=== PATIENT | male | born 1960 | race Caucasian/White ===

== ENCOUNTER 2016-10-11 10:55 | Emergency (ER) | payer MEDICAID, OTHER ==
[~2016-10-11 10:55] MED LIST: AMLO10TA2 PO; ASPI81TA85 PO; ATOR1TAB18 PO; ATOR1TAB21 PO; CEPH500C PO; CLEO300C2 PO; CLOP75TA2 PO; FOLI1TAB2 PO; HYDR10TAB PO; ISOS10TAB PO; KEFL500C7 PO; LOSA100T36 PO; NEUR300C PO; OMEP40CA2 PO; OXYC1TAB23 PO; SERT-138 PO; SERT-141 PO; TIZA4CAP3 PO; TRAM50TA2 PO; VITA50003 PO
[2016-10-11] MEDS ORDERED: CLINDAMYCIN 600 MG/50 ML PREMIX BAG As Ordered ONE (13:09)
[2016-10-11] MEDS ORDERED: MORPHINE 4 MG/ML 1ML SYRINGE As Ordered ONE (13:09)
--- NOTE | 2016-10-11 13:30 | REP ---
LEFT LOWER EXTREMITY DUPLEX VEINS: HISTORY: Calf pain. There are no filling defects in the deep venous system. The deep venous system is patent. IMPRESSION: There is no deep venous thrombosis. Signed by Bill Cantu MD 10/11/2016 01:43 P
[2016-10-11 13:32] LABS: BASO % 0.2 % (0.0-1.0); EOS # 0.1 K/mm3 (0.0-0.50); EOS % 0.5 % (0.0-3.0); LARGE UNSTAINED CELL # 0.2 K/mm3 (0.0-0.4); LARGE UNSTAINED CELL % 1.4 % (0.0-4.0); LYMPH # 1.4 K/mm3 (1.5-4.5); LYMPH % 9.8 % (24.0-44.0); MEAN CORPUSCULAR HEMOGLOBIN 35.9 pg (27.0-33.0); MEAN CORPUSCULAR HGB CONC 34.3 g/dl (32.0-36.5); MEAN CORPUSCULAR VOLUME 104.7 fl (80.0-96.0); MONO # 0.8 K/mm3 (0.0-0.8); MONO % 5.7 % (0.0-5.0); NEUTROPHILS # 11.5 K/mm3 (1.8-7.7); NEUTROPHILS % 82.5 % (36.0-66.0); PLATELET COUNT, AUTOMATED 124 k/mm3 (150-450); RED CELL DISTRIBUTION WIDTH 12.5 % (11.5-14.5); WHITE BLOOD COUNT 13.9 K/mm3 (4.0-10.0)
[2016-10-11 13:38] LABS: ANION GAP 7 MEQ/L (8-16); BLOOD UREA NITROGEN 13 MG/DL (7-18); CALCIUM LEVEL 9.1 MG/DL (8.5-10.1); CARBON DIOXIDE LEVEL 27 MEQ/L (21-32); CHLORIDE LEVEL 107 MEQ/L (98-107); CREATININE FOR GFR 0.89 MG/DL (0.70-1.30); GLOMERULAR FILTRATION RATE > 60.0 (>56); GLUCOSE, FASTING 103 MG/DL (70-105); POTASSIUM SERUM 4.1 MEQ/L (3.5-5.1); SODIUM LEVEL 141 MEQ/L (136-145)
--- NOTE | 2016-10-11 14:09 | REP ---
Left foot four views: Comparison is 11/09/2015. Mineralization and joint spaces are normal for patient age. There is no fracture or dislocation. No calcifications or foreign bodies. There is a calcaneal plantar spur measuring 9 mm length, unchanged from the prior study. Impression: Negative left foot except for a calcaneal plantar spur, unchanged. Signed by Jose Lora MD 10/11/2016 02:01 P
[2016-10-11 14:11] LABS: ERYTHROCYTE SEDIMENTATION RATE 30 mm/hr (0-20)
[2016-10-11] MEDS ORDERED: HYDROmorphone HCL 1 MG/ML SYRINGE (J1170) As Ordered ONE (14:33)
--- NOTE | 2016-10-11 15:02 | EDDOCDS ---
Nurse's Notes [facility] Name: Rustam Rincon Age: 55 yrs Sex: Male : 1960 Arrival Date: 10/11/2016 Time: 10:55 Bed I4 / M4 Private MD: Shawna Kirkland C Diagnosis: Pain in left foot;Cellulitis of left lower limb;Thrombocytopenia, unspecified Presentation: 10/11 11:17 Presenting complaint: Patient states: since Saturday left knee and left foot pain, denies kpj injury. States left foot beet red. Adult Sepsis Screening: The patient does not have new or worsening altered mentation. Patient's respiratory rate is less than 22. Systolic blood pressure is greater than 100. Patient has a qSOFA score of 0- Negative Sepsis Screen. Suicide/Homicide risk assessment- the patient denies having any suicidal and/or homicidal ideations and does not present with any other emotional, behavioral or mental health complaints. Status: Patient is not a service desk technician or dependent. Transition of care: patient was not received from another setting of care. 11:17 Acuity: DOMENIC Level 3 [facility] 11:17 Method Of Arrival: Walkin/Carried/Asstd kp Triage Assessment: 11:24 General: Appears uncomfortable, Behavior is appropriate for age. Pain: Location: left kpj knee left foot Pain currently is 10 out of 10 on a pain scale. HIV screening NA for this visit Offered previously. Neurological: Level of Consciousness is awake, alert, Oriented to person, place, time. Respiratory: Airway is patent Respiratory effort is even, unlabored. Derm: Skin is pink, warm & dry. Musculoskeletal: Reports pain in left knee and dorsum of left foot Pain is 10 out of 10 on a pain scale. Historical: - Allergies: Ciprofloxacin (Swelling); - Home Meds: 1. omeprazole 40 mg Oral cpDR 1 cap nightly (Last dose: 10/10/2016) 2. Vitamin D2 50,000 unit oral cap once wkly 3. clopidogrel 75 mg oral tab 1 tab once daily (Last dose: 10/11/2016 10:00) 4. folic acid 1 mg Oral tab 1 tab once daily (Last dose: 10/11/2016 10:00) 5. Sertraline 100 mg daily (Last dose: 10/11/2016 10:00) 6. amlodipine 10 mg Oral tab 1 tab once daily (Last dose: 10/11/2016 10:00) 7. isosorbide mononitrate 10 mg Oral tab 1 tab 2 times per day (Last dose: 10/11/2016 10:00) 8. hydralazine 10 mg Oral tab 1 tab 2 times per day (Last dose: 10/11/2016 10:00) 9. allopurinol 100 mg Oral tab 1 tab once daily (Last dose: 10/10/2016) 10. losartan 100 mg oral tab 1 tab nightly (Last dose: 10/10/2016) 11. atorvastatin 80 mg oral tab 1 tab nightly (Last dose: 10/10/2016) 12. aspirin 81 mg oral TbEC 1 tab nightly (Last dose: 10/10/2016) 13. tizanidine 4 mg oral tab as neeed (Last dose: Unknown) - PMHx: Alcoholism; Depression; GERD; Hypercholesterolemia; Hypertension; Right Carotid Total Occlusion; - PSHx: right elbow; left knee; left wrist; bilateral index finger surgeries; - Social history: Smoking status: Patient uses tobacco products, light tobacco smoker. No barriers to communication noted, The patient speaks fluent Kiswahili. - Family history: Not pertinent. - : The pt / caregiver states he / she is on anticoagulants: Plavix. Home medication list is obtained from the patient. - Exposure Risk Screening:: None identified. Screenin:07 Screening information is obtained from the patient. Fall risk: No risks identified. rs3 Assistance ADL's: requires no assistance with activities of daily living. Abuse/DV Screen: The patient / caregiver reports he/she is: not in a situation that causes fear, pain or injury. Nutritional screening: No deficits noted. Advance Directives: Currently, there is no health care proxy. There is no active DNR order. home support is adequate. Assessment: 13:03 General: Appears in no apparent distress, Behavior is appropriate for age, cooperative. rs3 Pain: Location: lateral aspect of left knee, medial aspect of left knee, anterior aspect of left ankle and dorsum of left foot. Neurological: Level of Consciousness is awake, alert, Oriented to person, place, time. Respiratory: Airway is patent Respiratory effort is even, unlabored. Derm: erythema on left foot dorsal , medial and lateral aspects. pedal pulses non palpable. patient states that pedal pulses per Doppler only h/o small vessel disease/peripheral neuropathy. dorsalis pedis +2 Swollen area noted. 14:11 General: Appears in no apparent distress, patient ambulating in room without rs3 difficulty. ordered med given. family at bedside. resting comfortable on stretcher. 14:37 Reassessment: Patient appears in no apparent distress at this time. Pain: Location: kr3 dorsum of left foot Pain currently is 10 out of 10 on a pain scale. Respiratory: Respiratory effort is even, unlabored. Derm: Skin is normal. 15:01 Reassessment: Patient appears in no apparent distress at this time. Pain: Location: kr3 dorsum of left foot Pain currently is 8 out of 10 on a pain scale. Respiratory: Respiratory effort is even, unlabored. Derm: Skin is normal. Vital Signs: 10:57 BP 115 / 73; Pulse 98; Resp 18; Temp 99.7(O); Pulse Ox 99% on R/A; Weight 72.57 kg (R); elp Height 5 ft. 4 in. (162.56 cm) (R); 14:13 BP 150 / 82; Pulse 89; Resp 18; Temp 99.1(TE); Pulse Ox 98% on R/A; Pain 10/10; nb2 14:49 BP 115 / 70; Pulse 86; Resp 16; Temp 97.5(T); Pulse Ox 93% ; Pain 8/10; kr3 10:57 Body Mass Index 27.46 (72.57 kg, 162.56 cm) [facility] Vitals: 10:57 Log In Time: October 11, 2016 at 10:51. el ED Course: 10:57 Patient visited by Joellen Castellon PCA. elp 10:57 Shawna Kirkland is Private Physician. elp 10:57 Patient visited by Joellen Castellon PCA. elp 10:57 Patient moved to Waiting elp 10:57 Patient moved to Pre RCE elp 11:19 Triage Initiated kp 12:10 Patient moved to Triage 1 dsf 12:28 [facility] dt4 12:28 Sharon Osborn MD is Attending Physician. dt4 12:28 Patient visited by Caitlyn Falk PA-C. dt4 12:43 Patient moved to I4 / M4 dsf 13:02 Patient moved to Ultrasound sm5 13:02 CBC with Diff Sent. rs3 13:02 Basic Metabolic Profile Sent. rs3 13:02 CRP Sent. rs3 13:02 Sed Rate Sent. rs3 13:03 Uric Acid Sent. rs3 13:07 Inserted saline lock: 20 gauge in right antecubital area and blood collected. The rs3 patient tolerated the procedure well. 13:08 [facility] Payment Agreement was scanned into [employer] and attached to record. lg 13:16 Patient moved to I4 / M4 sm5 13:27 Patient visited by Millicent Ramirez RN. rs3 14:06 US Lower Extremity R/O DVT Returned. EDMS 14:11 Patient visited by Millicent Ramirez RN. rs3 14:13 Patient visited by Leticia Oconnor. nb2 14:20 The patient / caregiver is instructed regarding the plan of care and ED course. kr3 Accompanied by Family Member, Patient has correct armband on for positive identification. Bed in low position. Call light in reach. Side rails up X 1. 14:38 Patient visited by Cat Sahu RN. kr3 14:38 No procedures done that require assistance. kr3 14:51 Shawna Kirkland is Referral Physician. dt4 14:55 Foot, Complete Returned. EDMS 15:00 Discontinued lock intact, bleeding controlled, pressure dressing applied, No kr3 redness/swelling at site. Administered Medications: 13:28 Drug: morphine 4 mg [morphine 4 mg/mL intravenous cartridge (1 mL)] Route: IVP; Site: rs3 right antecubital; 13:28 Drug: Clindamycin 600 mg Route: IVPB; Infused Over: 30 mins; Site: right antecubital; rs3 14:37 Follow up: IV Status: Completed infusion kr3 14:37 Drug: Dilaudid - HYDROmorphone 1 mg [hydromorphone 1 mg/mL injection syringe (1 mL)] kr3 Route: IVP; Site: right antecubital; 14:49 Follow up: BP 115 / 70; Pulse 86 bpm; Resp 16 bpm; Temp 97.5 Tympanic; Pulse Ox 93% ; kr3 Pain 8/10 Adult; Response: Pain is decreased Order Results: Lab Order: CBC with Diff; SPEC'M 10/11/16 13:00 Test: WHITE BLOOD COUNT; Value: 13.9; Range: 4.0-10.0; Abnormal: Above high normal; Units: K/mm3; Status: F Test: RED BLOOD COUNT; Value: 3.84; Range: 4.30-6.10; Abnormal: Below low normal; Units: M/mm3; Status: F Test: HEMOGLOBIN; Value: 13.8; Range: 14.0-18.0; Abnormal: Below low normal; Units: g/dl; Status: F Test: HEMATOCRIT; Value: 40.2; Range: 42.0-52.0; Abnormal: Below low normal; Units: %; Status: F Test: MEAN CORPUSCULAR VOLUME; Value: 104.7; Range: 80.0-96.0; Abnormal: Above high normal; Units: fl; Status: F Test: MEAN CORPUSCULAR HEMOGLOBIN; Value: 35.9; Range: 27.0-33.0; Abnormal: Above high normal; Units: pg; Status: F Test: MEAN CORPUSCULAR HGB CONC; Value: 34.3; Range: 32.0-36.5; Units: g/dl; Status: F Test: RED CELL DISTRIBUTION WIDTH; Value: 12.5; Range: 11.5-14.5; Units: %; Status: F Test: PLATELET COUNT, AUTOMATED; Value: 124; Range: 150-450; Abnormal: Below low normal; Units: k/mm3; Status: F Test: NEUTROPHILS %; Value: 82.5; Range: 36.0-66.0; Abnormal: Above high normal; Units: %; Status: F Test: LYMPH %; Value: 9.8; Range: 24.0-44.0; Abnormal: Below low normal; Units: %; Status: F Test: MONO %; Value: 5.7; Range: 0.0-5.0; Abnormal: Above high normal; Units: %; Status: F Test: EOS %; Value: 0.5; Range: 0.0-3.0; Units: %; Status: F Test: BASO %; Value: 0.2; Range: 0.0-1.0; Units: %; Status: F Test: LARGE UNSTAINED CELL %; Value: 1.4; Range: 0.0-4.0; Units: %; Status: F Test: NEUTROPHILS #; Value: 11.5; Range: 1.8-7.7; Abnormal: Above high normal; Units: K/mm3; Status: F Test: LYMPH #; Value: 1.4; Range: 1.5-4.5; Abnormal: Below low normal; Units: K/mm3; Status: F Test: MONO #; Value: 0.8; Range: 0.0-0.8; Units: K/mm3; Status: F Test: EOS #; Value: 0.1; Range: 0.0-0.50; Units: K/mm3; Status: F Test: BASO #; Value: 0.0; Range: 0.0-0.2; Units: K/mm3; Status: F Test: LARGE UNSTAINED CELL #; Value: 0.2; Range: 0.0-0.4; Units: K/mm3; Status: F Lab Order: Basic Metabolic Profile; [facility] 10/11/16 13:00 Test: GLUCOSE, FASTING; Value: 103; Range: 70-105; Units: MG/DL; Status: F Test: BLOOD UREA NITROGEN; Value: 13; Range: 7-18; Units: MG/DL; Status: F Test: CREATININE FOR GFR; Value: 0.89; Range: 0.70-1.30; Units: MG/DL; Status: F Test: GLOMERULAR FILTRATION RATE; Value: > 60.0; Range: >56; Status: F Test: SODIUM LEVEL; Value: 141; Range: 136-145; Units: MEQ/L; Status: F Test: POTASSIUM SERUM; Value: 4.1; Range: 3.5-5.1; Units: MEQ/L; Status: F Test: CHLORIDE LEVEL; Value: 107; Range: 98-107; Units: MEQ/L; Status: F Test: CARBON DIOXIDE LEVEL; Value: 27; Range: 21-32; Units: MEQ/L; Status: F Test: ANION GAP; Value: 7; Range: 8-16; Abnormal: Below low normal; Units: MEQ/L; Status: F Test: CALCIUM LEVEL; Value: 9.1; Range: 8.5-10.1; Units: MG/DL; Status: F Test Note: ; Units are mL/min/1.73 m2 Chronic Kidney Disease Staging per NKF: Stage I & II GFR >=60 Normal to Mildly Decreased Stage III GFR 30-59 Moderately Decreased Stage IV GFR 15-29 Severely Decreased Stage V GFR <15 Very Little GFR Left ESRD GFR <15 on RETINA SUBSPECIALIST Lab Order: CRP; [facility] 10/11/16 13:00 Test: C REACTIVE PROTEIN QUANTITATIV; Value: 3.46; Range: 0.00-0.30; Abnormal: Above high normal; Units: MG/DL; Status: F Lab Order: Sed Rate; [facility] 10/11/16 13:00 Test: ERYTHROCYTE SEDIMENTATION RATE; Value: 30; Range: 0-20; Abnormal: Above high normal; Units: mm/hr; Status: F Lab Order: Uric Acid; [facility] 10/11/16 13:00 Test: URIC ACID; Value: 5.0; Range: 3.5-7.2; Units: MG/DL; Status: F Radiology Order: US Lower Extremity R/O DVT Test: US Lower Extremity R/O DVT REASON FOR EXAMINATION: LEFT FOOT/CALF PAIN; LEFT LOWER EXTREMITY DUPLEX VEINS:; ; HISTORY: Calf pain.; ; There are no filling defects in the deep venous system. The deep venous system is; patent.; ; IMPRESSION:; ; There is no deep venous thrombosis.; ; ; Signed by; Bill Cantu MD 10/11/2016 01:43 P; Radiology Order: Foot, Complete Test: Foot, Complete REASON FOR EXAMINATION: LEFT FOOT PAIN; Left foot four views:; ; Comparison is 11/09/2015.; ; Mineralization and joint spaces are normal for patient age. There is no fracture; or dislocation. No calcifications or foreign bodies.; ; There is a calcaneal plantar spur measuring 9 mm length, unchanged from the prior; study.; ; Impression:; ; Negative left foot except for a calcaneal plantar spur, unchanged.; ; ; Signed by; Jose Lora MD 10/11/2016 02:01 P; Outcome: 14:20 Ultrasound Study completed. kr3 14:52 Discharge ordered by Provider. dt4 15:00 Discharge Assessment: patient administered narcotics - yes. Pt provided with safe kr3 discharge. The following High Risk Discharge criteria are identified: None. Discharged to home via wheelchair. Condition: stable. Discharge instructions given to patient, Instructed on discharge instructions, follow up and referral plans. medication usage, no driving heavy equipment, no drinking with medication, Demonstrated understanding of instructions, medications, Pt was receptive of discharge instructions/ teaching. Prescriptions given X 2. Property sent home with patient. 15:01 Patient left the ED. kr3 Signatures: Dispatcher [employer] EDMS Opal Bradley, RN RN kpj Devin Villegas, Reg Reg lg Luz Maria Carmona sm5 Cat Sahu RN RN kr3 Millicent RamirezRN RN rs3 Gabriella Lawson,RN RN dsf Joellen Castellon, INFORMATION COORDINATOR INFORMATION COORDINATOR brittonp Caitlyn Falk, PA-C PA-C dt4 Leticia Oconnor2 OSKAR
--- NOTE | 2016-10-11 15:02 | EDDOCDS ---
Physician Documentation [facility] Name: Rustam Rincon Age: 55 yrs Sex: Male : 1960 Arrival Date: 10/11/2016 Time: 10:55 Bed I4 / M4 Private MD: Shawna Kirkland C Disposition: 10/11/16 14:52 Discharged to Home/Self Care. Impression: Pain in left foot, Cellulitis of left lower limb, Thrombocytopenia, unspecified. - Condition is Stable. - Discharge Instructions: Cellulitis, Thrombocytopenia. - Prescriptions for Clindamycin HCl 300 mg Oral Capsule - take 1 capsule by ORAL route every 6 hours; 40 capsule. Percocet 5- 325 mg Oral Tablet - take 1 tablet by ORAL route every 6 hours As needed MDD: 4 tabs; 15 tablet. - Medication Reconciliation, Local Pharmacy Hours form. - Follow up: Emergency Department; When: As needed; Reason: Worsening of conditions. Follow up: Shawna Kirkland; When: 2 - 3 days; Reason: Wound/Symptom Recheck, Recheck today's complaints, Continuance of care. - Problem is new. - Symptoms have improved. Historical: - Allergies: Ciprofloxacin (Swelling); - Home Meds: 1. omeprazole 40 mg Oral cpDR 1 cap nightly (Last dose: 10/10/2016) 2. Vitamin D2 50,000 unit oral cap once wkly 3. clopidogrel 75 mg oral tab 1 tab once daily (Last dose: 10/11/2016 10:00) 4. folic acid 1 mg Oral tab 1 tab once daily (Last dose: 10/11/2016 10:00) 5. Sertraline 100 mg daily (Last dose: 10/11/2016 10:00) 6. amlodipine 10 mg Oral tab 1 tab once daily (Last dose: 10/11/2016 10:00) 7. isosorbide mononitrate 10 mg Oral tab 1 tab 2 times per day (Last dose: 10/11/2016 10:00) 8. hydralazine 10 mg Oral tab 1 tab 2 times per day (Last dose: 10/11/2016 10:00) 9. allopurinol 100 mg Oral tab 1 tab once daily (Last dose: 10/10/2016) 10. losartan 100 mg oral tab 1 tab nightly (Last dose: 10/10/2016) 11. atorvastatin 80 mg oral tab 1 tab nightly (Last dose: 10/10/2016) 12. aspirin 81 mg oral TbEC 1 tab nightly (Last dose: 10/10/2016) 13. tizanidine 4 mg oral tab as neeed (Last dose: Unknown) - PMHx: Alcoholism; Depression; GERD; Hypercholesterolemia; Hypertension; Right Carotid Total Occlusion; - PSHx: right elbow; left knee; left wrist; bilateral index finger surgeries; - Social history: Smoking status: Patient uses tobacco products, light tobacco smoker. No barriers to communication noted, The patient speaks fluent Croatian. - Family history: Not pertinent. - : The pt / caregiver states he / she is on anticoagulants: Plavix. Home medication list is obtained from the patient. - Exposure Risk Screening:: None identified. Vital Signs: 10/11 10:57 BP 115 / 73; Pulse 98; Resp 18; Temp 99.7(O); Pulse Ox 99% on R/A; Weight 72.57 kg / elp 159.99 lbs (R); Height 5 ft. 4 in. (162.56 cm) (R); 14:13 BP 150 / 82; Pulse 89; Resp 18; Temp 99.1(TE); Pulse Ox 98% on R/A; Pain 10/10; nb2 14:49 BP 115 / 70; Pulse 86; Resp 16; Temp 97.5(T); Pulse Ox 93% ; Pain 8/10; kr3 10:57 Body Mass Index 27.46 (72.57 kg, 162.56 cm) elp MDM: 12:46 IV Saline Lock ordered. dt4 12:46 morphine 4 mg IVP once ordered. dt4 12:48 CBC with Diff Ordered. EDMS 12:48 Basic Metabolic Profile Ordered. EDMS 12:48 CRP Ordered. EDMS 12:48 Sed Rate Ordered. EDMS 12:48 Uric Acid Ordered. EDMS 12:48 US Lower Extremity R/O DVT Ordered. EDMS 12:48 Foot, Complete Ordered. EDMS 12:49 Financial registration complete. lg 12:50 Clindamycin 600 mg IVPB once over 30 mins; dilute in 50mL of NS or D5W ordered. dt4 13:08 [facility] Payment Agreement was scanned into [employer] and attached to record. lg 14:23 Dilaudid - HYDROmorphone 1 mg IVP once ordered. dt4 Administered Medications: 13:28 Drug: morphine 4 mg [morphine 4 mg/mL intravenous cartridge (1 mL)] Route: IVP; Site: rs3 right antecubital; 13:28 Drug: Clindamycin 600 mg Route: IVPB; Infused Over: 30 mins; Site: right antecubital; rs3 14:37 Follow up: IV Status: Completed infusion kr3 14:37 Drug: Dilaudid - HYDROmorphone 1 mg [hydromorphone 1 mg/mL injection syringe (1 mL)] kr3 Route: IVP; Site: right antecubital; 14:49 Follow up: BP 115 / 70; Pulse 86 bpm; Resp 16 bpm; Temp 97.5 Tympanic; Pulse Ox 93% ; kr3 Pain 8/10 Adult; Response: Pain is decreased Signatures: Dispatcher [employer] EDMS Opal Bradley RN RN kpj Devin Villegas, Reg Reg lg Cat Sahu RN RN kr3 Caitlyn Falk PA-C PA-C dt4 Millicent Ramirez RN rs3 The chart was reviewed and I authenticate all verbal orders and agree with the evaluation and treatment provided.Attachments: 13:08 [facility] Payment Agreement lg MTDD
--- NOTE | 2016-10-13 16:02 | EDDOCDS ---
Nurse's Notes [facility] Name: Rustam Rincon Age: 55 yrs Sex: Male : 1960 Arrival Date: 10/11/2016 Time: 10:55 Bed I4 / M4 Private MD: Shawna Kirkland C Diagnosis: Pain in left foot;Cellulitis of left lower limb;Thrombocytopenia, unspecified Presentation: 10/11 11:17 Presenting complaint: Patient states: since Saturday left knee and left foot pain, denies kpj injury. States left foot beet red. Adult Sepsis Screening: The patient does not have new or worsening altered mentation. Patient's respiratory rate is less than 22. Systolic blood pressure is greater than 100. Patient has a qSOFA score of 0- Negative Sepsis Screen. Suicide/Homicide risk assessment- the patient denies having any suicidal and/or homicidal ideations and does not present with any other emotional, behavioral or mental health complaints. Status: Patient is not a financial services agent or dependent. Transition of care: patient was not received from another setting of care. 11:17 Acuity: DOMENIC Level 3 [facility] 11:17 Method Of Arrival: Walkin/Carried/Asstd kp Triage Assessment: 11:24 General: Appears uncomfortable, Behavior is appropriate for age. Pain: Location: left kpj knee left foot Pain currently is 10 out of 10 on a pain scale. HIV screening NA for this visit Offered previously. Neurological: Level of Consciousness is awake, alert, Oriented to person, place, time. Respiratory: Airway is patent Respiratory effort is even, unlabored. Derm: Skin is pink, warm & dry. Musculoskeletal: Reports pain in left knee and dorsum of left foot Pain is 10 out of 10 on a pain scale. Historical: - Allergies: Ciprofloxacin (Swelling); - Home Meds: 1. omeprazole 40 mg Oral cpDR 1 cap nightly (Last dose: 10/10/2016) 2. Vitamin D2 50,000 unit oral cap once wkly 3. clopidogrel 75 mg oral tab 1 tab once daily (Last dose: 10/11/2016 10:00) 4. folic acid 1 mg Oral tab 1 tab once daily (Last dose: 10/11/2016 10:00) 5. Sertraline 100 mg daily (Last dose: 10/11/2016 10:00) 6. amlodipine 10 mg Oral tab 1 tab once daily (Last dose: 10/11/2016 10:00) 7. isosorbide mononitrate 10 mg Oral tab 1 tab 2 times per day (Last dose: 10/11/2016 10:00) 8. hydralazine 10 mg Oral tab 1 tab 2 times per day (Last dose: 10/11/2016 10:00) 9. allopurinol 100 mg Oral tab 1 tab once daily (Last dose: 10/10/2016) 10. losartan 100 mg oral tab 1 tab nightly (Last dose: 10/10/2016) 11. atorvastatin 80 mg oral tab 1 tab nightly (Last dose: 10/10/2016) 12. aspirin 81 mg oral TbEC 1 tab nightly (Last dose: 10/10/2016) 13. tizanidine 4 mg oral tab as neeed (Last dose: Unknown) - PMHx: Alcoholism; Depression; GERD; Hypercholesterolemia; Hypertension; Right Carotid Total Occlusion; - PSHx: right elbow; left knee; left wrist; bilateral index finger surgeries; - Social history: Smoking status: Patient uses tobacco products, light tobacco smoker. No barriers to communication noted, The patient speaks fluent Faroese. - Family history: Not pertinent. - : The pt / caregiver states he / she is on anticoagulants: Plavix. Home medication list is obtained from the patient. - Exposure Risk Screening:: None identified. Screenin:07 Screening information is obtained from the patient. Fall risk: No risks identified. rs3 Assistance ADL's: requires no assistance with activities of daily living. Abuse/DV Screen: The patient / caregiver reports he/she is: not in a situation that causes fear, pain or injury. Nutritional screening: No deficits noted. Advance Directives: Currently, there is no health care proxy. There is no active DNR order. home support is adequate. Assessment: 13:03 General: Appears in no apparent distress, Behavior is appropriate for age, cooperative. rs3 Pain: Location: lateral aspect of left knee, medial aspect of left knee, anterior aspect of left ankle and dorsum of left foot. Neurological: Level of Consciousness is awake, alert, Oriented to person, place, time. Respiratory: Airway is patent Respiratory effort is even, unlabored. Derm: erythema on left foot dorsal , medial and lateral aspects. pedal pulses non palpable. patient states that pedal pulses per Doppler only h/o small vessel disease/peripheral neuropathy. dorsalis pedis +2 Swollen area noted. 14:11 General: Appears in no apparent distress, patient ambulating in room without rs3 difficulty. ordered med given. family at bedside. resting comfortable on stretcher. 14:37 Reassessment: Patient appears in no apparent distress at this time. Pain: Location: kr3 dorsum of left foot Pain currently is 10 out of 10 on a pain scale. Respiratory: Respiratory effort is even, unlabored. Derm: Skin is normal. 15:01 Reassessment: Patient appears in no apparent distress at this time. Pain: Location: kr3 dorsum of left foot Pain currently is 8 out of 10 on a pain scale. Respiratory: Respiratory effort is even, unlabored. Derm: Skin is normal. Vital Signs: 10:57 BP 115 / 73; Pulse 98; Resp 18; Temp 99.7(O); Pulse Ox 99% on R/A; Weight 72.57 kg (R); elp Height 5 ft. 4 in. (162.56 cm) (R); 14:13 BP 150 / 82; Pulse 89; Resp 18; Temp 99.1(TE); Pulse Ox 98% on R/A; Pain 10/10; nb2 14:49 BP 115 / 70; Pulse 86; Resp 16; Temp 97.5(T); Pulse Ox 93% ; Pain 8/10; kr3 10:57 Body Mass Index 27.46 (72.57 kg, 162.56 cm) [facility] Vitals: 10:57 Log In Time: October 11, 2016 at 10:51. el ED Course: 10:57 Patient visited by Joellen Castellon PCA. elp 10:57 Shawna Kirkland is Private Physician. elp 10:57 Patient visited by Joellen Castellon PCA. elp 10:57 Patient moved to Waiting elp 10:57 Patient moved to Pre RCE elp 11:19 Triage Initiated kp 12:10 Patient moved to Triage 1 dsf 12:28 [facility] dt4 12:28 Sharon Osborn MD is Attending Physician. dt4 12:28 Patient visited by Caitlyn Falk PA-C. dt4 12:43 Patient moved to I4 / M4 dsf 13:02 Patient moved to Ultrasound sm5 13:02 CBC with Diff Sent. rs3 13:02 Basic Metabolic Profile Sent. rs3 13:02 CRP Sent. rs3 13:02 Sed Rate Sent. rs3 13:03 Uric Acid Sent. rs3 13:07 Inserted saline lock: 20 gauge in right antecubital area and blood collected. The rs3 patient tolerated the procedure well. 13:08 REPLACED BY [facility] Payment Agreement was scanned into [employer] and attached to record. lg 13:16 Patient moved to I4 / M4 sm5 13:27 Patient visited by Millicent Ramirez,OLI. rs3 14:06 US Lower Extremity R/O DVT Returned. EDMS 14:11 Patient visited by Millicent Ramirez RN. rs3 14:13 Patient visited by Leticia Oconnor. nb2 14:20 The patient / caregiver is instructed regarding the plan of care and ED course. kr3 Accompanied by Family Member, Patient has correct armband on for positive identification. Bed in low position. Call light in reach. Side rails up X 1. 14:38 Patient visited by Cat Sahu RN. kr3 14:38 No procedures done that require assistance. kr3 14:51 Shawna Kirkland is Referral Physician. dt4 14:55 Foot, Complete Returned. EDMS 15:00 Discontinued lock intact, bleeding controlled, pressure dressing applied, No kr3 redness/swelling at site. 10/12 10:43 T-Sheet-- Draft Copy was scanned into [employer] and attached to record. gb 10:43 Radiology Report was scanned into [employer] and attached to record. gb Administered Medications: 10/11 13:28 Drug: morphine 4 mg [morphine 4 mg/mL intravenous cartridge (1 mL)] Route: IVP; Site: rs3 right antecubital; 13:28 Drug: Clindamycin 600 mg Route: IVPB; Infused Over: 30 mins; Site: right antecubital; rs3 14:37 Follow up: IV Status: Completed infusion kr3 14:37 Drug: Dilaudid - HYDROmorphone 1 mg [hydromorphone 1 mg/mL injection syringe (1 mL)] kr3 Route: IVP; Site: right antecubital; 14:49 Follow up: BP 115 / 70; Pulse 86 bpm; Resp 16 bpm; Temp 97.5 Tympanic; Pulse Ox 93% ; kr3 Pain 8/10 Adult; Response: Pain is decreased Order Results: Lab Order: CBC with Diff; SPEC'M 10/11/16 13:00 Test: WHITE BLOOD COUNT; Value: 13.9; Range: 4.0-10.0; Abnormal: Above high normal; Units: K/mm3; Status: F Test: RED BLOOD COUNT; Value: 3.84; Range: 4.30-6.10; Abnormal: Below low normal; Units: M/mm3; Status: F Test: HEMOGLOBIN; Value: 13.8; Range: 14.0-18.0; Abnormal: Below low normal; Units: g/dl; Status: F Test: HEMATOCRIT; Value: 40.2; Range: 42.0-52.0; Abnormal: Below low normal; Units: %; Status: F Test: MEAN CORPUSCULAR VOLUME; Value: 104.7; Range: 80.0-96.0; Abnormal: Above high normal; Units: fl; Status: F Test: MEAN CORPUSCULAR HEMOGLOBIN; Value: 35.9; Range: 27.0-33.0; Abnormal: Above high normal; Units: pg; Status: F Test: MEAN CORPUSCULAR HGB CONC; Value: 34.3; Range: 32.0-36.5; Units: g/dl; Status: F Test: RED CELL DISTRIBUTION WIDTH; Value: 12.5; Range: 11.5-14.5; Units: %; Status: F Test: PLATELET COUNT, AUTOMATED; Value: 124; Range: 150-450; Abnormal: Below low normal; Units: k/mm3; Status: F Test: NEUTROPHILS %; Value: 82.5; Range: 36.0-66.0; Abnormal: Above high normal; Units: %; Status: F Test: LYMPH %; Value: 9.8; Range: 24.0-44.0; Abnormal: Below low normal; Units: %; Status: F Test: MONO %; Value: 5.7; Range: 0.0-5.0; Abnormal: Above high normal; Units: %; Status: F Test: EOS %; Value: 0.5; Range: 0.0-3.0; Units: %; Status: F Test: BASO %; Value: 0.2; Range: 0.0-1.0; Units: %; Status: F Test: LARGE UNSTAINED CELL %; Value: 1.4; Range: 0.0-4.0; Units: %; Status: F Test: NEUTROPHILS #; Value: 11.5; Range: 1.8-7.7; Abnormal: Above high normal; Units: K/mm3; Status: F Test: LYMPH #; Value: 1.4; Range: 1.5-4.5; Abnormal: Below low normal; Units: K/mm3; Status: F Test: MONO #; Value: 0.8; Range: 0.0-0.8; Units: K/mm3; Status: F Test: EOS #; Value: 0.1; Range: 0.0-0.50; Units: K/mm3; Status: F Test: BASO #; Value: 0.0; Range: 0.0-0.2; Units: K/mm3; Status: F Test: LARGE UNSTAINED CELL #; Value: 0.2; Range: 0.0-0.4; Units: K/mm3; Status: F Lab Order: Basic Metabolic Profile; [facility]' 10/11/16 13:00 Test: GLUCOSE, FASTING; Value: 103; Range: 70-105; Units: MG/DL; Status: F Test: BLOOD UREA NITROGEN; Value: 13; Range: 7-18; Units: MG/DL; Status: F Test: CREATININE FOR GFR; Value: 0.89; Range: 0.70-1.30; Units: MG/DL; Status: F Test: GLOMERULAR FILTRATION RATE; Value: > 60.0; Range: >56; Status: F Test: SODIUM LEVEL; Value: 141; Range: 136-145; Units: MEQ/L; Status: F Test: POTASSIUM SERUM; Value: 4.1; Range: 3.5-5.1; Units: MEQ/L; Status: F Test: CHLORIDE LEVEL; Value: 107; Range: 98-107; Units: MEQ/L; Status: F Test: CARBON DIOXIDE LEVEL; Value: 27; Range: 21-32; Units: MEQ/L; Status: F Test: ANION GAP; Value: 7; Range: 8-16; Abnormal: Below low normal; Units: MEQ/L; Status: F Test: CALCIUM LEVEL; Value: 9.1; Range: 8.5-10.1; Units: MG/DL; Status: F Test Note: ; Units are mL/min/1.73 m2 Chronic Kidney Disease Staging per NKF: Stage I & II GFR >=60 Normal to Mildly Decreased Stage III GFR 30-59 Moderately Decreased Stage IV GFR 15-29 Severely Decreased Stage V GFR <15 Very Little GFR Left ESRD GFR <15 on ACTIVITY COORDINATOR Lab Order: CRP; [facility] 10/11/16 13:00 Test: C REACTIVE PROTEIN QUANTITATIV; Value: 3.46; Range: 0.00-0.30; Abnormal: Above high normal; Units: MG/DL; Status: F Lab Order: Sed Rate; [facility] 10/11/16 13:00 Test: ERYTHROCYTE SEDIMENTATION RATE; Value: 30; Range: 0-20; Abnormal: Above high normal; Units: mm/hr; Status: F Lab Order: Uric Acid; [facility] 10/11/16 13:00 Test: URIC ACID; Value: 5.0; Range: 3.5-7.2; Units: MG/DL; Status: F Radiology Order: US Lower Extremity R/O DVT Test: US Lower Extremity R/O DVT REASON FOR EXAMINATION: LEFT FOOT/CALF PAIN; LEFT LOWER EXTREMITY DUPLEX VEINS:; ; HISTORY: Calf pain.; ; There are no filling defects in the deep venous system. The deep venous system is; patent.; ; IMPRESSION:; ; There is no deep venous thrombosis.; ; ; Signed by; Bill Cantu MD 10/11/2016 01:43 P; Radiology Order: Foot, Complete Test: Foot, Complete REASON FOR EXAMINATION: LEFT FOOT PAIN; Left foot four views:; ; Comparison is 11/09/2015.; ; Mineralization and joint spaces are normal for patient age. There is no fracture; or dislocation. No calcifications or foreign bodies.; ; There is a calcaneal plantar spur measuring 9 mm length, unchanged from the prior; study.; ; Impression:; ; Negative left foot except for a calcaneal plantar spur, unchanged.; ; ; Signed by; Jose Lora MD 10/11/2016 02:01 P; Outcome: 14:20 Ultrasound Study completed. kr3 14:52 Discharge ordered by Provider. dt4 15:00 Discharge Assessment: patient administered narcotics - yes. Pt provided with safe kr3 discharge. The following High Risk Discharge criteria are identified: None. Discharged to home via wheelchair. Condition: stable. Discharge instructions given to patient, Instructed on discharge instructions, follow up and referral plans. medication usage, no driving heavy equipment, no drinking with medication, Demonstrated understanding of instructions, medications, Pt was receptive of discharge instructions/ teaching. Prescriptions given X 2. Property sent home with patient. 15:01 Patient left the ED. kr3 Signatures: Dispatcher [employer] EDMS Opal Bradley, RN RN Cynthia Hdz, Reg Reg gb Devin Villegas, Reg Reg lg Luz Maria Carmona sm5 Cat Sahu,RN RN kr3 Millicent RamirezRN RN rs3 Gabriella Lawson,RN RN dsf Joellen Castellon, SHEET LAYER SHEET LAYER elp Caitlyn Falk PA-C PAJaimee dt4 Leticia Oconnor2 Chart Complete OSKAR
--- NOTE | 2016-10-13 16:02 | EDDOCDS ---
Physician Documentation [facility] Name: Rustam Rincon Age: 55 yrs Sex: Male : 1960 Arrival Date: 10/11/2016 Time: 10:55 Bed I4 / M4 Private MD: Shawna Kirkland C Disposition: 10/11/16 14:52 Discharged to Home/Self Care. Impression: Pain in left foot, Cellulitis of left lower limb, Thrombocytopenia, unspecified. - Condition is Stable. - Discharge Instructions: Cellulitis, Thrombocytopenia. - Prescriptions for Clindamycin HCl 300 mg Oral Capsule - take 1 capsule by ORAL route every 6 hours; 40 capsule. Percocet 5- 325 mg Oral Tablet - take 1 tablet by ORAL route every 6 hours As needed MDD: 4 tabs; 15 tablet. - Medication Reconciliation, Local Pharmacy Hours form. - Follow up: Emergency Department; When: As needed; Reason: Worsening of conditions. Follow up: Shawna Kirkland; When: 2 - 3 days; Reason: Wound/Symptom Recheck, Recheck today's complaints, Continuance of care. - Problem is new. - Symptoms have improved. Historical: - Allergies: Ciprofloxacin (Swelling); - Home Meds: 1. omeprazole 40 mg Oral cpDR 1 cap nightly (Last dose: 10/10/2016) 2. Vitamin D2 50,000 unit oral cap once wkly 3. clopidogrel 75 mg oral tab 1 tab once daily (Last dose: 10/11/2016 10:00) 4. folic acid 1 mg Oral tab 1 tab once daily (Last dose: 10/11/2016 10:00) 5. Sertraline 100 mg daily (Last dose: 10/11/2016 10:00) 6. amlodipine 10 mg Oral tab 1 tab once daily (Last dose: 10/11/2016 10:00) 7. isosorbide mononitrate 10 mg Oral tab 1 tab 2 times per day (Last dose: 10/11/2016 10:00) 8. hydralazine 10 mg Oral tab 1 tab 2 times per day (Last dose: 10/11/2016 10:00) 9. allopurinol 100 mg Oral tab 1 tab once daily (Last dose: 10/10/2016) 10. losartan 100 mg oral tab 1 tab nightly (Last dose: 10/10/2016) 11. atorvastatin 80 mg oral tab 1 tab nightly (Last dose: 10/10/2016) 12. aspirin 81 mg oral TbEC 1 tab nightly (Last dose: 10/10/2016) 13. tizanidine 4 mg oral tab as neeed (Last dose: Unknown) - PMHx: Alcoholism; Depression; GERD; Hypercholesterolemia; Hypertension; Right Carotid Total Occlusion; - PSHx: right elbow; left knee; left wrist; bilateral index finger surgeries; - Social history: Smoking status: Patient uses tobacco products, light tobacco smoker. No barriers to communication noted, The patient speaks fluent Lebanese. - Family history: Not pertinent. - : The pt / caregiver states he / she is on anticoagulants: Plavix. Home medication list is obtained from the patient. - Exposure Risk Screening:: None identified. Vital Signs: 10/11 10:57 BP 115 / 73; Pulse 98; Resp 18; Temp 99.7(O); Pulse Ox 99% on R/A; Weight 72.57 kg / elp 159.99 lbs (R); Height 5 ft. 4 in. (162.56 cm) (R); 14:13 BP 150 / 82; Pulse 89; Resp 18; Temp 99.1(TE); Pulse Ox 98% on R/A; Pain 10/10; nb2 14:49 BP 115 / 70; Pulse 86; Resp 16; Temp 97.5(T); Pulse Ox 93% ; Pain 8/10; kr3 10:57 Body Mass Index 27.46 (72.57 kg, 162.56 cm) elp MDM: 12:46 IV Saline Lock ordered. dt4 12:46 morphine 4 mg IVP once ordered. dt4 12:48 CBC with Diff Ordered. EDMS 12:48 Basic Metabolic Profile Ordered. EDMS 12:48 CRP Ordered. EDMS 12:48 Sed Rate Ordered. EDMS 12:48 Uric Acid Ordered. EDMS 12:48 US Lower Extremity R/O DVT Ordered. EDMS 12:48 Foot, Complete Ordered. EDMS 12:49 Financial registration complete. lg 12:50 Clindamycin 600 mg IVPB once over 30 mins; dilute in 50mL of NS or D5W ordered. dt4 13:08 [facility] Payment Agreement was scanned into [employer] and attached to record. lg 14:23 Dilaudid - HYDROmorphone 1 mg IVP once ordered. dt4 10/12 10:43 T-Sheet-- Draft Copy was scanned into [employer] and attached to record. gb 10:43 Radiology Report was scanned into [employer] and attached to record. gb Administered Medications: 10/11 13:28 Drug: morphine 4 mg [morphine 4 mg/mL intravenous cartridge (1 mL)] Route: IVP; Site: rs3 right antecubital; 13:28 Drug: Clindamycin 600 mg Route: IVPB; Infused Over: 30 mins; Site: right antecubital; rs3 14:37 Follow up: IV Status: Completed infusion kr3 14:37 Drug: Dilaudid - HYDROmorphone 1 mg [hydromorphone 1 mg/mL injection syringe (1 mL)] kr3 Route: IVP; Site: right antecubital; 14:49 Follow up: BP 115 / 70; Pulse 86 bpm; Resp 16 bpm; Temp 97.5 Tympanic; Pulse Ox 93% ; kr3 Pain 8/10 Adult; Response: Pain is decreased Signatures: Dispatcher [employer] EDOpal Ybarra, RN RN Cynthia Hdz, Reg Reg gb Devin Villegas, Reg Reg lg Cat Sahu,RN RN kr3 Caitlyn Falk PA-C PA-C dt4 Millicent Ramirez RN rs3 The chart was reviewed and I authenticate all verbal orders and agree with the evaluation and treatment provided.Attachments: : [facility] Payment Agreement lg 10/12 10:43 T-Sheet-- Draft Copy gb Chart Complete MTDD
--- NOTE | 2016-10-13 16:03 | EDDOCDS ---
Physician Documentation [facility] Name: Rustam Rincon Age: 55 yrs Sex: Male : 1960 Arrival Date: 10/11/2016 Time: 10:55 Bed I4 / M4 Private MD: Shawna Kirkland C Disposition: 10/11/16 14:52 Discharged to Home/Self Care. Impression: Pain in left foot, Cellulitis of left lower limb, Thrombocytopenia, unspecified. - Condition is Stable. - Discharge Instructions: Cellulitis, Thrombocytopenia. - Prescriptions for Clindamycin HCl 300 mg Oral Capsule - take 1 capsule by ORAL route every 6 hours; 40 capsule. Percocet 5- 325 mg Oral Tablet - take 1 tablet by ORAL route every 6 hours As needed MDD: 4 tabs; 15 tablet. - Medication Reconciliation, Local Pharmacy Hours form. - Follow up: Emergency Department; When: As needed; Reason: Worsening of conditions. Follow up: Shawna Kirkland; When: 2 - 3 days; Reason: Wound/Symptom Recheck, Recheck today's complaints, Continuance of care. - Problem is new. - Symptoms have improved. Historical: - Allergies: Ciprofloxacin (Swelling); - Home Meds: 1. omeprazole 40 mg Oral cpDR 1 cap nightly (Last dose: 10/10/2016) 2. Vitamin D2 50,000 unit oral cap once wkly 3. clopidogrel 75 mg oral tab 1 tab once daily (Last dose: 10/11/2016 10:00) 4. folic acid 1 mg Oral tab 1 tab once daily (Last dose: 10/11/2016 10:00) 5. Sertraline 100 mg daily (Last dose: 10/11/2016 10:00) 6. amlodipine 10 mg Oral tab 1 tab once daily (Last dose: 10/11/2016 10:00) 7. isosorbide mononitrate 10 mg Oral tab 1 tab 2 times per day (Last dose: 10/11/2016 10:00) 8. hydralazine 10 mg Oral tab 1 tab 2 times per day (Last dose: 10/11/2016 10:00) 9. allopurinol 100 mg Oral tab 1 tab once daily (Last dose: 10/10/2016) 10. losartan 100 mg oral tab 1 tab nightly (Last dose: 10/10/2016) 11. atorvastatin 80 mg oral tab 1 tab nightly (Last dose: 10/10/2016) 12. aspirin 81 mg oral TbEC 1 tab nightly (Last dose: 10/10/2016) 13. tizanidine 4 mg oral tab as neeed (Last dose: Unknown) - PMHx: Alcoholism; Depression; GERD; Hypercholesterolemia; Hypertension; Right Carotid Total Occlusion; - PSHx: right elbow; left knee; left wrist; bilateral index finger surgeries; - Social history: Smoking status: Patient uses tobacco products, light tobacco smoker. No barriers to communication noted, The patient speaks fluent [place] Islander. - Family history: Not pertinent. - : The pt / caregiver states he / she is on anticoagulants: Plavix. Home medication list is obtained from the patient. - Exposure Risk Screening:: None identified. Vital Signs: 10/11 10:57 BP 115 / 73; Pulse 98; Resp 18; Temp 99.7(O); Pulse Ox 99% on R/A; Weight 72.57 kg / elp 159.99 lbs (R); Height 5 ft. 4 in. (162.56 cm) (R); 14:13 BP 150 / 82; Pulse 89; Resp 18; Temp 99.1(TE); Pulse Ox 98% on R/A; Pain 10/10; nb2 14:49 BP 115 / 70; Pulse 86; Resp 16; Temp 97.5(T); Pulse Ox 93% ; Pain 8/10; kr3 10:57 Body Mass Index 27.46 (72.57 kg, 162.56 cm) elp MDM: 12:46 IV Saline Lock ordered. dt4 12:46 morphine 4 mg IVP once ordered. dt4 12:48 CBC with Diff Ordered. EDMS 12:48 Basic Metabolic Profile Ordered. EDMS 12:48 CRP Ordered. EDMS 12:48 Sed Rate Ordered. EDMS 12:48 Uric Acid Ordered. EDMS 12:48 US Lower Extremity R/O DVT Ordered. EDMS 12:48 Foot, Complete Ordered. EDMS 12:49 Financial registration complete. lg 12:50 Clindamycin 600 mg IVPB once over 30 mins; dilute in 50mL of NS or D5W ordered. dt4 13:08 [facility] Payment Agreement was scanned into [employer] and attached to record. lg 14:23 Dilaudid - HYDROmorphone 1 mg IVP once ordered. dt4 10/12 10:43 T-Sheet-- Draft Copy was scanned into [employer] and attached to record. gb 10:43 Radiology Report was scanned into [employer] and attached to record. gb Administered Medications: 10/11 13:28 Drug: morphine 4 mg [morphine 4 mg/mL intravenous cartridge (1 mL)] Route: IVP; Site: rs3 right antecubital; 13:28 Drug: Clindamycin 600 mg Route: IVPB; Infused Over: 30 mins; Site: right antecubital; rs3 14:37 Follow up: IV Status: Completed infusion kr3 14:37 Drug: Dilaudid - HYDROmorphone 1 mg [hydromorphone 1 mg/mL injection syringe (1 mL)] kr3 Route: IVP; Site: right antecubital; 14:49 Follow up: BP 115 / 70; Pulse 86 bpm; Resp 16 bpm; Temp 97.5 Tympanic; Pulse Ox 93% ; kr3 Pain 8/10 Adult; Response: Pain is decreased Signatures: Dispatcher [employer] EDOpal Ybarra, RN RN Cynthia Hdz, Reg Reg gb Devin Villegas, Reg Reg lg Cat Sahu,RN RN kr3 Caitlyn Falk PA-C PA-C dt4 Millicent Ramirez RN rs3 The chart was reviewed and I authenticate all verbal orders and agree with the evaluation and treatment provided.Attachments: : [facility] Payment Agreement lg 10/12 10:43 T-Sheet-- Draft Copy gb Chart Complete MTDD
== END 2016-10-11 15:01 | disposition home or self-care (01) ==
LOC: M ED 10:55
DX: L03.116 Cellulitis of left lower limb (principal); F10.10 Alcohol abuse, uncomplicated; M77.32 Calcaneal spur, left foot; F32.9 Major depressive disorder, single episode, unspecified; K21.9 Gastro-esophageal reflux disease without esophagitis; E78.00 Pure hypercholesterolemia, unspecified; I65.21 Occlusion and stenosis of right carotid artery; Z79.899 Other long term (current) drug therapy; Z79.82 Long term (current) use of aspirin; Z79.01 Long term (current) use of anticoagulants; Z88.1 Allergy status to other antibiotic agents; F17.210 Nicotine dependence, cigarettes, uncomplicated
CPT/HCPCS: 36415; 73630; 80048; 84550; 85025; 85652; 86140; 93971; 96365; 96375; 99284; J1170

== ENCOUNTER → 2016-11-01 | Outpatient (CLI) | payer OTHER ==
[2016-11-01 12:25] LABS: BASO % 0.3 % (0.0-1.0); EOS # 0.1 K/mm3 (0.0-0.50); EOS % 0.9 % (0.0-3.0); LYMPH # 1.3 K/mm3 (1.5-4.5); LYMPH % 12.3 % (24.0-44.0); MEAN CORPUSCULAR HEMOGLOBIN 34.9 pg (27.0-33.0); MEAN CORPUSCULAR HGB CONC 33.2 g/dl (32.0-36.5); MEAN CORPUSCULAR VOLUME 105.3 fl (80.0-96.0); MONO # 0.5 K/mm3 (0.0-0.8); MONO % 5.2 % (0.0-5.0); NEUTROPHILS # 8.2 K/mm3 (1.8-7.7); NEUTROPHILS % 80.2 % (36.0-66.0); RED CELL DISTRIBUTION WIDTH 12.6 % (11.5-14.5); WHITE BLOOD COUNT 10.2 K/mm3 (4.0-10.0)
[2016-11-01 12:52] LABS: ALBUMIN 4.1 GM/DL (3.2-5.2); ALBUMIN/GLOBULIN RATIO 1.37 (1.00-1.93); ALKALINE PHOSPHATASE 113 U/L (45-117); ALT/SGPT 39 U/L (12-78); ANION GAP 10 MEQ/L (8-16); AST/SGOT 22 U/L (15-37); BILIRUBIN,TOTAL 0.4 MG/DL (0.2-1.0); BLOOD UREA NITROGEN 18 MG/DL (7-18); CARBON DIOXIDE LEVEL 25 MEQ/L (21-32); CHLORIDE LEVEL 108 MEQ/L (98-107); CHOLESTEROL LEVEL 147 MG/DL (<200); CREATININE FOR GFR 0.86 MG/DL (0.70-1.30); GLOMERULAR FILTRATION RATE > 60.0 (>56); GLUCOSE, FASTING 122 MG/DL (70-105); POTASSIUM SERUM 4.1 MEQ/L (3.5-5.1); SODIUM LEVEL 143 MEQ/L (136-145); TOTAL PROTEIN 7.1 GM/DL (6.4-8.2); TRIGLYCERIDES LEVEL 127 MG/DL (<150)
== END ==
LOC: M LAB 11:23
PROVIDERS: ATTEND Physician Assistant Medical
DX: I10 Essential (primary) hypertension (principal)

== ENCOUNTER → 2016-11-01 | Outpatient (CLI) | payer OTHER ==
[2016-11-01 12:45] LABS: BLOOD UREA NITROGEN 18 MG/DL (7-18); CREATININE FOR GFR 0.84 MG/DL (0.70-1.30); GLOMERULAR FILTRATION RATE > 60.0 (>56)
== END ==
LOC: M LAB 11:29
PROVIDERS: ATTEND Nurse Practitioner
DX: I65.21 Occlusion and stenosis of right carotid artery (principal)

== ENCOUNTER → 2016-11-01 | Outpatient (CLI) | payer OTHER ==
[2016-11-01 12:45] LABS: ANION GAP 8 MEQ/L (8-16); BLOOD UREA NITROGEN 19 MG/DL (7-18); CALCIUM LEVEL 9.4 MG/DL (8.5-10.1); CARBON DIOXIDE LEVEL 26 MEQ/L (21-32); CHLORIDE LEVEL 109 MEQ/L (98-107); CREATININE FOR GFR 0.82 MG/DL (0.70-1.30); GLOMERULAR FILTRATION RATE > 60.0 (>56); GLUCOSE, FASTING 122 MG/DL (70-105); POTASSIUM SERUM 4.1 MEQ/L (3.5-5.1); SODIUM LEVEL 143 MEQ/L (136-145)
== END ==
LOC: M LAB 11:26
PROVIDERS: ATTEND Nurse Practitioner Family
DX: I10 Essential (primary) hypertension (principal)

== ENCOUNTER 2016-12-16 12:45 | Emergency (ER) | payer OTHER ==
[~2016-12-16] VITALS: Ht 162.6 cm; Wt 83.9 kg
[~2016-12-16 12:45] MED LIST changes: -SERT-141 PO; +SERT50TA PO
[2016-12-16] MEDS ORDERED: NEUR300C PO (12:55)
[2016-12-16] MEDS ORDERED: ALLO100T PO (12:55)
[2016-12-16] MEDS ORDERED: ACETAMINOPHEN 325 MG TAB PO ONE (14:45)
[2016-12-16] MEDS ORDERED: CLEO300C2 PO (15:19)
[2016-12-16] MEDS ORDERED: CLINDAMYCIN 150 MG CAP PO ONE (15:30)
[2016-12-16 15:49] VITALS: BP 153/79
--- NOTE | 2016-12-17 06:27 | REP ---
REASON: Swelling. No pertinent priors. There has been previous ORIF of the hand and wrist. Chronic change is seen involving the hand and wrist. There are fractures involving two of the fixation screws in the third metacarpal. Degenerative change is seen throughout the hand and wrist. There is no evidence of an acute osseous fracture. Signed by Jorge Abdullahi DO 12/17/2016 03:40 P
== END 2016-12-16 15:55 | disposition home or self-care (01) ==
LOC: M ED 13:57
DX: L03.113 Cellulitis of right upper limb (principal); I10 Essential (primary) hypertension; E78.00 Pure hypercholesterolemia, unspecified; F33.9 Major depressive disorder, recurrent, unspecified; F41.9 Anxiety disorder, unspecified; M19.042 Primary osteoarthritis, left hand; F17.200 Nicotine dependence, unspecified, uncomplicated; Z79.899 Other long term (current) drug therapy; Z79.82 Long term (current) use of aspirin; Z88.8 Allergy status to other drugs, medicaments and biological substances; Z86.79 Personal history of other diseases of the circulatory system

== ENCOUNTER → 2017-01-15 | Outpatient (CLI) | payer OTHER ==
[~2017-01-15] MED LIST changes: +ALLO100T PO
--- NOTE | 2017-01-15 15:24 | REP ---
Clinical: Lower back pain. Technique: AP, lateral, coned-down views of the lumbosacral spine. Findings: Moderate multilevel degenerative changes include endplate sclerosis, anterior spurring, and disc space narrowing along with hypertrophic facet changes. Alignment is maintained. No acute fracture / compression injury or subluxation. Impression: Moderate multilevel degenerative changes. Signed by Eduar Arnold MD 01/15/2017 03:15 P
--- NOTE | 2017-01-15 16:16 | REP ---
MRI LUMBAR SPINE WITHOUT CONTRAST: 01/15/2017: CLINICAL HISTORY: Low back pain. Spondylosis. COMPARISON: MRI 11/15/2015, x-ray today. TECHNIQUE: Sagittal T1, T2 and STIR images with axial T1 and T2 sequences provided. FINDINGS: Vertebral body heights are intact throughout the lumbar spine. Marrow signal fairly homogeneous except for discogenic endplate changes at multiple levels, greatest at L1-2 and L2-3. There is loss of disc water signal at all levels in the lumbar spine but least at L5, S1. The L1-2 through L3-4 levels show slight decrease in disc height. Conus terminates at the T12-L1 level. T12-L1 level shows no significant disc bulge herniation and no spinal or foraminal stenosis. At L1-2 there is a broad-based disc bulge with small central disc protrusion again seen, not causing any significant spinal or foraminal stenosis. At L2-L3 mild disc bulge with left paracentral left lateral disc protrusion into the foramen. Cross-sectional area of the canal was adequate. Foramina are adequate despite that protrusion on the left. At L3-L4 there is a mild broad-based disc bulge not causing any spinal or foraminal stenosis. At L4-L5 there is a broad-based disc bulge with the central disc protrusion, ligamentum flavum and facet hypertrophy are noted, combines to cause some moderate central canal stenosis and lateral recess stenosis. Foramina show loss of perineural fat with borderline compression of the nerve roots. Facet arthropathy is greater at this level than that above. At L5-S1 there is no significant disc bulge herniation and no spinal or foraminal stenosis. IMPRESSION: 1. Moderate central canal stenosis with broad-based disc bulge, protrusion, ligamentous and facet hypertrophy at the L4-5 level, all unchanged. There is some mild bilateral foraminal encroachment today with borderline nerve root compression. 2. Diffuse disc bulge with small central disc protrusion at L1-2, broad-based disc bulge with left paracentral left lateral disc protrusion. At L2-3 and L3-4 mild disc bulge without spinal or foraminal stenosis are all noted and unchanged. Stable examination. Signed by Elías Valladares MD 01/15/2017 04:55 P
== END ==
LOC: M RAD 13:53
PROVIDERS: ATTEND Neurological Surgery
DX: M51.36 Other intervertebral disc degeneration, lumbar region (principal)

== ENCOUNTER → 2017-02-18 | Outpatient (CLI) | payer OTHER ==
[2017-02-18 12:00] LABS: BASO % 0.5 % (0.0-1.0); EOS # 0.1 K/mm3 (0.0-0.50); EOS % 1.2 % (0.0-3.0); LYMPH # 0.9 K/mm3 (1.5-4.5); LYMPH % 8.9 % (24.0-44.0); MEAN CORPUSCULAR HEMOGLOBIN 37.9 pg (27.0-33.0); MEAN CORPUSCULAR VOLUME 108.3 fl (80.0-96.0); MONO # 0.5 K/mm3 (0.0-0.8); MONO % 5.9 % (0.0-5.0); NEUTROPHILS # 7.2 K/mm3 (1.8-7.7); NEUTROPHILS % 82.5 % (36.0-66.0); RED CELL DISTRIBUTION WIDTH 12.6 % (11.5-14.5); WHITE BLOOD COUNT 8.8 K/mm3 (4.0-10.0)
[2017-02-18 12:33] LABS: ALBUMIN 3.9 GM/DL (3.2-5.2); ALBUMIN/GLOBULIN RATIO 1.22 (1.00-1.93); ALKALINE PHOSPHATASE 104 U/L (45-117); ALT/SGPT 105 U/L (12-78); ANION GAP 8 MEQ/L (8-16); AST/SGOT 78 U/L (15-37); BILIRUBIN,TOTAL 0.6 MG/DL (0.2-1.0); BLOOD UREA NITROGEN 15 MG/DL (7-18); CALCIUM LEVEL 9.2 MG/DL (8.5-10.1); CARBON DIOXIDE LEVEL 23 MEQ/L (21-32); CHLORIDE LEVEL 109 MEQ/L (98-107); CREATININE FOR GFR 0.88 MG/DL (0.70-1.30); GLOMERULAR FILTRATION RATE > 60.0 (>56); GLUCOSE, FASTING 123 MG/DL (70-105); POTASSIUM SERUM 3.8 MEQ/L (3.5-5.1); SODIUM LEVEL 140 MEQ/L (136-145); TOTAL PROTEIN 7.1 GM/DL (6.4-8.2)
[2017-02-19 11:41] LABS: ALBUMIN 4.16 GM/DL (3.29-5.55); ALBUMIN % 58.6 % (55.8-66.1); GAMMA GLOBULIN % 10.2 % (11.1-18.8)
[2017-02-20 00:06] LABS: Lyme Disease IgG/IgM Antibodie <0.91 ISR (0.00-0.90); Lyme Disease IgM Ab Quantitati <0.80 index (0.00-0.79)
== END ==
LOC: M LAB 10:49
PROVIDERS: ATTEND Physician Assistant Medical
DX: R53.83 Other fatigue (principal)

== ENCOUNTER → 2017-02-27 | Outpatient (CLI) | payer OTHER ==
[~2017-02-27] MED LIST changes: -ATOR1TAB18 PO; +ATOR80TA59 PO; +BACT800T5 PO; -FOLI1TAB2 PO; +FOLI1TAB4 PO; +KEFL500C17 PO; -KEFL500C7 PO; +NORCOTAB PO; +VITA1CAP40 PO; -VITA50003 PO
--- NOTE | 2017-02-27 09:39 | REP ---
Clinical: Lower back pain. Technique: AP, lateral, bilateral oblique and coned-down views of the lumbosacral spine. Comparison: 01/15/2017. Findings: Advanced multilevel degenerative disc osteophyte complexes are appreciated. Findings include marginal osteophytes, endplate sclerosis, disc space narrowing, and hypertrophic facet changes. Findings are most pronounced at the L4-5 and L5-L1 levels. 3 mm of retrolisthesis at the L1-2 level appears chronic and remain stable. No acute fracture / compression injury. Atherosclerotic changes to the vasculature noted. Impression: Advanced multilevel degenerative changes as described above. No acute fracture / compression injury. Signed by Eduar Arnold MD 02/27/2017 09:31 A
--- NOTE | 2017-02-27 09:58 | REP ---
MRI lumbar spine without contrast: History: Low back pain. Comparison study: January 15, 2017. This was read as showing moderate central canal stenosis at L4-5 and a small central disc protrusion at L1-2. Technique: Sagittal and axial T1 and T2-weighted scans are acquired in the usual fashion with and without fat saturation. Sequences include spin echo, turbo spin-echo, and STIR imaging sequences. MRI findings: Lumbar vertebral body heights are preserved. Alignment is normal. No bony destructive lesion is seen. The conus medullaris is normal in position and appearance at T12-L1 unchanged. Ectasia of the abdominal aorta is seen is seen distally with a maximum AP dimension of 2.6 cm. No other extra vertebral abnormality. There are degenerative disc changes at L1-L2, L2-3, and L4-5. To a lesser extent there is some degenerative disc changes at L3-4. These findings are unchanged. There is a left lateral disc bulge at L2-3 which is unchanged from the prior study. L2-3 level is otherwise unremarkable. No significant abnormality is seen at L3-4. At L4-5, there is diffuse disc bulging. There is mild left-sided neural foraminal narrowing at L4-5 due to disc bulging. Facet hypertrophy and ligamentum flavum hypertrophy are seen and there is mild to moderate central canal stenosis at L4-5, unchanged from the recent prior study. The mid sagittal dimension of the thecal sac at L4-5 is 7.9 mm. At L5-S1, there is bilateral facet hypertrophy. No other significant finding. There is no evidence of spondylolysis or spondylolisthesis. Impression: 1. Degenerative spondylosis changes. 2. Mild to moderate central canal stenosis at L4-5. Some left-sided L4-5 neural foraminal narrowing. 3. Left lateral disc bulge at L2-3 unchanged. 4. Distal abdominal aortic ectasia. Signed by Alex Merino MD 02/27/2017 03:22 P
--- NOTE | 2017-02-27 10:06 | REP ---
CT study of the lumbar spine without contrast: History: Low back pain. Comparison is made with today's radiographs and today's MRI study. Comparison MRI exam is from January 15, 2017. Technique: Helical scanning is acquired. 4 mm axial images are reformatted. Coronal and sagittal multiplanar re-formation images are generated and reviewed. CT findings: Lumbar vertebral body heights are preserved. There is degenerative disc spurring at each lumbar level. There is disc space narrowing at L2-3 and to some degree at L1-2. Pedicles and posterior elements are intact. There is no evidence of spondylolysis or spondylolisthesis. Abdominal aortic ectasia is seen as described on MRI study. There is osteoarthritic facet hypertrophy bilaterally at L5-S1, at L4-5 and to a lesser extent at L3-4. At L4-5 there is mild to moderate central canal stenosis due to diffuse disc bulging, developmentally short pedicles, and facet and ligamentum flavum hypertrophy. No bony neural foraminal encroachment is seen. There is left lateral disc bulging at L2-3. No other significant finding. No fracture or collapse is seen. Impression: Degenerative spondylosis changes. Central canal stenosis is noted at L4-5. Left lateral disc bulge is noted at L2-3. Signed by Alex Merino MD 02/27/2017 03:22 P
== END ==
LOC: M RAD 07:12
PROVIDERS: ATTEND Neurological Surgery
DX: M25.78 Osteophyte, vertebrae (principal); M47.897 Other spondylosis, lumbosacral region; M48.06 Spinal stenosis, lumbar region; M51.86 Other intervertebral disc disorders, lumbar region; I77.810 Thoracic aortic ectasia

== ENCOUNTER 2017-03-12 15:32 | Emergency (ER) | payer OTHER ==
[~2017-03-12] VITALS: Ht 162.6 cm; Wt 86.5 kg
[~2017-03-12 15:32] MED LIST changes: -BACT800T5 PO; -NORCOTAB PO
[2017-03-12] MEDS ORDERED: TIZA4CAP3 PO (15:50)
[2017-03-12] MEDS ORDERED: NS 1,000 ML IV SCH (15:59)
[2017-03-12] MEDS ORDERED: ONDANSETRON 4MG/2ML VIAL (J2405) IV ONE (16:00)
[2017-03-12] MEDS ORDERED: GASTROGRAFIN SOLUTION 30ML PO ONE (16:20)
[2017-03-12 16:30] LABS: BASO % 0.3 % (0.0-1.0); EOS # 0.1 K/mm3 (0.0-0.50); EOS % 1.3 % (0.0-3.0); LARGE UNSTAINED CELL # 0.1 K/mm3 (0.0-0.4); LARGE UNSTAINED CELL % 1.5 % (0.0-4.0); LYMPH # 1.2 K/mm3 (1.5-4.5); LYMPH % 15.9 % (24.0-44.0); MEAN CORPUSCULAR HEMOGLOBIN 36.9 pg (27.0-33.0); MEAN CORPUSCULAR HGB CONC 34.3 g/dl (32.0-36.5); MEAN CORPUSCULAR VOLUME 107.5 fl (80.0-96.0); MONO # 0.4 K/mm3 (0.0-0.8); MONO % 5.6 % (0.0-5.0); NEUTROPHILS # 5.7 K/mm3 (1.8-7.7); NEUTROPHILS % 75.4 % (36.0-66.0); PLATELET COUNT, AUTOMATED 159 k/mm3 (150-450); RED CELL DISTRIBUTION WIDTH 12.2 % (11.5-14.5); WHITE BLOOD COUNT 7.6 K/mm3 (4.0-10.0)
[2017-03-12] MEDS: MORPHINE 2 MG/ML 1ML SYRINGE IV PRN ×2 (16:30→17:04)
[2017-03-12 16:36] LABS: INR 0.96
[2017-03-12] MEDS ORDERED: GASTROGRAFIN SOLUTION 30ML (Q9963) PO ONE (16:50)
[2017-03-12 16:52] LABS: ALBUMIN/GLOBULIN RATIO 1.14 (1.00-1.93); ALKALINE PHOSPHATASE 119 U/L (45-117); ALT/SGPT 82 U/L (12-78); ANION GAP 6 MEQ/L (8-16); AST/SGOT 60 U/L (15-37); BILIRUBIN,DIRECT 0.2 MG/DL (0.0-0.2); BILIRUBIN,TOTAL 0.5 MG/DL (0.2-1.0); BLOOD UREA NITROGEN 11 MG/DL (7-18); CALCIUM LEVEL 9.1 MG/DL (8.5-10.1); CARBON DIOXIDE LEVEL 27 MEQ/L (21-32); CHLORIDE LEVEL 107 MEQ/L (98-107); CREATININE FOR GFR 0.87 MG/DL (0.70-1.30); GLOMERULAR FILTRATION RATE > 60.0 (>56); GLUCOSE, FASTING 106 MG/DL (70-105); POTASSIUM SERUM 3.8 MEQ/L (3.5-5.1); SODIUM LEVEL 140 MEQ/L (136-145); TOTAL PROTEIN 7.5 GM/DL (6.4-8.2)
[2017-03-12] MEDS ORDERED: ISOVUE-370 76% 100ML VIAL (Q9967) As Ordered ONE (17:32)
[2017-03-12] MEDS ORDERED: NORCOTAB PO (18:20)
[2017-03-12 18:30] VITALS: BP 149/74
--- NOTE | 2017-03-12 18:39 | REP ---
REASON: Upper abdominal pain. COMPARISON: None. CONTRAST: 100 mL of Isovue-370. The lung bases are clear. The liver, gallbladder, spleen, pancreas, adrenal glands, and kidneys are within normal limits. The abdominal aorta and paraaortic regions are within normal limits. The bowel loops and their mesenteries are within normal limits. There is descending colon diverticulosis. There is no free fluid or free air in the abdomen. The abdominal wall is intact. There is no evidence of a ventral or other abdominal wall hernia. There is no evidence of an intraabdominal mass or adenopathy. CT PELVIS: The bowel loops and their mesenteries are within normal limits. There is sigmoid colon diverticulosis. There is no free fluid or free air. There is no mass or adenopathy. Bone window technique throughout the exam shows the osseous structures to be within normal limits for the patient's age. IMPRESSION: There is no evidence of acute intraabdominal or intrapelvic disease. There is colonic diverticulosis as described above. There is no evidence of an abdominal wall hernia. Signed by Jorge Abdullahi DO 03/12/2017 07:52 P
== END 2017-03-12 18:31 | disposition home or self-care (01) ==
LOC: M ED 15:32
DX: K43.9 Ventral hernia without obstruction or gangrene (principal); I10 Essential (primary) hypertension; E78.5 Hyperlipidemia, unspecified; F41.9 Anxiety disorder, unspecified; F32.9 Major depressive disorder, single episode, unspecified; K57.92 Diverticulitis of intestine, part unspecified, without perforation or abscess without bleeding; F17.210 Nicotine dependence, cigarettes, uncomplicated; Z88.1 Allergy status to other antibiotic agents; Z79.899 Other long term (current) drug therapy; Z79.82 Long term (current) use of aspirin; Z79.02 Long term (current) use of antithrombotics/antiplatelets

== ENCOUNTER 2017-05-20 11:22 | Emergency (ER) | payer OTHER ==
[~2017-05-20] VITALS: Ht 162.6 cm; Wt 76.4 kg
[~2017-05-20 11:22] MED LIST changes: +NORCOTAB PO
[2017-05-20 14:13] LABS: ANION GAP 8 MEQ/L (8-16); BASO % 0.2 % (0.0-1.0); BLOOD UREA NITROGEN 15 MG/DL (7-18); CALCIUM LEVEL 9.2 MG/DL (8.5-10.1); CARBON DIOXIDE LEVEL 26 MEQ/L (21-32); CHLORIDE LEVEL 104 MEQ/L (98-107); EOS # 0.1 K/mm3 (0.0-0.50); EOS % 0.5 % (0.0-3.0); GLOMERULAR FILTRATION RATE > 60.0 (>56); GLUCOSE, FASTING 106 MG/DL (70-105); LARGE UNSTAINED CELL # 0.1 K/mm3 (0.0-0.4); LARGE UNSTAINED CELL % 1.1 % (0.0-4.0); LYMPH # 0.9 K/mm3 (1.5-4.5); LYMPH % 8.4 % (24.0-44.0); MEAN CORPUSCULAR HEMOGLOBIN 37.5 pg (27.0-33.0); MEAN CORPUSCULAR VOLUME 107.2 fl (80.0-96.0); MONO # 0.4 K/mm3 (0.0-0.8); MONO % 4.2 % (0.0-5.0); NEUTROPHILS % 85.7 % (36.0-66.0); PLATELET COUNT, AUTOMATED 105 k/mm3 (150-450); POTASSIUM SERUM 4.2 MEQ/L (3.5-5.1); RED CELL DISTRIBUTION WIDTH 12.3 % (11.5-14.5); SODIUM LEVEL 138 MEQ/L (136-145); URIC ACID 4.1 MG/DL (3.5-7.2); WHITE BLOOD COUNT 10.4 K/mm3 (4.0-10.0)
[2017-05-20] MEDS ORDERED: CEFTAROLINE FOSAMIL 600 MG in D5W MINI-BAG PLUS 50 ML IV ONE (14:30)
[2017-05-20] MEDS ORDERED: NORCO, ANEXSIA 5/325MG TABLET (HYDROcodone/ACETAMINOPHEN) PO ONE (14:30)
[2017-05-20] MEDS ORDERED: BACT800T5 PO (14:54)
[2017-05-20] MEDS ORDERED: NORCOTAB PO (14:54)
--- NOTE | 2017-05-20 15:15 | REP ---
RIGHT KNEE SERIES: Five views of the right knee are performed. There is no acute fracture or dislocation. Scattered vascular calcifications are noted. There may be a small joint effusion in the suprapatellar bursa. IMPRESSION: No definite osseous abnormality. Possible small joint effusion. Signed by Jose Parekh MD 05/20/2017 05:11 P
[2017-05-20 15:43] VITALS: BP 116/86
== END 2017-05-20 15:49 | disposition home or self-care (01) ==
LOC: M ED 11:22
DX: L03.115 Cellulitis of right lower limb (principal); F17.210 Nicotine dependence, cigarettes, uncomplicated; I10 Essential (primary) hypertension; F41.9 Anxiety disorder, unspecified; F33.9 Major depressive disorder, recurrent, unspecified; Z79.899 Other long term (current) drug therapy; Z79.82 Long term (current) use of aspirin

== ENCOUNTER → 2017-10-03 | Outpatient (CLI) | payer BC, OTHER ==
[2017-10-03 12:40] LABS: BASO % 0.4 % (0.0-1.0); EOS # 0.2 10^3/uL (0.0-0.50); EOS % 2.1 % (0.0-3.0); HEMOGLOBIN 14.7 g/dl (14.0-18.0); IMMATURE GRANULOCYTE % 0.5 % (0-0); LYMPH # 0.9 10^3/uL (1.5-4.5); LYMPH % 11.6 % (24.0-44.0); MEAN CORPUSCULAR HGB CONC 33.4 g/dl (32.0-36.5); MEAN CORPUSCULAR VOLUME 110.8 fl (80.0-96.0); MONO # 0.7 10^3/uL (0.0-0.8); MONO % 9.3 % (0.0-5.0); NEUTROPHILS # 5.9 10^3/uL (1.8-7.7); NEUTROPHILS % 76.1 % (36.0-66.0); PLATELET COUNT, AUTOMATED 117 10^3/uL (150-450); RED BLOOD COUNT 3.97 10^6/uL (4.30-6.10); RED CELL DISTRIBUTION WIDTH 12.1 % (11.5-14.5); WHITE BLOOD COUNT 7.7 10^3/uL (4.0-10.0)
[2017-10-03 13:21] LABS: ALBUMIN/GLOBULIN RATIO 1.18 (1.00-1.93); ALKALINE PHOSPHATASE 115 U/L (45-117); ALT/SGPT 150 U/L (12-78); ANION GAP 8 MEQ/L (8-16); AST/SGOT 116 U/L (7-37); BILIRUBIN,TOTAL 0.5 MG/DL (0.2-1.0); BLOOD UREA NITROGEN 14 MG/DL (7-18); CARBON DIOXIDE LEVEL 29 MEQ/L (21-32); CHLORIDE LEVEL 106 MEQ/L (98-107); CHOLESTEROL LEVEL 154 MG/DL (<200); CREATININE FOR GFR 0.84 MG/DL (0.70-1.30); GLOMERULAR FILTRATION RATE > 60.0 (>56); GLUCOSE, FASTING 136 MG/DL (70-100); HDL CHOLESTEROL 59 MG/DL (>40); LDL CHOLESTEROL 67.4 MG/DL (<100); NON-HDL-C 95 MG/DL; POTASSIUM SERUM 4.2 MEQ/L (3.5-5.1); SODIUM LEVEL 143 MEQ/L (136-145); T UPTAKE 32 % (33-40); THYROXINE (T4) 7.1 UG/DL (4.5-12.0); TOTAL PROTEIN 7.4 GM/DL (6.4-8.2); TRIGLYCERIDES LEVEL 138 MG/DL (<150)
== END ==
LOC: M LAB 11:48
DX: I10 Essential (primary) hypertension (principal)
CPT/HCPCS: 84443

== ENCOUNTER → 2017-11-18 | Outpatient (CLI) | payer BC | LOC: M RAD 09:29 | DX: I65.21 Occlusion and stenosis of right carotid artery (principal) | CPT/HCPCS: 70544 ==

== ENCOUNTER 2017-12-16 10:58 | Inpatient (IN) | payer BC ==
[2017-12-16] MEDS: ALBUTEROL SULFATE 2.5 MG/0.5 ML INH NEB SOLN NEB ×2 (12:54→14:54)
[2017-12-16 14:44] LABS: BASO % 0.3 % (0.0-1.0); EOS # 0.1 10^3/uL (0.0-0.50); EOS % 1.3 % (0.0-3.0); HEMOGLOBIN 14.2 g/dl (13.5-17.5); IMMATURE GRANULOCYTE % 0.3 % (0-3.0); LYMPH # 0.9 10^3/uL (1.5-4.5); MEAN CORPUSCULAR HEMOGLOBIN 38.4 pg (27.0-33.0); MEAN CORPUSCULAR HGB CONC 34.6 g/dl (32.0-36.5); MEAN CORPUSCULAR VOLUME 110.8 fl (80.0-96.0); MONO % 9.6 % (0.0-5.0); NEUTROPHILS # 8.2 10^3/uL (1.8-7.7); NEUTROPHILS % 79.5 % (36.0-66.0); PLATELET COUNT, AUTOMATED 115 10^3/uL (150-450); RED CELL DISTRIBUTION WIDTH 12.5 % (11.5-14.5); WHITE BLOOD COUNT 10.3 10^3/uL (4.0-10.0)
[2017-12-16 15:00] LABS: ALBUMIN/GLOBULIN RATIO 1.14 (1.00-1.93); ALKALINE PHOSPHATASE 121 U/L (45-117); ALT/SGPT 113 U/L (12-78); ANION GAP 6 MEQ/L (8-16); AST/SGOT 83 U/L (7-37); BILIRUBIN,DIRECT 0.2 MG/DL (0.0-0.2); BILIRUBIN,TOTAL 0.5 MG/DL (0.2-1.0); BLOOD UREA NITROGEN 15 MG/DL (7-18); CALCIUM LEVEL 8.9 MG/DL (8.5-10.1); CARBON DIOXIDE LEVEL 26 MEQ/L (21-32); CHLORIDE LEVEL 109 MEQ/L (98-107); CPK CREATINE PHOSPHOKINASE 130 U/L (39-308); CREATININE FOR GFR 0.86 MG/DL (0.70-1.30); GLOMERULAR FILTRATION RATE > 60.0 (>56); GLUCOSE, FASTING 115 MG/DL (70-100); POTASSIUM SERUM 4.4 MEQ/L (3.5-5.1); SODIUM LEVEL 141 MEQ/L (136-145); TOTAL PROTEIN 7.5 GM/DL (6.4-8.2); TROPONIN I < 0.02 NG/ML (< 0.10)
[2017-12-16 15:05] LABS: CK-MB VALUE MASS 2.2 NG/ML (<3.6); MB/CK RELATIVE INDEX 1.69 (< OR =4); NT-PRO BNP 120 PG/ML (<125)
[2017-12-16 15:11] LABS: LACTIC ACID SEPSIS PROTOCOL 2.3 MMOL/L (0.4-2.0)
[2017-12-16] MEDS: MORPHINE 4 MG/ML 1ML VIAL/SYRINGE (J2270) IV ×2 (15:13→19:34)
[2017-12-16] MEDS ORDERED: ISOVUE-370 76% 100ML VIAL (Q9967) As Ordered (17:01)
[2017-12-16] MEDS ORDERED: cefTRIAXone SOD 1 GM VIAL (J0696) IM (17:45)
[2017-12-16] MEDS ORDERED: ALBUTEROL SULFATE 2.5 MG/0.5 ML INH NEB SOLN INH (18:30)
[2017-12-16 18:48] LABS: ABG BASE EXCESS 0.1 (-2.0-2.0); ABG HCO3 23.4 MEQ/L (22.0-26.0); ABG O2 SATURATION 90.8 % (95.0-99.0); ABG PARTIAL PRESSURE CO2 33.9 mmHg (35.0-45.0); ABG PARTIAL PRESSURE O2 58.1 mmHg (75.0-100.0); ABG STANDARD HCO3 24.4 MEQ/L (22.0-26.0); ABG TOTAL CO2 24.4 MEQ/L (22.0-29.0); ABG pH (ARTERIAL) 7.456 UNITS (7.350-7.450)
[2017-12-16] MEDS: AZITHROMYCIN INJ 500 MG, VIAL MATE ADAPTER 1 EACH in D5W 250 ML IV (18:52)
[2017-12-16] MEDS: IPRATROPIUM 0.5MG/ALBUTEROL 2.5MG INH SOL UD 3ML (DUONEB)(J7620) NEB ×2 (19:38→23:05)
[2017-12-16 19:48] LABS: CK-MB VALUE MASS 1.3 NG/ML (<3.6); CPK CREATINE PHOSPHOKINASE 111 U/L (39-308); MB/CK RELATIVE INDEX 1.17 (< OR =4); TROPONIN I < 0.02 NG/ML (< 0.10)
[2017-12-16] MEDS: cefTRIAXone SOD 1 GM in D5W MINI-BAG PLUS 50 ML IV (20:13)
[2017-12-16] MEDS ORDERED: ONDANSETRON 4MG/2ML VIAL (J2405) IV (20:15)
[2017-12-16] MEDS ORDERED: AZITHROMYCIN INJ 500 MG, VIAL MATE ADAPTER 1 EACH in D5W 250 ML IV (20:15)
[2017-12-16] MEDS: ACETAMINOPHEN TAB 650MG DOSE (2X325MG) PO (21:41)
[2017-12-16] MEDS: PERCOCET 5MG/325MG TAB PO (21:42)
[2017-12-16] MEDS: methylPREDNISolone INJ 40 MG/1 ML VIAL (J2920) IV (21:47)
[2017-12-16] MEDS: OMEPRAZOLE 20 MG CAP PO (23:54)
[2017-12-16] MEDS: GABAPENTIN 300 MG CAP PO (23:55)
[2017-12-16] MEDS: LOSARTAN 50 MG TAB PO (23:55)
[2017-12-16] MEDS: ATORVASTATIN 20 MG TAB PO (23:55)
[2017-12-17] MEDS: **hydrALAZINE** 10 MG TAB PO ×3 (00:02→21:08)
[2017-12-17] MEDS: methylPREDNISolone INJ 40 MG/1 ML VIAL (J2920) IV ×3 (02:52→18:00)
[2017-12-17] MEDS: MORPHINE 4 MG/ML 1ML VIAL/SYRINGE (J2270) IV ×3 (02:54→21:06)
[2017-12-17] MEDS: IPRATROPIUM 0.5MG/ALBUTEROL 2.5MG INH SOL UD 3ML (DUONEB)(J7620) NEB ×6 (03:20→23:10)
[2017-12-17] MEDS: FOLIC ACID 1 MG TAB PO (08:30)
[2017-12-17] MEDS: GABAPENTIN 300 MG CAP PO ×2 (08:30→21:08)
[2017-12-17] MEDS: SERTRALINE 100 MG TAB PO (08:30)
[2017-12-17] MEDS: OMEPRAZOLE 20 MG CAP PO ×2 (08:30→21:07)
[2017-12-17] MEDS: cefTRIAXone SOD 1 GM in D5W MINI-BAG PLUS 50 ML IV (08:30)
[2017-12-17] MEDS: ISOSORBIDE MONONITRATE 10MG TABLET PO ×2 (08:31→17:59)
[2017-12-17] MEDS: ASPIRIN 81 MG ENTERIC TAB PO (08:31)
[2017-12-17] MEDS: ALLOPURINOL 100 MG TAB PO (08:31)
[2017-12-17] MEDS: SERTRALINE HCL 50 MG TAB PO (08:31)
[2017-12-17] MEDS: amLODIPine 10 MG TAB PO (08:31)
[2017-12-17] MEDS: CLOPIDOGREL 75 MG TAB PO (08:31)
[2017-12-17] MEDS: ENOXAPARIN 40 MG/0.4 ML SYRINGE (J1650) SC (08:32)
[2017-12-17] MEDS ORDERED: INFLUENZA QUADRIVALENT PF VACCINE 0.5ML SYRINGE (90686) IM (09:00)
[2017-12-17] MEDS: PERCOCET 5MG/325MG TAB PO ×2 (10:49→18:30)
[2017-12-17] MEDS ORDERED: SLF 3 ML SYR IV (15:30)
[2017-12-17] MEDS: AZITHROMYCIN INJ 500 MG, VIAL MATE ADAPTER 1 EACH in D5W 250 ML IV (17:19)
[2017-12-17] MEDS: ATORVASTATIN 20 MG TAB PO (21:07)
[2017-12-17] MEDS: LOSARTAN 50 MG TAB PO (21:07)
[2017-12-17] MEDS: SLF 3 ML SYR IV (21:08)
[2017-12-18] MEDS: IPRATROPIUM 0.5MG/ALBUTEROL 2.5MG INH SOL UD 3ML (DUONEB)(J7620) NEB ×5 (03:22→20:00)
[2017-12-18] MEDS: methylPREDNISolone INJ 40 MG/1 ML VIAL (J2920) IV ×3 (03:29→18:16)
[2017-12-18] MEDS: SLF 3 ML SYR IV ×3 (03:30→20:12)
[2017-12-18 07:26] LABS: BASO % 0.1 % (0.0-1.0); HEMATOCRIT 40.6 % (42.0-52.0); IMMATURE GRANULOCYTE % 0.5 % (0-3.0); LYMPH # 0.4 10^3/uL (1.5-4.5); LYMPH % 2.4 % (24.0-44.0); MEAN CORPUSCULAR HEMOGLOBIN 37.9 pg (27.0-33.0); MEAN CORPUSCULAR HGB CONC 34.5 g/dl (32.0-36.5); MONO # 0.6 10^3/uL (0.0-0.8); MONO % 3.8 % (0.0-5.0); NEUTROPHILS # 14.7 10^3/uL (1.8-7.7); NEUTROPHILS % 93.2 % (36.0-66.0); PLATELET COUNT, AUTOMATED 108 10^3/uL (150-450); RED BLOOD COUNT 3.69 10^6/uL (4.30-6.10); RED CELL DISTRIBUTION WIDTH 12.2 % (11.5-14.5); WHITE BLOOD COUNT 15.7 10^3/uL (4.0-10.0)
[2017-12-18 07:58] LABS: ALBUMIN 3.7 GM/DL (3.2-5.2); ALBUMIN/GLOBULIN RATIO 1.12 (1.00-1.93); ALKALINE PHOSPHATASE 83 U/L (45-117); ALT/SGPT 83 U/L (12-78); ANION GAP 7 MEQ/L (8-16); AST/SGOT 80 U/L (7-37); BILIRUBIN,TOTAL 0.4 MG/DL (0.2-1.0); BLOOD UREA NITROGEN 25 MG/DL (7-18); CALCIUM LEVEL 9.3 MG/DL (8.5-10.1); CARBON DIOXIDE LEVEL 24 MEQ/L (21-32); CHLORIDE LEVEL 110 MEQ/L (98-107); CREATININE FOR GFR 0.81 MG/DL (0.70-1.30); GLOMERULAR FILTRATION RATE > 60.0 (>56); GLUCOSE, FASTING 177 MG/DL (70-100); MAGNESIUM LEVEL 2.4 MG/DL (1.8-2.4); POTASSIUM SERUM 4.2 MEQ/L (3.5-5.1); SODIUM LEVEL 141 MEQ/L (136-145)
[2017-12-18] MEDS: SERTRALINE HCL 50 MG TAB PO (09:15)
[2017-12-18] MEDS: ISOSORBIDE MONONITRATE 10MG TABLET PO ×2 (09:15→16:25)
[2017-12-18] MEDS: CLOPIDOGREL 75 MG TAB PO (09:15)
[2017-12-18] MEDS: SERTRALINE 100 MG TAB PO (09:15)
[2017-12-18] MEDS: amLODIPine 10 MG TAB PO (09:16)
[2017-12-18] MEDS: ALLOPURINOL 100 MG TAB PO (09:16)
[2017-12-18] MEDS: GABAPENTIN 300 MG CAP PO ×2 (09:16→20:11)
[2017-12-18] MEDS: ASPIRIN 81 MG ENTERIC TAB PO (09:16)
[2017-12-18] MEDS: FOLIC ACID 1 MG TAB PO (09:16)
[2017-12-18] MEDS: **hydrALAZINE** 10 MG TAB PO ×2 (09:16→20:11)
[2017-12-18] MEDS: ENOXAPARIN 40 MG/0.4 ML SYRINGE (J1650) SC (09:18)
[2017-12-18] MEDS: PERCOCET 5MG/325MG TAB PO (09:18)
[2017-12-18] MEDS: OMEPRAZOLE 20 MG CAP PO ×2 (09:18→20:11)
[2017-12-18] MEDS: INFLUENZA QUADRIVALENT PF VACCINE 0.5ML SYRINGE (90686) IM (09:20)
[2017-12-18] MEDS: cefTRIAXone SOD 1 GM in D5W MINI-BAG PLUS 50 ML IV (09:20)
[2017-12-18] MEDS: ACETAMINOPHEN TAB 650MG DOSE (2X325MG) PO (16:11)
[2017-12-18] MEDS: AZITHROMYCIN INJ 500 MG, VIAL MATE ADAPTER 1 EACH in D5W 250 ML IV (16:25)
[2017-12-18 18:39] LABS: KETONE, URINE AUTO RFX NEGATIVE (NEGATIVE); LEUKOCYTE ESTERASE UR AUTO RFX NEGATIVE (NEGATIVE); NITRITE, URINE AUTO RFX NEGATIVE (NEGATIVE); RBC, URINE AUTO RFX 2 /HPF (0-3); SPECIFIC GRAVITY UR AUTO RFX 1.025 (1.002-1.035); SQUAM EPITHELIAL CELL UR AURFX 0 /HPF (0-6); WBC, URINE AUTO RFX 0 /HPF (0-3)
[2017-12-18] MEDS: LOSARTAN 50 MG TAB PO (20:11)
[2017-12-18] MEDS: ATORVASTATIN 20 MG TAB PO (20:11)
[2017-12-19] MEDS: PERCOCET 5MG/325MG TAB PO ×5 (00:21→20:54)
[2017-12-19] MEDS: IPRATROPIUM 0.5MG/ALBUTEROL 2.5MG INH SOL UD 3ML (DUONEB)(J7620) NEB ×6 (03:49→20:22)
[2017-12-19 05:37] LABS: BASO % 0.1 % (0.0-1.0); HEMATOCRIT 39.6 % (42.0-52.0); HEMOGLOBIN 13.3 g/dl (13.5-17.5); IMMATURE GRANULOCYTE % 0.8 % (0-3.0); LYMPH # 0.9 10^3/uL (1.5-4.5); LYMPH % 6.2 % (24.0-44.0); MEAN CORPUSCULAR HEMOGLOBIN 37.3 pg (27.0-33.0); MEAN CORPUSCULAR HGB CONC 33.6 g/dl (32.0-36.5); MEAN CORPUSCULAR VOLUME 110.9 fl (80.0-96.0); MONO # 1.1 10^3/uL (0.0-0.8); MONO % 7.1 % (0.0-5.0); NEUTROPHILS # 12.7 10^3/uL (1.8-7.7); NEUTROPHILS % 85.8 % (36.0-66.0); PLATELET COUNT, AUTOMATED 107 10^3/uL (150-450); RED BLOOD COUNT 3.57 10^6/uL (4.30-6.10); RED CELL DISTRIBUTION WIDTH 12.2 % (11.5-14.5); WHITE BLOOD COUNT 14.7 10^3/uL (4.0-10.0)
[2017-12-19 05:51] LABS: ALBUMIN 3.4 GM/DL (3.2-5.2); ALKALINE PHOSPHATASE 114 U/L (45-117); ALT/SGPT 110 U/L (12-78); ANION GAP 6 MEQ/L (8-16); AST/SGOT 77 U/L (7-37); BILIRUBIN,TOTAL 0.2 MG/DL (0.2-1.0); BLOOD UREA NITROGEN 24 MG/DL (7-18); CALCIUM LEVEL 8.9 MG/DL (8.5-10.1); CARBON DIOXIDE LEVEL 24 MEQ/L (21-32); CHLORIDE LEVEL 111 MEQ/L (98-107); CREATININE FOR GFR 0.73 MG/DL (0.70-1.30); GLOMERULAR FILTRATION RATE > 60.0 (>56); GLUCOSE, FASTING 159 MG/DL (70-100); MAGNESIUM LEVEL 2.3 MG/DL (1.8-2.4); SODIUM LEVEL 141 MEQ/L (136-145); TOTAL PROTEIN 6.8 GM/DL (6.4-8.2)
[2017-12-19] MEDS: SLF 3 ML SYR IV ×3 (05:57→20:56)
[2017-12-19] MEDS: ASPIRIN 81 MG ENTERIC TAB PO (08:35)
[2017-12-19] MEDS: ISOSORBIDE MONONITRATE 10MG TABLET PO ×2 (08:35→15:54)
[2017-12-19] MEDS: CLOPIDOGREL 75 MG TAB PO (08:35)
[2017-12-19] MEDS: SERTRALINE HCL 50 MG TAB PO (08:36)
[2017-12-19] MEDS: ALLOPURINOL 100 MG TAB PO (08:36)
[2017-12-19] MEDS: FOLIC ACID 1 MG TAB PO (08:36)
[2017-12-19] MEDS: amLODIPine 10 MG TAB PO (08:36)
[2017-12-19] MEDS: SERTRALINE 100 MG TAB PO (08:36)
[2017-12-19] MEDS: GABAPENTIN 300 MG CAP PO ×2 (08:36→20:52)
[2017-12-19] MEDS: ENOXAPARIN 40 MG/0.4 ML SYRINGE (J1650) SC (08:37)
[2017-12-19] MEDS: cefTRIAXone SOD 1 GM in D5W MINI-BAG PLUS 50 ML IV (08:37)
[2017-12-19] MEDS: predniSONE 20 MG TAB PO (08:37)
[2017-12-19] MEDS: **hydrALAZINE** 10 MG TAB PO ×2 (08:37→20:53)
[2017-12-19] MEDS: OMEPRAZOLE 20 MG CAP PO ×2 (08:45→20:53)
[2017-12-19] MEDS: DOCUSATE SODIUM 100 MG CAP PO ×2 (08:45→20:52)
[2017-12-19] MEDS: MIRALAX *UNIT DOSE* 17GM PACKET PO (12:45)
[2017-12-19] MEDS: BACTRIM 160MG/800MG DS TAB PO ×2 (14:09→20:52)
[2017-12-19] MEDS: guaiFENesin ER 600 MG TAB PO ×2 (15:02→20:52)
[2017-12-19] MEDS: ATORVASTATIN 20 MG TAB PO (20:53)
[2017-12-19] MEDS: LOSARTAN 50 MG TAB PO (20:54)
[2017-12-20] MEDS: IPRATROPIUM 0.5MG/ALBUTEROL 2.5MG INH SOL UD 3ML (DUONEB)(J7620) NEB ×3 (03:54→07:18)
[2017-12-20] MEDS: SLF 3 ML SYR IV (05:40)
[2017-12-20] MEDS: PERCOCET 5MG/325MG TAB PO (06:03)
[2017-12-20 07:15] LABS: BASO % 0.1 % (0.0-1.0); EOS # 0.1 10^3/uL (0.0-0.50); EOS % 0.5 % (0.0-3.0); HEMATOCRIT 41.2 % (42.0-52.0); HEMOGLOBIN 14.1 g/dl (13.5-17.5); IMMATURE GRANULOCYTE % 0.7 % (0-3.0); LYMPH # 1.6 10^3/uL (1.5-4.5); LYMPH % 14.4 % (24.0-44.0); MEAN CORPUSCULAR HEMOGLOBIN 37.6 pg (27.0-33.0); MEAN CORPUSCULAR HGB CONC 34.2 g/dl (32.0-36.5); MEAN CORPUSCULAR VOLUME 109.9 fl (80.0-96.0); MONO # 1.2 10^3/uL (0.0-0.8); MONO % 10.6 % (0.0-5.0); NEUTROPHILS # 8.2 10^3/uL (1.8-7.7); NEUTROPHILS % 73.7 % (36.0-66.0); PLATELET COUNT, AUTOMATED 101 10^3/uL (150-450); RED BLOOD COUNT 3.75 10^6/uL (4.30-6.10); RED CELL DISTRIBUTION WIDTH 12.3 % (11.5-14.5); WHITE BLOOD COUNT 11.1 10^3/uL (4.0-10.0)
[2017-12-20 07:33] LABS: ALBUMIN 3.3 GM/DL (3.2-5.2); ALBUMIN/GLOBULIN RATIO 0.92 (1.00-1.93); ALKALINE PHOSPHATASE 133 U/L (45-117); ALT/SGPT 200 U/L (12-78); ANION GAP 6 MEQ/L (8-16); AST/SGOT 110 U/L (7-37); BILIRUBIN,TOTAL 0.4 MG/DL (0.2-1.0); BLOOD UREA NITROGEN 27 MG/DL (7-18); CALCIUM LEVEL 8.8 MG/DL (8.5-10.1); CARBON DIOXIDE LEVEL 25 MEQ/L (21-32); CHLORIDE LEVEL 108 MEQ/L (98-107); CREATININE FOR GFR 0.75 MG/DL (0.70-1.30); GLOMERULAR FILTRATION RATE > 60.0 (>56); GLUCOSE, FASTING 126 MG/DL (70-100); MAGNESIUM LEVEL 2.1 MG/DL (1.8-2.4); POTASSIUM SERUM 3.9 MEQ/L (3.5-5.1); SODIUM LEVEL 139 MEQ/L (136-145); TOTAL PROTEIN 6.9 GM/DL (6.4-8.2)
[2017-12-20] MEDS: ENOXAPARIN 40 MG/0.4 ML SYRINGE (J1650) SC (08:18)
[2017-12-20] MEDS: FOLIC ACID 1 MG TAB PO (08:18)
[2017-12-20] MEDS: SERTRALINE HCL 50 MG TAB PO (08:19)
[2017-12-20] MEDS: SERTRALINE 100 MG TAB PO (08:19)
[2017-12-20] MEDS: DOCUSATE SODIUM 100 MG CAP PO (08:19)
[2017-12-20] MEDS: ALLOPURINOL 100 MG TAB PO (08:19)
[2017-12-20] MEDS: GABAPENTIN 300 MG CAP PO (08:19)
[2017-12-20] MEDS: CLOPIDOGREL 75 MG TAB PO (08:19)
[2017-12-20] MEDS: ISOSORBIDE MONONITRATE 10MG TABLET PO (08:19)
[2017-12-20] MEDS: BACTRIM 160MG/800MG DS TAB PO (08:19)
[2017-12-20] MEDS: amLODIPine 10 MG TAB PO (08:19)
[2017-12-20] MEDS: predniSONE 20 MG TAB PO (08:19)
[2017-12-20] MEDS: OMEPRAZOLE 20 MG CAP PO (08:19)
[2017-12-20] MEDS: guaiFENesin ER 600 MG TAB PO (08:20)
[2017-12-20] MEDS: ASPIRIN 81 MG ENTERIC TAB PO (08:20)
[2017-12-20] MEDS: **hydrALAZINE** 10 MG TAB PO (08:20)
== END 2017-12-20 10:06 | disposition home or self-care (01) | DRG 137 ==
LOC: M MS5PR 12-19 16:26 → M PCU 12-17 14:51 → M ED 10:58 → M ED INP 20:02
DX: J15.5 Pneumonia due to Escherichia coli (principal); I65.21 Occlusion and stenosis of right carotid artery; I10 Essential (primary) hypertension; E78.5 Hyperlipidemia, unspecified; R74.0 Nonspecific elevation of levels of transaminase and lactic acid dehydrogenase [LDH]; R09.02 Hypoxemia; I73.9 Peripheral vascular disease, unspecified; F32.9 Major depressive disorder, single episode, unspecified; F17.210 Nicotine dependence, cigarettes, uncomplicated; R07.81 Pleurodynia; Z79.82 Long term (current) use of aspirin; Z79.899 Other long term (current) drug therapy; Z88.1 Allergy status to other antibiotic agents

== ENCOUNTER → 2017-12-23 | Outpatient (REF) | payer BC ==
[2017-12-23 11:13] LABS: ALBUMIN 3.7 GM/DL (3.2-5.2); ALBUMIN/GLOBULIN RATIO 1.12 (1.00-1.93); ALKALINE PHOSPHATASE 107 U/L (45-117); ALT/SGPT 143 U/L (12-78); ANION GAP 4 MEQ/L (8-16); AST/SGOT 47 U/L (7-37); BILIRUBIN,TOTAL 0.4 MG/DL (0.2-1.0); BLOOD UREA NITROGEN 24 MG/DL (7-18); CALCIUM LEVEL 9.2 MG/DL (8.5-10.1); CARBON DIOXIDE LEVEL 30 MEQ/L (21-32); CHLORIDE LEVEL 106 MEQ/L (98-107); CREATININE FOR GFR 0.83 MG/DL (0.70-1.30); GLOMERULAR FILTRATION RATE > 60.0 (>56); GLUCOSE, FASTING 129 MG/DL (70-100); POTASSIUM SERUM 4.6 MEQ/L (3.5-5.1); SODIUM LEVEL 140 MEQ/L (136-145)
== END ==
LOC: M LABDRAW1 09:36
DX: R74.0 Nonspecific elevation of levels of transaminase and lactic acid dehydrogenase [LDH] (principal)
CPT/HCPCS: 80053

== ENCOUNTER → 2018-01-23 | Outpatient (CLI) | payer BC ==
[2018-01-23 19:58] LABS: ESTIMATED AVERAGE GLUCOSE 120 MG/DL (60-110); HEMOGLOBIN A1c 5.8 %
[2018-01-24 11:13] LABS: HEPATITIS C VIRUS ABY INDEX < 0.0 INDEX (<0.8)
== END ==
LOC: M LAB 13:34
DX: Z13.1 Encounter for screening for diabetes mellitus (principal)

== ENCOUNTER → 2018-02-04 | Outpatient (CLI) | payer BC | LOC: M CARPUL 16:27 | DX: R05 Cough (principal) | CPT/HCPCS: 94060 ==

== ENCOUNTER → 2018-08-21 | Outpatient (CLI) | payer MEDICARE, MEDICAID ==
[~2018-08-21] MED LIST changes: +ALB2.5NEB INH; -AMLO10TA2 PO; +AMLO10TA4 PO; +BACT800T5 PO; -FOLI1TAB4 PO; +FOLI1TAB5 PO; +LOSA-4 PO; -LOSA100T36 PO; +MUCI600T37 PO; +PERCOCET PO; +PRED10TA2 PO; +SULF1TAB93 PO; +TIZA4CAP PO; -TIZA4CAP3 PO; -VITA1CAP40 PO; +VITA50005 PO
--- NOTE | 2018-08-21 12:10 | REP ---
REASON FOR EXAM: Claudication. COMPARISON: None. RIGHT SIDE: The KELVIN is 0.73. PEAK SYSTOLIC VELOCITY SIGN HANGER 97.2 cm/s, biphasic Profunda 189.7 cm/s, biphasic SFA proximal 57.1 cm/s, monophasic SFA mid portion occluded. SFA distal 10 cm/s, biphasic Popliteal 32.2 cm/s, biphasic Anterior tibial artery proximally 20 cm/s, monophasic Tibioperoneal trunk 23.9 cm/s, biphasic Posterior tibial artery proximally 31.5 cm/s, triphasic Posterior tibial artery distally 32.3 cm/s, triphasic Anterior tibial artery distally 35.4 cm/s, monophasic LEFT SIDE: Ankle brachial index 0.59. PEAK SYSTOLIC VELOCITY SIGN HANGER 44.0 cm/s, monophasic Profunda 30.5 cm/s, monophasic SFA proximal 37.5 cm/s, monophasic SFA mid portion 43.0 cm/s monophasic SFA distally 33.3 cm/s, monophasic Popliteal artery 43.3 cm/s, monophasic Anterior tibial artery proximally 8.0 cm/s, monophasic Tibioperoneal trunk 17.8 cm/s, monophasic Posterior tibial artery proximally 13.9 cm/s, monophasic Posterior tibial artery distally 14.0 cm/s, monophasic Anterior tibial artery distally 22.0 cm/s, monophasic There is moderate to severe right-sided profunda stenosis where the proximal and mid right femoral artery occluded. Multiple collaterals to this vessel were noted. Monophasic waveform was seen throughout the left lower extremity arteries as described above. This suggests left iliac arterial disease. Multiple collateral arteries were seen on the left in the popliteal area. Electronically Signed by Jorge Abdullahi DO 08/21/2018 03:52 P
== END ==
LOC: M RAD 10:02
PROVIDERS: ATTEND Family Medicine
DX: I74.3 Embolism and thrombosis of arteries of the lower extremities (principal); I73.9 Peripheral vascular disease, unspecified

== ENCOUNTER → 2018-09-08 | Outpatient (CLI) | payer MEDICARE, MEDICAID ==
[~2018-09-08] MED LIST changes: -AMLO10TA4 PO; +AMLO10TA5 PO; +FOLI1TAB11 PO; -FOLI1TAB5 PO; -LOSA-4 PO; +LOSA100T50 PO
[2018-09-08 17:46] LABS: ALBUMIN 4.2 GM/DL (3.2-5.2); ALT/SGPT 80 U/L (12-78); BILIRUBIN,TOTAL 0.4 MG/DL (0.2-1.0); BLOOD UREA NITROGEN 18 MG/DL (7-18); CALCIUM LEVEL 9.1 MG/DL (8.5-10.1); CARBON DIOXIDE LEVEL 29 MEQ/L (21-32); CHLORIDE LEVEL 104 MEQ/L (98-107); CHOLESTEROL LEVEL 143 MG/DL (<200); CHOLESTEROL RISK RATIO 2.423 (<5); CREATININE FOR GFR 0.78 MG/DL (0.70-1.30); GLOMERULAR FILTRATION RATE > 60.0 (>56); GLUCOSE, FASTING 135 MG/DL (70-100); HDL CHOLESTEROL 59 MG/DL (>40); LDL CHOLESTEROL 50 MG/DL (<100); NON-HDL-C 84 MG/DL; SODIUM LEVEL 140 MEQ/L (136-145); TOTAL PROTEIN 7.6 GM/DL (6.4-8.2); TRIGLYCERIDES LEVEL 172 MG/DL (<150)
[2018-09-08 17:47] LABS: BASO % 0.4 % (0.0-1.0); EOS # 0.4 10^3/uL (0.0-0.50); EOS % 3.8 % (0.0-3.0); HEMATOCRIT 46.5 % (42.0-52.0); HEMOGLOBIN 15.3 g/dl (13.5-17.5); LYMPH # 1.4 10^3/uL (1.5-4.5); LYMPH % 14.6 % (24.0-44.0); MEAN CORPUSCULAR HEMOGLOBIN 36.8 pg (27.0-33.0); MEAN CORPUSCULAR HGB CONC 32.9 g/dl (32.0-36.5); MEAN CORPUSCULAR VOLUME 111.8 fl (80.0-96.0); MONO # 0.9 10^3/uL (0.0-0.8); MONO % 9.4 % (0.0-5.0); NEUTROPHILS # 6.7 10^3/uL (1.8-7.7); NEUTROPHILS % 71.5 % (36.0-66.0); PLATELET COUNT, AUTOMATED 126 10^3/uL (150-450); RED BLOOD COUNT 4.16 10^6/uL (4.30-6.10); WHITE BLOOD COUNT 9.3 10^3/uL (4.0-10.0)
== END ==
LOC: M WUC 11:54
PROVIDERS: ATTEND Physician Assistant
DX: I10 Essential (primary) hypertension (principal)

== ENCOUNTER → 2018-09-24 | Outpatient (CLI) | payer MEDICARE, MEDICAID ==
[2018-09-24 16:28] LABS: ALBUMIN 4.1 GM/DL (3.2-5.2); BILIRUBIN,DIRECT 0.2 MG/DL (0.0-0.2); BILIRUBIN,TOTAL 0.6 MG/DL (0.2-1.0); TOTAL PROTEIN 7.3 GM/DL (6.4-8.2)
== END ==
LOC: M WUC 14:00
PROVIDERS: ATTEND Physician Assistant
DX: R74.8 Abnormal levels of other serum enzymes (principal)

== ENCOUNTER → 2018-11-01 | Outpatient (CLI) | payer MEDICARE, MEDICAID ==
--- NOTE | 2018-11-03 09:28 | REP ---
MRI lumbar spine without contrast: History: Low back pain. Comparison MRI study is from February 27, 2017. Technique: Sagittal and axial T1 and T2-weighted scans are acquired in the usual fashion with and without fat saturation. Sequences include spin echo, turbo spin-echo, and STIR imaging sequences. MRI findings: Lumbar vertebral body heights are preserved. Alignment is normal and unchanged. The tip of the conus is at T12. Ectasia of the infrarenal abdominal aorta is seen, 2.9 cm in AP dimension. Previously 2.7 cm. No other extra vertebral abnormality is observed. At L1-2, axial and sagittal images demonstrate degenerative disc narrowing. There is a small central focal disc protrusion indenting the ventral margin of the thecal sac. Minimal bulging of the remainder of the disc margin is seen. No other finding. This is essentially unchanged. At L2-3, the left lateral disc bulge is again seen. No central canal stenosis or neural foraminal narrowing is seen. At L3-4, there is mild disc space narrowing. Minimal facet hypertrophy is noted. No thecal sac compression is seen. At L4-5, there is diffuse disc bulging. This indents the ventral margin of the thecal sac. Combined with moderate facet and ligamentum flavum hypertrophy, there is mild central canal stenosis at L4-5 as previously noted. There is minimal bilateral L4-5 neural foraminal narrowing due to facet hypertrophy and disc bulging. This is somewhat better displayed and may be slightly more prominent. At L5-S1, there is facet hypertrophy bilaterally. No other significant finding. Impression: Degenerative spondylosis changes most pronounced at L1-2 and L2-3 and L4-5. At L4-5, there is mild central canal stenosis and mild bilateral neural foraminal narrowing slightly more prominent. Electronically Signed by Alex Merino MD 11/03/2018 12:44 P
== END ==
LOC: M RAD 12:02
PROVIDERS: ATTEND Family Medicine
DX: M54.5 Low back pain (principal)

== ENCOUNTER → 2019-03-02 | Outpatient (CLI) | payer MEDICARE, MEDICAID ==
[~2019-03-02] MED LIST changes: +ARNU1INH IN; +CYCL5TAB PO; +HYDR-3715 PO; +MUCI600T31 PO; -NORCOTAB PO; -OMEP40CA2 PO; +OMEP40CA97 PO; +PROAAER10 INH; +SERT-141 PO; -SERT50TA PO; +TRAZ-257 PO
[2019-03-02 16:48] LABS: ALT/SGPT 103 U/L (12-78); BILIRUBIN,TOTAL 0.4 MG/DL (0.2-1.0); BLOOD UREA NITROGEN 22 MG/DL (7-18); CALCIUM LEVEL 8.7 MG/DL (8.5-10.1); CARBON DIOXIDE LEVEL 25 MEQ/L (21-32); CHLORIDE LEVEL 107 MEQ/L (98-107); CHOLESTEROL LEVEL 130 MG/DL (<200); CHOLESTEROL RISK RATIO 2.888 (<5); CREATININE FOR GFR 0.92 MG/DL (0.70-1.30); GLOMERULAR FILTRATION RATE > 60.0 (>56); GLUCOSE, FASTING 126 MG/DL (70-100); HDL CHOLESTEROL 45 MG/DL (>40); LDL CHOLESTEROL 40 MG/DL (<100); NON-HDL-C 85 MG/DL; POTASSIUM SERUM 4.4 MEQ/L (3.5-5.1); SODIUM LEVEL 140 MEQ/L (136-145); TOTAL PROTEIN 7.2 GM/DL (6.4-8.2); TRIGLYCERIDES LEVEL 227 MG/DL (<150)
[2019-03-02 17:08] LABS: BASO % 0.3 % (0.0-1.0); EOS # 0.1 10^3/uL (0.0-0.50); EOS % 1.7 % (0.0-3.0); HEMOGLOBIN 14.4 g/dl (13.5-17.5); LYMPH # 1.2 10^3/uL (1.5-4.5); LYMPH % 15.2 % (24.0-44.0); MEAN CORPUSCULAR HGB CONC 34.3 g/dl (32.0-36.5); MEAN CORPUSCULAR VOLUME 113.8 fl (80.0-96.0); MONO # 0.8 10^3/uL (0.0-0.8); MONO % 9.9 % (0.0-5.0); NEUTROPHILS # 5.5 10^3/uL (1.8-7.7); NEUTROPHILS % 72.4 % (36.0-66.0); PLATELET COUNT, AUTOMATED 103 10^3/uL (150-450); RED BLOOD COUNT 3.69 10^6/uL (4.30-6.10); WHITE BLOOD COUNT 7.6 10^3/uL (4.0-10.0)
== END ==
LOC: M WUC 12:40
PROVIDERS: ATTEND Physician Assistant
DX: I10 Essential (primary) hypertension (principal)

== ENCOUNTER → 2019-03-25 | Outpatient (CLI) | payer MEDICARE, MEDICAID ==
[~2019-03-25] MED LIST changes: -ARNU1INH IN; -CYCL5TAB PO; -MUCI600T31 PO; +OMEP40CA2 PO; -OMEP40CA97 PO; -PROAAER10 INH; -TRAZ-257 PO
[2019-03-25 09:44] LABS: BASO % 0.3 % (0.0-1.0); EOS # 0.2 10^3/uL (0.0-0.50); EOS % 2.3 % (0.0-3.0); HEMATOCRIT 42.2 % (42.0-52.0); HEMOGLOBIN 14.3 g/dl (13.5-17.5); LYMPH # 0.9 10^3/uL (1.5-4.5); LYMPH % 12.8 % (24.0-44.0); MEAN CORPUSCULAR HEMOGLOBIN 38.3 pg (27.0-33.0); MEAN CORPUSCULAR HGB CONC 33.9 g/dl (32.0-36.5); MEAN CORPUSCULAR VOLUME 113.1 fl (80.0-96.0); MONO # 0.6 10^3/uL (0.0-0.8); MONO % 8.4 % (0.0-5.0); NEUTROPHILS # 5.3 10^3/uL (1.8-7.7); NEUTROPHILS % 75.6 % (36.0-66.0); PLATELET COUNT, AUTOMATED 103 10^3/uL (150-450); RED BLOOD COUNT 3.73 10^6/uL (4.30-6.10)
[2019-03-25 09:52] LABS: INR 0.96; PROTHROMBIN TIME 12.4 SECONDS (11.8-14.0)
[2019-03-25 10:29] LABS: ALBUMIN 3.8 GM/DL (3.2-5.2); ALT/SGPT 121 U/L (12-78); BILIRUBIN,DIRECT 0.2 MG/DL (0.0-0.2); BILIRUBIN,TOTAL 0.4 MG/DL (0.2-1.0); IRON (FE) 118 UG/DL (65-175); PERCENT SATURATION 39.2 % (19.7-50.0); TOTAL IRON BINDING CAPACITY 301 UG/DL (250-450)
[2019-03-25 10:41] LABS: HEPATITIS B SURFACE ANTIGEN NEGATIVE (NEGATIVE)
[2019-03-25 11:08] LABS: HEPATITIS C VIRUS ABY INDEX 0.1 INDEX (<0.8)
[2019-03-25 11:09] LABS: HEPATITIS B CORE ANTIBODY IGM NEGATIVE (NEGATIVE)
[2019-03-25 11:11] LABS: HEPATITIS A ANTIBODY IGM NEGATIVE (NEGATIVE)
--- NOTE | 2019-03-25 12:19 | REP ---
Portal vein Doppler ultrasound: The main portal vein measures 18 mm transverse diameter. The main portal vein is dilated. The common biliary duct measures 4.2 mm diameter and is normal size. There is no liver mass. There is cholelithiasis. There is no ascites. The flow velocities in the splenic vein, superior mesenteric vein and portal veins are normal. Direction of flow in the portal veins is normal. Impression: Dilated main portal vein. Normal direction of flow in the portal veins. Right upper quadrant abdominal ultrasound: There are multiple mobile small gallbladder calculi measuring up to 5 mm. There is no gallbladder wall thickening or pericholecystic fluid. There is no intrahepatic or extrahepatic biliary duct dilatation. The common biliary duct measures 4.2 mm in diameter. The hepatic parenchyma is hyperechoic compatible with hepato steatosis. There are no hepatic masses or cysts. The visualized areas of the pancreas are unremarkable. The spleen is enlarged measuring 10.8 x 13.2 x 5.5 cm for a splenic index of 784. The right kidney measures 13 x 1 x 5 on 7 x 5.3 cm. The left kidney measures 12.3 x 5.1 x 6.5 cm. The kidneys are normal size. 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 There are no renal calculi. There is no hydronephrosis. There are no solid or cystic renal masses. There is no abdominal ascites. Impression: Cholelithiasis. No biliary duct dilatation. No ultrasound evidence of acute cholecystitis. Splenomegaly by splenic index. Electronically Signed by Jose Lora MD 03/25/2019 12:10 P
[2019-03-28 00:06] LABS: ANCA-ATYPICAL <1:20 titer (Neg:<1:20); ANTI-MITOCHONDRIAL ANTIBODY <20.0 Units (0.0-20.0); ANTINUCLEAR ANTIBODIES DIRECT Negative (Negative); CYTOPLASMIC NEUTROP AB ANCA-C <1:20 titer (Neg:<1:20); LIVER-KIDNEY MICROSOMAL ABY <20.1 Units (0.0-20.0); PERINUCLEAR AB ANCA-P <1:20 titer (Neg:<1:20)
== END ==
LOC: M RAD 08:38
PROVIDERS: ATTEND Internal Medicine Gastroenterology
DX: R94.5 Abnormal results of liver function studies (principal); R16.1 Splenomegaly, not elsewhere classified; K76.6 Portal hypertension; K80.20 Calculus of gallbladder without cholecystitis without obstruction

== ENCOUNTER 2019-04-27 09:35 | Day surgery (SDC) | payer MEDICARE, MEDICAID ==
[~2019-04-27] VITALS: Ht 162.6 cm; Wt 92.5 kg
[~2019-04-27 09:35] MED LIST changes: +CYCL5TAB PO; +MUCI600T31 PO; +NS 1,000 ML IV ONE; -OMEP40CA2 PO; +OMEP40CA97 PO; +PROAAER10 INH; +TRAZ-257 PO
[2019-04-27] MEDS ORDERED: LIDOCAINE 2% INJ 100 MG/5 ML SDV (FOR ANES.) As Ordered ONE (11:23)
[2019-04-27] MEDS ORDERED: propofoL 200 MG/20 ML VIAL As Ordered ONE ×3 (11:23→11:42)
--- NOTE | 2019-04-27 11:38 | ROOR ---
Patient Name: Rustam Rincon Procedure Date: 04/27/2019 11:13 AM Date of : 1960 Age: 58 Room: [facility] Gender: Male Note Status: Finalized Procedure: Upper GI endoscopy Indications: Follow-up of esophageal reflux, Cirrhosis rule out esophageal varices Providers: Jason JOHN MD Referring MD: Bill Schneider DO Requesting Provider: Medicines: Monitored Anesthesia Care Complications: No immediate complications. Procedure: Pre-Anesthesia Assessment: - The heart rate, respiratory rate, oxygen saturations, blood pressure, adequacy of pulmonary ventilation, and response to care were monitored throughout the procedure. The Endoscope was introduced through the mouth, and advanced to the second part of duodenum. The upper GI endoscopy was accomplished without difficulty. The patient tolerated the procedure well. Findings: The Z-line was irregular and was found 39 cm from the incisors. This was biopsied with a cold forceps for histology. Localized mild inflammation characterized by erythema and granularity was found in the gastric antrum. Biopsies were taken with a cold forceps for histology. The exam was otherwise without abnormality. There is no endoscopic evidence of varices in the entire esophagus. There is no endoscopic evidence of varices in the entire examined stomach. Impression: - Z-line irregular, 39 cm from the incisors. Biopsied. - Mild antral gastritis. Biopsied. - The examination was otherwise normal. - (There is no evidence of esophageal or gastric varices). Recommendation: - Continue present medications. - Telephone endoscopist for pathology results in 2 weeks. Jason John MD Jason JOHN MD 04/27/2019 11:37:53 AM Electronically signed by Jason JOHN MD Number of Addenda: 0 Note Initiated On: 04/27/2019 11:13 AM Estimated Blood Loss: Estimated blood loss: none.
--- NOTE | 2019-04-27 12:00 | ROOR ---
Patient Name: Rustam Rincon Procedure Date: 04/27/2019 11:16 AM Date of : 1960 Age: 58 Room: [facility] Gender: Male Note Status: Finalized Procedure: Colonoscopy Indications: High risk colon cancer surveillance: Personal history of colonic polyps, Last colonoscopy: February 2016 Providers: Jason JOHN MD Referring MD: Bill Schneider DO [employer] Provider: Medicines: Monitored Anesthesia Care Complications: No immediate complications. Procedure: Pre-Anesthesia Assessment: - The heart rate, respiratory rate, oxygen saturations, blood pressure, adequacy of pulmonary ventilation, and response to care were monitored throughout the procedure. The Colonoscope was introduced through the anus and advanced to the cecum, identified by appendiceal orifice and ileocecal valve. The colonoscopy was performed without difficulty. The patient tolerated the procedure well. The quality of the bowel preparation was good. Findings: The perianal and digital rectal examinations were normal. Multiple medium-mouthed diverticula were found in the sigmoid colon. Internal hemorrhoids were found during retroflexion. The hemorrhoids were medium-sized. A 5 mm polyp was found in the sigmoid colon. The polyp was sessile. The polyp was removed with a cold snare. Resection and retrieval were complete. To prevent bleeding after the polypectomy, one hemostatic clip was successfully placed. There was no bleeding at the end of the procedure. The exam was otherwise without abnormality on direct and retroflexion views. Impression: - Diverticulosis in the sigmoid colon. - Internal hemorrhoids. - One 5 mm polyp in the sigmoid colon, removed with a cold snare. Resected and retrieved. Clip was placed. - The examination was otherwise normal on direct and retroflexion views. Recommendation: - Repeat colonoscopy in 5 years for surveillance. Jason John MD Jason JOHN MD 04/27/2019 12:00:29 PM Electronically signed by Jason JOHN MD Number of Addenda: 0 Note Initiated On: 04/27/2019 11:16 AM Estimated Blood Loss: Estimated blood loss: none.
[2019-04-27 12:34] VITALS: BP 163/98
[2019-09-10] MEDS ORDERED: ARNU1INH IN (13:36)
== END 2019-04-27 12:35 | disposition home or self-care (01) ==
LOC: M OPP 09:35
PROVIDERS: ATTEND Internal Medicine Gastroenterology
DX: Z12.11 Encounter for screening for malignant neoplasm of colon (principal); Z86.010 Personal history of colon polyps; K64.8 Other hemorrhoids; D12.5 Benign neoplasm of sigmoid colon; K57.30 Diverticulosis of large intestine without perforation or abscess without bleeding; K22.8 Other specified diseases of esophagus; K29.70 Gastritis, unspecified, without bleeding; K21.9 Gastro-esophageal reflux disease without esophagitis; K74.60 Unspecified cirrhosis of liver; J44.9 Chronic obstructive pulmonary disease, unspecified; F17.210 Nicotine dependence, cigarettes, uncomplicated; Z79.82 Long term (current) use of aspirin; Z79.899 Other long term (current) drug therapy; Z88.1 Allergy status to other antibiotic agents

== ENCOUNTER → 2019-06-10 | Outpatient (CLI) | payer MEDICARE, MEDICAID ==
[~2019-06-10] MED LIST changes: -NS 1,000 ML IV ONE; +TRAZ-163 PO; -TRAZ-257 PO
--- NOTE | 2019-06-10 13:40 | REP ---
PA and lateral chest: Comparison is 12/16/2017. The atelectasis identified inferolaterally in the right lung previously has resolved. There is increased density inferolaterally in the right lung today, nonspecific, artifact from superimposed right breast versus infiltrate. The remainder of the right lung is clear. Left lung is clear. There are no pleural effusions. The cardiac size is normal. The suzi, mediastinum, skeletal structures are. Impression: Focal infiltrate versus artifact from superimposed breast inferolaterally in the right hemithorax. Otherwise, negative PA and lateral chest. Depending on symptoms, consider CT for further evaluation. Electronically Signed by Jose Lora MD 06/10/2019 01:32 P
== END ==
LOC: M LAB 11:35 → M RAD 11:35
PROVIDERS: ATTEND Family Medicine
DX: J40 Bronchitis, not specified as acute or chronic (principal)

== ENCOUNTER → 2019-06-25 | Outpatient (CLI) | payer MEDICARE, MEDICAID ==
[2019-06-25 15:46] LABS: HEMATOCRIT 42.9 % (42.0-52.0); HEMOGLOBIN 14.5 g/dl (13.5-17.5); MEAN CORPUSCULAR HGB CONC 33.8 g/dl (32.0-36.5); MEAN CORPUSCULAR VOLUME 115.3 fl (80.0-96.0); PLATELET COUNT, AUTOMATED 112 10^3/uL (150-450); RED BLOOD COUNT 3.72 10^6/uL (4.30-6.10); WHITE BLOOD COUNT 7.5 10^3/uL (4.0-10.0)
[2019-06-25 16:05] LABS: BLOOD UREA NITROGEN 17 MG/DL (7-18); CALCIUM LEVEL 9.4 MG/DL (8.5-10.1); CARBON DIOXIDE LEVEL 31 MEQ/L (21-32); CHLORIDE LEVEL 105 MEQ/L (98-107); CREATININE FOR GFR 0.97 MG/DL (0.70-1.30); GLOMERULAR FILTRATION RATE > 60.0 (>56); GLUCOSE, FASTING 123 MG/DL (70-100); POTASSIUM SERUM 4.3 MEQ/L (3.5-5.1); SODIUM LEVEL 141 MEQ/L (136-145)
== END ==
LOC: M LAB 15:17
PROVIDERS: ATTEND Surgery Vascular Surgery
DX: I73.9 Peripheral vascular disease, unspecified (principal); Z79.899 Other long term (current) drug therapy

== ENCOUNTER → 2019-07-01 | Outpatient (CLI) | payer MEDICARE, MEDICAID ==
[~2019-07-01] MED LIST changes: +HEPARIN 1,000 UNITS/ML 10ML VIAL (FOR RADIOLOGY& DIALYSIS ONLY) As Ordered ONE; +ISOVUE-300 61% 50ML VIAL (Q9967) As Ordered ONE; +LIDOCAINE 1% MDV 20ML VIAL As Ordered ONE; +MIDAZOLAM INJ 2 MG/2 ML VIAL (J2250) As Ordered ONE; +diphenhydrAMINE INJ 50MG/ML VIAL (J1200) As Ordered ONE; +fentaNYL 100 MCG/2 ML INJECTION (J3010) As Ordered ONE
--- NOTE | 2019-07-01 09:19 | ROOPDOC ---
[facility] Report Of Operation Report of Operation DATE OF PROCEDURE: 07/01/19 PREPROCEDURE DIAGNOSES: Atherosclerosis the [place] vessels with lifestyle limiting claudication. POSTPROCEDURE DIAGNOSES: Same. PROCEDURE: 1. Ultrasound-guided access right and left common femoral arteries 2. Aortoiliofemoral arteriogram and runoff of the bilateral lower extremities 3. 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 Mynx closure left and right common femoral arteries SURGEON: Radha Casillas MD ANESTHESIA: Lidocaine 8 mL local anesthesia. Monitored intravenous conscious se dation was supervised by Dr. Casillas. The patient was independently monitored by registered nurse assigned to the department of radiology with automated blood pressure, EKG, and pulse oximetry. The detailed conscious sedation record is permanently housed in the hospital information system. The following is the brief sedation record: Start time 07:49, stop time 08:48, Versed 1 mg IV, fentanyl 25 g IV. CONTRAST: 52 mL Isovue INDICATION FOR PROCEDURE: Mr. Rincon is a very pleasant 58-year-old gentleman with lifestyle limiting claudication and suspicion of iliac disease and femoral occlusion on the right. However, the patient's KELVIN is lower on the left and he is more symptomatic on the left, therefore we plan to start with a left lower extremity arteriogram and potential intervention. I did discuss with him that he may need access in both groins if he has iliac disease, and he understands this. If we do not do any significant intervention, we may do an arteriogram of both lower extremities. Risks benefits and alternatives to endovascular option were explained to the patient at length and he is agreeable to proceed. Informed consent was obtained. INTERPRETATION: 1. There is a 80 % stenosis at the origin of the right common iliac artery with poststenotic dilatation and mild aneurysmal dilation, with a patent hypogastric artery and external iliac artery. On the left, the common femoral artery is occluded and there is a large collateral from right to left through the groin that fills the external iliac artery and provide distal flow to the left lower extremity. 2. Left lower extremity arteriogram reveals a widely patent common femoral, profunda, superficial femoral, popliteal, and tibial vessels with the main runoff through the posterior tibial and anterior tibial artery all the way to the distal foot. The peroneal is diminutive in size but patent. 3. Right lower extremity arteriogram reveals a widely patent common femoral and profunda, but it complete total occlusion of the superficial femoral artery with reconstitution above the knee through collaterals from the profunda. There is then a widely patent popliteal artery with 3 vessel runoff, the main vessels being the posterior tibial and anterior tibial which runoff all the way to the distal foot. The peroneal artery is patent but diminutive in size. REPORT OF OPERATION: Mr. Rincon is very pleasant 58-year-old patient who was brought to the angiographic suite in stable condition and placed supine on the fluoroscopic table. His bilateral groins were prepped and draped in a sterile fashion. A timeout was performed. Local anesthesia was administered to the skin and subcutaneous tissue over the right common femoral artery and a microneedle was used to access the artery under ultrasound guidance. A wire was passed thro ugh this access under fluoroscopic guidance and a micro-sheath was placed. We then navigated a Glidewire through the iliacs into the aorta, and this was challenging due to stenosis at the common iliac origin. We exchange the sheath for 6 English sheath which was flushed with saline. We then advanced a catheter into the aorta above the bifurcation. Aortoiliofemoral arteriograms were performed please see interpretation above. Ultrasound and fluoroscopy were used to guide access in the left groin with a 6 English sheath in a similar fashion to the right. The sheath was flushed with saline. We then attempted to cross the chronic total occlusion of the common iliac artery on the left with a Glidewire and a glide cath. We were not able to find a subintimal path initially, that we exchanged for a weighted tip 018 wire and an O18 Crossing catheter, and we were able to navigate chcf across the occlusion. We then exchanged R wire back for the Glidewire and glide And we were able to get to the proximal common iliac art millie, but we were not able to cross into the true lumen of the aorta. We attempted to do so for about 20 minutes and then the procedure was aborted. Following this, we performed arteriograms of both lower extremities through the existing sheath to plan our next procedure. The main inflow to both lower extremities will be the right common iliac artery, and with the proximal arterial stenosis, we would like to place a covered balloon-expandable stent to provide long-term patency. This is something we will need to order for the case. We then would do a right to left femorofemoral bypass and a right femoral to above-knee popliteal bypass for combined open endovascular procedure for revascularization. We will discuss this with the patient when he comes back to clinic to check his groin access sites. We deployed closure devices in both common femoral arteries with good hemostasis. Pressure was held for 10 minutes and sterile dressings were applied. There were no complications. The patient tolerated the procedure and the sedation well. ESTIMATED BLOOD LOSS: Approximately 5 mL. COMPLICATIONS: None PLAN: We will see the patient back in clinic to discuss options for a combined open endovascular procedure. Regarding the right iliac stenosis, there is a mildly aneurysmal post-dilation and I think since this will be his main inflow to the bilateral lower extremities he will have greater patency with a balloon- expandable covered stent. We do not have that in our stock currently. Regarding the left iliac chronic occlusion, we will do a right to left femorofemoral bypass. Regarding the right SFA chronic total occlusion, we will do a right femoral to popliteal [id number] bypass. He will need vein mapping and a stress test with clearance. For now, he can resume his home medications and he should continue to try to quit smoking. This will increase the patency duration of his endovascular and open repairs, and give him the greatest chance for long- term arterial perfusion. RADHA CASILLAS MD Jul 01, 2019 09:19
[2019-07-01 13:15] VITALS: BP 150/86
== END ==
LOC: M IRPRO 07:00
PROVIDERS: ATTEND Surgery Vascular Surgery
DX: I70.213 Atherosclerosis of native arteries of extremities with intermittent claudication, bilateral legs (principal); I70.92 Chronic total occlusion of artery of the extremities; F17.210 Nicotine dependence, cigarettes, uncomplicated
CPT/HCPCS: 36200; 75716; 99152; 99153; C1760; C1769; C1887; C1894; G0269; J2250; J3010; Q9967

== ENCOUNTER → 2019-07-23 | Outpatient (CLI) | payer MEDICARE, MEDICAID ==
[~2019-07-23] MED LIST changes: -HEPARIN 1,000 UNITS/ML 10ML VIAL (FOR RADIOLOGY& DIALYSIS ONLY) As Ordered ONE; -ISOVUE-300 61% 50ML VIAL (Q9967) As Ordered ONE; -LIDOCAINE 1% MDV 20ML VIAL As Ordered ONE; -MIDAZOLAM INJ 2 MG/2 ML VIAL (J2250) As Ordered ONE; -diphenhydrAMINE INJ 50MG/ML VIAL (J1200) As Ordered ONE; -fentaNYL 100 MCG/2 ML INJECTION (J3010) As Ordered ONE
--- NOTE | 2019-07-23 13:01 | REP ---
Two-view chest: 07/23/2019. Indication: Cough. Bronchitis. Comparison: 06/10/2019. Findings: The lungs are clear. There is no pleural effusion or pneumothorax. Cardiac silhouette is borderline enlarged. Impression: No acute cardiopulmonary process. Electronically Signed by Rajesh Bernard DO 07/23/2019 12:52 P
== END ==
LOC: M RAD 12:24
PROVIDERS: ATTEND Family Medicine
DX: J40 Bronchitis, not specified as acute or chronic (principal)

== ENCOUNTER → 2019-07-23 | Outpatient (CLI) | payer MEDICARE, MEDICAID ==
--- NOTE | 2019-07-23 14:09 | REP ---
Bilateral lower extremity duplex venous ultrasound: Vein mapping study. History: Vein mapping exam bilateral lower extremities. Atherosclerosis of the [place] arteries. Intermittent extremity claudication. Findings: The deep veins are anechoic and fully compressible from the groin to the popliteal fossa in both lower extremities on two-dimensional scanning. Color flow imaging demonstrates homogeneous flow. Pulsed Doppler interrogation demonstrates respiratory variation in flow and normal manual augmentation of flow. There is no evidence of DVT. Vein diameters were measured with the bed tipped. Vein diameter chart right lower extremity: Proximal greater saphenous vein are mm Mid greater saphenous vein 3 mm Distal greater saphenous vein 3 mm Proximal calf greater saphenous vein 3 mm [place] greater saphenous vein 2 mm Distal calf greater saphenous vein 2 mm Lesser saphenous vein proximal 2.2 mm, mid 1.8 mm, distal 1.9 mm Vein diameter chart left lower extremity: Proximal greater saphenous vein 6 mm Mid greater saphenous vein 3 mm Distal greater saphenous vein 2 mm Proximal calf greater saphenous vein 3 mm [place] greater saphenous vein 2 mm Distal calf greater saphenous vein 2 mm Lesser saphenous vein proximal, mid, and distal; 1.4, 1.4, and 1.3 mm Electronically Signed by Alex Merino MD 07/23/2019 02:01 P
== END ==
LOC: M RAD 12:31
PROVIDERS: ATTEND Physician Assistant
DX: Z01.818 Encounter for other preprocedural examination (principal); I70.213 Atherosclerosis of native arteries of extremities with intermittent claudication, bilateral legs; J40 Bronchitis, not specified as acute or chronic

== ENCOUNTER 2019-09-25 06:04 | Inpatient (IN) | payer MEDICARE, MEDICAID ==
--- NOTE | 2019-09-15 18:37 | HPE ---
DATE OF ADMISSION: 09/25/2019 CHIEF COMPLAINT: Severe claudication. HISTORY OF PRESENT ILLNESS: Mr. Rincon is a very pleasant 58-year-old gentleman who has lifestyle limiting claudication. He said he is unable to even walk one block before he has to sit down and let his legs recover. He does not experience rest pain at night and he does not have any nonhealing wounds or ulcers. He says he has gained a lot of weight because he can not walk or exercise. He is a smoker, and is still smoking. We had another 30-minute discussion about smoking cessation. We went over this at length. I again asked him if he would like any pharmacologic help with this and he says no, but he has tried to cut back and says he will eventually quit. The patient had a recent noninvasive arterial study that revealed significant bilateral lower extremity peripheral vascular disease (PVD). The right ankle-brachial index (KELVIN) is 0.73 and there is biphasic and monophasic flow throughout the right lower extremity with some iliac disease, definitely superficial femoral artery (SFA) disease, as well as tibial disease. On the left side, the KELVIN is 0.59. Common femoral artery flow was monophasic and there is likely iliac disease there as well. The SFA does not appear to have significant disease on the left compared to the right, but there may be tibial disease based on the noninvasive study. Subsequent to this, the patient underwent arteriogram and based on findings he returned today to discuss options for a combined open and endovascular procedure. Arteriogram interpretation is as follows: 1. There is an 80% stenosis at the origin of the right common iliac artery with poststenotic dilatation and mild aneurysmal dilation, with patent hypogastric artery and external iliac artery. On the left, the common femoral artery is occluded and there is a large collateral from right to left through the groin that fills the external iliac artery and provides distal flow to the left lower extremity. 2. Left lower extremity arteriogram reveals a widely patent common femoral, profunda, superficial femoral, popliteal, and tibial vessels within the main runoff through the posterior tibial and anterior tibial artery all the way to the distal foot. The peroneal artery is patent but diminutive in size. 3. Right lower extremity arteriogram reveals widely patent common femoral and profunda, but a complete total occlusion of the superficial femoral artery with reconstitution above the knee through collaterals from the profunda. There is then a widely patent popliteal artery with three-vessel runoff, the main vessels being the posterior tibial and anterior tibial which runoff all the way to the distal foot. The peroneal artery is again diminutive in size but patent. We discussed his arteriogram at length. Due to complete occlusion of the left common iliac artery that could not be crossed, the patient will need inflow to the left lower extremity. Due to stenosis at the origin at the right common iliac artery, he will first need a covered stent to open up the inflow. We will then bypass from the right to the left femoral to provide flow to both lower extremities. Then, due to occlusion of the SFA on the right, we will due a right femoral to above-knee bypass with in situ vein. His greater saphenous vein on the right is 4 mm at the junction and then 3 mm from the proximal thigh to the knee. This is suitable for bypass. Risks, benefits and alternatives to a right common iliac artery covered stent, right to left femoral-femoral bypass with ringed polytetrafluoroethylene (PTFE) graft, and right femoral to above-knee popliteal bypass with in situ vein were explained to the patient. Informed consent was obtained. I discussed that he should continue aspirin and Plavix and statin daily. He should hold his Plavix five days before the procedure and we will restart it directly after the procedure. He should not hold his aspirin. Again, smoking cessation was emphasized at length. MEDICATIONS: - albuterol one vial four times a day as needed - allopurinol 100 mg daily - amlodipine 10 mg daily - Arnuity Ellipta 100 mcg one puff everyday - aspirin 81 mg daily - atorvastatin 80 mg daily - cyclobenzaprine 5 mg twice a day as needed - gabapentin 600 mg twice a day - isosorbide mononitrate 10 mg twice a day - losartan potassium 100 mg daily - Plavix 75 mg daily - sertraline 150 mg daily - trazodone 100 mg at bedtime ALLERGIES: CIPRO. PAST MEDICAL HISTORY: 1. Constipation. 2. Anal fissure. 3. Heartburn. 4. Tobacco dependence. 5. Gastroesophageal reflux. 6. Benign neoplasm of the colon. 7. Diverticular disease of the colon. 8. Hemorrhoids. 9. Lumbar spondylosis with myelopathy. 10. Carpal tunnel syndrome. 11. Lesion of the ulnar nerve. 12. Cervical spondylosis with myelopathy. 13. Sacroiliitis. 14. Cervical occipital neuralgia. 15. Common peroneal nerve lesion. 16. Peripheral vascular disease. 17. Hyperlipidemia. 18. Hypertension. 19. Renal insufficiency. 20. Chronic obstructive pulmonary disease (COPD). 21. Alcoholism. 22. Heart disease. 23. Anxiety. 24. Arthritis. 25. Gout. 26. Spinal stenosis. PAST SURGICAL HISTORY: 1. Hand surgery. 2. Left knee surgery. 3. Right elbow surgery. 4. Left wrist surgery. 5. Vasectomy. 6. Esophagogastroduodenoscopies (EGDs) and colonoscopies. 7. Left and right lower extremity arteriogram. FAMILY HISTORY: Heart disease, diabetes, chronic obstructive pulmonary disease (COPD), colon cancer. SOCIAL HISTORY: A 43-pack year history of tobacco. Positive alcohol use, significant. Denies illicit drug use. REVIEW OF SYSTEMS: CONSTITUTIONAL: The patient reports weight gain and denies fevers and chills and weight loss. EYES: No new vision changes. EARS, NOSE, MOUTH AND THROAT: Denies hearing loss. Denies congestion. Denies dysphagia. CARDIOVASCULAR: Denies chest pain and palpitations. RESPIRATORY: Reports shortness of breath especially on exertion but denies cough and hemoptysis. GASTROINTESTINAL (GI): Reports gastroesophageal reflux disease (GERD) but denies abdominal pain. Occasional constipation. Denies diarrhea, nausea or vomiting. MUSCULOSKELETAL: Reports gout, intermittent claudication, paresthesias, musculoskeletal symptoms. SKIN: Denies skin cancer, rash or wound. NEUROLOGIC: Denies focal deficits, headaches or seizures. PSYCHIATRIC: Reports anxiety and depression. ENDOCRINE: Denies diabetes, hyperthyroidism, hypothyroidism. HEMATOLOGIC: Reports easy bruising but denies anemia. PHYSICAL EXAMINATION: The patient is afebrile and vital signs are stable. CONSTITUTIONAL: The patient appears medically stable. No signs of distress are present. HEAD AND FACE: Normal on inspection. EARS, NOSE, MOUTH AND THROAT: Tympanic membranes are intact. External nose within normal limits. NECK: Supple. No carotid bruits present. Range of motion somewhat limited. RESPIRATORY: No wheezing. Slightly coarse breath sounds bilaterally. CARDIOVASCULAR: Rate is regular and rhythm is regular. ABDOMEN: Bowel sounds are positive. He is obese. Abdomen is soft, nontender, nondistended. LYMPHATIC: No palpable lymphadenopathy. MUSCULOSKELETAL: Gait is steady. Distal pulses not palpable. Dorsalis pedis (DP) and posterior tibial (PT) signals are monophasic bilaterally. SKIN: No rashes or lesions are noted. NEUROLOGIC: Alert and oriented times three. Moves all extremities equally. No focal neurologic deficits noted. PSYCHIATRIC: Pleasant and cooperative. ASSESSMENT AND PLAN: This is a very pleasant 58-year-old gentleman with lifestyle limiting claudication in the bilateral lower extremities and severe iliac disease and right superficial femoral artery (SFA) disease. 1. Planned for right common iliac artery covered stent, right to left femoral-femoral bypass with ringed polytetrafluoroethylene (PTFE) graft, and right femoral to above-knee bypass with in situ saphenous vein. 2. Hold Plavix five days prior to the procedure and we will restart it directly after. Do not hold aspirin. 3. Until then, continue aspirin, statin and Plavix daily for best medical management of peripheral vascular disease (PVD). 4. The patient should stop smoking immediately. Any intervention we provide at this point will fail if the patient continues to smoke. 5. The patient will need cardiac clearance and we will obtain a stress test and discuss optimization from a cardiac standpoint with Dr. Menendez. The procedure will take between 6-8 hours and this is a lengthy anesthesia time. Thus, we will want all optimization as appropriate. We appreciate the opportunity to participate in the care of this patient.
[2019-09-25] VITALS (8 sets, daily range): BP systolic 116–119; BP diastolic 57–62; O2SAT 92–95
[~2019-09-25] VITALS: Ht 162.6 cm; Wt 97.5 kg
[~2019-09-25 06:04] MED LIST changes: +ARNU1INH IN; +LIDOCAINE 1% MDV 20ML VIAL SQ PRN; +LR 1,000 ML IV ONE; -TRAZ-163 PO; +TRAZ-257 PO; +ceFAZolin SOD 2 GM in IV 1 EA IV ONE
[2019-09-25 06:32] LABS: HEMATOCRIT 44.4 % (42.0-52.0); HEMOGLOBIN 14.5 g/dl (13.5-17.5); MEAN CORPUSCULAR HEMOGLOBIN 38.1 pg (27.0-33.0); MEAN CORPUSCULAR HGB CONC 32.7 g/dl (32.0-36.5); PLATELET COUNT, AUTOMATED 113 10^3/uL (150-450); RED BLOOD COUNT 3.81 10^6/uL (4.30-6.10); WHITE BLOOD COUNT 10.7 10^3/uL (4.0-10.0)
[2019-09-25 06:33] LABS: MEAN CORPUSCULAR VOLUME 116.5 fl (80.0-96.0)
[2019-09-25 06:41] LABS: INR 0.97; PROTHROMBIN TIME 12.6 SECONDS (11.8-14.0)
[2019-09-25] MEDS ORDERED: fentaNYL 250 MCG/5 ML INJECTION (J3010) As Ordered ONE (06:42)
[2019-09-25] MEDS ORDERED: MIDAZOLAM INJ 2 MG/2 ML VIAL (J2250) As Ordered ONE (06:42)
[2019-09-25] MEDS ORDERED: ROCURONIUM BROMIDE 50 MG/5 ML VIAL As Ordered ONE ×2 (06:43→09:52)
[2019-09-25] MEDS ORDERED: ACETAMINOPHEN 1000MG 100ML IV BTL (OFIRMEV) (J0131 PER 10MG) As Ordered ONE (06:43)
[2019-09-25] MEDS ORDERED: LIDOCAINE 2% INJ 100 MG/5 ML SDV (FOR ANES.) As Ordered ONE (06:43)
[2019-09-25] MEDS ORDERED: SUGAMMADEX SODIUM 500 MG/5 ML VIAL (BRIDION) As Ordered ONE (06:43)
[2019-09-25] MEDS ORDERED: ONDANSETRON 4MG/2ML VIAL (J2405) As Ordered ONE ×2 (06:43→15:33)
[2019-09-25] MEDS ORDERED: propofoL 200 MG/20 ML VIAL As Ordered ONE (06:43)
[2019-09-25] MEDS ORDERED: dexameTHASONE 4 MG/ML 1ML VIAL (J1100) As Ordered ONE (06:44)
[2019-09-25 06:57] LABS: BLOOD UREA NITROGEN 21 MG/DL (7-18); CALCIUM LEVEL 8.3 MG/DL (8.5-10.1); CARBON DIOXIDE LEVEL 29 MEQ/L (21-32); CHLORIDE LEVEL 108 MEQ/L (98-107); CREATININE FOR GFR 0.84 MG/DL (0.70-1.30); GLOMERULAR FILTRATION RATE > 60.0 (>56); GLUCOSE, FASTING 128 MG/DL (70-100); POTASSIUM SERUM 4.4 MEQ/L (3.5-5.1); SODIUM LEVEL 143 MEQ/L (136-145)
[2019-09-25] MEDS ORDERED: THROMBIN SOLN 20,000 UNITS KIT As Ordered ONE (06:58)
[2019-09-25] MEDS ORDERED: ISOVUE-300 61% 50ML VIAL (Q9967) As Ordered ONE (06:58)
[2019-09-25] MEDS ORDERED: BUPIVACAINE HCL 0.5% 30 ML VIAL As Ordered ONE (06:59)
[2019-09-25] MEDS ORDERED: HEPARIN SOD (PORCINE) 5000 UNITS/ML VIAL (J1644 PER 1000UNITS) As Ordered ONE ×3 (06:59→11:57)
[2019-09-25] MEDS ORDERED: BUPIVACAINE/EPIN 0.5% 30 ML VIAL As Ordered ONE (08:08)
[2019-09-25] MEDS ORDERED: VASOPRESSIN INJ 20 UNITS/ML VIAL As Ordered ONE ×3 (09:22→11:57)
[2019-09-25] MEDS ORDERED: ceFAZolin 2 GM/D5W 50 ML IV BAG (J0690 PER 500MG) As Ordered ONE (11:27)
[2019-09-25] MEDS ORDERED: HYDROmorphone 2 MG TAB PO PRN (16:30)
--- NOTE | 2019-09-25 16:40 | ROOPDOC ---
[facility] Report Of Operation Report of Operation DATE OF PROCEDURE: 09/25/19 PREPROCEDURE DIAGNOSES: Severe bilateral peripheral vascular disease with lifestyle limiting claudication. POSTPROCEDURE DIAGNOSES: Same. PROCEDURE: 1. Open cutdown right femoral artery, left femoral artery, right popliteal artery above-knee. 2. Right aorto iliac arteriogram 3. Placement of a 10 x 59 VBX balloon expandable covered stent right common iliac artery 4. Completion arteriogram 5. Right common femoral endarterectomy with Xenosure patch angioplasty 6. Left common femoral endarterectomy 7. Right to left femorofemoral bypass with 6 mm ringed PTFE graft 8. Right femoral to above-knee popliteal bypass with in situ greater saphenous vein SURGEON: Radha Casillas MD ANESTHESIA: General anesthesia and local. INDICATION FOR PROCEDURE: This is a very pleasant 58-year-old gentleman with severe peripheral vascular disease including left iliac artery occlusion, reconstitution at the external iliac artery from collaterals right to left through the hypogastric arteries, severe stenosis at the origin of the right common iliac artery, significant bilateral common femoral artery plaque, complete total occlusion of the right superficial femoral artery and reconstitution through collaterals above the knee, and lifestyle limiting claudication that is progressing to rest pain. The patient has significant medical comorbidities including obesity, heart disease, COPD and sleep apnea, tobacco abuse, alcohol abuse, and we discussed the risks benefits and alternatives to proceeding with extensive revascularization both open and endovascular. He was agreeable to proceed. Informed consent was obtained. INTERPRETATION: 1. The aorta near the bifurcation is widely patent and runs off into the right iliac system. The left iliac system is occluded at the origin. The right common iliac artery at the origin is heavily stenotic, and then there is significant post-dilation and a patent external iliac artery. The hypogastric provides extensive collaterals from right to left across the midline due to occlusion of the common iliac artery. 2. After angioplasty and stenting of the right common iliac artery, there is widely patent flow from the aorta into the right iliac system and a bounding pulse in the right common femoral artery. No extravasation, embolization, or dissection is noted. All potential future collaterals and active collaterals, including the most inferior lumbar arteries and the hypogastric artery are widely patent. REPORT OF OPERATION: The patient was brought to the OR in stable condition and placed supine on your table general anesthesia and antibiotics were administered without complication. The antibiotics were redosed 4 hours. His bilateral groins and entire right lower extremity were prepped and draped in a sterile fashion. Ioban was placed. A timeout was performed. An oblique incision was made over the right groin just distal to the inguinal ligament and carried down through the subcutaneous tissue with Bovie cautery. Bridging veins were suture ligated and divided. We continued her dissection down to the femoral sheath which was opened longitudinally. The femoral vessels were then skeletonized proximally and distally within the incision. Vesseloops were placed around the circumflex vessels, the profundas, the superficial femoral artery. Space was made for a clamp proximally on the common femoral artery above the circumflex vessels. Next, an oblique incision was made over the left groin just distal to the inguinal ligament and we repeated the above procedure on the left femoral vessels. Next, we made a longitudinal incision over the medial lower thigh and carried this down to the subcutaneous tissue with Bovie cautery. The fascia was incised and the muscle was retracted posteriorly and the popliteal vessel above the knee was identified and skeletonized proximally and distally within the incision. Vesseloops were placed proximally and distally. We identified the saphenous vein deep to our thigh incision and skeletonized proximally and distally, and branches were suture ligated and divided. It was dissected down distally to allow enough length for anastomosis to the popliteal [id number]. We then identified the saphenous vein proximally and skeletonized proximally dis tally and branches were clipped and ligated. 6000 units of heparin was given and allowed to circulate. A microneedle was used to access the right common femoral artery and a wire was passed through this access and a micro-sheath was placed. A Glidewire was advanced into the distal aorta under fluoroscopic guidance. An Omni flushed catheter was advanced over the wire and an arteriogram was performed. Please see interpretation above. We selected a 10 x 59 VBX balloon expandable covered stent and deployed this successfully from the distal aorta across the stenosis in the right common iliac artery down to the distal common iliac artery. The most inferior lumbar vessels were preserved and noted to have flow after stenting. The hypogastric with collateralization from right to left across the midline was preserved as well. Next, we removed the wire and sheath and Prolene suture was used for hemostasis. Additional heparin was given throughout the case every hour, for a total of 17,000 units during the 8 hour case. ACTs were checked, and kept at about 200. Next, a clamp was secured on the right common femoral artery and the Vesseloops were secured. An arteriotomy was made and bulky significant heavy plaque was noted. We then extended the arteriotomy and performed an e ndarterectomy. Care was taken to remove bulky plaque from both profundas and the origin of the SFA as well. We then anastomosis Xenosure patch in a running fashion with 5-0 Prolene suture. Before the final sutures were placed, we flushed the inflow and outflow of the artery. Next, we tunneled a 6 mm ringed PTFE graft from the right groin to the left groin and beveled each and for to the appropriate length. We then anastomosed the inflow to the right common femoral artery. The clamp and Vesseloops were resecured. An arteriotomy was made in the patch. The graft was anastomosis an end to side fashion with 5-0 Prolene suture. Before the final sutures are placed, we placed a clamp on the graft and flushed the inflow and outflow arteries and irrigated with heparinized saline. The final sutures are placed and flow was restored and good hemostasis was noted. Next, we placed a clamp on the left common femoral artery and secured the Vesseloops. An arteriotomy was made and an endarterectomy was performed. The outflow of the patch will have a longer anastomosis, he noted that the patch may close the arteriotomy for the endarterectomy. We then did this anastomosis in an end to side fashion with Prolene suture. Before the final sutures are placed, we flushed the inflow and outflow arteries and the flow through the graft. We irrigated with heparinized saline and the final sutures are placed. Flow was restored and good hemostasis was noted. There is excellent flow through the graft. A little bit of redundancy was left. Next, a clamp was placed across the saphenofemoral junction and 5-0 Prolene suture was used in a mattress fashion to close the vein under the clamp. We then used a 15 blade to excise the saphenous vein from the common femoral vein and a bulldog clamp was placed for hemostasis on the vein. We then removed the clamp and oversewed the femoral vein with the same 5-0 Prolene suture with good hemostasis. Next, the vein was everted and the proximal valves were lysed with a pot scissors. We then resecured R clamps and Vesseloops on the right femoral system and an arteriotomy was made in her patch distal to the femorofemoral arteriotomy. We then anastomosis the vein to the common femoral artery in an and decide fashion with 6-0 Prolene suture. Before the final sutures are placed, we flushed the inflow and outflow of the arteries in the graft and restored flow. Next, we placed clips distally on the greater saphenous vein and divided it distally within our incision. We flushed it with heparinized saline and passed a valvulotome proximally up to our anastomosis but not through it. We then lysed the valves and repeated this 3 times. We had good flow. We then performed a venogram under fluoroscopy to identify additional branches, and these were marked on the skin and a small cutdown was made in the mid thigh and the branches were clipped. Once all the branches were clipped and the valves were lysed, we had excellent flow through the vein bypass. We proceeded to secure the Vesseloops on the popliteal artery and an arteriotomy was made. We anastomosed the end of the saphenous vein bypass to the artery and an end-to-side fashion with 6-0 Prolene suture. Before the final sutures are placed, we flushed inflow and outflow of the artery and the bypass graft and irrigated with heparinized saline and the final sutures were placed. There was an excellent Doppler signal in the bypass, the outflow and inflow popliteal artery, the femorofemoral bypass, the left lower extremity femoral system and the feet were warm and well perfused. We were pleased with the revascularization and all incisions were copiously irrigated with normal saline. Marcaine with epi was used to ane sthetize the subcutaneous tissue round each incision. The small mid thigh incision was closed with 2 layers of running Vicryl suture and skin tara. The distal popliteal incision was closed with one layer of interrupted Vicryl sutures deep to close the space from the vein harvest and the popliteal dissection. He was then closed in 2 layers the fascia taking care not to inter fere with the flow of the vein graft. A 3-0 Vicryl air was used to approximate the deep dermal layer and tara were used to close the skin. The femoral incisions were both irrigated with copious amounts of saline. On the right, Vicryl suture was used to close the space over the saphenous vein harvest, around the graft to place some soft tissue between the 2 bypass grafts, and to close some of the tissue around the femoral sheath. We then closed in 3 layers of running 2-0 Vicryl suture and interrupted 3-0 Vicryl sutures were used to approximate the dermal layer. [place] were used to close the skin. On the left, after irrigating again with saline, we closed with 3 layers of running 2-0 Vicryl suture and care was taken to keep tissue around the bypass graft to keep it from kinking. Deep dermal layer was approximated with interrupted 3-0 Vicryl sutures and tara were used to close the skin. The patient was then allowed to awaken from anesthesia was taken to recovery in stable condition. SPECIMEN: Plaque from the right and left femoral arteries was sent for pathology. DRAINS: None ESTIMATED BLOOD LOSS: Approximately 500 mL. COMPLICATIONS: None. PLAN: We will restart the patient's aspirin and Plavix tomorrow morning. He will be on bed rest until tomorrow at noon, at which point we will get him out of bed with assist and discontinue the Soto catheter. Depending on how he does when he is out of bed, he may need physical therapy as well. The patient has a history of alcohol use, and will need a CIWA protocol in addition to scheduled Valium for muscle spasms anxiety and pain. He will likely be in the hospital for 3-6 days, depending on recovery. No nicotine patches or nicotine replacement. RADHA CASILLAS MD Sep 25, 2019 16:40
[2019-09-25] MEDS ORDERED: PILL CUTTER 1 EACH XX PRN (16:45)
[2019-09-25] MEDS ORDERED: LR 1,000 ML IV SCH (17:00)
[2019-09-25] MEDS ORDERED: ALBUTEROL SULFATE 2.5 MG/0.5 ML INH NEB SOLN NEB PRN (17:00)
[2019-09-25] MEDS ORDERED: ONDANSETRON 4MG/2ML VIAL (J2405) IV PRN (17:00)
[2019-09-25] MEDS ORDERED: oxyCODONE 5MG TAB PO PRN (17:00)
[2019-09-25] MEDS ORDERED: OXAZEPAM 10 MG CAP PO PRN (17:00)
[2019-09-25] MEDS ORDERED: fentaNYL 100 MCG/2 ML INJECTION (J3010) IV PRN (17:00)
[2019-09-25 17:20] LABS: HEMATOCRIT 35.1 % (42.0-52.0); MEAN CORPUSCULAR HEMOGLOBIN 37.7 pg (27.0-33.0); MEAN CORPUSCULAR HGB CONC 33.6 g/dl (32.0-36.5); MEAN CORPUSCULAR VOLUME 112.1 fl (80.0-96.0); PLATELET COUNT, AUTOMATED 111 10^3/uL (150-450); RED BLOOD COUNT 3.13 10^6/uL (4.30-6.10); WHITE BLOOD COUNT 14.3 10^3/uL (4.0-10.0)
[2019-09-25 17:21] LABS: HEMOGLOBIN 11.8 g/dl (13.5-17.5)
[2019-09-25] MEDS: diazePAM 5 MG TAB PO SCH ×2 (18:29→23:53)
[2019-09-25] MEDS: PERCOCET 5MG/325MG TAB PO PRN (18:49)
--- NOTE | 2019-09-25 20:44 | CR ---
DATE OF CONSULTATION: 09/25/2019 PRIMARY CARE PHYSICIAN: Robert Murillo. REFERRING PHYSICIAN: Dr. Casillas. REASON FOR CONSULT: Management of chronic medical illness and monitor for alcohol withdrawal. HISTORY OF PRESENTING ILLNESS: This is a 58-year-old male with history of peripheral vascular disease status post right femoral [id number]-[id number]-czzo popliteal bypass with in situ saphenous vein, right to left femoral-femoral bypass and right iliac covered stent on 09/25/2019, hypertension, asthma, pulmonary function tests (PFTs) 2018 with FVC of 13% post bronchodilator, hypercholesterolemia, pulmonary hypertension, degenerative disc disease, right internal carotid artery occlusion, gout, vitamin D deficiency, alcohol abuse, dysthymia and small hiatal hernia. Patient had minimal blood loss, 500 mL in the operating room (OR) and being admitted for further monitoring to progressive care unit (PCU) with concerns for alcohol withdrawal. Patient otherwise denies any fevers, chills, shortness of breath, chest pain, pressure, tightness, palpitations, lightheadedness or dizziness. No nausea, vomiting, diarrhea, abdominal pain, weight gain, weight loss, upper or lower extremity weakness, dysuria, urgency, frequency, flank pain or chills, polyphagia, polyuria, polydipsia, rhinorrhea, sore throat, vertigo. Hospitalist was asked to consult for help in management for possible alcohol withdrawal during this admission. PAST MEDICAL HISTORY: 1. Pulmonary hypertension. 2. Degenerative disc disease. 3. Peripheral arterial disease with right internal carotid artery occlusion. 4. Gout. 5. Vitamin D deficiency. 6. Alcohol abuse. 7. Dysthymia. 8. Small hiatal hernia. 9. Hypertension. 10. Asthma. 11. Hypercholesterolemia. 12. Pneumonia 12/2017. 13. Cellulitis 2016. 14. Chronic constipation. 15. Diverticular disease. 16. Anal fissure. 17. Hemorrhoids. 18. Lumbar spondylosis. 19. Carpal tunnel syndrome. 20. Ulnar nerve lesion. 21. Cervical spondylosis with myelopathy. 22. Sacroiliitis. 23. Common perineal nerve lesion. 24. Cervical occipital neuralgia. 25. Peripheral vascular disease. 26. Chronic renal insufficiency stage III. 27. Anxiety. 28. Arthritis. 29. Spinal stenosis. ALLERGIES: CIPRO, causing aching on the lower extremities. PAST SURGICAL HISTORY: 1. Hyperplastic polyp with colonoscopy 04/2019. 2. Upper endoscopy. 3. Left wrist fused with a plate. 4. Vasectomy. 5. Left knee ligament repair. 6. Bilateral index finger repair. 7. Right elbow repair. 8. Hand surgery. HOME MEDICATIONS: - hydralazine 10 mg twice a day - losartan 100 mg daily - Norvasc 10 mg daily - isosorbide 10 mg twice a day - Plavix 75 mg daily - Anoro Ellipta one puff daily - ProAir two puffs as needed every 6 hours - vitamin D3 one tablet daily - aspirin 81 mg daily - cyclobenzaprine 5 mg as needed three times a day - atorvastatin 80 mg at bedtime - trazodone 100 mg at bedtime - folic acid 1 mg daily - allopurinol 100 mg daily - sertraline 150 mg daily - Prilosec 40 mg daily - gabapentin 600 mg twice a day SOCIAL HISTORY: Patient actively smokes. Not ready to quit. Lives with spouse. No recreational drug use. Heavy alcohol use. Retired. FAMILY HISTORY: Father , lung cancer, diabetes, at the age of 76. Mother , organic brain damage with nonpsychotic mental disorder. Mother with depression and anxiety. REVIEW OF SYSTEMS: Per history of present illness (HPI). A 12 point system otherwise negative. PHYSICAL EXAMINATION: Temperature 98.4, pulse 95, respiratory rate 18, blood pressure 107/62, 92% on 3 liters nasal cannula. GENERAL: Patient is awake, alert, oriented, answering questions appropriately. In no respiratory distress. No use of respiratory accessory muscles, jugular venous distention (JVD), thyromegaly, cervical lymphadenopathy. LUNGS: Air entry equal bilaterally with coarse breath sounds. No wheezing or rales. HEART: S1, S2. Sinus rhythm. Regular rate and rhythm. ABDOMEN: Soft, nontender, nondistended. Positive bowel sounds. EXTREMITIES: Postoperative changes. SKIN: Warm, dry and well-perfused. [place] in color. LABORATORY DATA: White count 14, hemoglobin 11, hematocrit 35, platelet count 111. Sodium 143, potassium 4.4, chloride 108, bicarbonate 29, BUN 21, creatinine 0.84, glucose of 128, calcium of 8.3. ASSESSMENT AND PLAN: This is a 58-year-old male with peripheral vascular disease status post right femoral [id number]-prr-dmfs popliteal bypass with in situ saphenous vein, right to left femoral-femoral bypass and right iliac covered stent, right endarterectomy with patch angioplasty and left femoral endarterectomy. Current issues are: 1. Peripheral arterial disease status post right femoral kaazu-lzh-fyci popliteal bypass with saphenous vein, right to left femoral-femoral bypass, right iliac covered stent, right femoral endarterectomy with patch angioplasty, left femoral endarterectomy, currently at bedrest for the next 24 hours until noon tomorrow with Soto catheter. He is resumed back on his Plavix and aspirin managed by his vascular surgeon primary team. Valium 5 mg every 6 hours. Continue on Lipitor. 2. Alcohol abuse with constraints for alcohol withdrawal. On CIWA protocol. Multivitamin, thiamin and folate and valium. Serax as needed for withdrawal of symptoms. 3. Hypertension. Well-controlled. Holding parameters have been placed on his home dose of isosorbide. 4. Active tobacco use. Tobacco cessation counseling has been provided. [facility]
[2019-09-25] MEDS: ATORVASTATIN 20 MG TAB PO SCH (20:56)
[2019-09-25] MEDS: ISOSORBIDE MONONITRATE 10MG TABLET PO SCH (20:56)
[2019-09-26] VITALS (31 sets, daily range): BP systolic 108–145; BP diastolic 57–73; O2SAT 92–96
[2019-09-26] MEDS: PERCOCET 5MG/325MG TAB PO PRN ×4 (01:53→21:15)
[2019-09-26] MEDS: diazePAM 5 MG TAB PO SCH ×4 (05:48→23:31)
[2019-09-26] MEDS: ISOSORBIDE MONONITRATE 10MG TABLET PO SCH ×2 (06:10→16:13)
[2019-09-26] MEDS: CLOPIDOGREL 75 MG TAB PO SCH (08:35)
[2019-09-26] MEDS: THIAMINE 100 MG TAB PO SCH (08:35)
[2019-09-26] MEDS: FOLIC ACID 1 MG TAB PO SCH (08:35)
[2019-09-26] MEDS: MULTIVITAMINS/MINERALS THERAP 1 TAB PO SCH (08:35)
[2019-09-26] MEDS: ASPIRIN 81 MG ENTERIC TAB PO SCH (08:35)
[2019-09-26] MEDS: SERTRALINE HCL 50 MG TAB PO SCH (08:36)
[2019-09-26] MEDS: allopurinoL 100 MG TAB PO SCH (08:36)
[2019-09-26] MEDS ORDERED: ARNUITY ELLIPTA 100 MCG INH SCH (09:00)
[2019-09-26] MEDS ORDERED: SLF 3 ML SYR IV PRN (12:30)
--- NOTE | 2019-09-26 12:46 | IPNPDOC ---
Date Seen The patient was seen on 09/26/19. Progress Note Patient seen and examined postoperative day one status post right common iliac artery stenting, bilateral common femoral endarterectomies, right to left femorofemoral bypass, and right femoropopliteal bypass with in situ vein. He is doing well. Pain is well controlled. The nurse is at the bedside ready to pull out his Soto and get the patient out of bed per my orders. We are very pleased with his progress. He says he feels well so far, and is tolerating a diet. He denies anxiety or shakiness without alcohol today, but says it usually takes a few days before he notices that his hands are shaky. We will continue with the scheduled Valium as a baseline benzo, and the patient also has a CIWA protocol when necessary. On exam, he is afebrile and vital signs are stable. His bilateral groins and right thigh incisions are clean dry and intact with minimal serous drainage. These will remain in place one more day and we will change them tomorrow. He has triphasic signal over the femorofemoral bypass and the femoropopliteal bypass, and strong Doppler signals at the DP and PT bilateral lower extremities. His feet are very warm and well-perfused. He says they feel much better. We will continue with analgesia as needed and supportive care. Out of bed today with assist and we will see how steady he is in how he does with ambulation. We might order physical therapy if necessary. We appreciate our hospitalist team assistance with this patient. VS, I&O, 24H, Fishbone Vital Signs/I&O Vital Signs Date Time Temp Pulse Resp B/P (MAP) Pulse Ox O2 Delivery O2 Flow Rate FiO2 09/26/19 09:10 20 Nasal Cannula 3.0 09/26/19 08:40 94 09/26/19 08:00 78 145/67 09/26/19 07:31 98.0 I&O- Last 24 Hours up to 6 AM 09/26/19 06:00 Intake Total 4300 ml Output Total 1425 ml Balance 2875 ml Laboratory Data 24H LABS Laboratory Tests 2 09/25/19 12:56: Kaolin Activated Coagulation Time 191H 09/25/19 14:29: Kaolin Activated Coagulation Time 202H 09/25/19 17:00: Nucleated Red Blood Cells % (auto) 0.0 CBC/BMP Laboratory Tests 09/25/19 17:00 RADHA THOMAS MD Sep 26, 2019 12:46
[2019-09-26] MEDS ORDERED: guaiFENesin DM LIQ 10ML UD PO PRN (14:00)
[2019-09-26] MEDS: SLF 3 ML SYR IV SCH ×2 (16:15→22:20)
--- NOTE | 2019-09-26 19:23 | IPN ---
DATE: 09/26/2019 Patient complains of back pain, buttock pain. Able to sleep with valium yesterday, and hydrocodone helps with this pain. Currently at 11/10 on the back, 7/10 at the surgical site on the groin. has noted bilateral upper extremity edema. Patient is requesting to be able to turn on his side to relieve back pain. VITAL SIGNS: Temperature 98, pulse 78, respiratory rate 20, blood pressure 145/67, 93% on 3 liters nasal cannula. GENERAL: Patient is awake, alert, oriented, answering questions appropriately. No respiratory distress. LUNGS: Clear but diminished. HEART: S1, S2, sinus rhythm. ABDOMEN: Obese, soft, nontender, nondistended. Postoperative changes noted in the lower abdomen with some swelling and bruising noted along the medial thigh bilaterally. Incisions clean, dry. Patient had edema, bilateral upper extremities. White count 14, hemoglobin 11, hematocrit 35, platelet count 111. Sodium 143, potassium 4.5, chloride 108, bicarbonate 29, BUN 21, creatinine 0.84, glucose 128. ASSESSMENT AND PLAN: A 58-year-old male with history of peripheral vascular disease, chronic alcohol abuse, smoking, status post right common iliac artery stenting, bilateral common femoral endarterectomies, femoral-popliteal bypass <<2:00>> , admitted and managed by vascular surgery. Patient is currently on valium as needed. Clinical [place] Withdrawal Assessment (CIWA) protocol, which according to the seems to be helping when he takes his medications. Patient is continued back on aspirin and Plavix. For alcohol withdrawal he is currently on thiamine, folic acid, multivitamin, Serax. He is on every 6 hour valium. Appears to be stable. Continue with postoperative recommendations from Dr. Casillas. OSKAR
[2019-09-26] MEDS: ATORVASTATIN 20 MG TAB PO SCH (21:06)
[2019-09-26] MEDS: ARNUITY ELLIPTA 100 MCG INH SCH (21:35)
[2019-09-27] VITALS (14 sets, daily range): BP systolic 110–141; BP diastolic 60–85; O2SAT 93–97
[2019-09-27] MEDS: PERCOCET 5MG/325MG TAB PO PRN ×4 (02:10→21:09)
[2019-09-27 05:27] LABS: HEMATOCRIT 31.7 % (42.0-52.0); HEMOGLOBIN 10.2 g/dl (13.5-17.5); MEAN CORPUSCULAR HEMOGLOBIN 37.1 pg (27.0-33.0); MEAN CORPUSCULAR HGB CONC 32.2 g/dl (32.0-36.5); RED BLOOD COUNT 2.75 10^6/uL (4.30-6.10); WHITE BLOOD COUNT 11.4 10^3/uL (4.0-10.0)
[2019-09-27 05:37] LABS: MEAN CORPUSCULAR VOLUME 115.3 fl (80.0-96.0); PLATELET COUNT, AUTOMATED 88 10^3/uL (150-450)
[2019-09-27 05:48] LABS: BLOOD UREA NITROGEN 16 MG/DL (7-18); CARBON DIOXIDE LEVEL 31 MEQ/L (21-32); CHLORIDE LEVEL 104 MEQ/L (98-107); CREATININE FOR GFR 0.59 MG/DL (0.70-1.30); GLOMERULAR FILTRATION RATE > 60.0 (>56); GLUCOSE, FASTING 126 MG/DL (70-100); POTASSIUM SERUM 3.8 MEQ/L (3.5-5.1); SODIUM LEVEL 138 MEQ/L (136-145)
[2019-09-27] MEDS: ISOSORBIDE MONONITRATE 10MG TABLET PO SCH ×2 (06:03→17:00)
[2019-09-27] MEDS: SLF 3 ML SYR IV SCH ×3 (06:06→21:08)
[2019-09-27] MEDS: diazePAM 5 MG TAB PO SCH ×4 (06:06→23:53)
[2019-09-27] MEDS: CLOPIDOGREL 75 MG TAB PO SCH (09:13)
[2019-09-27] MEDS: ASPIRIN 81 MG ENTERIC TAB PO SCH (09:13)
[2019-09-27] MEDS: THIAMINE 100 MG TAB PO SCH (09:13)
[2019-09-27] MEDS: MULTIVITAMINS/MINERALS THERAP 1 TAB PO SCH (09:14)
[2019-09-27] MEDS: allopurinoL 100 MG TAB PO SCH (09:14)
[2019-09-27] MEDS: FOLIC ACID 1 MG TAB PO SCH (09:14)
[2019-09-27] MEDS: SERTRALINE HCL 50 MG TAB PO SCH (09:14)
[2019-09-27] MEDS ORDERED: FUROSEMIDE 40 MG/4 ML VIAL (J1940) IV ONE (09:15)
[2019-09-27] MEDS ORDERED: HYDROmorphone 2 MG TAB PO ONE (09:15)
--- NOTE | 2019-09-27 11:08 | REP ---
SCROTAL ULTRASOUND: 09/27/2019. Clinical history: Scrotal edema, evaluate for torsion or other. Findings: Sonographic evaluation of the scrotum and contents shows the right testis 4.5 x 3.3 x 3.1 cm. Left testis is 4 x 2.9 x 2.8 cm. Both testes are homogeneous in appearance with no calcification, mass or cyst. Doppler tracing shows resistive index of 0.39 on the right and 0.42 on the left. Color flow to both testes grossly unremarkable. The right epididymal head has a CC diameter of 6.9 mm and the left 7.2 mm. Both show slight increased color flow. There are small bilateral hydroceles. Scrotal skin appears thickened and edematous but without intradermal fluid collection. The left epididymis has a 5.4 x 2.7 mm cyst evident. There is no varicocele. Right scrotal wall thickness is 11 mm and the left 9 mm. Impression: 1. Testes homogeneous in size, echotexture and blood flow which appears grossly normal. 2. Epididymal heads symmetric in size and show some increased color flow but no solid mass. There is an epididymal cyst on the left head 5.4 x 2.7 mm. 3. Small bilateral hydroceles without varicocele. 4. Scrotal wall thickening, 11 mm right, 9 mm left. Appearance is edematous. No fluid collections visible within the dermal layer. Finding suggests edema and possible cellulitis. No abscess visible sonographically at this time. Electronically Signed by Elías Valladares MD 09/27/2019 08:23 P
[2019-09-27] MEDS ORDERED: SODIUM CHLORIDE NASAL 0.65% SPRAY BTL (OCEAN) PRN (15:15)
--- NOTE | 2019-09-27 15:31 | IPNPDOC ---
Date Seen The patient was seen on 09/27/19. Progress Note Patient seen and examined. Doing well postoperative day 2 status post right common iliac artery stent, bilateral common femoral endarterectomies, right to left femorofemoral bypass, and right femoral popliteal bypass with in situ vein. He has been out of bed, Soto is out, he is getting around without difficulty, he did work with physical therapy today and said he got a bit short of breath but otherwise did very well. We will order an incentive spirometer for him to help with postoperative atelectasis, and encourage deep breathing. He also had a small nosebleed likely secondary to nasal cannula oxygen and a dry room, and we will order some saline spray as well. He says his pain is well controlled and he is not having any issues with anxiety or shakiness from nicotine and alcohol withdrawal. We will continue the baseline Valium and he has a CIWA protocol as well. On exam, the patient's for incisions are healing well. 2 groin incisions are clean dry and intact, and the 2 thigh incisions on the right leg are also clean dry and intact. There is a little bit of sanguinous drainage from the midportion of the lower thigh incision, but otherwise no drainage is noted today. No significant bruising or erythema is noted. The right leg is fairly swollen, not unexpected after such a large surgery and in situ vein bypass, and he will need to elevate the leg when he is in bed to help with swelling. All 4 incisions were cleaned and dressed with dry gauze and paper tape. These dressings can be replaced as needed. We will change them daily. If the patient does okay with physical therapy tomorrow, we may get him in the shower on Saturday and see how he does with that. If he is stable to walk and get into the shower without shortness of breath, dizziness, or other difficulty, we may be able to discharge him home on Saturday or Saturday. We want him to take showers daily and replaced the dressings after to keep the incisions very clean. Continue aspirin and Plavix daily. Continue recommending smoking cessation and reinforce this frequently. We appreciate the hospitalist team assistance with this patient. VS, I&O, 24H, Fishbone Vital Signs/I&O Vital Signs Date Time Temp Pulse Resp B/P (MAP) Pulse Ox O2 Delivery O2 Flow Rate FiO2 09/27/19 15:02 20 Nasal Cannula 2.0 09/27/19 12:00 96.6 93 141/80 (100) 94 I&O- Last 24 Hours up to 6 AM 09/27/19 05:59 Intake Total 2400 ml Output Total 1345 ml Balance 1055 ml Laboratory Data 24H LABS Laboratory Tests 2 09/27/19 05:01: Nucleated Red Blood Cells % (auto) 0.0, Immature Platelet Fraction 7.3, Anion Gap 3L, Glomerular Filtration Rate > 60.0, Calcium Level 8.0L CBC/BMP Laboratory Tests 09/27/19 05:01 RADHA THOMAS MD Sep 27, 2019 15:31
[2019-09-27] MEDS: ATORVASTATIN 20 MG TAB PO SCH (21:07)
[2019-09-27] MEDS: ARNUITY ELLIPTA 100 MCG INH SCH (21:08)
[2019-09-28] VITALS: BP_SYST 131; BP_SYST 152; BP_DIAS 74; BP_DIAS 79
[2019-09-28 04:00] VITALS: BP 131/78
[2019-09-28 05:55] LABS: HEMATOCRIT 33.3 % (42.0-52.0); HEMOGLOBIN 10.8 g/dl (13.5-17.5); MEAN CORPUSCULAR HEMOGLOBIN 37.1 pg (27.0-33.0); MEAN CORPUSCULAR HGB CONC 32.4 g/dl (32.0-36.5); RED BLOOD COUNT 2.91 10^6/uL (4.30-6.10); WHITE BLOOD COUNT 11.9 10^3/uL (4.0-10.0)
[2019-09-28 05:56] LABS: MEAN CORPUSCULAR VOLUME 114.4 fl (80.0-96.0); PLATELET COUNT, AUTOMATED 99 10^3/uL (150-450)
[2019-09-28] MEDS: diazePAM 5 MG TAB PO SCH ×3 (06:01→18:19)
[2019-09-28] MEDS: SLF 3 ML SYR IV SCH ×3 (06:02→20:34)
[2019-09-28 06:11] LABS: BLOOD UREA NITROGEN 20 MG/DL (7-18); CARBON DIOXIDE LEVEL 32 MEQ/L (21-32); CHLORIDE LEVEL 101 MEQ/L (98-107); CREATININE FOR GFR 0.81 MG/DL (0.70-1.30); GLOMERULAR FILTRATION RATE > 60.0 (>56); GLUCOSE, FASTING 126 MG/DL (70-100); POTASSIUM SERUM 3.7 MEQ/L (3.5-5.1); SODIUM LEVEL 136 MEQ/L (136-145)
[2019-09-28] MEDS: ISOSORBIDE MONONITRATE 10MG TABLET PO SCH ×2 (06:33→16:31)
[2019-09-28] MEDS: PERCOCET 5MG/325MG TAB PO PRN ×3 (06:34→16:38)
[2019-09-28 08:00] VITALS: BP 142/71
[2019-09-28] MEDS: CLOPIDOGREL 75 MG TAB PO SCH (08:54)
[2019-09-28] MEDS: MULTIVITAMINS/MINERALS THERAP 1 TAB PO SCH (08:54)
[2019-09-28] MEDS: SERTRALINE HCL 50 MG TAB PO SCH (08:54)
[2019-09-28] MEDS: FOLIC ACID 1 MG TAB PO SCH (08:54)
[2019-09-28] MEDS: allopurinoL 100 MG TAB PO SCH (08:55)
[2019-09-28] MEDS: THIAMINE 100 MG TAB PO SCH (08:55)
[2019-09-28] MEDS: ASPIRIN 81 MG ENTERIC TAB PO SCH (08:55)
[2019-09-28] MEDS ORDERED: FUROSEMIDE 40 MG/4 ML VIAL (J1940) IV ONE (09:00)
--- NOTE | 2019-09-28 11:59 | IPNPDOC ---
Text Note Date of Service The patient was seen on 09/28/19. NOTE Vascular surgery. Dr Casillas. Patient seen and examined. Postoperative day 3 status post right common iliac artery stent, bilateral common femoral endarterectomies, right to left femorofemoral bypass, and right femoral popliteal bypass with in situ vein as per Dr. Casillas. He is out of bed this a.m. to the bathroom, getting around without difficulty. The patient did use an incentive spirometer yesterday and states his breathing is improved. He says his pain is well controlled and he is not having any issues with anxiety or shakiness from nicotine and alcohol withdrawal. Continue the baseline Valium and he has a CIWA protocol as well. On exam, the patient's for incisions are healing well. 2 groin incisions are clean dry and intact, and the 2 thigh incisions on the right leg are also clean dry and intact. There is a little bit of sanguinous drainage from the midportion of the lower thigh incision noted on the dressing, but otherwise no drainage is noted today on exam. No significant bruising or erythema is noted. Right lower extremity still with some swelling, he is advised to elevate the leg when he is in bed to help with swelling. All 4 incisions were cleaned and dressed with dry gauze and paper tape. These dressings can be replaced as needed. We will change them daily. We'll monitor how the patient is doing with physical therapy today, we may get him in the shower on Saturday and see how he does with that. If he is stable to walk and get into the shower without shortness of breath, dizziness, or other difficulty, we may be able to discharge him home on Saturday or Saturday. We want him to take showers daily and replaced the dressings after to keep the incisions very clean. Continue aspirin and Plavix daily. Continue recommending smoking cessation and reinforce this frequently. We appreciate the hospitalist team assistance with this patient. Renato BURNS, I+O VSRenato, I+O Laboratory Tests 09/28/19 05:28 Vital Signs Date Time Temp Pulse Resp B/P (MAP) Pulse Ox O2 Delivery O2 Flow Rate FiO2 09/28/19 10:07 94 Nasal Cannula 2.0 09/28/19 09:39 20 09/28/19 08:00 83 142/71 09/28/19 04:00 97.7 I&O- Last 24 Hours up to 6 AM 09/28/19 06:00 Intake Total 740 ml Output Total 200 ml Balance 540 ml Cherri Pena Sep 28, 2019 11:59
[2019-09-28 12:00] VITALS: BP 158/98
--- NOTE | 2019-09-28 15:26 | IPN ---
DATE: 09/27/2019 The patient complains of pain in his buttocks, as well as bilateral lower quadrants by the groin with swelling on the medial thigh. It is relieved with pain medications, which allows him to sleep, along with the Valium. No fever or chills overnight. Difficulty ambulating and moving around due to severe pain, rated at 11 out of 10 in the back, 7 out of 10 when the pain is controlled, and down to 5 out of 10 when he is lying still. The patient continues to have some tremors. The patient has some serous drainage through the incision site but not purulence. PHYSICAL EXAMINATION: Temperature 97.4, pulse 76, respiratory rate 20, blood pressure 140/78, 95% on 2 liters nasal cannula. GENERAL: The patient is awake, alert, oriented to person and place. Answering questions appropriately. No jugular venous distention (JVD). No thyromegaly. No cervical lymphadenopathy. Moist mucous membranes. No jugular venous distention (JVD). LUNGS: Diminished. No wheezing or rales. HEART: S1, S2. Sinus rhythm. ABDOMEN: Obese, soft. THe patient has tenderness in bilateral lower quadrants. Surgical site is clean and dry with no erythema. Bruising on the medial thigh. Incisions are dry and clean. Soto catheter has been discontinued. EXTREMITIES: Warm, dry, well perfused, pink in color. LABORATORY DATA: White count 11.4, hemoglobin 10, hematocrit 31, platelet count 88, previous platelet count of 113. Sodium 138, potassium 3.8, chloride 104, bicarbonate 31, BUN 6, creatinine 0.59, glucose 126. ASSESSMENT AND PLAN: This is a 58-year-old with heavy alcohol abuse, peripheral vascular disease, smoking, status post right common iliac artery stenting, bilateral common femoral endarterectomies, femoral popliteal bypass, who was admitted under [facility] protocol. IMPRESSION: 1. Peripheral arterial disease. Status post right femoral artery, left femoral artery, right popliteal, right aortoiliac arteriogram with placement of stent in the right common iliac artery, right and left bilateral femoral endarterectomies with MyoSure patch angioplasty on the right, right and left femoral-femoral bypass with 6 mm PTFE graft and right femoral to popliteal bypass with the greater saphenous vein. The patient is doing well, managed by vascular surgery. He is to be assisted with ambulation, physical therapy (PT) and acute rehabilitation unit. He is currently on Valium as needed for pain. Resume back on his aspirin and Plavix. 2. Hypertension. Continue on isosorbide. 3. Alcohol abuse. Continue on vitamin, folate, multivitamin, as well as CIWA protocol with as needed Serax. Continue on Valium as needed every 6 hours, Dilaudid for breakthrough pain. 4. Depression. On chronic Zoloft. 5. Obstructive sleep apnea protocol. DISPOSITION: Increase ambulation, assisted ambulation only, and acute rehabilitation unit evaluation. MTDD
[2019-09-28 16:00] VITALS: BP 122/68
[2019-09-28 20:00] VITALS: BP_SYST 165; BP_DIAS 82; BP_DIAS 84
[2019-09-28] MEDS: ARNUITY ELLIPTA 100 MCG INH SCH (20:34)
[2019-09-28] MEDS: ATORVASTATIN 20 MG TAB PO SCH (20:34)
[2019-09-29] VITALS: BP 132/70
[2019-09-29] MEDS: diazePAM 5 MG TAB PO SCH ×2 (00:12→05:55)
[2019-09-29] MEDS: PERCOCET 5MG/325MG TAB PO PRN ×2 (03:57→09:05)
[2019-09-29 04:00] VITALS: BP_SYST 140; BP_SYST 144; BP_DIAS 76; BP_DIAS 82
[2019-09-29] MEDS: SLF 3 ML SYR IV SCH (05:55)
[2019-09-29 06:51] VITALS: BP 128/80
[2019-09-29] MEDS: ISOSORBIDE MONONITRATE 10MG TABLET PO SCH (06:51)
[2019-09-29 07:26] LABS: BASO % 0.2 % (0.0-1.0); EOS # 0.4 10^3/uL (0.0-0.5); EOS % 3.9 % (0.0-3.0); HEMATOCRIT 30.9 % (42.0-52.0); HEMOGLOBIN 10.4 g/dl (13.5-17.5); LYMPH % 10.7 % (24.0-44.0); MEAN CORPUSCULAR HGB CONC 33.7 g/dl (32.0-36.5); MEAN CORPUSCULAR VOLUME 112.8 fl (80.0-96.0); MONO # 0.9 10^3/uL (0.0-0.8); MONO % 9.7 % (0.0-5.0); NEUTROPHILS # 6.8 10^3/uL (1.5-8.5); NEUTROPHILS % 75.1 % (36.0-66.0); PLATELET COUNT, AUTOMATED 118 10^3/uL (150-450); RED BLOOD COUNT 2.74 10^6/uL (4.30-6.10); WHITE BLOOD COUNT 9.1 10^3/uL (4.0-10.0)
[2019-09-29 07:48] LABS: BLOOD UREA NITROGEN 19 MG/DL (7-18); CALCIUM LEVEL 8.8 MG/DL (8.5-10.1); CARBON DIOXIDE LEVEL 33 MEQ/L (21-32); CHLORIDE LEVEL 103 MEQ/L (98-107); CREATININE FOR GFR 0.65 MG/DL (0.70-1.30); GLOMERULAR FILTRATION RATE > 60.0 (>56); GLUCOSE, FASTING 116 MG/DL (70-100); MAGNESIUM LEVEL 2.1 MG/DL (1.8-2.4); POTASSIUM SERUM 3.6 MEQ/L (3.5-5.1); SODIUM LEVEL 139 MEQ/L (136-145)
[2019-09-29 08:00] VITALS: BP 136/81
[2019-09-29] MEDS: FOLIC ACID 1 MG TAB PO SCH (09:03)
[2019-09-29] MEDS: CLOPIDOGREL 75 MG TAB PO SCH (09:03)
[2019-09-29] MEDS: SERTRALINE HCL 50 MG TAB PO SCH (09:03)
[2019-09-29] MEDS: ASPIRIN 81 MG ENTERIC TAB PO SCH (09:03)
[2019-09-29] MEDS: THIAMINE 100 MG TAB PO SCH (09:03)
[2019-09-29] MEDS: allopurinoL 100 MG TAB PO SCH (09:03)
[2019-09-29] MEDS: MULTIVITAMINS/MINERALS THERAP 1 TAB PO SCH (09:03)
--- NOTE | 2019-09-29 09:23 | IPN ---
DATE: 09/28/2019 Patient's scrotal ultrasound shows no torsion, edema of the scrotum. Differential includes inflammatory versus infectious. Patient has no fever or chills. Still complains of pain when he walks around, usually in bilateral groin. Patient has no restlessness. No agitations. No tremors. Temperature 97.7, pulse 87, respiratory rate 17, blood pressure 142/71, 99% on 2 liters nasal cannula. Generally, awake, alert, oriented times three. Anicteric sclerae. No Jaundice. Able to speak in full sentences. No conversational dyspnea. No jugular venous distention (JVD) or thyromegaly. Lungs are clear to auscultation. No wheezing, rales or rhonchi. Heart S1, S2, sinus rhythm. Abdomen is soft, nontender nondistended. Patient has dried dressings. Surgical scar is nontender. No erythematous. Patient's scrotum is still red and swollen. Extremities: Positive edema bilaterally. LAB DATA: White count 11.9, hematocrit 33, hemoglobin 10, platelet count 99. Admission platelet count was 113. Sodium 136, potassium 3.7, chloride 101, bicarbonate 32, BUN 20, creatinine 0.8, glucose of 126. Scrotal ultrasound: No torsion. Differential inflammation. No abscess seen. No fluid collection. ASSESSMENT/PLAN: This is a 58-year-old active smoker prior to admission with peripheral arterial disease, chronic alcohol abuse admitted due to fem/fem bypass. IMPRESSION: 1. Peripheral arterial disease status post right common iliac artery stenting, bilateral common femoral endarterectomies, [id number] femoral/femoral bypass, right femoral popliteal bypass with inside of vein resumed back on his aspirin and Plavix. Tobacco cessation counseling with nicotine patch. Activity as tolerated. Acute rehabilitation unit (ARU) has been consulted. No postoperative complications. Dressings are dry. Postop management per vascular surgery. 2. Alcohol abuse: Continue on vitamin, folate, multivitamin, as well as CIWA protocol. 3. Gout on chronic allopurinol. 4. Active tobacco smoker. Tobacco cessation counseling on nicotine patch. 5. Hypertension on isosorbide. 6. Pain control on hydromorphone, Percocet and Valium. DISPOSITION: Pending ARU rehabilitation.
[2019-09-29] MEDS ORDERED: PERCOCET PO (12:10)
--- NOTE | 2019-09-29 12:20 | IPNPDOC ---
Text Note Date of Service The patient was seen on 09/29/19. NOTE Vascular surgery. Dr Casillas. Patient seen and examined. Postoperative day 4 status post right common iliac artery stent, bilateral common femoral endarterectomies, right to left femorofemoral bypass, and right femoral popliteal bypass with in situ vein as per Dr. Casillas. He is out of bed this a.m. to the bathroom, getting around without difficulty. He has worked with physical therapy this morning and has gone up and down the stairs and from a physical therapy standpoint is cleared. He says his pain is well controlled. On exam, the patient's for incisions are healing well. 2 groin incisions are clean dry and intact, and the 2 thigh incisions on the right leg are also clean dry and intact. There is a little bit of sanguinous drainage from the midportion of the lower thigh incision noted on the dressing, but otherwise no drainage is noted today on exam. No significant bruising or erythema is noted. There is some skin irritation from tape. Right lower extremity still with some swelling but it does appear improved today. He has been keeping his leg elevated. All 4 incisions were cleaned and dressed with dry gauze and paper tape. These dressings should be replaced as needed. Request shower prior to discharge today. Recommend daily shower at home. Daily dressing changes. Continue to keep his dressings very clean and dry. Continue aspirin and Plavix daily. Continue recommending smoking cessation. We appreciate the hospitalist team assistance with this patient. Follow-up with vascular surgery in 5-7 days. VS,Fishbone, I+O VS, Fishbone, I+O Laboratory Tests 09/29/19 07:13 Vital Signs Date Time Temp Pulse Resp B/P (MAP) Pulse Ox O2 Delivery O2 Flow Rate FiO2 09/29/19 09:05 18 93 Room Air 09/29/19 08:00 97.2 78 136/81 (99) 09/29/19 04:00 2.0 I&O- Last 24 Hours up to 6 AM 09/29/19 06:00 Intake Total 1800 ml Output Total 1540 ml Balance 260 ml Cherri Pena Sep 29, 2019 12:20
--- NOTE | 2019-09-29 12:29 | DS.PDOC ---
Discharge Summary General Date of Admission Sep 25, 2019 at 06:04 Date of Discharge 09/29/2019 Discharge Summary PROCEDURES PERFORMED DURING STAY: 09/25/2019: Dr. Casillas: - 1. Open cutdown right femoral artery, left femoral artery, right popliteal artery above-knee. - 2. Right aorto iliac arteriogram - 3. Placement of a 10 x 59 VBX balloon expandable covered stent right common iliac artery - 4. Completion arteriogram - 5. Right common femoral endarterectomy with Xenosure patch angioplasty - 6. Left common femoral endarterectomy - 7. Right to left femorofemoral bypass with 6 mm ringed PTFE graft - 8. Right femoral to above-knee popliteal bypass with in situ greater saphenous vein ADMITTING DIAGNOSES / DISCHARGE DIAGNOSES: Peripheral arterial disease s/p right common iliac artery stenting, bilateral common femoral endarterectomies, [id number] femoral/femoral bypass, right femoral popliteal bypass with inside of vein Alcohol abuse Gout Active tobacco smoker HTN Pain control DVT prophylaxis COMPLICATIONS/CHIEF COMPLAINT: Severe leg claudication HISTORY OF PRESENT ILLNESS: Patient is a 58-year-old male with a past medical history of hypertension, dyslipidemia, peripheral vascular disease, COPD, alcohol dependence, and GERD who presented to the [facility] for a planned vascular procedure. Patient was admitted to vascular surgery service and was transferred to hospitalist service on 09/25/2019. HOSPITAL COURSE: Peripheral arterial disease s/p right common iliac artery stenting, bilateral common femoral endarterectomies, [id number] femoral/femoral bypass, right femoral popliteal bypass with inside of vein - Clinically patient is doing well - c/w ASA and Plavix - Dr. Casillas, vascular surgery on consultation; appreciate their input - will c/w dressing changes / wound care based on their recommendations - Patient has cleared PT for discharge home Alcohol abuse - No evidence of alcohol withdrawal at this time - c/w Thiamine, folate, multivitamin - Will [facility] protocol Gout - c/w allopurinol Active tobacco smoker - Advised smoking cessation - c/w nicotine patch HTN - BP well controlled - c/w Isosorbide mononitrate DLP - c/w Atorvastatin Chronic COPD - No evidence of exacerbation - c/w inhaled therapy as ordered Pain control - c/w Percocet on discharge DVT prophylaxis - c/w TEDs/Sequentials DISCHARGE MEDICATIONS: Please see below. ALLERGIES: Please see below. PHYSICAL EXAMINATION ON DISCHARGE: Vitals (See below) General: Lying in bed, comfortable, AAOx3 HEENT: NC, AT CVS: RRR, +S1S2 Lungs: Fair air entry b/l, -w/r/r Abdomen: Soft, ND, NT Extremities: R leg swelling noted; bandages present and intact, - Calf tenderness LABORATORY DATA: Please see below. ACTIVITY: [As tolerated]. DISCHARGE PLAN: Follow up with Dr. Edilberto Murillo and Dr. Casillas within 7 days Remain compliant with treatment plan and medications Return to the ER if you experience any problems DISPOSITION: Home with services DISCHARGE CONDITION: [Stable]. TIME SPENT ON DISCHARGE: 35 minutes Vital Signs/I&Os Vital Signs Date Time Temp Pulse Resp B/P (MAP) Pulse Ox O2 Delivery O2 Flow Rate FiO2 09/29/19 09:05 18 93 Room Air 09/29/19 08:00 97.2 78 136/81 (99) 09/29/19 04:00 2.0 I&O- Last 24 Hours up to 6 AM 09/29/19 05:59 Intake Total 1800 ml Output Total 1540 ml Balance 260 ml Laboratory Data Labs 24H Laboratory Tests 2 09/29/19 07:13: Immature Granulocyte % (Auto) 0.4, Neutrophils (%) (Auto) 75.1H, Lymphocytes (%) (Auto) 10.7L, Monocytes (%) (Auto) 9.7H, Eosinophils (%) (Auto) 3.9H, Basophils (%) (Auto) 0.2, Neutrophils # (Auto) 6.8, Lymphocytes # (Auto) 1.0L, Monocytes # (Auto) 0.9H, Eosinophils # (Auto) 0.4, Basophils # (Auto) 0.0, Nucleated Red Blood Cells % (auto) 0.0, Anion Gap 3L, Glomerular Filtration Rate > 60.0, Calcium Level 8.8, Magnesium Level 2.1 CBC/BMP Laboratory Tests 09/29/19 07:13 Discharge Medications Scheduled Allopurinol (Allopurinol) 100 Mg Tab, 100 MG PO DAILY, (Reported) Amlodipine Besylate (Amlodipine Besylate) 10 Mg Tab, 10 MG PO DAILY, (Reported) Aspirin (Aspir 81) 81 Mg Tab, 81 MG PO DAILY, (Reported) Atorvastatin Calcium (Atorvastatin Calcium) 80 Mg Tablet, 80 MG PO DAILY, (Reported) Clopidogrel Bisulfate (Clopidogrel) 75 Mg Tab, 75 MG PO DAILY, (Reported) Cyclobenzaprine HCl (Cyclobenzaprine HCl) 5 Mg Tablet, 5 MG PO TIDP, (Reported) Fluticasone Furoate (Arnuity Ellipta) 100 Mcg Blst.w.dev, 100 MCG IN DAILY, (Reported) Folic Acid (Folic Acid) 1 Mg Tab, 1 MG PO DAILY, (Reported) Gabapentin (Neurontin) 300 Mg Cap, 600 MG PO BID, (Reported) Guaifenesin (Mucinex) 600 Mg Tab.er.12h, 600 MG PO BID, (Reported) Isosorbide Mononitrate (Isosorbide Mononitrate) 10 Mg Tab, 10 MG PO BID, (Reported) Losartan Potassium (Losartan Potassium) 100 Mg Tab, 100 MG PO QHS, (Reported) Omeprazole (Omeprazole) 40 Mg Cap, 40 MG PO BID, (Reported) Sertraline HCl (Sertraline HCl) 100 Mg Tab, 100 MG PO DAILY, (Reported) 150MG TOTAL DAILY Sertraline Hcl (Sertraline HCl) 50 Mg Tab, 50 MG PO DAILY, (Reported) 150MG TOTAL DAILY Trazodone HCl (Trazodone HCl) 100 Mg Tablet, 100 MG PO QHS, (Reported) Scheduled PRN Albuterol Sulfate (Albuterol Sulfate) 2.5 Mg/0.5 Ml Neb, 2.5 MG INH Q2HP PRN for SOB/WHEEZING Albuterol Sulfate (Proair Hfa) 8.5 Gm Hfa.aer.ad, 2 PUFFS INH Q4HP PRN for SOB/WHEEZING, (Reported) Oxycodone/Acetaminophen (Oxycodone-Acetaminophen 5-325) 1 Each Tablet, 1-2 TAB PO Q6HP PRN for MILD PAIN (PS 1-4) Allergies Coded Allergies: ciprofloxacin (Unverified Allergy, Unknown, unknown, 04/22/19) YOLI BARRIENTOS MD Sep 29, 2019 12:29
== END 2019-09-29 13:11 | disposition home health service (06) | DRG 253 ==
LOC: M OR 06:04 → M PCU 18:00
PROVIDERS: ADMIT Surgery Vascular Surgery; ATTEND Internal Medicine
PROC: 04CK0ZZ Extirpation of Matter from Right Femoral Artery, Open Approach (ICD-10-PCS; 2019-09-25)
PROC: 04UK0KZ Supplement Right Femoral Artery with Nonautologous Tissue Substitute, Open Approach (ICD-10-PCS; 2019-09-25)
PROC: 04CL0ZZ Extirpation of Matter from Left Femoral Artery, Open Approach (ICD-10-PCS; 2019-09-25)
PROC: 041K0JJ Bypass Right Femoral Artery to Left Femoral Artery with Synthetic Substitute, Open Approach (ICD-10-PCS; 2019-09-25)
PROC: 041K09L Bypass Right Femoral Artery to Popliteal Artery with Autologous Venous Tissue, Open Approach (ICD-10-PCS; 2019-09-25)
PROC: B41D1ZZ Fluoroscopy of Aorta and Bilateral Lower Extremity Arteries using Low Osmolar Contrast (ICD-10-PCS; 2019-09-25)
PROC: 04HC3DZ Insertion of Intraluminal Device into Right Common Iliac Artery, Percutaneous Approach (ICD-10-PCS; principal; 2019-09-25 07:30)
DX: I70.213 Atherosclerosis of native arteries of extremities with intermittent claudication, bilateral legs (principal); J98.11 Atelectasis; K59.09 Other constipation; F17.200 Nicotine dependence, unspecified, uncomplicated; M47.22 Other spondylosis with radiculopathy, cervical region; K21.9 Gastro-esophageal reflux disease without esophagitis; K57.90 Diverticulosis of intestine, part unspecified, without perforation or abscess without bleeding; K64.8 Other hemorrhoids; E78.5 Hyperlipidemia, unspecified; I12.9 Hypertensive chronic kidney disease with stage 1 through stage 4 chronic kidney disease, or unspecified chronic kidney disease; J44.9 Chronic obstructive pulmonary disease, unspecified; F10.20 Alcohol dependence, uncomplicated; F41.9 Anxiety disorder, unspecified; M10.9 Gout, unspecified; N50.89 Other specified disorders of the male genital organs; E66.9 Obesity, unspecified; G47.33 Obstructive sleep apnea (adult) (pediatric); E78.00 Pure hypercholesterolemia, unspecified; I27.20 Pulmonary hypertension, unspecified; E55.9 Vitamin D deficiency, unspecified; F34.1 Dysthymic disorder; N18.3 Chronic kidney disease, stage 3 (moderate); Z88.1 Allergy status to other antibiotic agents; Z79.02 Long term (current) use of antithrombotics/antiplatelets; Z79.82 Long term (current) use of aspirin; Z79.899 Other long term (current) drug therapy

== ENCOUNTER → 2019-11-16 | Outpatient (CLI) | payer MEDICARE, MEDICAID ==
[~2019-11-16] MED LIST changes: -LIDOCAINE 1% MDV 20ML VIAL SQ PRN; -LR 1,000 ML IV ONE; -ceFAZolin SOD 2 GM in IV 1 EA IV ONE
--- NOTE | 2019-11-16 13:55 | REP ---
BILATERAL LOWER EXTREMITY DUPLEX DOPPLER ARTERIAL ULTRASOUND: Real-time ultrasound evaluation and duplex Doppler interrogation of the bilateral lower extremity arterial systems is performed. Comparison is made with a prior study 08/21/2018. There is now a patent bypass graft extending from the right femoral artery to the left femoral artery. There is also a patent bypass graft extending from the right common femoral artery to the distal superficial femoral artery. Mild postoperative hematoma is seen surrounding each bypass graft. Monophasic waveforms are seen throughout both bypass grafts with normal flow velocities in the mid aspect of the femoral to femoral bypass graft, peak systolic velocity 89 cm/s, near the right femoral anastomosis 138 cm/s and near the left femoral anastomosis 65 cm/s. Peak systolic velocity is in the right common femoral to superficial femoral artery bypass graft reach a maximum of 92 cm/s in the mid aspect. Once again the right [place] superficial femoral artery is occluded and other vessels show monophasic waveforms. There are improved flow velocities in the distal right lower extremity compared to the prior study. Monophasic waveforms are seen in the left common femoral and proximal superficial femoral arteries with biphasic waveforms distal to that. There are also improved flow velocities throughout the left lower extremity. KELVIN bilaterally is 0.71. Right Peak Left Peak Systolic Velocity Systolic velocity Common femoral artery 149.0 cm/s 65.0 cm/s Profunda 37.0 cm/s 66.0 cm/s Proximal SFA occluded 80.0 cm/s Mid SFA occluded 71.0 cm/s Distal SFA reversed 56.0 cm/s Popliteal 58.0 cm/s 49.0 cm/s Proximal AMANDA 53.0 cm/s 34.0 cm/s Tibial peroneal trunk 67.0 cm/s 35.0 cm/s Proximal SETTER AUTOMATIC SPINNING LATHE 25.0 cm/s 29 cm/s Distal SETTER AUTOMATIC SPINNING LATHE 35.0 cm/s 27 cm/s Distal AMANDA 44.0 cm/s 19.0 cm/s Electronically Signed by Jose Parekh MD 11/16/2019 06:09 P
== END ==
LOC: M RAD 10:09
PROVIDERS: ATTEND Physician Assistant
DX: I70.213 Atherosclerosis of native arteries of extremities with intermittent claudication, bilateral legs (principal)

== ENCOUNTER → 2020-04-18 | Outpatient (REF) | payer MEDICARE, MEDICAID ==
[~2020-04-18] MED LIST changes: -AMLO10TA5 PO; +AMLO1TAB25 PO; -ASPI81TA85 PO; +ASPI81TA86 PO
[2020-06-22 08:21] LABS: CHOLESTEROL RISK RATIO 3.046 (<5)
== END ==
LOC: M LABWUC 11:57
PROVIDERS: ATTEND Physician Assistant
DX: I65.21 Occlusion and stenosis of right carotid artery (principal)

== ENCOUNTER → 2020-04-18 | Outpatient (REF) | payer MEDICARE, MEDICAID ==
[2020-05-24 12:11] LABS: ANTINUCLEAR ANTIBODIES DIRECT See Separate Report; Lyme Disease IgG/IgM Antibodie See Separate Report
[2020-06-22 08:24] LABS: C REACTIVE PROTEIN QUANTITATIV 1.07 MG/DL (0.00-0.30); RHEUMATOID FACTOR QUANT < 10.0 IU/ML (<15.0)
== END ==
LOC: M LABWUC 11:56
PROVIDERS: ATTEND Physician Assistant
DX: M25.462 Effusion, left knee (principal)

== ENCOUNTER → 2020-06-02 | Outpatient (REF) | payer MEDICARE, MEDICAID ==
[2020-06-02 17:52] LABS: SOURCE, BODY FLUID LFT KNEE
[2020-06-02 17:53] LABS: SYNOVIAL FLUID COLOR YELLOW (YELLOW)
[2020-06-02 18:13] LABS: SOURCE, BODY FLUID GLUCOSE LFT KNEE
[2020-06-02 18:14] LABS: CRYSTALS, BODY FLUID NONE SEEN (NONE SEEN); SOURCE, BODY FLUID CRYSTALS LFT KNEE
[2020-06-02 18:20] LABS: MUCIN CLOT TEST 4+ (4+)
[2020-06-02 18:26] LABS: BODY FLUID RHEUMATOID SCREEN NEGATIVE (NEGATIVE)
== END ==
LOC: M LAB REF 17:00
PROVIDERS: ATTEND Physician Assistant
DX: M25.462 Effusion, left knee (principal)

== ENCOUNTER → 2020-07-12 | Outpatient (CLI) | payer MEDICARE, MEDICAID ==
--- NOTE | 2020-07-12 12:30 | REP ---
INDICATION: ZION LOWER EXT ATHSCOL W/ CLAUDICATION. COMPARISON: Comparison study November 16, 2019.. TECHNIQUE: Bilateral lower extremity arterial Doppler ultrasound. FINDINGS: Ankle brachial indices are measured at 1.1 on the right and 0.8 on the left. There is a patent right to left fem-fem crossover bypass graft. There is a patent graft from the proximal femoral artery on the right to the distal femoral artery on the right. In the left a bypass graft is noted to be patent between the common femoral artery and the superficial femoral artery. Monophasic waveforms are noted throughout the left leg. Right to left fem-fem crossover graft velocities: Proximal graft 151 cm/S Mid graft 99 Distal graft 74 Right lower extremity arterial Doppler velocity chart: Right ELASTIC TAPE INSERTER PSV 122 cm/S Profundal 36 Proximal SFA occluded Mid SFA partially occluded distal portion with reversed flow. Distal SFA reversed flow in the pre graft anastomotic site, 93 cm/S post graft Popliteal 62 Proximal AMANDA 84 Tibial-peroneal trunk 59 Proximal DRYING OVEN TENDER 45 Distal DRYING OVEN TENDER 39 Distal AMANDA 46 Left lower extremity arterial Doppler velocity chart: Left ELASTIC TAPE INSERTER occluded Left ELASTIC TAPE INSERTER post graft PSV 56 cm/S Profundal 77 Proximal SFA 153 Mid SFA 96 Distal SFA 75 Popliteal 58 Proximal AMANDA 54 Tibial-peroneal trunk 61 Proximal DRYING OVEN TENDER 41 Distal DRYING OVEN TENDER 37 Distal AMANDA 14 IMPRESSION: Bilateral lower extremity Doppler findings as above. <Electronically signed by Femi Merino > 07/12/20 [id number]
== END ==
LOC: M RAD 10:06
PROVIDERS: ATTEND Physician Assistant
DX: I70.213 Atherosclerosis of native arteries of extremities with intermittent claudication, bilateral legs (principal); Z95.828 Presence of other vascular implants and grafts

== ENCOUNTER → 2020-11-15 | Outpatient (CLI) | payer MEDICARE, MEDICAID ==
[2020-11-15 16:43] LABS: BLOOD UREA NITROGEN 16 MG/DL (7-18); CALCIUM LEVEL 9.1 MG/DL (8.5-10.1); CARBON DIOXIDE LEVEL 31 MEQ/L (21-32); CHLORIDE LEVEL 104 MEQ/L (98-107); CHOLESTEROL LEVEL 139 MG/DL (<200); CHOLESTEROL RISK RATIO 2.957 (<5); CREATININE FOR GFR 0.92 MG/DL (0.70-1.30); GLOMERULAR FILTRATION RATE > 60.0 (>56); GLUCOSE, FASTING 153 MG/DL (70-100); HDL CHOLESTEROL 47 MG/DL (>40); LDL CHOLESTEROL 55 MG/DL (<100); NON-HDL-C 92 MG/DL; POTASSIUM SERUM 4.5 MEQ/L (3.5-5.1); SODIUM LEVEL 138 MEQ/L (136-145); TRIGLYCERIDES LEVEL 184 MG/DL (<150)
== END ==
LOC: M WUC 14:22
PROVIDERS: ATTEND Physician Assistant
DX: E78.2 Mixed hyperlipidemia (principal); I10 Essential (primary) hypertension

== ENCOUNTER 2021-03-22 12:45 | Inpatient (IN) | payer MEDICARE, MEDICAID ==
[~2021-03-22] VITALS: Ht 162.6 cm; Wt 98.2 kg
[~2021-03-22 12:45] MED LIST changes: -ARNU1INH IN; +ARNU1INH INH; +BACTDSTA PO; +OMEP40CA4 PO; -OMEP40CA97 PO; -SULF1TAB93 PO; +predniSONE 20 MG TAB PO SCH
[2021-03-22 14:09] LABS: BASO % 0.4 % (0.0-1.0); EOS # 0.1 10^3/uL (0.0-0.5); EOS % 1.5 % (0.0-3.0); HEMOGLOBIN 14.7 g/dl (13.5-17.5); LYMPH # 1.1 10^3/uL (1.5-5.0); LYMPH % 13.9 % (24.0-44.0); MEAN CORPUSCULAR HEMOGLOBIN 37.4 pg (27.0-33.0); MEAN CORPUSCULAR HGB CONC 32.7 g/dl (32.0-36.5); MONO # 0.7 10^3/uL (0.0-0.8); MONO % 8.1 % (2.0-8.0); NEUTROPHILS # 6.1 10^3/uL (1.5-8.5); NEUTROPHILS % 75.7 % (36.0-66.0); PLATELET COUNT, AUTOMATED 104 10^3/uL (150-450); RED BLOOD COUNT 3.93 10^6/uL (4.30-6.10)
--- NOTE | 2021-03-22 14:17 | REP ---
INDICATION: DYSPNEA/COUGH. COMPARISON: 07/23/2019 as well as other prior exams. TECHNIQUE: Single portable AP view of the chest was performed. FINDINGS: There is stable right base fibro atelectatic change. There is no definite acute infiltrate. The heart is not significantly enlarged. The mediastinal silhouette is unchanged. IMPRESSION: No acute pulmonary disease.Stable chronic findings. <Electronically signed by Jose Parekh > 03/22/21 [id number]
[2021-03-22 14:27] LABS: MEAN CORPUSCULAR VOLUME 114.5 fl (80.0-96.0)
[2021-03-22 14:31] LABS: ALBUMIN 3.7 GM/DL (3.2-5.2); ALT/SGPT 64 U/L (12-78); BILIRUBIN,DIRECT 0.2 MG/DL (0.0-0.2); BILIRUBIN,TOTAL 0.4 MG/DL (0.2-1.0); BLOOD UREA NITROGEN 18 MG/DL (7-18); CALCIUM LEVEL 8.8 MG/DL (8.8-10.2); CARBON DIOXIDE LEVEL 31 MEQ/L (21-32); CHLORIDE LEVEL 104 MEQ/L (98-107); CK-MB VALUE MASS 1.2 NG/ML (<3.6); CPK CREATINE PHOSPHOKINASE 59 U/L (39-308); CREATININE FOR GFR 0.71 MG/DL (0.70-1.30); GLOMERULAR FILTRATION RATE > 60.0 (>49); GLUCOSE, FASTING 124 MG/DL (70-100); MB/CK RELATIVE INDEX 2.03 (< OR =4); POTASSIUM SERUM 4.6 MEQ/L (3.5-5.1); SODIUM LEVEL 140 MEQ/L (136-145); TOTAL PROTEIN 7.3 GM/DL (6.4-8.2); TROPONIN I < 0.02 NG/ML (< 0.10)
[2021-03-22] MEDS ORDERED: IPRATROPIUM 0.5MG/ALBUTEROL 2.5MG INH SOL UD 3ML (DUONEB) NEB ONE (15:10)
[2021-03-22 15:41] LABS: PLATELET ESTIMATE NORMAL (NORMAL); POLYCHROMASIA 1+
[2021-03-22] MEDS ORDERED: methylPREDNISolone 125MG 2ML VIAL IV ONE (16:55)
[2021-03-22] MEDS ORDERED: AZITHROMYCIN 250MG TABLET PO ONE (16:55)
[2021-03-22 17:10] LABS: RSV AMPLIFICATION NEGATIVE (NEGATIVE)
[2021-03-22] MEDS ORDERED: ZOLO100T PO (17:22)
[2021-03-22] MEDS ORDERED: ALBU83IN NEB (17:22)
[2021-03-22] MEDS ORDERED: FOLI800T3 PO (17:22)
[2021-03-22] MEDS ORDERED: ASPI81TA26 PO (17:22)
[2021-03-22] MEDS ORDERED: CYCL5TAB PO (17:22)
[2021-03-22] MEDS ORDERED: D31000TA2 PO (17:22)
[2021-03-22] MEDS ORDERED: CYCLOBENZAPRINE 5MG TABLET PO PRN ×2 (17:40)
[2021-03-22] MEDS ORDERED: MOM 30ML SUSPENSION UDC PO PRN (17:40)
[2021-03-22] MEDS ORDERED: ALBUTEROL SULFATE 2.5 MG/0.5 ML INH NEB SOLN NEB PRN (17:40)
[2021-03-22] MEDS ORDERED: ACETAMINOPHEN TAB 650MG DOSE (2X325MG) PO PRN (17:40)
[2021-03-22] MEDS ORDERED: MAALOX 30 ML SUSP *UDC PO PRN (17:40)
--- NOTE | 2021-03-22 17:42 | ECGEPIP ---
[facility] - ED Test Date: 2021-03-22 Pat Name: FAZAL MCCALL Department: Room: - Gender: Male Case Liner: MOHIT : 1960 Requested By: GUEVARA Bah Order Number: [id number] Reading MD: Mateus Mojica Measurements Intervals [place] Rate: 83 P: 65 ID: [id number] QRS: -70 QRSD: 106 T: 41 QT: 376 QTc: 441 Interpretive Statements Normal sinus rhythm Left axis deviation Anterior infarct , age undetermined, new compared to 12/16/17 Electronically Signed on 03-22-2021 17:41:38 EDT by Mateus Mojica
--- NOTE | 2021-03-22 18:09 | HPEPDOC ---
[facility] Medical History & Physical Date of Admission Mar 22, 2021 Date of Service: Mar 22, 2021 Primary Care Physician: AMINATA VO DO Attending Physician: HELEN MANCERA DO History and Physical CHIEF COMPLAINT: Hypoxia HISTORY OF PRESENT ILLNESS: Patient is a 60-year-old male who presents to the emergency department under the advisement of his primary care provider due to hypoxia. Patient was seen today, 03/22/2021 and his primary care office and was reported to have low oxygen when the patient was resting. Patient's oxygen saturations were in the mid 80s on room air. Patient was advised to come to the emergency department via EMS however, patient declined. Patient's primary care provider called the patient's and advised the patient come to the emergency department. Patient presented to the emergency department. Patient states that over the past 2 months or so he has been having hoarseness and a globus feeling in his throat. Patient states that he had an upper respiratory infection about 2 months ago which cleared after about 5 days but the hoarseness has not gone away. Patient states that he believes his life is a little bit more gritty than normal. Patient was supposed to have an appointment with ENT today however, he went to the emergency department. Patient denies any shortness of breath. Patient is otherwise feeling well. PAST MEDICAL HISTORY: 1. Hypertension. 2. Asthma, PFTs in 2018 show FVC 13% postbronchodilator. 3. Hypercholesterolemia. 4. Pulmonary hypertension 5. Degenerative disc disease 6. Peripheral artery disease with right internal carotid artery occlusion 7. Gout 8. Vitamin D deficiency 9. EtOH abuse 10. Dysthymia 11. Small hiatal hernia PAST SURGICAL HISTORY: 1. Right elbow repair. 2. Both index fingers put back on. 3. Left knee ligament repair. 4. Vasectomy 5. Left wrist fusion with plate 6. Colonoscopy 7. Upper endoscopy 8. Stents placed in both legs SOCIAL HISTORY: Patient lives at home with his . Patient smokes a pack of cigarettes every 2 days. Patient drinks 3-4 alcoholic beverages a day with his last drink being yesterday, 03/21/2020 1 in the afternoon, patient denies any illicit drug use. FAMILY HISTORY: Father had lung cancer, mother had COPD ALLERGIES: Please see below. REVIEW OF SYSTEMS: General: Patient denies fevers HEENT: Patient denies headaches Cardiovascular: Patient denies chest pain Respiratory: Patient reports cough and a globus sensation. Patient denies any shortness of breath. GI: Patient denies abdominal pain, nausea, vomiting, diarrhea : Patient denies increased frequency or pain with urination Extremities: Patient denies swelling or pain in extremities Neurological: Patient denies numbness or tingling in legs Skin: Patient denies any new rashes or lesions. Hematologic: Patient denies any easy bruising. Lymphatic: Patient denies any lumps lumps or bumps in neck, axilla, or groin HOME MEDICATIONS: Please see below. PHYSICAL EXAMINATION: VITAL SIGNS: Temperature 97.4, pulse 80, respiratory rate 23, blood pressure 138/81, pulse oximetry 90% on 1 L of oxygen via nasal cannula General: Alert and oriented male patient who was resting comfortably in bed with nasal cannula oxygen in place. Patient's was present in the room. Patient did not appear to be in any acute distress. HEENT: Normocephalic, atraumatic, moist mucous membranes with a thickened saliva. Neck: No lymphadenopathy or thyromegaly Cardiac: Regular rate and rhythm, no murmurs, normal S1, normal S2 Pulm: Faint scattered end expiratory wheezing heard throughout the lung porter Abd: Nondistended, nontender to palpation, normal bowel sounds, small reducible umbilical hernia Ext: No edema bilateral lower extremities dorsalis pedis pulses palpated in bilateral lower extremities Neuro: Patient is able to move all 4 extremities equally. Patient reports he was sensation light touch in bilateral lower extremities. Skin: Skin of the head, neck, abdomen, lower extremities are examined not show any evidence of rash or lesions LABORATORY DATA: See below. IMAGING: Chest x-ray performed on 03/22/2021 was reported to show no acute pulmonary disease. Stable chronic findings. MICROBIOLOGY: Please see below. ASSESSMENT: Patient is a 60-year-old male who presented today with a chief complaint of hypoxia who was thought to be in an asthma/COPD exacerbation. . PLAN: 1. Hypoxia. On room air, patient would desat into the mid 80s. On 1 L of oxygen, patient would be able to maintain his oxygen saturation between 88 and 92%. At this time, we will titrate the patient's oxygen to maintain oxygen saturation from 88 to 92%. Patient will be on every 6 hour respiratory time duo nebs with as needed albuterol. Patient was given a dose of 125 mg of IV methylprednisolone in the emergency department as well as 500 mg of azithromycin. Patient will be transition to 40 mg of p.o. prednisone starting tomorrow morning and we will continue to monitor. The patient is able to tolerate breathing on room air, patient can be may be discharged tomorrow. 2. Asthma/COPD exacerbation. Patient carries a diagnosis of asthma although he may also have COPD based on his chronic smoking. We will continue with inhaled therapy and steroid therapy as above. Azithromycin will not be continued as I do not believe the patient has pneumonia at this time. 3. Hypertension. We will continue the patient's home medications. 4. Peripheral vascular disease. Continue patient's medications. 5. Depression. We will continue patient's home medications. 6. EtOH abuse. Patient will be placed on CIWA protocol. 7. DVT prophylaxis Lovenox 8. CODE STATUS: Full code Disposition: Patient will be placed under observation on the medical surgical floor. If the patient is able to tolerate room air tomorrow, patient will be discharged home. Vital Signs Vital Signs Date Time Temp Pulse Resp B/P (MAP) Pulse Ox O2 Delivery O2 Flow Rate FiO2 03/22/21 16:37 84 Room Air 03/22/21 16:31 80 23 138/81 (100) 1.0 03/22/21 12:45 97.8 Laboratory Data Labs 24H Laboratory Tests 2 03/22/21 13:03: Immature Granulocyte % (Auto) 0.4, Neutrophils (%) (Auto) 75.7H, Lymphocytes (%) (Auto) 13.9L, Monocytes (%) (Auto) 8.1H, Eosinophils (%) (Auto) 1.5, Basophils ( %) (Auto) 0.4, Neutrophils # (Auto) 6.1, Lymphocytes # (Auto) 1.1L, Monocytes # (Auto) 0.7, Eosinophils # (Auto) 0.1, Basophils # (Auto) 0.0, Nucleated Red Blood Cells % (auto) 0.0, Platelet Estimate NORMAL, Polychromasia 1+, Macrocytosis 3+, Anion Gap 5L, Glomerular Filtration Rate > 60.0, Calcium Level 8.8, Total Bilirubin 0.4, Direct Bilirubin 0.2, Aspartate Amino Transf (AST/SGOT) 42H, Alanine Aminotransferase (ALT/SGPT) 64, Alkaline Phosphatase 130H, Total Creatine Kinase 59, Creatine Kinase MB 1.2, Creatine Kinase MB Relative Index 2.03, Troponin I < 0.02, Total Protein 7.3, Albumin 3.7, Albumin/Globulin Ratio 1.0 03/22/21 16:16: Coronavirus (COVID-19)(PCR) NEGATIVE, Influenza Type A (RT-PCR) NEGATIVE, Influenza Type B (RT-PCR) NEGATIVE, Respiratory Syncytial Virus (PCR) NEGATIVE CBC/BMP Laboratory Tests 03/22/21 13:03 Home Medications Scheduled Allopurinol (Allopurinol) 100 Mg Tab, 100 MG PO DAILY Amlodipine Besylate (Amlodipine Besylate) 10 Mg Tab, 10 MG PO DAILY Aspirin (Aspirin EC) 81 Mg Tablet.dr, 81 MG PO DAILY Atorvastatin Calcium (Atorvastatin Calcium) 80 Mg Tablet, 80 MG PO QHS Cholecalciferol (Vitamin D3) (Vitamin D3) 1,000 Unit Tablet, 1,000 UNITS PO BID Clopidogrel Bisulfate (Clopidogrel) 75 Mg Tab, 75 MG PO DAILY Fluticasone Furoate (Arnuity Ellipta) 100 Mcg Blst.w.dev, 1 INH INH DAILY Folic Acid (Folic Acid) 0.8 Mg Tablet, 800 MCG PO BID Gabapentin (Neurontin) 300 Mg Cap, 600 MG PO BID Isosorbide Mononitrate (Isosorbide Mononitrate) 10 Mg Tab, 10 MG PO BID Losartan Potassium (Losartan Potassium) 100 Mg Tab, 100 MG PO QHS Omeprazole (Omeprazole) 40 Mg Cap, 40 MG PO DAILY Sertraline Hcl (Zoloft) 100 Mg Tablet, 150 MG PO DAILY Scheduled PRN Albuterol Sulf (Albuterol Sulfate) 2.5 Mg/3 Ml Vial.neb, 1 VIAL NEB Q4H PRN for SOB/WHEEZING Albuterol Sulfate (Proair Hfa) 8.5 Gm Hfa.aer.ad, 2 PUFFS INH Q4HP PRN for SOB/WHEEZING Cyclobenzaprine HCl (Cyclobenzaprine HCl) 5 Mg Tablet, 5 MG PO DAILY PRN for MUSCLE SPASMS Cyclobenzaprine HCl (Cyclobenzaprine HCl) 5 Mg Tablet, 10 MG PO QHS PRN for MUSCLE SPASMS Allergies Coded Allergies: ciprofloxacin (Unverified Allergy, Unknown, unknown, 04/22/19) A-FIB/CHADSVASC A-FIB History Current/History of A-Fib/PAF?: No FIORDALIZA,HELEN DO Mar 22, 2021 18:09
[2021-03-22 18:57] LABS: BLOOD UREA NITROGEN 19 MG/DL (7-18); CARBON DIOXIDE LEVEL 33 MEQ/L (21-32); CHLORIDE LEVEL 105 MEQ/L (98-107); CREATININE FOR GFR 0.69 MG/DL (0.70-1.30); GLOMERULAR FILTRATION RATE > 60.0 (>49); GLUCOSE, FASTING 126 MG/DL (70-100); POTASSIUM SERUM 4.3 MEQ/L (3.5-5.1); SODIUM LEVEL 140 MEQ/L (136-145)
[2021-03-22] MEDS: IPRATROPIUM 0.5MG/ALBUTEROL 2.5MG INH SOL UD 3ML (DUONEB) NEB SCH (20:41)
[2021-03-22] MEDS: SYMBICORT 80/4.5MCG INHALER 6GM INH SCH (20:42)
[2021-03-22] MEDS: GABAPENTIN 300 MG CAP PO SCH (21:49)
[2021-03-22] MEDS: ATORVASTATIN 20 MG TAB PO SCH (21:49)
[2021-03-22] MEDS: VITAMIN D 1,000 INTERNATIONAL UNITS TABLET PO SCH (21:50)
[2021-03-22] MEDS: LOSARTAN 50MG TABLET PO SCH (21:50)
[2021-03-22] MEDS: ISOSORBIDE MONONITRATE 10MG TABLET PO SCH (21:52)
[2021-03-23 00:11] LABS: BLOOD UREA NITROGEN 21 MG/DL (7-18); CALCIUM LEVEL 9.4 MG/DL (8.8-10.2); CARBON DIOXIDE LEVEL 31 MEQ/L (21-32); CHLORIDE LEVEL 104 MEQ/L (98-107); CREATININE FOR GFR 0.89 MG/DL (0.70-1.30); GLOMERULAR FILTRATION RATE > 60.0 (>49); GLUCOSE, FASTING 253 MG/DL (70-100); SODIUM LEVEL 139 MEQ/L (136-145)
[2021-03-23 01:15] VITALS: BP 133/81
[2021-03-23] MEDS: IPRATROPIUM 0.5MG/ALBUTEROL 2.5MG INH SOL UD 3ML (DUONEB) NEB SCH ×4 (03:27→20:24)
[2021-03-23 06:00] VITALS: BP 167/91
[2021-03-23 06:40] LABS: HEMATOCRIT 45.2 % (42.0-52.0); MEAN CORPUSCULAR HEMOGLOBIN 38.2 pg (27.0-33.0); MEAN CORPUSCULAR HGB CONC 33.2 g/dl (32.0-36.5); PLATELET COUNT, AUTOMATED 108 10^3/uL (150-450); RED BLOOD COUNT 3.93 10^6/uL (4.30-6.10); WHITE BLOOD COUNT 9.5 10^3/uL (4.0-10.0)
[2021-03-23 07:05] LABS: BLOOD UREA NITROGEN 20 MG/DL (7-18); CALCIUM LEVEL 9.4 MG/DL (8.8-10.2); CARBON DIOXIDE LEVEL 29 MEQ/L (21-32); CHLORIDE LEVEL 103 MEQ/L (98-107); CREATININE FOR GFR 0.96 MG/DL (0.70-1.30); GLOMERULAR FILTRATION RATE > 60.0 (>49); GLUCOSE, FASTING 277 MG/DL (70-100); MAGNESIUM LEVEL 2.1 MG/DL (1.8-2.4); POTASSIUM SERUM 4.6 MEQ/L (3.5-5.1); SODIUM LEVEL 141 MEQ/L (136-145)
[2021-03-23] MEDS: SYMBICORT 80/4.5MCG INHALER 6GM INH SCH ×2 (07:46→20:24)
[2021-03-23] MEDS: VITAMIN D 1,000 INTERNATIONAL UNITS TABLET PO SCH ×2 (09:15→20:35)
[2021-03-23] MEDS: OMEPRAZOLE 20 MG CAP PO SCH (09:15)
[2021-03-23] MEDS: CLOPIDOGREL 75 MG TAB PO SCH (09:15)
[2021-03-23] MEDS: allopurinoL 100 MG TAB PO SCH (09:20)
[2021-03-23] MEDS: ISOSORBIDE MONONITRATE 10MG TABLET PO SCH ×2 (09:20→20:35)
[2021-03-23] MEDS: SERTRALINE 100 MG TAB PO SCH (09:21)
[2021-03-23] MEDS: predniSONE 20 MG TAB PO SCH (09:21)
[2021-03-23] MEDS: GABAPENTIN 300 MG CAP PO SCH ×2 (09:21→20:36)
[2021-03-23] MEDS: ASPIRIN 81MG ENTERIC TABLET PO SCH (09:21)
[2021-03-23] MEDS: ENOXAPARIN 40MG/0.4ML SYRINGE (J1650 PER 10MG) SC SCH (09:22)
[2021-03-23 12:12] VITALS: O2SAT 89
[2021-03-23 14:00] VITALS: BP 118/62
--- NOTE | 2021-03-23 16:18 | IPNPDOC ---
Text Note Date of Service The patient was seen on 03/23/21. NOTE Subjective:Patient is a 60-year-old male present in the emergency department at the advisement of his primary care physician provider yesterday due to hypoxia. Patient's oxygen levels in the mid 80s on room air while he was at his primary care office. Patient did well overnight but is still requiring 1 to 2 L of nasal cannula oxygen in order to maintain a saturation greater than 88%. Patient states that he is feeling fine and does not have any other complaints today. Review of systems: General: Patient denies fevers HEENT: Patient denies headaches Cardiovascular: Patient denies chest pain Respiratory: Patient denies shortness of breath, cough GI: Patient denies abdominal pain, nausea, vomiting, diarrhea : Patient denies increased frequency or pain with urination Extremities: Patient denies swelling or pain in extremities Neurological: Patient denies numbness or tingling in legs Physical exam: Vitals: See below General: Alert and oriented male patient who is laying in bed when I walked in the room. Patient had nasal cannula oxygen in place. Patient did not appear to be in any acute distress. HEENT: Normocephalic, atraumatic, moist mucous membranes. Neck: No lymphadenopathy or thyromegaly Cardiac: Regular rate and rhythm, no murmurs, normal S1, normal S2 Pulm: Clear to auscultation bilaterally. No wheezes, rhonchi, rales Abd: Nondistended, nontender to palpation, normal bowel sounds Ext: No edema bilateral lower extremities Labs: See below Imaging: No new imaging has been performed Assessment/plan: 60-year-old male who presented with a chief complaint of hypoxia and was thought to be an asthma/COPD exacerbation. 1. Hypoxia. On room air, patient with desat into the mid 80s. On 1 to 2 L of oxygen patient is able to maintain his oxygen saturation from 88 to 92%. Patient will have echocardiogram performed today as this may be secondary to pulmonary hypertension. We will continue to monitor the patient. Patient may be able need to be discharged home on home oxygen. Patient has been changed from observation to inpatient status. 2. Asthma/COPD exacerbation. Patient does carry a diagnosis of asthma but may also have COPD based on his chronic smoking. Patient is on steroid therapy right now. Patient does not appear to be wheezing at this time. We will continue to monitor. 3. Hypertension. Continue home medications. 4. Peripheral vascular disease. Continue home medications. 5. Depression. Continue patient is on medications 6. EtOH abuse. Patient was placed on CIWA protocol DVT Prophylaxis: Lovenox Disposition: Full code VS,Olivierbone, I+O VS, Fishbone, I+O Laboratory Tests 03/22/21 18:25 03/22/21 23:38 03/23/21 06:13 Vital Signs Date Time Temp Pulse Resp B/P (MAP) Pulse Ox O2 Delivery O2 Flow Rate FiO2 03/23/21 14:00 98.5 71 17 118/62 (80) 91 Nasal Cannula 2.0 HELEN MANCERA DO Mar 23, 2021 16:18
[2021-03-23] MEDS: ATORVASTATIN 20 MG TAB PO SCH (20:34)
[2021-03-23] MEDS: LOSARTAN 50MG TABLET PO SCH (20:36)
[2021-03-23 22:00] VITALS: BP 138/78
[2021-03-24] MEDS: IPRATROPIUM 0.5MG/ALBUTEROL 2.5MG INH SOL UD 3ML (DUONEB) NEB SCH ×3 (02:25→13:00)
[2021-03-24 05:54] LABS: HEMATOCRIT 44.7 % (42.0-52.0); HEMOGLOBIN 14.3 g/dl (13.5-17.5); MEAN CORPUSCULAR VOLUME 115.8 fl (80.0-96.0); PLATELET COUNT, AUTOMATED 102 10^3/uL (150-450); RED BLOOD COUNT 3.86 10^6/uL (4.30-6.10); WHITE BLOOD COUNT 11.7 10^3/uL (4.0-10.0)
[2021-03-24 06:00] VITALS: BP 136/86
[2021-03-24 06:18] LABS: BLOOD UREA NITROGEN 22 MG/DL (7-18); CALCIUM LEVEL 9.2 MG/DL (8.8-10.2); CARBON DIOXIDE LEVEL 31 MEQ/L (21-32); CHLORIDE LEVEL 104 MEQ/L (98-107); CREATININE FOR GFR 0.84 MG/DL (0.70-1.30); GLOMERULAR FILTRATION RATE > 60.0 (>49); GLUCOSE, FASTING 327 MG/DL (70-100); MAGNESIUM LEVEL 2.1 MG/DL (1.8-2.4); POTASSIUM SERUM 4.2 MEQ/L (3.5-5.1); SODIUM LEVEL 140 MEQ/L (136-145)
[2021-03-24] MEDS: SYMBICORT 80/4.5MCG INHALER 6GM INH SCH (07:29)
[2021-03-24 09:00] VITALS: O2SAT 95
[2021-03-24] MEDS: CLOPIDOGREL 75 MG TAB PO SCH (09:20)
[2021-03-24] MEDS: SERTRALINE 100 MG TAB PO SCH (09:21)
[2021-03-24 09:22] VITALS: BP 141/73
[2021-03-24] MEDS: ASPIRIN 81MG ENTERIC TABLET PO SCH (09:22)
[2021-03-24] MEDS: allopurinoL 100 MG TAB PO SCH (09:22)
[2021-03-24] MEDS: VITAMIN D 1,000 INTERNATIONAL UNITS TABLET PO SCH (09:22)
[2021-03-24] MEDS: predniSONE 20 MG TAB PO SCH (09:22)
[2021-03-24] MEDS: ISOSORBIDE MONONITRATE 10MG TABLET PO SCH (09:23)
[2021-03-24] MEDS: ENOXAPARIN 40MG/0.4ML SYRINGE (J1650 PER 10MG) SC SCH (09:23)
[2021-03-24] MEDS: GABAPENTIN 300 MG CAP PO SCH (09:23)
[2021-03-24] MEDS: OMEPRAZOLE 20 MG CAP PO SCH (09:23)
[2021-03-24] MEDS ORDERED: PRED20TA PO (12:02)
[2021-03-24] MEDS ORDERED: BREO1INH PO (12:02)
--- NOTE | 2021-03-24 12:41 | ECHO ---
ECHOCARDIOGRAM DATE OF PROCEDURE: 03/23/2021 Age: Gender: Height: 163 cm Weight: 99 kg REFERRING PHYSICIAN: Dr. Robert Murillo. INDICATION: Dyspnea, unspecified. MEASUREMENTS: 2D Measurements: Aortic root 3.3 cm Left atrium 3.5 cm Interventricular septum 1.07 cm Posterior wall 1.25 cm Left ventricle diastole 5.45 cm Left atrium volume index 19 cm Inferior vena cava 2.0 cm with more than 50% respiratory variation Doppler Measurements: Aortic valve velocity 151 cm/s LVOT velocity 94.6 cm/s No aortic stenosis No aortic regurgitation No mitral stenosis No mitral regurgitation Mitral E velocity 83.6 cm/s Mitral A velocity 81.4 cm/s Mitral deceleration time 177 msec Very mild tricuspid regurgitation Estimated right ventricle systolic pressure 38-43 mmHg Estimated right atrial pressure of 5-10 mmHg No pulmonic regurgitation Pulmonary artery acceleration time 92 msec MITRAL ANNULAR TISSUE DOPPLER: Not performed. DESCRIPTION: Rhythm was sinus. Image quality was fair. No pericardial effusion. This was a 2D, M-mode, color flow Doppler, and pulsed wave Doppler examination. CONCLUSIONS: 1. Borderline concentric left ventricle hypertrophy. Normal regional LV wall motion and wall thickening. Normal LV systolic function. LVEF 60% by visual estimate. Normal LV diastolic function. 2. Mild elevation of pulmonary artery systolic pressure versus mild-moderate elevation of estimated right ventricle systolic pressure. Suggestive of normal CVP (5-10 mmHg). 3. Otherwise normal appearing echocardiogram Doppler findings.
--- NOTE | 2021-03-24 18:16 | DS.PDOC ---
Discharge Summary General Date of Admission Mar 23, 2021 at 16:00 Date of Discharge 03/24/2021 Primary Care Physician: AMINATA VO DO Attending Physician: HELEN MANCERA DO Discharge Summary PROCEDURES PERFORMED DURING STAY: None. ADMITTING DIAGNOSES: 1. Hypoxia. 2. Asthma/COPD exacerbation 3. Hypertension 4. Peripheral vascular disease 5. Depression 6. EtOH abuse DISCHARGE DIAGNOSES: 1. Hypoxia, improved 2. Asthma/COPD exacerbation 3. Hypertension 4. Peripheral vascular disease 5. Depression 6. EtOH abuse COMPLICATIONS/CHIEF COMPLAINT: Hypoxia. HISTORY OF PRESENT ILLNESS: Patient is a 60-year-old male presented to the emergency department under the advisement of his primary care provider due to hypoxia. Patient was seen in the office on 03/22/2021 and his primary care provider reported to that he was having low oxygen while resting. Patient's oxygen saturations was in the low to mid 80s. Patient was advised to come to the emergency department via EMS however, patient declined. Patient's primary care provider called the patient's and advised the patient come to the emergency department. Patient presented to the emergency department. Patient states that over the last 2 months or so has been having hoarseness and globus feeling in his throat. Patient had upper respiratory infection 2 months which cleared after about 5 days but the hoarseness has not gone away. Patient believes his saliva is a little bit more gritty than normal. Patient was supposed to have an appoint with ENT on 03/22/2021 however, he was in the emergency department and was unable to go. Patient was admitted for work-up for hypoxia HOSPITAL COURSE: Patient was initially given IV Solu-Medrol with breathing treatments. Patient's inhaler was switched from an inhaled corticosteroid to an ICS/LABA. Patient was still requiring oxygen therapy on 03/23/2021 so the patient was kept overnight. Patient did well and did not require oxygen in the latter part of the night and into the morning on 03/24/2021. Patient was able to walk around the floor on room air and did not desat below 88%. Because of this, the patient was deemed ready for discharge. Patient was discharged home on 03/24/2021 with a 3-day continuation of his prednisone and Breo Ellipta instead of Arnuity Ellipta DISCHARGE MEDICATIONS: Please see below. ALLERGIES: Please see below. PHYSICAL EXAMINATION ON DISCHARGE: VITAL SIGNS: Please see below. General: Alert and oriented male patient who was sitting in the bed when I walked in the room. Patient not appear to be in any acute distress. HEENT: Normocephalic, atraumatic, moist mucous membranes. Neck: No lymphadenopathy or thyromegaly Cardiac: Regular rate and rhythm, no murmurs, normal S1, normal S2 Pulm: Clear to auscultation bilaterally. No wheezes, rhonchi, rales Abd: Nondistended, nontender to palpation, normal bowel sounds Ext: No edema bilateral lower extremities LABORATORY DATA: Please see below. IMAGING: Chest x-ray performed on 03/22/2021 was reported to show no acute pulmonary disease. Stable chronic findings. 2D echocardiogram was performed on 03/23/2021 is reported to show borderline concentric left ventricular hypertrophy. Normal regional left wall motion and wall thickening. Normal LV systolic function. Left ventricular ejection fraction 60% by visual estimate. Normal left ventricular diastolic function. Mild elevation of pulmonary artery systolic pressures versus mild to moderate elevation of the estimated right ventricular systolic pressure. Suggestive of normal CVP (5 to 10 mmHg) otherwise normal appearing echocardiogram Doppler findings. PROGNOSIS: Good ACTIVITY: As tolerated. DIET: COPD diet DISCHARGE PLAN: Discharge home DISPOSITION: 01 Home, Self-Care. DISCHARGE INSTRUCTIONS: 1. Follow-up with your primary care provider within 3 to 5 days of discharge. 2. Finish the 3-day course of prednisone for a 5-day course of 40 mg daily. 3. Stop taking Arnuity Ellipta and switch to Breo Ellipta 4. Return to the emergency department if your symptoms worsen or return ITEMS TO FOLLOWUP ON ON OUTPATIENT: 1. Follow-up on patient's oxygen saturations. DISCHARGE CONDITION: Stable. TIME SPENT ON DISCHARGE: 35 minutes. Vital Signs/I&Os Vital Signs Date Time Temp Pulse Resp B/P (MAP) Pulse Ox O2 Delivery O2 Flow Rate FiO2 03/24/21 11:02 91 Room Air 03/24/21 10:50 90.0 03/24/21 09:22 73 141/73 03/24/21 06:00 97.5 20 I&O- Last 24 Hours up to 6 AM 03/24/21 06:00 Intake Total 3090 ml Balance 3090 ml Laboratory Data Labs 24H Laboratory Tests 2 03/24/21 05:32: Nucleated Red Blood Cells % (auto) 0.0, Anion Gap 5L, Glomerular Filtration Rate > 60.0, Calcium Level 9.2, Magnesium Level 2.1 CBC/BMP Laboratory Tests 03/24/21 05:32 Discharge Medications Scheduled Allopurinol (Allopurinol) 100 Mg Tab, 100 MG PO DAILY, (Reported) Amlodipine Besylate (Amlodipine Besylate) 10 Mg Tab, 10 MG PO DAILY, (Reported) Aspirin (Aspirin EC) 81 Mg Tablet.dr, 81 MG PO DAILY, (Reported) Atorvastatin Calcium (Atorvastatin Calcium) 80 Mg Tablet, 80 MG PO QHS, (Reported) Cholecalciferol (Vitamin D3) (Vitamin D3) 1,000 Unit Tablet, 1,000 UNITS PO BID, (Reported) Clopidogrel Bisulfate (Clopidogrel) 75 Mg Tab, 75 MG PO DAILY, (Reported) Fluticasone/Vilanterol (Breo Ellipta 100-25 Mcg INH) 1 Each Blst.w.dev, 1 PUFF PO DAILY Folic Acid (Folic Acid) 0.8 Mg Tablet, 800 MCG PO BID, (Reported) Gabapentin (Neurontin) 300 Mg Cap, 600 MG PO BID, (Reported) Isosorbide Mononitrate (Isosorbide Mononitrate) 10 Mg Tab, 10 MG PO BID, (Reported) Losartan Potassium (Losartan Potassium) 100 Mg Tab, 100 MG PO QHS, (Reported) Omeprazole (Omeprazole) 40 Mg Cap, 40 MG PO DAILY, (Reported) Prednisone (Prednisone) 20 Mg Tablet, 40 MG PO DAILY Take 2 tablets once a day for 3 days Sertraline Hcl (Zoloft) 100 Mg Tablet, 150 MG PO DAILY, (Reported) Scheduled PRN Albuterol Sulf (Albuterol Sulfate) 2.5 Mg/3 Ml Vial.neb, 1 VIAL NEB Q4H PRN for SOB/WHEEZING, (Reported) Albuterol Sulfate (Proair Hfa) 8.5 Gm Hfa.aer.ad, 2 PUFFS INH Q4HP PRN for SOB/WHEEZING, (Reported) Cyclobenzaprine HCl (Cyclobenzaprine HCl) 5 Mg Tablet, 5 MG PO DAILY PRN for MUSCLE SPASMS, (Reported) Cyclobenzaprine HCl (Cyclobenzaprine HCl) 5 Mg Tablet, 10 MG PO QHS PRN for MUSCLE SPASMS, (Reported) Allergies Coded Allergies: ciprofloxacin (Unverified Allergy, Unknown, unknown, 04/22/19) HELEN MANCERA DO Mar 24, 2021 18:16
== END 2021-03-24 13:13 | disposition home or self-care (01) | DRG 202 ==
LOC: M ED 12:45 → M ED INP 12:46 → ENRESERV 23:26 → M MSPAV 03-23 01:40 → OBSVTOIN 03-23 16:00
PROVIDERS: ADMIT Family Medicine; ATTEND Family Medicine
DX: J45.901 Unspecified asthma with (acute) exacerbation (principal); J44.1 Chronic obstructive pulmonary disease with (acute) exacerbation; R09.02 Hypoxemia; E78.00 Pure hypercholesterolemia, unspecified; I27.20 Pulmonary hypertension, unspecified; I73.9 Peripheral vascular disease, unspecified; I65.21 Occlusion and stenosis of right carotid artery; M10.9 Gout, unspecified; E55.9 Vitamin D deficiency, unspecified; F10.10 Alcohol abuse, uncomplicated; F34.1 Dysthymic disorder; K44.9 Diaphragmatic hernia without obstruction or gangrene; F17.210 Nicotine dependence, cigarettes, uncomplicated; I10 Essential (primary) hypertension; F32.9 Major depressive disorder, single episode, unspecified; Z20.822 Contact with and (suspected) exposure to COVID-19; Z79.82 Long term (current) use of aspirin; Z95.820 Peripheral vascular angioplasty status with implants and grafts; Z79.899 Other long term (current) drug therapy; Z79.02 Long term (current) use of antithrombotics/antiplatelets; Z88.1 Allergy status to other antibiotic agents

== ENCOUNTER → 2021-04-20 | Outpatient (CLI) | payer MEDICARE, MEDICAID ==
[~2021-04-20] MED LIST changes: +ALBU83IN NEB; +ASPI81TA26 PO; +BREO1INH PO; +D31000TA2 PO; +FOLI800T3 PO; +PRED20TA PO; +ZOLO100T PO; -predniSONE 20 MG TAB PO SCH
--- NOTE | 2021-04-20 10:23 | REPVR ---
PROCEDURE INFORMATION: Exam: CT Neck Without Contrast Exam date and time: 04/20/2021 9:59 AM Age: 60 years old Clinical indication: Other: Larynx; Additional info: Neoplasm uncertain behavior larynx TECHNIQUE: Imaging protocol: Computed tomography images of the neck without contrast. Radiation optimization: All CT scans at this facility use at least one of these dose optimization techniques: automated exposure control; mA and/or kV adjustment per patient size (includes targeted exams where dose is matched to clinical indication); or iterative reconstruction. COMPARISON: MRA CAROTID WITHOUT CONTRAST 11/18/2017 9:51 AM FINDINGS: Brain: Diffuse involutional changes in the included brain. Orbital cavity: The orbits are intact. Mastoid air cells: The mastoids are well aerated. Paranasal sinuses: Polypoid thickening in the maxillary and right sphenoid air cells without air-fluid levels. Nasopharynx: Unremarkable. Oropharynx: Unremarkable. No significant tonsillar enlargement. Hypopharynx: Unremarkable. Larynx: There is mild asymmetric soft tissue prominence on the left at the level of the false vocal cords along the mucosal surface could represent the clinically reported laryngeal lesion. A well-defined discrete mass is not appreciated. Mild narrowing of the airway at this level. This appearance is probably best seen the coronal images. Retropharyngeal space: Unremarkable. Submandibular/Parotid glands: There are multiple masses in the left parotid gland measuring up to 25 mm. Ultrasound follow-up recommended. Smaller lesions in the right parotid should also be followed with ultrasound. Thyroid: Calcification focally in the right thyroid lobe. Lymph nodes: No confluent lymphadenopathy in the neck. Trachea: Visualized trachea is unremarkable. Lungs: Apical pleural thickening in the included lungs. Bones/joints: Degenerative changes without acute fracture. No lytic or blastic disease. The patient is edentulous. Vasculature: Carotid vascular calcifications should be followed with ultrasound. The carotids are medialized. Soft tissues: No subcutaneous lesions. Other findings: Limited noncontrast exam. IMPRESSION: 1. No confluent lymphadenopathy. 2. Asymmetric soft tissue prominence along the left side of the larynx as described. Direct visualization is recommended. 3. Bilateral parotid lesions. Ultrasound follow-up is recommended. Tissue sampling could also be entertained. Neoplastic process cannot be excluded. 4. Carotid atherosclerotic disease for which ultrasound follow-up is recommended. Electronically signed by: Arnaldo Teresa On 04/20/2021 10:22:30 AM
== END ==
LOC: M RAD 09:50
PROVIDERS: ATTEND Otolaryngology
DX: D38.0 Neoplasm of uncertain behavior of larynx (principal)

== ENCOUNTER → 2021-04-20 | Outpatient (CLI) | payer MEDICARE, MEDICAID ==
--- NOTE | 2021-04-20 13:25 | REP ---
INDICATION: SCREENING FOR LUNG CA. COMPARISON: Multiple the latest 12/16/2017 CT angiography of the chest after intravenous contrast TECHNIQUE: Axial noncontrast images from the thoracic inlet to the upper abdomen using low-dose lung screening technique (LDCT). As per the protocol only lung window images were sent to the read station for interpretation. FINDINGS: There is biapical pleuroparenchymal scarring status quo. The large asymmetric somewhat spiculated pleural based mass density in the right lower lobe has either resolved completely and there is a new 7 mm sized nodule in place of it or the 7 mm size nodule seen today represents a subtle residual from scar tissue. There are no other significant lung field changes. Grossly, the mediastinum and pulmonary suzi are within normal limits. Grossly, the imaged upper abdomen and imaged osseous structures are within normal limits. IMPRESSION: Right lower lobe findings as described above. The must consider the small nodule seen today in the right lower lobe a new nodule, as such, and represents a category 4A lesion for which a 3 month follow-up CT is recommended. I have no CT examinations between 12/16/2017 and today for review. <Electronically signed by Jorge Abdullahi > 04/20/21 [id number]
== END ==
LOC: M RAD 09:47
PROVIDERS: ATTEND Student in an Organized Health Care Education/Training Program
DX: Z12.2 Encounter for screening for malignant neoplasm of respiratory organs (principal)

== ENCOUNTER → 2021-05-10 | Outpatient (CLI) | payer MEDICARE, MEDICAID | LOC: M LABSMTC 11:25 | PROVIDERS: ATTEND Anesthesiology | DX: Z01.818 Encounter for other preprocedural examination (principal); Z11.52 Encounter for screening for COVID-19 ==

== ENCOUNTER → 2021-05-10 | Outpatient (CLI) | payer MEDICARE, MEDICAID ==
[2021-05-10 12:30] LABS: BASO % 0.4 % (0.0-1.0); EOS # 0.1 10^3/uL (0.0-0.5); EOS % 1.2 % (0.0-3.0); HEMOGLOBIN 15.1 g/dl (13.5-17.5); LYMPH # 1.1 10^3/uL (1.5-5.0); LYMPH % 13.5 % (24.0-44.0); MEAN CORPUSCULAR HEMOGLOBIN 37.4 pg (27.0-33.0); MEAN CORPUSCULAR HGB CONC 32.8 g/dl (32.0-36.5); MEAN CORPUSCULAR VOLUME 113.9 fl (80.0-96.0); MONO # 0.7 10^3/uL (0.0-0.8); MONO % 7.8 % (2.0-8.0); NEUTROPHILS # 6.4 10^3/uL (1.5-8.5); NEUTROPHILS % 76.7 % (36.0-66.0); PLATELET COUNT, AUTOMATED 126 10^3/uL (150-450); RED BLOOD COUNT 4.04 10^6/uL (4.30-6.10); WHITE BLOOD COUNT 8.3 10^3/uL (4.0-10.0)
[2021-05-10 12:38] LABS: INR 0.9; PROTHROMBIN TIME 12.5 SECONDS (12.7-14.5)
[2021-05-10 12:39] LABS: PARTIAL THROMBOPLASTIN TIME 27.6 SECONDS (25.9-37.0)
[2021-05-10 12:55] LABS: ALBUMIN 3.9 GM/DL (3.2-5.2); ALT/SGPT 77 U/L (12-78); BILIRUBIN,TOTAL 0.5 MG/DL (0.2-1.0); BLOOD UREA NITROGEN 19 MG/DL (7-18); CALCIUM LEVEL 9.9 MG/DL (8.8-10.2); CARBON DIOXIDE LEVEL 32 MEQ/L (21-32); CHLORIDE LEVEL 105 MEQ/L (98-107); CREATININE FOR GFR 0.88 MG/DL (0.70-1.30); GLOMERULAR FILTRATION RATE > 60.0 (>49); GLUCOSE, FASTING 171 MG/DL (70-100); NT-PRO BNP 105 PG/ML (<125); POTASSIUM SERUM 4.9 MEQ/L (3.5-5.1); SODIUM LEVEL 141 MEQ/L (136-145); TOTAL PROTEIN 7.2 GM/DL (6.4-8.2)
[2021-05-10 14:27] LABS: HEMOGLOBIN A1c 6.7 %
== END ==
LOC: M LAB 11:52
PROVIDERS: ATTEND Student in an Organized Health Care Education/Training Program
DX: I10 Essential (primary) hypertension (principal)

== ENCOUNTER 2021-05-15 09:04 | Day surgery (SDC) | payer MEDICARE, MEDICAID ==
[~2021-05-15] VITALS: Ht 162.6 cm; Wt 98.0 kg
[~2021-05-15 09:04] MED LIST changes: +LIDOCAINE 1% MDV 20ML VIAL SQ PRN; +LR 1,000 ML IV ONE
[2021-05-15] MEDS ORDERED: ROCURONIUM BROMIDE 50 MG/5 ML VIAL As Ordered ONE (09:24)
[2021-05-15] MEDS ORDERED: LIDOCAINE 2% 100MG/5ML SDV (FOR ANES.) As Ordered ONE (09:25)
[2021-05-15] MEDS ORDERED: dexameTHASONE 4 MG/ML 1ML VIAL (J1100 PER 1MG) As Ordered ONE (09:26)
[2021-05-15] MEDS ORDERED: MIDAZOLAM INJ 2MG/2ML VIAL (J2250 PER 1MG) As Ordered ONE (09:28)
[2021-05-15] MEDS ORDERED: fentaNYL 100 MCG/2 ML INJECTION (J3010) As Ordered ONE (09:29)
[2021-05-15] MEDS ORDERED: ALBUTEROL SULFATE 2.5 MG/0.5 ML INH NEB SOLN INH ONE (09:30)
[2021-05-15] MEDS ORDERED: OXYMETAZOLINE 0.05% NASAL SPRAY (AFRIN) As Ordered ONE (09:59)
[2021-05-15] MEDS ORDERED: METHYLENE BLUE 0.5% (5MG/ML) 10 ML AMP (PROVAYBLUE) As Ordered ONE (10:30)
[2021-05-15] MEDS ORDERED: SUCCINYLCHOLINE INJ 200 MG/10 ML VIAL (J0330) As Ordered ONE (10:57)
[2021-05-15] MEDS ORDERED: propofoL 200 MG/20 ML VIAL As Ordered ONE ×2 (10:57→11:02)
[2021-05-15] MEDS ORDERED: ONDANSETRON 4MG/2ML VIAL As Ordered ONE (10:59)
--- NOTE | 2021-05-15 11:50 | ROOPDOC ---
[facility] Report Of Operation Report of Operation DATE OF PROCEDURE: 05/15/21 PREPROCEDURE DIAGNOSES: Left vocal cord lesion POSTPROCEDURE DIAGNOSES: Same. PROCEDURE PERFORMED: Suspension microlaryngoscopy and biopsy left vocal cord lesion SURGEON: MD Darrin UPPER AND BOTTOM LACER HAND: None, ANESTHESIA: General. ESTIMATED BLOOD LOSS: Approximately less than 10 mL. COMPLICATIONS: None. REMARKS: . FINDINGS: SPECIMENS REMOVED: Left vocal cord lesion PROCEDURE NOTE: . Patient was seen in the office and diagnosed with a laryngeal lesion. Decision was made in consultation with the patient after explanation of risks and benefits to undergo the above named procedure. Patient was admitted through the same-day surgery program, taken to the operating room where general anesthetic was administered via intravenous injection. The patient was then intubated endotracheally. The upper gum was protected with a moist 4 x 4. The Dedo laryngoscope was inserted into the airway and advanced down to the pharynx. The posterior pharyngeal wall was clear. The of vallecular, piriform and postcricoid areas where within normal limits. The tongue base looked normal. Epiglottis looked normal. The false cords were normal. Examination of the cords themselves showed the left vocal cord lesion. This extended from the anterior portion of the vocal fold to the arytenoids and up onto the false cords. We secured the Lewy suspension apparatus. We brought the microscope into position. We then grasped the lesion and carefully biopsied in several places. This was sent to pathology for identification. Hemostasis was achieved with pledgets soaked in Afrin. Once this was completed the microscope was swung out of position. The Lewy suspension apparatus was released and the laryngoscope was removed from the airway. The patient was allowed to recover from the anesthetic and taken to the postanesthesia care area in stable condition. There were no complications during this procedure. DESCRIPTION OF PROCEDURE: . Jason Clifford MD May 15, 2021 11:50
[2021-05-15 12:35] VITALS: BP 108/66
[2021-07-17] MEDS ORDERED: MAGICMW PO (12:14)
== END 2021-05-15 12:59 | disposition home or self-care (01) ==
LOC: M SDC 09:04
PROVIDERS: ATTEND Otolaryngology
DX: C32.3 Malignant neoplasm of laryngeal cartilage (principal); I65.29 Occlusion and stenosis of unspecified carotid artery; D37.030 Neoplasm of uncertain behavior of the parotid salivary glands; R94.31 Abnormal electrocardiogram [ECG] [EKG]; E78.5 Hyperlipidemia, unspecified; I73.9 Peripheral vascular disease, unspecified; K57.92 Diverticulitis of intestine, part unspecified, without perforation or abscess without bleeding; K21.9 Gastro-esophageal reflux disease without esophagitis; D64.9 Anemia, unspecified; M54.9 Dorsalgia, unspecified; F41.9 Anxiety disorder, unspecified; F32.9 Major depressive disorder, single episode, unspecified; J44.9 Chronic obstructive pulmonary disease, unspecified; R06.83 Snoring; R06.02 Shortness of breath; R05 Cough; G47.9 Sleep disorder, unspecified; Z88.1 Allergy status to other antibiotic agents; Z79.899 Other long term (current) drug therapy; Z79.82 Long term (current) use of aspirin; Z79.51 Long term (current) use of inhaled steroids; Z79.02 Long term (current) use of antithrombotics/antiplatelets
CPT/HCPCS: 31536; 88305; J0330; J1100; J2405; J3010; Q9968

== ENCOUNTER → 2021-06-01 | Outpatient (CLI) | payer MEDICARE, MEDICAID ==
[~2021-06-01] MED LIST changes: -LIDOCAINE 1% MDV 20ML VIAL SQ PRN; -LR 1,000 ML IV ONE
--- NOTE | 2021-06-05 18:31 | SLEEPHOME ---
DATE: 06/01/2021 ORDERED BY: Dr. Dilan Gamino Diagnostic home sleep testing was performed for evaluation of the obstructive sleep apnea syndrome in this patient with a history of abnormal nocturnal oximetry. For testing, a nocturnal T3 respiratory monitoring device was used. Continuous record was made of pulse, oxygen saturation, air flow, chest and abdominal strain, and body position. Nine hours and 59 minutes of data were reviewed. There were 9 hours and 49 minutes marked as time in bed. During the interval marked time in bed, there were 352 respiratory events identified of 10 seconds in duration or greater for a respiratory event index of 35.8. The events were primarily obstructive, 11 mixed and central apneas were seen. Baseline pulse rate was 71. Pulse rate ranged 43 to 106. Baseline saturation was 84%. Saturations fell to 62%. Testing was performed in both the supine and nonsupine positions. IMPRESSION: Abnormal home sleep testing with repetitive respiratory events and oxygen desaturations to 62% with a respiratory event index of 35.8 events per hour is consistent with the obstructive sleep apnea syndrome. RECOMMENDATION: The patient should be referred for a formal sleep evaluation and consideration of treatment options.
== END ==
LOC: M SLEEP HO 10:18
PROVIDERS: ATTEND Student in an Organized Health Care Education/Training Program
DX: G47.33 Obstructive sleep apnea (adult) (pediatric) (principal)

== ENCOUNTER → 2021-06-05 | Outpatient (CLI) | payer MEDICARE, MEDICAID ==
[~2021-06-05] MED LIST changes: +LIDOCAINE 1% MDV 20ML VIAL As Ordered ONE; +SODIUM BICARBONATE 8.4% INJ 50MEQ 50 ML VIAL As Ordered ONE
[2021-06-05 11:55] VITALS: BP 146/75
--- NOTE | 2021-06-05 15:21 | REP ---
INDICATION: LT PAROTID MASS NEWLY DX LARYNGEAL CA. COMPARISON: None. TECHNIQUE: The procedure was performed by Taryn Walls [facility], under the direct supervision of Dr. Merino. The risks and benefits of the procedure were explained to the patient and an informed consent was obtained both verbally and written. Directly prior to the start of the procedure a formal time-out was completed in the procedure room. FINDINGS: Using ultrasound guidance the left parotid lymph node was localized. The skin was prepped and draped in a sterile fashion. Four mL of buffered lidocaine was used as a local anesthetic. Using ultrasound guidance a 17/18 gauge coaxial needle biopsy system was inserted and advanced into the left parotid lymph node. Eight core biopsy specimens were obtained. Four specimens were sent to our lab here, and remaining 4 were sent out in RPMI solution, for further testing. The patient tolerated the procedure well and there were no immediate complications. After the appropriate amount of monitored convalescence the patient was discharged from the department. IMPRESSION: 1. Ultrasound-guided left parotid lymph node core biopsy. <Electronically signed by Taryn Walls > 06/05/21 1509 <Electronically signed by Femi Merino > 06/05/21 1510
== END ==
LOC: M IRPRO 10:56
PROVIDERS: ATTEND Otolaryngology
DX: D11.9 Benign neoplasm of major salivary gland, unspecified (principal)

== ENCOUNTER → 2021-06-06 | Outpatient (CLI) | payer MEDICARE, MEDICAID ==
[~2021-06-06] MED LIST changes: -LIDOCAINE 1% MDV 20ML VIAL As Ordered ONE; -SODIUM BICARBONATE 8.4% INJ 50MEQ 50 ML VIAL As Ordered ONE
--- NOTE | 2021-06-06 13:03 | RADONC.CN ---
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 He is referred today for consideration of definitive RT. Diagnosis/Treatment History Oncologic History Followed by Dr. Clifford Also has BL solid density lesions in the parotid glands L>R s/p FNA 06/06/21: Left parotid, biopsy: Warthin's tumor (papillary cystadenoma lymphomatosum). Negative for malignancy. January 2021 developed hoarseness referred to ENT 04/20/21 CT neck showing left cord lesion 04/20/[address] chest with RLL 0.7 cm nodule 05/15/21 Biopsy showing SCC Interval History Rustam is here with his . His hoarseness has been stable since starting over the summer. He swallows well. He has full dentures. He is seeing Dr. Clifford next week to discuss the parotid biopsy results. He has no pain to speak of. Appetite good and weight stable. Past Medical History: PVD CVD ETOH abuse Gout HPL HTN Past Surgical History: BL fem-pop bypass Family History: Father-lung cancer Social History: Current 1 ppd smoker 40+ pack year Drinks 5 beers per day Allergies / Meds Allergies: Coded Allergies: ciprofloxacin (Unverified Allergy, Unknown, unknown, 04/22/19) Home Meds Active Scripts Fluticasone/Vilanterol (Breo Ellipta 100-25 Mcg INH) 1 Each Blst.w.dev, 1 PUFF PO DAILY for 30 Days, #1 EA Prov:HELEN MANCERA DO 03/24/21 Reported Medications Albuterol Sulf (Albuterol Sulfate) 2.5 Mg/3 Ml Vial.neb, 1 VIAL NEB Q4H PRN for SOB/WHEEZING, IKE 03/22/21 Cholecalciferol (Vitamin D3) (Vitamin D3) 1,000 Unit Tablet, 1000 UNITS PO BID, TAB 03/22/21 Cyclobenzaprine HCl (Cyclobenzaprine HCl) 5 Mg Tablet, 10 MG PO QHS PRN for MUSCLE SPASMS, TAB 03/22/21 Sertraline Hcl (Zoloft) 100 Mg Tablet, 150 MG PO DAILY, TAB 03/22/21 Folic Acid (Folic Acid) 0.8 Mg Tablet, 800 MCG PO BID, TAB 03/22/21 Aspirin (Aspirin EC) 81 Mg Tablet.dr, 81 MG PO DAILY 03/22/21 Albuterol Sulfate (Proair Hfa) 8.5 Gm Hfa.aer.ad, 2 PUFFS INH Q4HP PRN for SOB/WHEEZING 04/22/19 Atorvastatin Calcium (Atorvastatin Calcium) 80 Mg Tablet, 80 MG PO QHS 04/22/19 Cyclobenzaprine HCl (Cyclobenzaprine HCl) 5 Mg Tablet, 5 MG PO DAILY PRN for MUSCLE SPASMS 04/22/19 Allopurinol (Allopurinol) 100 Mg Tab, 100 MG PO DAILY, TAB 12/16/16 Gabapentin (Neurontin) 300 Mg Cap, 600 MG PO BID, CAP 12/16/16 Isosorbide Mononitrate (Isosorbide Mononitrate) 10 Mg Tab, 10 MG PO BID, TAB 07/27/16 Clopidogrel Bisulfate (Clopidogrel) 75 Mg Tab, 75 MG PO DAILY, TAB 07/27/16 Amlodipine Besylate (Amlodipine Besylate) 10 Mg Tab, 10 MG PO DAILY, TAB 07/27/16 Losartan Potassium (Losartan Potassium) 100 Mg Tab, 100 MG PO QHS, TAB 02/16/16 Omeprazole (Omeprazole) 40 Mg Cap, 40 MG PO DAILY, CAP 02/16/16 Review of Systems Constitutional: Denies: Fever, Fatigue, Weight Loss Eyes: Denies: Pain HEENT: Denies: Head Aches, Sore Throat Skin: Denies: Rash Pulmonary: Denies: Dyspnea, Cough Cardiovascular: Denies: Chest Pain, Palpitations Gastrointestinal: Denies: Abdominal Pain Hematologic: Reports: Bruising, Petecchia Endocrine: Denies: Cold Intolerance Musculoskeletal: Denies: Neck pain, Back pain Neurological: Denies: Weakness, Numbness Psych: Reports: Mood Normal Vital Signs Ht 64" Wt 219 lbs BMI 38 T 98 P 94 RR 20 BP 116/76 O2 94% Pain 0 Fatigue 0 General Exam: Alert, Cooperative, No Acute Distress Eye Exam: PERRLA, EOMI ENT EXAM: Other ENT (Oral cavity exam: He is edentulous, There are no visible or palbable mucosal lesions in the oral tongue, tongue bases, tonsillar fossae, and FOM. There is no trismus, laryngeal crepitus and elevation intact. In the left parotid there is a rubbery soft mobile mass ~3cm. There are no palpable cervical LN. ) Neck Exam: Negative: Lymphadenopathy Chest Exam: Clear to auscultation, Normal air movement Heart Exam: Rate Normal, Regular Rhythm Abdomen Exam: Soft Extremity Exam: Negative: Edema Skin Exam: Nl turgor and temperature Neuro Exam: Normal Gait, Normal Speech, Cranial Nerves 3-12 NL Psych Exam: Mental status NL, Mood NL Other Physical Findings Laryngoscopy: The patient provided verbal consent to be scoped. Cetacaine spray was administered in the left nostril for anesthesia. The scope was introduced and passed easily to the nasopharynx which was clear and without lesions. The posterior pharyngeal wall mucosa was pink and well hydrated, the oropharyngeal mucosa was normal appearing at the posterior soft palate and BOT BL. The epiglottis was sharp-rimmed and upright in orientation, the AE folds and visible portions of the hypopharynx were normal appearing, both piriform sinuses were patent. The vestibule and false cords appeared normal, the right TVC was normal appearing and mobile, in the medial left cord there is a partly exophytic lesion which impairs full glottic closure, the cord is otherwise fully mobile. The anterior commissure is uninvolved. No supraglottic or subglottic extension is noted. The scope was withdrawn and the patient tolerated the procedure well. Diagnostic and Laboratory Diagnostic Review Radiologic images, relevant labs and pathology reports were personally reviewed and discussed with Mr. Rincon. Assessment and Plan Impression Mr. 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 He is referred today for consideration of definitive RT. Stage Left glottic SCC [id number] stage I Performance Status ECOG 0 Plan We had an extensive discussion with Mr. Rincon regarding the diagnosis at hand and available therapeutic options. His parotid lesions are Warthin's tumors, and can be observed. With respect to his left glottic SCC, he has a fully mobile larynx including the affected cord, his hoarseness is because of the partially exophytic lesion prevents full adduction of the glottis. I told him that he has a good chance for full voice recovery with treatment given this exam finding. He is a current smoker and we spent 3 minutes today discussing the benefits of quitting. He has been trying to cut back and is not ready for a full quit attempt today. With respect to the particulars of treatment he has known PVD and carotid stenosis, therefore I think he would be best served by VMAT-based treatment which can reduce dose to the carotids and spare him the risk of penitentiary co mplications. I will give him the 63 Gy in 28 fraction regimen with daily CBCT for localization. We discussed the logistics of receiving radiation therapy in detail including the need for a 1-time planning session. This can occur in the next week. We discussed the side effects of treatment, skin reaction, fatigue, transient worsening of hoarseness, and dysphagia/odynophagia. After discussing the risks, benefits and alternatives to radiation therapy, Mr. Rincon was amenable to pursuing radiotherapy. All questions were answered to the patient's satisfaction. We instructed the patient that if there were any questions,concerns or changes in clinical status in the interim to contact us. Recommendations 63 Gy in 28 fractions with VMAT due to known carotid stenosis/PVD Simulation in the coming week Observation of Warthin's tumors Billing Statement Total time of [50] minutes was spent preparing for the visit [3], obtaining HPI [7], examining the patient [8], reviewing diagnostic tests [4], discussing management options [18], coordinating care [3], and writing this note [7]. PATRICE SMITH MD Jun 06, 2021 13:03
== END ==
LOC: M ONCR 10:07
PROVIDERS: ATTEND General Practice
DX: C32.0 Malignant neoplasm of glottis (principal); D11.9 Benign neoplasm of major salivary gland, unspecified; E78.5 Hyperlipidemia, unspecified; F17.210 Nicotine dependence, cigarettes, uncomplicated; I10 Essential (primary) hypertension; I73.9 Peripheral vascular disease, unspecified; Z79.899 Other long term (current) drug therapy; Z88.1 Allergy status to other antibiotic agents

== ENCOUNTER → 2021-06-21 | Outpatient (REF) | payer MEDICARE, MEDICAID | LOC: M SFHCPLAZ 16:54 | PROVIDERS: ATTEND Student in an Organized Health Care Education/Training Program | DX: J06.9 Acute upper respiratory infection, unspecified (principal) ==

== ENCOUNTER 2021-06-26 10:37 | Outpatient (RCR) | payer MEDICARE, MEDICAID | END 2021-07-02 | LOC: M ONCR 10:37 | PROVIDERS: ATTEND General Practice | DX: C32.0 Malignant neoplasm of glottis (principal) ==

== ENCOUNTER 2021-07-30 10:04 | Observation (INO) | payer MEDICARE, MEDICAID ==
[~2021-07-30] VITALS: Ht 162.6 cm; Wt 95.7 kg
[2021-07-30] MEDS: NICOTINE 21MG/24HR 1 EA TRANSDERMAL TD SCH (09:00)
[~2021-07-30 10:04] MED LIST changes: +LOSA100T45 PO; -LOSA100T50 PO; +MAGICMW PO
[2021-07-30 10:44] LABS: BASO % 0.3 % (0.0-1.0); EOS # 0.1 10^3/uL (0.0-0.5); EOS % 0.9 % (0.0-3.0); HEMATOCRIT 46.5 % (42.0-52.0); HEMOGLOBIN 15.1 g/dl (13.5-17.5); LYMPH # 0.9 10^3/uL (1.5-5.0); MEAN CORPUSCULAR HGB CONC 32.5 g/dl (32.0-36.5); MONO # 0.8 10^3/uL (0.0-0.8); MONO % 8.7 % (2.0-8.0); NEUTROPHILS # 7.3 10^3/uL (1.5-8.5); NEUTROPHILS % 79.6 % (36.0-66.0); PLATELET COUNT, AUTOMATED 117 10^3/uL (150-450); RED BLOOD COUNT 4.08 10^6/uL (4.30-6.10); WHITE BLOOD COUNT 9.2 10^3/uL (4.0-10.0)
[2021-07-30] MEDS ORDERED: methylPREDNISolone 125MG 2ML VIAL IV ONE (10:55)
[2021-07-30] MEDS ORDERED: ALBUTEROL SULFATE 2.5 MG/0.5 ML INH NEB SOLN NEB PRN (10:55)
[2021-07-30] MEDS ORDERED: IPRATROPIUM 0.5MG/ALBUTEROL 2.5MG INH SOL UD 3ML (DUONEB) NEB PRN (10:55)
[2021-07-30] MEDS ORDERED: AZITHROMYCIN INJ 500 MG, VIAL MATE ADAPTER 1 EACH in NS 250 ML IV ONE (10:55)
[2021-07-30] MEDS ORDERED: cefTRIAXone SOD 1 GM in D5W MINI-BAG PLUS 50 ML IV ONE (10:55)
[2021-07-30 11:19] LABS: PLATELET ESTIMATE DECREASED (NORMAL); POLYCHROMASIA 1+
[2021-07-30] MEDS ORDERED: COMBIVENT RESPIMAT 100-20MCG INHALER 4GM INH SCH (11:20)
[2021-07-30 11:31] LABS: RSV AMPLIFICATION NEGATIVE (NEGATIVE)
[2021-07-30 11:31] LABS: ALBUMIN 3.3 GM/DL (3.2-5.2); ALT/SGPT 38 U/L (12-78); BILIRUBIN,DIRECT 0.2 MG/DL (0.0-0.2); BILIRUBIN,TOTAL 0.8 MG/DL (0.2-1.0); BLOOD UREA NITROGEN 15 MG/DL (7-18); CALCIUM LEVEL 8.9 MG/DL (8.8-10.2); CARBON DIOXIDE LEVEL 27 MEQ/L (21-32); CHLORIDE LEVEL 104 MEQ/L (98-107); CREATININE FOR GFR 0.76 MG/DL (0.70-1.30); GLOMERULAR FILTRATION RATE > 60.0 (>49); GLUCOSE, FASTING 166 MG/DL (70-100); POTASSIUM SERUM 4.5 MEQ/L (3.5-5.1); SODIUM LEVEL 139 MEQ/L (136-145); TOTAL PROTEIN 7.2 GM/DL (6.4-8.2)
[2021-07-30] MEDS ORDERED: ISOVUE-370 76% 100ML VIAL As Ordered ONE (13:05)
[2021-07-30] MEDS ORDERED: ALBUTEROL 90 MCG/ACT 8GM HFA INHALER INH PRN (15:10)
[2021-07-30] MEDS ORDERED: ACETAMINOPHEN TAB 650MG DOSE (2X325MG) PO PRN (15:10)
[2021-07-30] MEDS ORDERED: cefTRIAXone SOD 1 GM in D5W MINI-BAG PLUS 50 ML IV SCH (16:00)
[2021-07-30] MEDS ORDERED: BREO1INH INH (17:46)
[2021-07-30] MEDS: SYMBICORT 80/4.5MCG INHALER 6GM INH SCH (18:10)
[2021-07-30] MEDS: IPRATROPIUM 0.5MG/ALBUTEROL 2.5MG INH SOL UD 3ML (DUONEB) INH SCH (18:10)
[2021-07-30] MEDS: methylPREDNISolone 125MG 2ML VIAL IV SCH (19:00)
[2021-07-30] MEDS ORDERED: ATORVASTATIN 20 MG TAB PO SCH (21:00)
[2021-07-30] MEDS ORDERED: ENOXAPARIN 40MG/0.4ML SYRINGE (J1650 PER 10MG) SC SCH (21:00)
[2021-07-31 00:10] VITALS: BP 141/89
[2021-07-31] MEDS ORDERED: HOME MED LIST COMPLETE! XX SCH (02:00)
[2021-07-31] MEDS ORDERED: MAGIC MOUTHWASH SUSPENSION BTL PO PRN (02:05)
[2021-07-31] MEDS ORDERED: CYCLOBENZAPRINE 5MG TABLET PO PRN ×2 (02:05)
[2021-07-31] MEDS: IPRATROPIUM 0.5MG/ALBUTEROL 2.5MG INH SOL UD 3ML (DUONEB) INH SCH ×2 (02:19→07:58)
[2021-07-31] MEDS: methylPREDNISolone 125MG 2ML VIAL IV SCH ×2 (02:23→12:30)
[2021-07-31 06:00] VITALS: BP 136/81
[2021-07-31 06:11] LABS: HEMATOCRIT 45.6 % (42.0-52.0); HEMOGLOBIN 14.9 g/dl (13.5-17.5); MEAN CORPUSCULAR HEMOGLOBIN 38.1 pg (27.0-33.0); MEAN CORPUSCULAR HGB CONC 32.7 g/dl (32.0-36.5); PLATELET COUNT, AUTOMATED 108 10^3/uL (150-450); RED BLOOD COUNT 3.91 10^6/uL (4.30-6.10); WHITE BLOOD COUNT 8.8 10^3/uL (4.0-10.0)
[2021-07-31 06:38] LABS: BLOOD UREA NITROGEN 22 MG/DL (7-18); CALCIUM LEVEL 8.6 MG/DL (8.8-10.2); CARBON DIOXIDE LEVEL 32 MEQ/L (21-32); CHLORIDE LEVEL 105 MEQ/L (98-107); CREATININE FOR GFR 0.82 MG/DL (0.70-1.30); GLOMERULAR FILTRATION RATE > 60.0 (>49); GLUCOSE, FASTING 246 MG/DL (70-100); MAGNESIUM LEVEL 1.7 MG/DL (1.8-2.4); POTASSIUM SERUM 4.5 MEQ/L (3.5-5.1); SODIUM LEVEL 142 MEQ/L (136-145)
[2021-07-31 07:11] LABS: MEAN CORPUSCULAR VOLUME 116.6 fl (80.0-96.0)
[2021-07-31] MEDS: SYMBICORT 80/4.5MCG INHALER 6GM INH SCH (07:58)
[2021-07-31] MEDS ORDERED: TIOTROPIUM INHALER/CAPSULE (SPIRIVA) INH SCH (08:00)
[2021-07-31] MEDS ORDERED: allopurinoL 100 MG TAB PO SCH (09:00)
[2021-07-31] MEDS ORDERED: OMEPRAZOLE 20MG CAP PO SCH (09:00)
[2021-07-31] MEDS ORDERED: CLOPIDOGREL 75 MG TAB PO SCH (09:00)
[2021-07-31] MEDS ORDERED: GABAPENTIN 300 MG CAP PO SCH (09:00)
[2021-07-31] MEDS ORDERED: ASPIRIN 81MG ENTERIC TABLET PO SCH (09:00)
[2021-07-31] MEDS ORDERED: SERTRALINE HCL 50 MG TAB PO SCH (09:00)
[2021-07-31] MEDS ORDERED: FLUTICASONE HFA 110 MCG 12 GM INHALER (FLOVENT) INH SCH (09:00)
[2021-07-31] MEDS ORDERED: ISOSORBIDE MONONITRATE 10MG TABLET PO SCH (09:00)
[2021-07-31] MEDS ORDERED: PRED20TA PO ×2 (09:31→10:22)
[2021-07-31] MEDS: NICOTINE 21MG/24HR 1 EA TRANSDERMAL TD SCH (09:47)
[2021-07-31 09:48] VITALS: BP 136/81
[2021-07-31] MEDS ORDERED: cefTRIAXone SOD 1 GM in D5W MINI-BAG PLUS 50 ML IV SCH (11:00)
[2021-07-31] MEDS ORDERED: AZITHROMYCIN INJ 500 MG, VIAL MATE ADAPTER 1 EACH in NS 250 ML IV SCH (12:00)
[2021-07-31] MEDS ORDERED: LOSARTAN 50MG TABLET PO SCH (21:00)
[2021-08-02 15:07] LABS: MYCOPLASMA PNEUMONIAE IgG 1372 U/mL (0-99); MYCOPLASMA PNEUMONIAE IgM <770 U/mL (0-769)
[2021-08-03 14:09] LABS: CHLAMYDIA PNEUMONIAE IgM <1:10 (Neg:<1:10)
== END 2021-07-31 12:40 | disposition home or self-care (01) ==
LOC: M ED 10:04 → M ED INP 10:05 → M MSPAV 07-31 00:07
PROVIDERS: ADMIT Internal Medicine; ATTEND Internal Medicine
DX: J96.11 Chronic respiratory failure with hypoxia (principal); F17.218 Nicotine dependence, cigarettes, with other nicotine-induced disorders; I10 Essential (primary) hypertension; E78.5 Hyperlipidemia, unspecified; I73.9 Peripheral vascular disease, unspecified; Z92.3 Personal history of irradiation; Z85.21 Personal history of malignant neoplasm of larynx; Z79.82 Long term (current) use of aspirin; Z79.52 Long term (current) use of systemic steroids; Z79.899 Other long term (current) drug therapy; Z88.1 Allergy status to other antibiotic agents
CPT/HCPCS: 36415; 71045; 71275; 77386; 80048; 80076; 83735; 84145; 84484; 85025; 85027; 85379; 86631; 86738; 87631; 93005; 93041; 94640; 94760; 96365; 96367; 96372; 96375; 99285; G0378; J0456; J0696; J1650; J2930; Q9967

== ENCOUNTER → 2021-08-01 | Outpatient (RCR) | payer MEDICARE, MEDICAID ==
[~2021-08-01] MED LIST changes: +AMOX500T2 PO; +AUGM875T28 PO; +BREO1INH INH; +D32000TA2 PO; +DOCU100C16 PO; +DOXY100T27 PO; +GABA600T4 PO; +MUCI60TA7 PO; +SPIR1CAP INH; +TUSS15SY2 PO; +VITMTA PO; +vitamin D PO
== END ==
LOC: M ONCR 07-03 07:46
PROVIDERS: ATTEND General Practice
DX: C32.0 Malignant neoplasm of glottis (principal)

== ENCOUNTER 2021-08-14 11:18 | Outpatient (RCR) | payer MEDICARE, MEDICAID ==
[~2021-08-14 11:18] MED LIST changes: -AMOX500T2 PO; -AUGM875T28 PO; -D32000TA2 PO; -DOCU100C16 PO; -DOXY100T27 PO; -GABA600T4 PO; -LOSA100T45 PO; +LOSA100T50 PO; -MUCI60TA7 PO; -SPIR1CAP INH; -TUSS15SY2 PO; -VITMTA PO; -vitamin D PO
== END 2021-09-01 ==
LOC: M ONCR 11:18
PROVIDERS: ATTEND General Practice
DX: C32.0 Malignant neoplasm of glottis (principal); J44.9 Chronic obstructive pulmonary disease, unspecified

== ENCOUNTER → 2021-09-14 | Outpatient (REF) | payer MEDICARE, MEDICAID ==
[~2021-09-14] MED LIST changes: +LOSA100T45 PO; -LOSA100T50 PO
== END ==
LOC: M SFHCPLAZ 17:11
PROVIDERS: ATTEND Physician Assistant
DX: R05.9 Cough, unspecified (principal); R52 Pain, unspecified

== ENCOUNTER → 2021-09-14 | Outpatient (CLI) | payer MEDICARE, MEDICAID | LOC: M PLAIMG 12:18 | PROVIDERS: ATTEND Physician Assistant | DX: R05.9 Cough, unspecified (principal); R06.02 Shortness of breath ==

== ENCOUNTER 2021-09-30 07:47 | Inpatient (IN) | payer MEDICARE, MEDICAID ==
[~2021-09-30] VITALS: Ht 162.6 cm; Wt 90.9 kg
[2021-09-30] MEDS: COMBIVENT RESPIMAT 100-20MCG INHALER 4GM INH SCH ×3 (08:17→09:12)
[2021-09-30 08:46] LABS: VENOUS BASE EXCESS 4.4 (-2.0-2.0); VENOUS HCO3 31.3 MEQ/L (23.0-27.0); VENOUS O2 SATURATION 96.2 % (60.0-80.0); VENOUS PARTIAL PRESSURE CO2 56.2 mmHg (38.0-50.0); VENOUS PARTIAL PRESSURE O2 89.2 mmHg (30.0-50.0); VENOUS PH 7.363 UNITS (7.330-7.430); VENOUS STANDARD HCO3 28.3 MEQ/L
[2021-09-30 08:56] LABS: BASO % 0.1 % (0.0-1.0); EOS # 0.2 10^3/uL (0.0-0.5); EOS % 1.5 % (0.0-3.0); HEMATOCRIT 40.7 % (42.0-52.0); HEMOGLOBIN 13.3 g/dl (13.5-17.5); LYMPH # 0.5 10^3/uL (1.5-5.0); LYMPH % 4.7 % (24.0-44.0); MEAN CORPUSCULAR HEMOGLOBIN 36.9 pg (27.0-33.0); MEAN CORPUSCULAR HGB CONC 32.7 g/dl (32.0-36.5); MEAN CORPUSCULAR VOLUME 113.1 fl (80.0-96.0); MONO # 0.9 10^3/uL (0.0-0.8); MONO % 7.7 % (2.0-8.0); NEUTROPHILS # 9.7 10^3/uL (1.5-8.5); NEUTROPHILS % 85.6 % (36.0-66.0); WHITE BLOOD COUNT 11.4 10^3/uL (4.0-10.0)
[2021-09-30 09:00] LABS: INR 0.97; PROTHROMBIN TIME 13.3 SECONDS (12.7-14.5)
[2021-09-30] MEDS ORDERED: cefTRIAXone SOD 2 GM in D5W MINI-BAG PLUS 50 ML IV ONE (09:20)
[2021-09-30 09:23] LABS: CK-MB VALUE MASS < 1.0 NG/ML (<3.6); CPK CREATINE PHOSPHOKINASE 40 U/L (39-308)
[2021-09-30 09:31] LABS: ALT/SGPT 24 U/L (12-78); BILIRUBIN,DIRECT 0.2 MG/DL (0.0-0.2); BILIRUBIN,TOTAL 0.5 MG/DL (0.2-1.0); BLOOD UREA NITROGEN 15 MG/DL (7-18); CALCIUM LEVEL 8.9 MG/DL (8.8-10.2); CARBON DIOXIDE LEVEL 32 MEQ/L (21-32); CHLORIDE LEVEL 102 MEQ/L (98-107); CREATININE FOR GFR 0.67 MG/DL (0.70-1.30); GLOMERULAR FILTRATION RATE > 60.0 (>49); GLUCOSE, FASTING 191 MG/DL (70-100); NT-PRO BNP 146 PG/ML (<125); PLATELET COUNT, AUTOMATED 97 10^3/uL (150-450); POTASSIUM SERUM 4.1 MEQ/L (3.5-5.1); SODIUM LEVEL 140 MEQ/L (136-145); THYROXINE (T4) 6.1 UG/DL (4.5-12.0); TOTAL PROTEIN 7.1 GM/DL (6.4-8.2)
[2021-09-30] MEDS ORDERED: TUSS15SY2 PO (09:49)
[2021-09-30] MEDS ORDERED: VITMTA PO (09:49)
[2021-09-30] MEDS ORDERED: SPIR1CAP INH (09:49)
[2021-09-30] MEDS ORDERED: vitamin D PO (09:49)
[2021-09-30] MEDS ORDERED: MUCI60TA7 PO (09:49)
[2021-09-30 10:31] LABS: CK-MB VALUE MASS < 1.0 NG/ML (<3.6); CPK CREATINE PHOSPHOKINASE 49 U/L (39-308); MB/CK RELATIVE INDEX 2.04 (< OR =4)
[2021-09-30] MEDS ORDERED: DOCU100C16 PO (12:39)
[2021-09-30] MEDS ORDERED: TRAZ-257 PO (12:39)
[2021-09-30] MEDS ORDERED: GABA600T4 PO (12:39)
[2021-09-30] MEDS ORDERED: D32000TA2 PO (12:44)
[2021-09-30] MEDS ORDERED: HOME MED LIST COMPLETE! XX SCH (12:45)
[2021-09-30] MEDS ORDERED: CYCLOBENZAPRINE 5MG TABLET PO PRN (13:50)
[2021-09-30] MEDS ORDERED: MAGIC MOUTHWASH SUSPENSION BTL PO PRN (13:50)
[2021-09-30] MEDS ORDERED: DOCUSATE SODIUM 100MG CAPSULE PO PRN (13:50)
[2021-09-30] MEDS ORDERED: IPRATROPIUM 0.5MG/ALBUTEROL 2.5MG INH SOL UD 3ML (DUONEB) NEB PRN (13:50)
[2021-09-30] MEDS: IPRATROPIUM 0.5MG/ALBUTEROL 2.5MG INH SOL UD 3ML (DUONEB) NEB SCH ×2 (14:00→19:19)
[2021-09-30] MEDS: DOXYCYCLINE HYCLATE 100 MG in D5W MINI-BAG PLUS 100 ML IV SCH (16:02)
[2021-09-30] MEDS: methylPREDNISolone 125MG 2ML VIAL IV SCH (16:02)
[2021-09-30 16:09] VITALS: BP 134/59
[2021-09-30] MEDS: ASPIRIN 81MG ENTERIC TABLET PO SCH (16:35)
[2021-09-30] MEDS: PIPERACILLIN/TAZOBACTAM SOD 3.375 GM in D5W MINI-BAG PLUS 50 ML IV SCH ×2 (16:35→23:45)
[2021-09-30] MEDS: OMEPRAZOLE 20MG CAP PO SCH (16:36)
[2021-09-30] MEDS: SERTRALINE 100 MG TAB PO SCH (16:37)
[2021-09-30] MEDS: allopurinoL 100 MG TAB PO SCH (16:37)
[2021-09-30] MEDS: CLOPIDOGREL 75 MG TAB PO SCH (17:24)
[2021-09-30] MEDS: ISOSORBIDE MONONITRATE 10MG TABLET PO SCH (20:02)
[2021-09-30] MEDS: GABAPENTIN 300 MG CAP PO SCH (20:03)
[2021-09-30] MEDS: ATORVASTATIN 20 MG TAB PO SCH (20:03)
[2021-09-30] MEDS: LOSARTAN 50MG TABLET PO SCH (20:03)
[2021-09-30 22:00] VITALS: BP 156/75
[2021-10-01] MEDS: IPRATROPIUM 0.5MG/ALBUTEROL 2.5MG INH SOL UD 3ML (DUONEB) NEB SCH ×4 (01:15→20:11)
[2021-10-01] MEDS: DOXYCYCLINE HYCLATE 100 MG in D5W MINI-BAG PLUS 100 ML IV SCH ×2 (02:51→15:29)
[2021-10-01] MEDS: methylPREDNISolone 125MG 2ML VIAL IV SCH ×2 (02:51→15:29)
[2021-10-01] MEDS: PIPERACILLIN/TAZOBACTAM SOD 3.375 GM in D5W MINI-BAG PLUS 50 ML IV SCH ×4 (04:07→22:29)
[2021-10-01 05:38] LABS: HEMATOCRIT 41.5 % (42.0-52.0); HEMOGLOBIN 13.7 g/dl (13.5-17.5); MEAN CORPUSCULAR HEMOGLOBIN 37.3 pg (27.0-33.0); MEAN CORPUSCULAR VOLUME 113.1 fl (80.0-96.0); RED BLOOD COUNT 3.67 10^6/uL (4.30-6.10); WHITE BLOOD COUNT 10.3 10^3/uL (4.0-10.0)
[2021-10-01 05:45] LABS: PLATELET COUNT, AUTOMATED 96 10^3/uL (150-450)
[2021-10-01 05:52] VITALS: BP 119/73
[2021-10-01 06:05] LABS: BLOOD UREA NITROGEN 21 MG/DL (7-18); CALCIUM LEVEL 9.1 MG/DL (8.8-10.2); CARBON DIOXIDE LEVEL 31 MEQ/L (21-32); CHLORIDE LEVEL 102 MEQ/L (98-107); CREATININE FOR GFR 0.93 MG/DL (0.70-1.30); GLOMERULAR FILTRATION RATE > 60.0 (>49); GLUCOSE, FASTING 355 MG/DL (70-100); MAGNESIUM LEVEL 2.2 MG/DL (1.8-2.4); POTASSIUM SERUM 4.4 MEQ/L (3.5-5.1); SODIUM LEVEL 136 MEQ/L (136-145)
[2021-10-01] MEDS: ENOXAPARIN 40MG/0.4ML SYRINGE (J1650 PER 10MG) SC SCH ×2 (09:00→12:50)
[2021-10-01] MEDS ORDERED: DEXTROSE 50% 50 ML SYRINGE IV PRN (09:50)
[2021-10-01] MEDS ORDERED: GLUCAGON INJ 1MG VIAL SC PRN (09:50)
[2021-10-01] MEDS ORDERED: GLUCOSE 4GM CHEW TABLET PO PRN (09:50)
[2021-10-01] MEDS: SERTRALINE 100 MG TAB PO SCH (10:27)
[2021-10-01] MEDS: OMEPRAZOLE 20MG CAP PO SCH (10:27)
[2021-10-01] MEDS: ASPIRIN 81MG ENTERIC TABLET PO SCH (10:27)
[2021-10-01] MEDS: GABAPENTIN 300 MG CAP PO SCH ×2 (10:27→20:10)
[2021-10-01] MEDS: ISOSORBIDE MONONITRATE 10MG TABLET PO SCH ×2 (10:28→20:13)
[2021-10-01] MEDS: allopurinoL 100 MG TAB PO SCH (10:28)
[2021-10-01] MEDS: CLOPIDOGREL 75 MG TAB PO SCH (10:29)
[2021-10-01 10:53] LABS: HEMOGLOBIN A1c 6.3 %
[2021-10-01] MEDS: HumaLOG INSULIN (NovoLOG) PER UNIT SC SCH ×3 (12:51→20:11)
[2021-10-01 14:00] VITALS: BP 136/74
[2021-10-01] MEDS: ATORVASTATIN 20 MG TAB PO SCH (20:12)
[2021-10-01] MEDS: LOSARTAN 50MG TABLET PO SCH (20:12)
[2021-10-01 22:00] VITALS: BP 122/73
[2021-10-02] MEDS: DOXYCYCLINE HYCLATE 100 MG in D5W MINI-BAG PLUS 100 ML IV SCH ×2 (03:03→14:03)
[2021-10-02] MEDS: methylPREDNISolone 125MG 2ML VIAL IV SCH ×2 (03:03→10:44)
[2021-10-02] MEDS: IPRATROPIUM 0.5MG/ALBUTEROL 2.5MG INH SOL UD 3ML (DUONEB) NEB SCH ×4 (03:03→20:22)
[2021-10-02] MEDS: PIPERACILLIN/TAZOBACTAM SOD 3.375 GM in D5W MINI-BAG PLUS 50 ML IV SCH ×4 (04:31→22:05)
[2021-10-02 06:00] VITALS: BP 114/64
[2021-10-02 07:10] LABS: HEMATOCRIT 39.3 % (42.0-52.0); HEMOGLOBIN 12.7 g/dl (13.5-17.5); MEAN CORPUSCULAR HEMOGLOBIN 36.8 pg (27.0-33.0); MEAN CORPUSCULAR HGB CONC 32.3 g/dl (32.0-36.5); MEAN CORPUSCULAR VOLUME 113.9 fl (80.0-96.0); PLATELET COUNT, AUTOMATED 105 10^3/uL (150-450); RED BLOOD COUNT 3.45 10^6/uL (4.30-6.10); WHITE BLOOD COUNT 11.3 10^3/uL (4.0-10.0)
[2021-10-02 07:53] LABS: BLOOD UREA NITROGEN 27 MG/DL (7-18); CALCIUM LEVEL 9.4 MG/DL (8.8-10.2); CARBON DIOXIDE LEVEL 32 MEQ/L (21-32); CHLORIDE LEVEL 101 MEQ/L (98-107); CREATININE FOR GFR 0.85 MG/DL (0.70-1.30); GLOMERULAR FILTRATION RATE > 60.0 (>49); GLUCOSE, FASTING 389 MG/DL (70-100); MAGNESIUM LEVEL 2.1 MG/DL (1.8-2.4); POTASSIUM SERUM 4.4 MEQ/L (3.5-5.1); SODIUM LEVEL 138 MEQ/L (136-145)
[2021-10-02] MEDS: HumaLOG INSULIN (NovoLOG) PER UNIT SC SCH ×4 (08:34→22:04)
[2021-10-02] MEDS: SERTRALINE 100 MG TAB PO SCH (08:35)
[2021-10-02] MEDS: GABAPENTIN 300 MG CAP PO SCH ×2 (08:35→22:00)
[2021-10-02] MEDS: ASPIRIN 81MG ENTERIC TABLET PO SCH (08:35)
[2021-10-02] MEDS: ENOXAPARIN 40MG/0.4ML SYRINGE (J1650 PER 10MG) SC SCH (08:35)
[2021-10-02] MEDS: CLOPIDOGREL 75 MG TAB PO SCH (08:35)
[2021-10-02] MEDS: allopurinoL 100 MG TAB PO SCH (08:35)
[2021-10-02] MEDS: OMEPRAZOLE 20MG CAP PO SCH (08:35)
[2021-10-02] MEDS: ISOSORBIDE MONONITRATE 10MG TABLET PO SCH ×2 (08:36→22:05)
[2021-10-02] MEDS: LEVEMIR (INSULIN DETEMIR) 1 UNITS/0.01ML SC SCH (10:44)
[2021-10-02] MEDS ORDERED: E-Z-PAQUE 96% w/w SUSP 176GM BTL As Ordered ONE (11:52)
[2021-10-02] MEDS ORDERED: VARIBAR NECTAR 40% w/v 240ML SUSP BTL As Ordered ONE (11:52)
[2021-10-02] MEDS ORDERED: BARIUM SULFATE 700 MG TABLET (E-Z-DISK) As Ordered ONE (11:52)
[2021-10-02] MEDS ORDERED: VARIBAR PUDDING 40% w/v 230ML TUBE As Ordered ONE (11:52)
[2021-10-02 13:00] VITALS: BP 128/78
[2021-10-02 14:00] VITALS: BP 142/70
[2021-10-02 22:00] VITALS: BP 135/78
[2021-10-02] MEDS: ATORVASTATIN 20 MG TAB PO SCH (22:00)
[2021-10-02] MEDS: LOSARTAN 50MG TABLET PO SCH (22:03)
[2021-10-03] MEDS: IPRATROPIUM 0.5MG/ALBUTEROL 2.5MG INH SOL UD 3ML (DUONEB) NEB SCH ×3 (02:00→14:00)
[2021-10-03] MEDS: DOXYCYCLINE HYCLATE 100 MG in D5W MINI-BAG PLUS 100 ML IV SCH (03:28)
[2021-10-03] MEDS: PIPERACILLIN/TAZOBACTAM SOD 3.375 GM in D5W MINI-BAG PLUS 50 ML IV SCH ×2 (04:54→13:10)
[2021-10-03 06:00] VITALS: BP 136/75
[2021-10-03 06:58] LABS: HEMATOCRIT 40.2 % (42.0-52.0); HEMOGLOBIN 13.1 g/dl (13.5-17.5); MEAN CORPUSCULAR HEMOGLOBIN 36.2 pg (27.0-33.0); MEAN CORPUSCULAR HGB CONC 32.6 g/dl (32.0-36.5); PLATELET COUNT, AUTOMATED 100 10^3/uL (150-450); RED BLOOD COUNT 3.62 10^6/uL (4.30-6.10)
[2021-10-03] MEDS ORDERED: VARIBAR PUDDING 40% w/v 230ML TUBE As Ordered ONE (07:11)
[2021-10-03] MEDS ORDERED: BARIUM SULFATE 700 MG TABLET (E-Z-DISK) As Ordered ONE (07:11)
[2021-10-03] MEDS ORDERED: VARIBAR NECTAR 40% w/v 240ML SUSP BTL As Ordered ONE (07:11)
[2021-10-03] MEDS ORDERED: E-Z-PAQUE 96% w/w SUSP 176GM BTL As Ordered ONE (07:11)
[2021-10-03 07:36] LABS: BLOOD UREA NITROGEN 23 MG/DL (7-18); CALCIUM LEVEL 9.4 MG/DL (8.8-10.2); CARBON DIOXIDE LEVEL 32 MEQ/L (21-32); CHLORIDE LEVEL 100 MEQ/L (98-107); CREATININE FOR GFR 0.78 MG/DL (0.70-1.30); GLOMERULAR FILTRATION RATE > 60.0 (>49); GLUCOSE, FASTING 329 MG/DL (70-100); POTASSIUM SERUM 3.7 MEQ/L (3.5-5.1); SODIUM LEVEL 136 MEQ/L (136-145)
[2021-10-03] MEDS: HumaLOG INSULIN (NovoLOG) PER UNIT SC SCH ×2 (09:20→13:10)
[2021-10-03] MEDS: LEVEMIR (INSULIN DETEMIR) 1 UNITS/0.01ML SC SCH (09:21)
[2021-10-03] MEDS: allopurinoL 100 MG TAB PO SCH (09:21)
[2021-10-03] MEDS: CLOPIDOGREL 75 MG TAB PO SCH (09:21)
[2021-10-03 09:22] VITALS: BP 131/75
[2021-10-03] MEDS: ISOSORBIDE MONONITRATE 10MG TABLET PO SCH (09:22)
[2021-10-03] MEDS: methylPREDNISolone 125MG 2ML VIAL IV SCH (09:23)
[2021-10-03] MEDS: GABAPENTIN 300 MG CAP PO SCH (09:24)
[2021-10-03] MEDS: OMEPRAZOLE 20MG CAP PO SCH (09:24)
[2021-10-03] MEDS: ASPIRIN 81MG ENTERIC TABLET PO SCH (09:24)
[2021-10-03] MEDS: SERTRALINE 100 MG TAB PO SCH (09:24)
[2021-10-03] MEDS: ENOXAPARIN 40MG/0.4ML SYRINGE (J1650 PER 10MG) SC SCH (09:25)
[2021-10-03] MEDS ORDERED: DOXY100T27 PO (10:08)
[2021-10-03] MEDS ORDERED: AUGM875T28 PO (10:08)
[2021-10-03] MEDS ORDERED: PRED20TA PO (10:08)
== END 2021-10-03 14:53 | disposition home health service (06) | DRG 194 ==
LOC: EDBD 07:47 → M ED 07:47 → M ED INP 13:48 → ENRESERV 14:11 → M MSPAV 16:12
PROVIDERS: ADMIT Family Medicine; ATTEND Family Medicine
DX: J18.9 Pneumonia, unspecified organism (principal); J44.0 Chronic obstructive pulmonary disease with (acute) lower respiratory infection; J44.1 Chronic obstructive pulmonary disease with (acute) exacerbation; Y95 Nosocomial condition; C32.0 Malignant neoplasm of glottis; I11.9 Hypertensive heart disease without heart failure; D11.0 Benign neoplasm of parotid gland; I27.20 Pulmonary hypertension, unspecified; G47.33 Obstructive sleep apnea (adult) (pediatric); E78.5 Hyperlipidemia, unspecified; I73.9 Peripheral vascular disease, unspecified; M10.9 Gout, unspecified; E55.9 Vitamin D deficiency, unspecified; F10.10 Alcohol abuse, uncomplicated; I25.10 Atherosclerotic heart disease of native coronary artery without angina pectoris; F34.1 Dysthymic disorder; R49.0 Dysphonia; K44.9 Diaphragmatic hernia without obstruction or gangrene; Z79.02 Long term (current) use of antithrombotics/antiplatelets; Z89.021 Acquired absence of right finger(s); Z89.022 Acquired absence of left finger(s); Z87.891 Personal history of nicotine dependence; Z79.82 Long term (current) use of aspirin; Z79.899 Other long term (current) drug therapy; R73.9 Hyperglycemia, unspecified; R13.10 Dysphagia, unspecified; T38.0X5A Adverse effect of glucocorticoids and synthetic analogues, initial encounter; Z95.820 Peripheral vascular angioplasty status with implants and grafts

== ENCOUNTER → 2021-10-22 | Outpatient (REF) | payer MEDICARE, MEDICAID ==
[~2021-10-22] MED LIST changes: +AUGM875T28 PO; +D32000TA2 PO; +DOCU100C16 PO; +DOXY100T27 PO; +GABA600T4 PO; +MUCI60TA7 PO; +SPIR1CAP INH; +TUSS15SY2 PO; +VITMTA PO; +vitamin D PO
[2021-10-22 13:23] LABS: BASO % 0.1 % (0.0-1.0); HEMATOCRIT 39.6 % (42.0-52.0); HEMOGLOBIN 12.9 g/dl (13.5-17.5); LYMPH # 0.4 10^3/uL (1.5-5.0); LYMPH % 3.3 % (24.0-44.0); MEAN CORPUSCULAR HEMOGLOBIN 36.5 pg (27.0-33.0); MEAN CORPUSCULAR HGB CONC 32.6 g/dl (32.0-36.5); MEAN CORPUSCULAR VOLUME 112.2 fl (80.0-96.0); MONO # 0.2 10^3/uL (0.0-0.8); MONO % 1.8 % (2.0-8.0); NEUTROPHILS # 10.1 10^3/uL (1.5-8.5); NEUTROPHILS % 94.2 % (36.0-66.0); PLATELET COUNT, AUTOMATED 103 10^3/uL (150-450); RED BLOOD COUNT 3.53 10^6/uL (4.30-6.10); WHITE BLOOD COUNT 10.7 10^3/uL (4.0-10.0)
== END ==
LOC: M SHH 13:12
PROVIDERS: ATTEND Family Medicine
DX: J44.1 Chronic obstructive pulmonary disease with (acute) exacerbation (principal)

== ENCOUNTER 2021-10-24 05:43 | Inpatient (IN) | payer MEDICARE, MEDICAID ==
[2021-10-24] VITALS (10 sets, daily range): BP systolic 124–148; BP diastolic 58–70
[~2021-10-24] VITALS: Ht 167.6 cm; Wt 92.0 kg
[2021-10-24] MEDS: IPRATROPIUM 0.5MG/ALBUTEROL 2.5MG INH SOL UD 3ML (DUONEB) NEB PRN (06:10)
[2021-10-24 06:22] LABS: ABG BASE EXCESS 3.9 (-2.0-2.0); ABG HCO3 33.8 MEQ/L (22.0-26.0); ABG O2 SATURATION 95.3 % (95.0-99.0); ABG PARTIAL PRESSURE O2 89.7 mmHg (75.0-100.0); ABG STANDARD HCO3 27.9 MEQ/L (22.0-26.0); ABG TOTAL CO2 36.3 MEQ/L (23.0-31.0)
[2021-10-24 06:25] LABS: ABG pH (ARTERIAL) 7.244 UNITS (7.350-7.450)
[2021-10-24 06:48] LABS: BASO % 0.1 % (0.0-1.0); EOS % 0.3 % (0.0-3.0); HEMATOCRIT 39.3 % (42.0-52.0); HEMOGLOBIN 12.7 g/dl (13.5-17.5); LYMPH # 0.9 10^3/uL (1.5-5.0); LYMPH % 8.4 % (24.0-44.0); MEAN CORPUSCULAR HEMOGLOBIN 36.6 pg (27.0-33.0); MEAN CORPUSCULAR HGB CONC 32.3 g/dl (32.0-36.5); MEAN CORPUSCULAR VOLUME 113.3 fl (80.0-96.0); MONO # 0.9 10^3/uL (0.0-0.8); MONO % 8.4 % (2.0-8.0); NEUTROPHILS # 9.2 10^3/uL (1.5-8.5); NEUTROPHILS % 81.9 % (36.0-66.0); PLATELET COUNT, AUTOMATED 132 10^3/uL (150-450); RED BLOOD COUNT 3.47 10^6/uL (4.30-6.10); WHITE BLOOD COUNT 11.2 10^3/uL (4.0-10.0)
[2021-10-24 07:08] LABS: CK-MB VALUE MASS 4.1 NG/ML (<3.6); MB/CK RELATIVE INDEX 7.74 (< OR =4)
[2021-10-24 07:09] LABS: ALBUMIN 3.4 GM/DL (3.2-5.2); ALT/SGPT 32 U/L (12-78); BILIRUBIN,DIRECT 0.2 MG/DL (0.0-0.2); BILIRUBIN,TOTAL 0.2 MG/DL (0.2-1.0); BLOOD UREA NITROGEN 22 MG/DL (7-18); CALCIUM LEVEL 8.8 MG/DL (8.8-10.2); CARBON DIOXIDE LEVEL 32 MEQ/L (21-32); CHLORIDE LEVEL 102 MEQ/L (98-107); CREATININE FOR GFR 0.81 MG/DL (0.70-1.30); GLOMERULAR FILTRATION RATE > 60.0 (>49); GLUCOSE, FASTING 281 MG/DL (70-100); NT-PRO BNP 244 PG/ML (<125); POTASSIUM SERUM 4.1 MEQ/L (3.5-5.1); SODIUM LEVEL 140 MEQ/L (136-145); TOTAL PROTEIN 6.5 GM/DL (6.4-8.2)
[2021-10-24 07:53] LABS: ABG O2 SATURATION 96.3 % (95.0-99.0); ABG PARTIAL PRESSURE O2 98.6 mmHg (75.0-100.0); ABG STANDARD HCO3 29.8 MEQ/L (22.0-26.0); ABG TOTAL CO2 38.6 MEQ/L (23.0-31.0); ABG pH (ARTERIAL) 7.256 UNITS (7.350-7.450)
[2021-10-24 07:56] LABS: ABG PARTIAL PRESSURE CO2 82.9 mmHg (35.0-45.0)
[2021-10-24 08:35] LABS: CK-MB VALUE MASS 4.1 NG/ML (<3.6); MB/CK RELATIVE INDEX 7.32 (< OR =4)
[2021-10-24] MEDS: SERTRALINE HCL 50 MG TAB PO SCH ×2 (09:00→16:04)
[2021-10-24] MEDS: ASPIRIN 81MG ENTERIC TABLET PO SCH ×2 (09:00→16:04)
[2021-10-24] MEDS: allopurinoL 100 MG TAB PO SCH ×2 (09:00→16:05)
[2021-10-24] MEDS: CLOPIDOGREL 75 MG TAB PO SCH ×2 (09:00→16:04)
[2021-10-24] MEDS: MULTIVITAMINS/MINERALS THERAP 1 TAB PO SCH ×2 (09:00→16:04)
[2021-10-24] MEDS ORDERED: BREO1INH INH (09:43)
[2021-10-24] MEDS ORDERED: PRED10TA2 PO (09:43)
[2021-10-24] MEDS ORDERED: HOME MED LIST COMPLETE! XX SCH (09:45)
[2021-10-24 09:54] LABS: ABG BASE EXCESS 5.5 (-2.0-2.0); ABG HCO3 35.7 MEQ/L (22.0-26.0); ABG O2 SATURATION 97.9 % (95.0-99.0); ABG PARTIAL PRESSURE O2 124.2 mmHg (75.0-100.0); ABG STANDARD HCO3 29.5 MEQ/L (22.0-26.0); ABG TOTAL CO2 38.3 MEQ/L (23.0-31.0)
[2021-10-24 10:03] LABS: ABG pH (ARTERIAL) 7.245 UNITS (7.350-7.450)
[2021-10-24 10:04] LABS: ABG PARTIAL PRESSURE CO2 84.3 mmHg (35.0-45.0)
[2021-10-24] MEDS ORDERED: ACETAMINOPHEN TAB 650MG DOSE (2X325MG) PO PRN (10:15)
[2021-10-24] MEDS: methylPREDNISolone 125MG 2ML VIAL IV SCH ×3 (11:22→20:25)
[2021-10-24] MEDS ORDERED: MOXIFLOXACIN HCL 400 MG in IV 1 EA IV SCH (12:00)
[2021-10-24] MEDS: PIPERACILLIN/TAZOBACTAM SOD 4.5 GM in D5W MINI-BAG PLUS 50 ML IV SCH ×3 (12:00→20:26)
[2021-10-24 13:49] LABS: CK-MB VALUE MASS 5.1 NG/ML (<3.6); MB/CK RELATIVE INDEX 8.1 (< OR =4)
[2021-10-24] MEDS: NS 1,000 ML IV SCH (14:24)
[2021-10-24] MEDS: ALBUTEROL SULFATE 2.5 MG/0.5 ML INH NEB SOLN NEB SCH ×4 (14:30→23:48)
[2021-10-24] MEDS ORDERED: CYCLOBENZAPRINE 5MG TABLET PO PRN (15:30)
[2021-10-24] MEDS: SODIUM CHLORIDE HYPERTONIC 3% 15ML NEB SOL INH SCH ×3 (15:31→23:55)
[2021-10-24] MEDS ORDERED: SODIUM CHLORIDE HYPERTONIC 3% 15ML NEB SOL INH SCH (16:00)
[2021-10-24 16:39] LABS: CK-MB VALUE MASS 5.4 NG/ML (<3.6); MB/CK RELATIVE INDEX 9.64 (< OR =4)
[2021-10-24] MEDS ORDERED: HALOPERIDOL 5MG/ML VIAL (J1630 PER 1) IV ONE (17:55)
[2021-10-24] MEDS ORDERED: LORazepam 2 MG/ML VIAL IV ONE (17:55)
[2021-10-24 18:39] LABS: ABG BASE EXCESS 5.1 (-2.0-2.0); ABG HCO3 31.3 MEQ/L (22.0-26.0); ABG PARTIAL PRESSURE CO2 52.5 mmHg (35.0-45.0); ABG STANDARD HCO3 29.1 MEQ/L (22.0-26.0); ABG TOTAL CO2 32.9 MEQ/L (23.0-31.0); ABG pH (ARTERIAL) 7.393 UNITS (7.350-7.450)
[2021-10-24] MEDS: ADVAIR HFA 230/21MCG INHALER INH SCH (19:24)
[2021-10-24 19:25] LABS: CK-MB VALUE MASS 4.5 NG/ML (<3.6); MB/CK RELATIVE INDEX 8.04 (< OR =4)
[2021-10-24] MEDS: LOSARTAN 50MG TABLET PO SCH (21:00)
[2021-10-24] MEDS: ATORVASTATIN 20 MG TAB PO SCH (21:00)
[2021-10-24] MEDS ORDERED: HEPARIN SOD (PORCINE) 5000UNITS/ML 1ML VIAL/SYRINGE SC SCH (21:00)
[2021-10-24] MEDS: TIOTROPIUM INHALER/CAPSULE (SPIRIVA) INH SCH (21:00)
[2021-10-24] MEDS: guaiFENesin ER 600 MG TAB PO SCH (21:00)
[2021-10-24] MEDS: GABAPENTIN 100 MG CAP PO SCH (21:00)
[2021-10-24] MEDS ORDERED: OMEPRAZOLE 20MG CAP PO SCH (21:00)
[2021-10-24] MEDS: ISOSORBIDE MONONITRATE 10MG TABLET PO SCH (21:00)
[2021-10-24 22:44] LABS: CK-MB VALUE MASS 4.3 NG/ML (<3.6); MB/CK RELATIVE INDEX 6.94 (< OR =4)
[2021-10-24] MEDS: HEPARIN SOD (PORCINE) 5000UNITS/ML 1ML VIAL/SYRINGE SC SCH (23:03)
[2021-10-25] VITALS (11 sets, daily range): BP systolic 114–158; BP diastolic 55–96
[2021-10-25] MEDS: PIPERACILLIN/TAZOBACTAM SOD 4.5 GM in D5W MINI-BAG PLUS 50 ML IV SCH (02:15)
[2021-10-25] MEDS: methylPREDNISolone 125MG 2ML VIAL IV SCH ×3 (02:23→17:26)
[2021-10-25 02:29] LABS: CK-MB VALUE MASS 3.4 NG/ML (<3.6); MB/CK RELATIVE INDEX 6.8 (< OR =4)
[2021-10-25] MEDS: NS 1,000 ML IV SCH (02:52)
[2021-10-25] MEDS: ALBUTEROL SULFATE 2.5 MG/0.5 ML INH NEB SOLN NEB SCH ×6 (03:40→20:40)
[2021-10-25] MEDS: SODIUM CHLORIDE HYPERTONIC 3% 15ML NEB SOL INH SCH ×5 (03:40→20:00)
[2021-10-25 04:46] LABS: HEMATOCRIT 39.1 % (42.0-52.0); HEMOGLOBIN 12.9 g/dl (13.5-17.5); LYMPH # 0.3 10^3/uL (1.5-5.0); LYMPH % 3.7 % (24.0-44.0); MEAN CORPUSCULAR HEMOGLOBIN 36.6 pg (27.0-33.0); MEAN CORPUSCULAR VOLUME 111.1 fl (80.0-96.0); MONO # 0.2 10^3/uL (0.0-0.8); MONO % 2.6 % (2.0-8.0); NEUTROPHILS # 8.3 10^3/uL (1.5-8.5); NEUTROPHILS % 93.1 % (36.0-66.0); PLATELET COUNT, AUTOMATED 131 10^3/uL (150-450); RED BLOOD COUNT 3.52 10^6/uL (4.30-6.10); WHITE BLOOD COUNT 8.9 10^3/uL (4.0-10.0)
[2021-10-25 05:03] LABS: BLOOD UREA NITROGEN 23 MG/DL (7-18); CALCIUM LEVEL 9.6 MG/DL (8.8-10.2); CARBON DIOXIDE LEVEL 34 MEQ/L (21-32); CHLORIDE LEVEL 100 MEQ/L (98-107); CREATININE FOR GFR 0.74 MG/DL (0.70-1.30); GLOMERULAR FILTRATION RATE > 60.0 (>49); GLUCOSE, FASTING 272 MG/DL (70-100); MAGNESIUM LEVEL 2.1 MG/DL (1.8-2.4); SODIUM LEVEL 142 MEQ/L (136-145)
[2021-10-25] MEDS: HEPARIN SOD (PORCINE) 5000UNITS/ML 1ML VIAL/SYRINGE SC SCH ×3 (06:34→20:34)
[2021-10-25] MEDS: guaiFENesin ER 600 MG TAB PO SCH ×2 (08:19→20:33)
[2021-10-25] MEDS: CLOPIDOGREL 75 MG TAB PO SCH (08:19)
[2021-10-25] MEDS: ISOSORBIDE MONONITRATE 10MG TABLET PO SCH ×2 (08:19→20:33)
[2021-10-25] MEDS: MULTIVITAMINS/MINERALS THERAP 1 TAB PO SCH (08:19)
[2021-10-25] MEDS: GABAPENTIN 100 MG CAP PO SCH ×2 (08:19→20:32)
[2021-10-25] MEDS: SERTRALINE HCL 50 MG TAB PO SCH (08:20)
[2021-10-25] MEDS: allopurinoL 100 MG TAB PO SCH (08:20)
[2021-10-25] MEDS: ADVAIR HFA 230/21MCG INHALER INH SCH ×2 (09:03→20:00)
[2021-10-25] MEDS ORDERED: OXYMETAZOLINE 0.05% NASAL SPRAY (AFRIN) PRN (09:35)
[2021-10-25] MEDS: PANTOPRAZOLE 40MG VIAL (C9113 PER 1) IV SCH (09:52)
[2021-10-25] MEDS: ASPIRIN 300 MG SUPP PR SCH (09:52)
[2021-10-25] MEDS ORDERED: LORazepam 2 MG/ML VIAL IV PRN (16:30)
[2021-10-25] MEDS ORDERED: HALOPERIDOL 5MG/ML VIAL (J1630 PER 1) IV PRN (16:30)
[2021-10-25] MEDS ORDERED: QUEtiapine FUMARATE 50MG TAB PO PRN (18:20)
[2021-10-25] MEDS: LOSARTAN 50MG TABLET PO SCH (20:32)
[2021-10-25] MEDS: ATORVASTATIN 20 MG TAB PO SCH (20:33)
[2021-10-25] MEDS: TIOTROPIUM INHALER/CAPSULE (SPIRIVA) INH SCH (21:00)
[2021-10-26] VITALS (9 sets, daily range): BP systolic 133–185; BP diastolic 68–86; O2SAT 94–96
[2021-10-26] MEDS: methylPREDNISolone 125MG 2ML VIAL IV SCH ×2 (02:21→10:26)
[2021-10-26] MEDS: SODIUM CHLORIDE HYPERTONIC 3% 15ML NEB SOL INH SCH ×4 (03:20→11:11)
[2021-10-26] MEDS: ALBUTEROL SULFATE 2.5 MG/0.5 ML INH NEB SOLN NEB SCH ×4 (03:21→11:10)
[2021-10-26 05:05] LABS: BASO % 0.1 % (0.0-1.0); HEMOGLOBIN 12.5 g/dl (13.5-17.5); LYMPH # 0.3 10^3/uL (1.5-5.0); LYMPH % 2.8 % (24.0-44.0); MEAN CORPUSCULAR HEMOGLOBIN 36.5 pg (27.0-33.0); MEAN CORPUSCULAR HGB CONC 32.9 g/dl (32.0-36.5); MEAN CORPUSCULAR VOLUME 111.1 fl (80.0-96.0); MONO # 0.5 10^3/uL (0.0-0.8); MONO % 5.6 % (2.0-8.0); NEUTROPHILS # 8.6 10^3/uL (1.5-8.5); NEUTROPHILS % 91.1 % (36.0-66.0); PLATELET COUNT, AUTOMATED 116 10^3/uL (150-450); RED BLOOD COUNT 3.42 10^6/uL (4.30-6.10); WHITE BLOOD COUNT 9.4 10^3/uL (4.0-10.0)
[2021-10-26 05:34] LABS: BLOOD UREA NITROGEN 27 MG/DL (7-18); CALCIUM LEVEL 9.6 MG/DL (8.8-10.2); CARBON DIOXIDE LEVEL 33 MEQ/L (21-32); CHLORIDE LEVEL 101 MEQ/L (98-107); CREATININE FOR GFR 0.73 MG/DL (0.70-1.30); GLOMERULAR FILTRATION RATE > 60.0 (>49); GLUCOSE, FASTING 312 MG/DL (70-100); MAGNESIUM LEVEL 2.2 MG/DL (1.8-2.4); POTASSIUM SERUM 4.3 MEQ/L (3.5-5.1); SODIUM LEVEL 140 MEQ/L (136-145)
[2021-10-26] MEDS: HEPARIN SOD (PORCINE) 5000UNITS/ML 1ML VIAL/SYRINGE SC SCH (06:19)
[2021-10-26] MEDS: ADVAIR HFA 230/21MCG INHALER INH SCH (08:38)
[2021-10-26] MEDS: GABAPENTIN 100 MG CAP PO SCH (09:27)
[2021-10-26] MEDS: CLOPIDOGREL 75 MG TAB PO SCH (09:27)
[2021-10-26] MEDS: PANTOPRAZOLE 40MG VIAL (C9113 PER 1) IV SCH (09:27)
[2021-10-26] MEDS: MULTIVITAMINS/MINERALS THERAP 1 TAB PO SCH (09:27)
[2021-10-26] MEDS: allopurinoL 100 MG TAB PO SCH (09:28)
[2021-10-26] MEDS: ISOSORBIDE MONONITRATE 10MG TABLET PO SCH (09:29)
[2021-10-26] MEDS: guaiFENesin ER 600 MG TAB PO SCH (09:35)
[2021-10-26] MEDS ORDERED: AMOX500T2 PO (10:13)
[2021-10-26] MEDS: ASPIRIN 300 MG SUPP PR SCH (10:13)
[2021-10-26] MEDS ORDERED: PRED10TA2 PO (10:13)
[2021-10-26] MEDS: SERTRALINE HCL 50 MG TAB PO SCH (10:26)
== END 2021-10-26 13:13 | disposition home health service (06) | DRG 190 ==
LOC: M ED 05:43 → M ED INP 10:12 → ENRESERV 11:02 → M ICU 12:38 → M PCU 10-25 15:31
PROVIDERS: ADMIT Internal Medicine; ATTEND Internal Medicine
PROC: 5A09357 Assistance with Respiratory Ventilation, Less than 24 Consecutive Hours, Continuous Positive Airway Pressure (ICD-10-PCS; principal; 2021-10-24)
DX: J44.1 Chronic obstructive pulmonary disease with (acute) exacerbation (principal); J96.21 Acute and chronic respiratory failure with hypoxia; J96.22 Acute and chronic respiratory failure with hypercapnia; J69.0 Pneumonitis due to inhalation of food and vomit; J98.11 Atelectasis; I10 Essential (primary) hypertension; F10.10 Alcohol abuse, uncomplicated; E78.00 Pure hypercholesterolemia, unspecified; Z95.820 Peripheral vascular angioplasty status with implants and grafts; Z87.891 Personal history of nicotine dependence; M10.9 Gout, unspecified; Z20.822 Contact with and (suspected) exposure to COVID-19; Z79.82 Long term (current) use of aspirin; Z79.899 Other long term (current) drug therapy; Z88.1 Allergy status to other antibiotic agents; Z99.81 Dependence on supplemental oxygen; Z92.3 Personal history of irradiation; C32.0 Malignant neoplasm of glottis; R49.0 Dysphonia; G47.33 Obstructive sleep apnea (adult) (pediatric); R13.10 Dysphagia, unspecified; I27.20 Pulmonary hypertension, unspecified

== ENCOUNTER → 2021-11-03 | Outpatient (CLI) | payer MEDICARE, MEDICAID ==
[~2021-11-03] MED LIST changes: +AMOX500T2 PO; -D31000TA2 PO; +VITA100093 PO
== END ==
LOC: M SLEEP 20:00
PROVIDERS: ATTEND Physician Assistant
DX: G47.33 Obstructive sleep apnea (adult) (pediatric) (principal)

== ENCOUNTER 2021-11-14 12:30 | Inpatient (IN) | payer MEDICARE, MEDICAID ==
[2021-11-14] MEDS ORDERED: methylPREDNISolone 125MG 2ML VIAL IV ONE (13:50)
[2021-11-14 14:31] LABS: ABG BASE EXCESS 1.9 (-2.0-2.0); ABG HCO3 29.6 MEQ/L (22.0-26.0); ABG PARTIAL PRESSURE O2 101.4 mmHg (75.0-100.0); ABG STANDARD HCO3 26.1 MEQ/L (22.0-26.0); ABG TOTAL CO2 31.5 MEQ/L (23.0-31.0); ABG pH (ARTERIAL) 7.302 UNITS (7.350-7.450)
[2021-11-14 14:36] LABS: ABG PARTIAL PRESSURE CO2 61.3 mmHg (35.0-45.0)
[2021-11-14 14:40] LABS: BASO % 0.1 % (0.0-1.0); EOS % 0.1 % (0.0-3.0); HEMATOCRIT 37.1 % (42.0-52.0); HEMOGLOBIN 12.4 g/dl (13.5-17.5); LYMPH # 0.2 10^3/uL (1.5-5.0); LYMPH % 1.9 % (24.0-44.0); MEAN CORPUSCULAR HEMOGLOBIN 36.4 pg (27.0-33.0); MEAN CORPUSCULAR HGB CONC 33.4 g/dl (32.0-36.5); MEAN CORPUSCULAR VOLUME 108.8 fl (80.0-96.0); MONO # 0.3 10^3/uL (0.0-0.8); MONO % 2.5 % (2.0-8.0); NEUTROPHILS # 10.1 10^3/uL (1.5-8.5); NEUTROPHILS % 94.8 % (36.0-66.0); RED BLOOD COUNT 3.41 10^6/uL (4.30-6.10); WHITE BLOOD COUNT 10.6 10^3/uL (4.0-10.0)
[2021-11-14 15:16] LABS: ALBUMIN 3.5 GM/DL (3.2-5.2); ALT/SGPT 24 U/L (12-78); BILIRUBIN,DIRECT 0.2 MG/DL (0.0-0.2); BILIRUBIN,TOTAL 0.7 MG/DL (0.2-1.0); BLOOD UREA NITROGEN 22 MG/DL (7-18); CALCIUM LEVEL 9.7 MG/DL (8.8-10.2); CARBON DIOXIDE LEVEL 33 MEQ/L (21-32); CHLORIDE LEVEL 100 MEQ/L (98-107); CREATININE FOR GFR 0.78 MG/DL (0.70-1.30); GLOMERULAR FILTRATION RATE > 60.0 (>49); GLUCOSE, FASTING 540 MG/DL (70-100); NT-PRO BNP 135 PG/ML (<125); POTASSIUM SERUM 4.7 MEQ/L (3.5-5.1); SODIUM LEVEL 138 MEQ/L (136-145); THYROID STIMULATING HORMONE 0.469 uIU/ML (0.358-3.740); TOTAL PROTEIN 6.4 GM/DL (6.4-8.2)
[2021-11-14 15:19] LABS: CK-MB VALUE MASS < 1.0 NG/ML (<3.6); CPK CREATINE PHOSPHOKINASE 26 U/L (39-308); MB/CK RELATIVE INDEX 3.85 (< OR =4)
[2021-11-14] MEDS ORDERED: PIPERACILLIN/TAZOBACTAM SOD 3.375 GM in D5W MINI-BAG PLUS 50 ML IV ONE (16:05)
[2021-11-14] MEDS ORDERED: MOM 30ML SUSPENSION UDC PO PRN (16:45)
[2021-11-14] MEDS ORDERED: ALBUTEROL SULFATE 2.5 MG/0.5 ML INH NEB SOLN NEB PRN (16:45)
[2021-11-14] MEDS ORDERED: GLUCAGON INJ 1MG VIAL SC PRN (16:45)
[2021-11-14] MEDS ORDERED: GLUCOSE 4GM CHEW TABLET PO PRN (16:45)
[2021-11-14] MEDS ORDERED: DEXTROSE 50% 50 ML SYRINGE IV PRN (16:45)
[2021-11-14] MEDS ORDERED: ACETAMINOPHEN TAB 650MG DOSE (2X325MG) PO PRN (16:45)
[2021-11-14] MEDS ORDERED: HOME MED LIST COMPLETE! XX SCH (17:25)
[2021-11-14] MEDS: HumaLOG INSULIN (NovoLOG) PER UNIT SC SCH ×2 (17:30→22:28)
[2021-11-14] MEDS ORDERED: HumuLIN R (REGULAR) INSULIN (NovoLIN R) **100U/ML** PER UNIT IV STA ×2 (19:53→20:10)
[2021-11-14] MEDS: IPRATROPIUM 0.5MG/ALBUTEROL 2.5MG INH SOL UD 3ML (DUONEB) NEB SCH (20:11)
[2021-11-14] MEDS ORDERED: LEVEMIR (INSULIN DETEMIR) 1 UNITS/0.01ML SC SCH (21:00)
[2021-11-14 21:25] VITALS: BP 128/80
[2021-11-14] MEDS ORDERED: NYSTATIN 100,000 UNITS/GM TOPICAL PWD 15 GM TOP PRN (22:55)
[2021-11-15 02:00] VITALS: BP 134/70
[2021-11-15] MEDS: IPRATROPIUM 0.5MG/ALBUTEROL 2.5MG INH SOL UD 3ML (DUONEB) NEB SCH ×4 (02:58→19:38)
[2021-11-15 06:00] VITALS: BP 126/66
[2021-11-15 07:40] LABS: HEMATOCRIT 34.7 % (42.0-52.0); MEAN CORPUSCULAR HEMOGLOBIN 36.7 pg (27.0-33.0); MEAN CORPUSCULAR HGB CONC 34.6 g/dl (32.0-36.5); MEAN CORPUSCULAR VOLUME 106.1 fl (80.0-96.0); PLATELET COUNT, AUTOMATED 105 10^3/uL (150-450); RED BLOOD COUNT 3.27 10^6/uL (4.30-6.10); WHITE BLOOD COUNT 9.9 10^3/uL (4.0-10.0)
[2021-11-15] MEDS: ADVAIR HFA 115/21MCG INHALER INH SCH ×2 (08:00→19:37)
[2021-11-15] MEDS: TIOTROPIUM INHALER/CAPSULE (SPIRIVA) INH SCH (08:00)
[2021-11-15 08:14] LABS: BLOOD UREA NITROGEN 24 MG/DL (7-18); CALCIUM LEVEL 9.3 MG/DL (8.8-10.2); CARBON DIOXIDE LEVEL 34 MEQ/L (21-32); CHLORIDE LEVEL 101 MEQ/L (98-107); CREATININE FOR GFR 0.66 MG/DL (0.70-1.30); GLOMERULAR FILTRATION RATE > 60.0 (>49); GLUCOSE, FASTING 276 MG/DL (70-100); POTASSIUM SERUM 3.7 MEQ/L (3.5-5.1); SODIUM LEVEL 140 MEQ/L (136-145)
[2021-11-15] MEDS ORDERED: guaiFENesin ER 600 MG TAB PO SCH (09:00)
[2021-11-15] MEDS: HumaLOG INSULIN (NovoLOG) PER UNIT SC SCH ×4 (09:32→20:35)
[2021-11-15] MEDS: GABAPENTIN 300 MG CAP PO SCH ×2 (09:32→20:33)
[2021-11-15] MEDS: ENOXAPARIN 40MG/0.4ML SYRINGE (J1650 PER 10MG) SC SCH (09:32)
[2021-11-15] MEDS: ASPIRIN 81 MG CHEW TABLET PO SCH (09:33)
[2021-11-15] MEDS: CLOPIDOGREL 75 MG TAB PO SCH (09:33)
[2021-11-15] MEDS: SERTRALINE HCL 50 MG TAB PO SCH (09:33)
[2021-11-15] MEDS: allopurinoL 100 MG TAB PO SCH (09:33)
[2021-11-15] MEDS: predniSONE 10 MG TAB PO SCH (09:33)
[2021-11-15] MEDS: ISOSORBIDE MONONITRATE 10MG TABLET PO SCH ×2 (09:37→15:48)
[2021-11-15 10:00] VITALS: BP 115/73
[2021-11-15] MEDS ORDERED: PRED10TA2 PO ×2 (10:31→11:05)
[2021-11-15] MEDS ORDERED: HumaLOG INSULIN (NovoLOG) PER UNIT SC ONE (12:15)
[2021-11-15] MEDS: guaiFENesin SYRUP 200MG 10ML UDC PO SCH ×2 (13:16→20:25)
[2021-11-15 13:54] LABS: HEMOGLOBIN A1c 10.8 %
[2021-11-15 14:00] VITALS: BP_SYST 129; BP_SYST 133; BP_DIAS 66; BP_DIAS 77
[2021-11-15] MEDS ORDERED: LEVEMIR (INSULIN DETEMIR) 1 UNITS/0.01ML SC SCH (21:00)
[2021-11-15] MEDS ORDERED: ATORVASTATIN 20 MG TAB PO SCH (21:00)
[2021-11-15] MEDS ORDERED: LOSARTAN 50MG TABLET PO SCH (21:00)
[2021-11-15] MEDS ORDERED: OMEPRAZOLE 20MG CAP PO SCH (21:00)
[2021-11-15 22:00] VITALS: BP 108/64
[2021-11-16] MEDS: IPRATROPIUM 0.5MG/ALBUTEROL 2.5MG INH SOL UD 3ML (DUONEB) NEB SCH ×3 (01:05→14:29)
[2021-11-16 02:00] VITALS: BP 144/80
[2021-11-16 06:00] VITALS: BP 135/74
[2021-11-16 06:23] LABS: HEMATOCRIT 34.1 % (42.0-52.0); HEMOGLOBIN 11.5 g/dl (13.5-17.5); MEAN CORPUSCULAR HEMOGLOBIN 36.6 pg (27.0-33.0); MEAN CORPUSCULAR HGB CONC 33.7 g/dl (32.0-36.5); MEAN CORPUSCULAR VOLUME 108.6 fl (80.0-96.0); PLATELET COUNT, AUTOMATED 109 10^3/uL (150-450); RED BLOOD COUNT 3.14 10^6/uL (4.30-6.10); WHITE BLOOD COUNT 10.3 10^3/uL (4.0-10.0)
[2021-11-16 06:54] LABS: BLOOD UREA NITROGEN 25 MG/DL (7-18); CALCIUM LEVEL 8.7 MG/DL (8.8-10.2); CARBON DIOXIDE LEVEL 33 MEQ/L (21-32); CHLORIDE LEVEL 101 MEQ/L (98-107); CREATININE FOR GFR 0.77 MG/DL (0.70-1.30); GLOMERULAR FILTRATION RATE > 60.0 (>49); GLUCOSE, FASTING 345 MG/DL (70-100); MAGNESIUM LEVEL 1.6 MG/DL (1.8-2.4); POTASSIUM SERUM 3.4 MEQ/L (3.5-5.1); SODIUM LEVEL 139 MEQ/L (136-145)
[2021-11-16] MEDS: TIOTROPIUM INHALER/CAPSULE (SPIRIVA) INH SCH (07:42)
[2021-11-16] MEDS: ADVAIR HFA 115/21MCG INHALER INH SCH (07:43)
[2021-11-16] MEDS: guaiFENesin SYRUP 200MG 10ML UDC PO SCH (08:00)
[2021-11-16] MEDS: HumaLOG INSULIN (NovoLOG) PER UNIT SC SCH ×2 (08:00→13:16)
[2021-11-16] MEDS: ENOXAPARIN 40MG/0.4ML SYRINGE (J1650 PER 10MG) SC SCH (08:01)
[2021-11-16] MEDS: ASPIRIN 81 MG CHEW TABLET PO SCH (08:01)
[2021-11-16] MEDS: SERTRALINE HCL 50 MG TAB PO SCH (08:02)
[2021-11-16] MEDS: GABAPENTIN 300 MG CAP PO SCH (08:02)
[2021-11-16] MEDS: predniSONE 10 MG TAB PO SCH (08:03)
[2021-11-16] MEDS: ISOSORBIDE MONONITRATE 10MG TABLET PO SCH ×2 (08:03→15:50)
[2021-11-16] MEDS: CLOPIDOGREL 75 MG TAB PO SCH (08:03)
[2021-11-16] MEDS: allopurinoL 100 MG TAB PO SCH (08:03)
[2021-11-16] MEDS ORDERED: HumaLOG INSULIN (NovoLOG) PER UNIT SC ONE (12:00)
[2021-11-16] MEDS ORDERED: BLOOKIT21 XX (12:34)
[2021-11-16] MEDS ORDERED: ALCOPAD25 TOP (12:34)
[2021-11-16] MEDS ORDERED: PEN1MIS22 SC (12:34)
[2021-11-16] MEDS ORDERED: PEN1MIS21 SC (12:34)
[2021-11-16] MEDS ORDERED: GLUC1TES2 XX (12:34)
[2021-11-16] MEDS ORDERED: LANC30MI XX (12:34)
[2021-11-16] MEDS ORDERED: HUMA50IN4 SC ×2 (12:50→12:59)
[2021-11-16] MEDS ORDERED: LANTINJ4 SC (12:50)
[2021-11-16 14:00] VITALS: BP 131/81
[2021-11-16] MEDS ORDERED: POTASSIUM CHLORIDE 10MEQ SR TABLET PO ONE (15:00)
[2021-11-16] MEDS ORDERED: MAGNESIUM OXIDE 400MG TAB (MAG-OX) PO ONE (15:00)
[2021-11-16 15:50] VITALS: BP 131/80
== END 2021-11-16 16:16 | disposition home health service (06) | DRG 189 ==
LOC: EDBD 12:30 → M ED 12:30 → M ED INP 16:42 → M MSPAV 21:31
PROVIDERS: ADMIT Internal Medicine; ATTEND Internal Medicine
DX: J96.21 Acute and chronic respiratory failure with hypoxia (principal); J69.0 Pneumonitis due to inhalation of food and vomit; G93.41 Metabolic encephalopathy; J96.22 Acute and chronic respiratory failure with hypercapnia; F10.10 Alcohol abuse, uncomplicated; E78.00 Pure hypercholesterolemia, unspecified; I10 Essential (primary) hypertension; G47.33 Obstructive sleep apnea (adult) (pediatric); M10.9 Gout, unspecified; R13.19 Other dysphagia; R73.9 Hyperglycemia, unspecified; I73.9 Peripheral vascular disease, unspecified; Z79.82 Long term (current) use of aspirin; Z99.81 Dependence on supplemental oxygen; Z79.52 Long term (current) use of systemic steroids; C32.0 Malignant neoplasm of glottis; Z86.010 Personal history of colon polyps; Z95.820 Peripheral vascular angioplasty status with implants and grafts; Z92.3 Personal history of irradiation; Z79.02 Long term (current) use of antithrombotics/antiplatelets; Z87.891 Personal history of nicotine dependence; Z79.899 Other long term (current) drug therapy; Z88.1 Allergy status to other antibiotic agents

== ENCOUNTER 2021-11-19 08:00 | Inpatient (IN) | payer MEDICARE, MEDICAID ==
[~2021-11-19] VITALS: Ht 170.2 cm; Wt 90.6 kg
[2021-11-19] VITALS (13 sets, daily range): BP systolic 92–127; BP diastolic 46–65
[~2021-11-19 08:00] MED LIST changes: +ALCOPAD25 TOP; +BLOOKIT21 XX; +BUDESONIDE 0.25 MG/2 ML INHALATION SUSPENSION INH SCH; +GLUC1TES2 XX; +HUMA50IN4 SC; +LANC30MI XX; +LANTINJ4 SC; +PEN1MIS21 SC; +PEN1MIS22 SC
[2021-11-19] MEDS ORDERED: ALBUTEROL SULFATE 2.5 MG/0.5 ML INH NEB SOLN INH ONE (08:05)
[2021-11-19] MEDS ORDERED: IPRATROPIUM 0.5MG/ALBUTEROL 2.5MG INH SOL UD 3ML (DUONEB) NEB ONE (08:05)
[2021-11-19 08:27] LABS: ABG BASE EXCESS -1.3 (-2.0-2.0); ABG O2 SATURATION 96.1 % (95.0-99.0); ABG PARTIAL PRESSURE O2 117.1 mmHg (75.0-100.0); ABG STANDARD HCO3 23.4 MEQ/L (22.0-26.0); ABG TOTAL CO2 39.8 MEQ/L (23.0-31.0)
[2021-11-19 08:32] LABS: ABG pH (ARTERIAL) 6.969 UNITS (7.350-7.450)
[2021-11-19 08:37] LABS: BASO % 0.2 % (0.0-1.0); EOS # 0.2 10^3/uL (0.0-0.5); EOS % 0.7 % (0.0-3.0); HEMATOCRIT 39.5 % (42.0-52.0); HEMOGLOBIN 12.9 g/dl (13.5-17.5); LYMPH # 2.8 10^3/uL (1.5-5.0); LYMPH % 12.4 % (24.0-44.0); MEAN CORPUSCULAR HEMOGLOBIN 36.8 pg (27.0-33.0); MEAN CORPUSCULAR HGB CONC 32.7 g/dl (32.0-36.5); MEAN CORPUSCULAR VOLUME 112.5 fl (80.0-96.0); MONO % 9.3 % (2.0-8.0); NEUTROPHILS # 17.2 10^3/uL (1.5-8.5); NEUTROPHILS % 76.2 % (36.0-66.0); PLATELET COUNT, AUTOMATED 190 10^3/uL (150-450); RED BLOOD COUNT 3.51 10^6/uL (4.30-6.10); WHITE BLOOD COUNT 22.5 10^3/uL (4.0-10.0)
[2021-11-19] MEDS ORDERED: NOREPINEPHRINE BITARTRATE 8 MG in D5W 492 ML IV SCH (08:40)
[2021-11-19] MEDS ORDERED: NS 1,000 ML IV ONE (08:40)
[2021-11-19 08:43] LABS: MONO # 2.1 10^3/uL (0.0-0.8)
[2021-11-19] MEDS ORDERED: LIDOCAINE 2% 5ML JELLY UROJET TOP ONE (08:45)
[2021-11-19] MEDS ORDERED: PIPERACILLIN/TAZOBACTAM SOD 4.5 GM in D5W MINI-BAG PLUS 50 ML IV ONE (09:10)
[2021-11-19] MEDS ORDERED: LIDOCAINE W/EPINEPHRINE 1% 20ML VIAL As Ordered ONE (09:17)
[2021-11-19] MEDS ORDERED: PHENYLEPHRINE 0.5% NASAL SPRAY 15 ML As Ordered ONE (09:17)
[2021-11-19 09:46] LABS: BLOOD UREA NITROGEN 24 MG/DL (7-18); CALCIUM LEVEL 8.8 MG/DL (8.8-10.2); CARBON DIOXIDE LEVEL 37 MEQ/L (21-32); CHLORIDE LEVEL 101 MEQ/L (98-107); CREATININE FOR GFR 0.65 MG/DL (0.70-1.30); ETHYL ALCOHOL (ETHANOL) < 0.003 % (0.000-0.010); GLOMERULAR FILTRATION RATE > 60.0 (>49); GLUCOSE, FASTING 277 MG/DL (70-100); NT-PRO BNP 354 PG/ML (<125); POTASSIUM SERUM 4.8 MEQ/L (3.5-5.1); SODIUM LEVEL 140 MEQ/L (136-145)
[2021-11-19 09:52] LABS: ALBUMIN 3.4 GM/DL (3.2-5.2); ALT/SGPT 40 U/L (12-78); BILIRUBIN,DIRECT < 0.1 MG/DL (0.0-0.2); BILIRUBIN,TOTAL 0.4 MG/DL (0.2-1.0); FREE T4 0.94 NG/DL (0.76-1.46); LIPASE 556 U/L (73-393); THYROID STIMULATING HORMONE 0.789 uIU/ML (0.358-3.740); TOTAL PROTEIN 7.3 GM/DL (6.4-8.2)
[2021-11-19] MEDS ORDERED: HOME MED LIST COMPLETE! XX SCH (10:15)
[2021-11-19] MEDS ORDERED: INSUHUMDS SC (10:17)
[2021-11-19] MEDS ORDERED: LANTINJ4 SC (10:17)
[2021-11-19] MEDS ORDERED: PROPOFOL 1,000 MG/100 ML VIAL As Ordered ONE (10:21)
[2021-11-19 10:32] LABS: ABG BASE EXCESS -2.9 (-2.0-2.0); ABG HCO3 22.5 MEQ/L (22.0-26.0); ABG PARTIAL PRESSURE CO2 41.4 mmHg (35.0-45.0); ABG PARTIAL PRESSURE O2 110.8 mmHg (75.0-100.0); ABG STANDARD HCO3 22.1 MEQ/L (22.0-26.0); ABG TOTAL CO2 23.8 MEQ/L (23.0-31.0); ABG pH (ARTERIAL) 7.353 UNITS (7.350-7.450)
[2021-11-19] MEDS ORDERED: ROCURONIUM BROMIDE 50 MG/5 ML VIAL As Ordered ONE (10:46)
[2021-11-19] MEDS ORDERED: ETOMIDATE INJ 20MG/10ML VIAL As Ordered ONE (10:46)
[2021-11-19] MEDS ORDERED: MIDAZOLAM INJ 2MG/2ML VIAL (J2250 PER 1MG) As Ordered ONE ×2 (10:46→11:08)
[2021-11-19] MEDS ORDERED: fentaNYL 100 MCG/2 ML INJECTION As Ordered ONE ×2 (10:46→11:09)
[2021-11-19] MEDS ORDERED: propofoL 200 MG/20 ML VIAL As Ordered ONE (10:47)
[2021-11-19] MEDS ORDERED: PHENYLephrine 500MCG 5ML (100MCG/ML) SYRINGE As Ordered ONE (10:47)
[2021-11-19] MEDS ORDERED: NS 1,000 ML IV SCH (10:50)
[2021-11-19] MEDS ORDERED: propofoL 1,000 MG in IV 1 EA IV SCH (10:55)
[2021-11-19] MEDS: MIDAZOLAM INJ 2MG/2ML VIAL (J2250 PER 1MG) IV PRN ×5 (11:08→23:47)
[2021-11-19] MEDS ORDERED: fentaNYL 100 MCG/2 ML INJECTION IV PRN (11:10)
[2021-11-19] MEDS ORDERED: ATOR80TA59 PO (11:17)
[2021-11-19] MEDS ORDERED: ALLO100T PO (11:17)
[2021-11-19] MEDS ORDERED: fentaNYL 100 MCG/2 ML INJECTION IV ONE (11:20)
[2021-11-19] MEDS ORDERED: MIDAZOLAM INJ 2MG/2ML VIAL (J2250 PER 1MG) IV ONE (11:20)
[2021-11-19] MEDS ORDERED: IPRATROPIUM 0.5MG/ALBUTEROL 2.5MG INH SOL UD 3ML (DUONEB) NEB SCH ×2 (12:00→14:00)
[2021-11-19] MEDS ORDERED: COMBIVENT RESPIMAT 100-20MCG INHALER 4GM INH SCH (12:00)
[2021-11-19] MEDS: propofoL 1,000 MG in IV 1 EA IV SCH ×4 (12:48→22:10)
[2021-11-19] MEDS: fentaNYL CITRATE 1,000 MCG in NS 80 ML IV SCH (12:49)
[2021-11-19] MEDS: CEFEPIME HCL 2 GM in D5W MINI-BAG PLUS 50 ML IV SCH ×2 (12:49→22:10)
[2021-11-19] MEDS: PANTOPRAZOLE 40MG VIAL IV SCH (12:49)
[2021-11-19] MEDS ORDERED: IPRATROPIUM 0.5MG/ALBUTEROL 2.5MG INH SOL UD 3ML (DUONEB) NEB PRN (12:50)
[2021-11-19] MEDS ORDERED: ACETAMINOPHEN TAB 650MG DOSE (2X325MG) PO PRN (13:00)
[2021-11-19] MEDS: IPRATROPIUM HFA INHALER 12.9 GRAMS (ATROVENT HFA) INH SCH ×2 (15:26→21:43)
[2021-11-19] MEDS ORDERED: DEXTROSE 50% 50 ML SYRINGE IV PRN (18:35)
[2021-11-19] MEDS ORDERED: GLUCOSE 4GM CHEW TABLET PO PRN (18:35)
[2021-11-19] MEDS ORDERED: GLUCAGON INJ 1MG VIAL SC PRN (18:35)
[2021-11-19] MEDS: SYMBICORT 160/4.5MCG INHALER 6GM INH SCH (19:19)
[2021-11-19] MEDS: HumaLOG INSULIN (NovoLOG) PER UNIT SC SCH (19:32)
[2021-11-19] MEDS: CHLORHEXIDINE GLUCONATE 0.12 % 15ML UDC (PERIDEX ORAL RINSE) MT SCH (22:09)
[2021-11-20] VITALS (151 sets, daily range): BP systolic 80–155; BP diastolic 37–85
[2021-11-20] MEDS: HumaLOG INSULIN (NovoLOG) PER UNIT SC SCH ×5 (00:09→23:15)
[2021-11-20] MEDS: IPRATROPIUM HFA INHALER 12.9 GRAMS (ATROVENT HFA) INH SCH ×4 (00:38→19:35)
[2021-11-20] MEDS: MIDAZOLAM INJ 2MG/2ML VIAL (J2250 PER 1MG) IV PRN ×8 (02:28→17:37)
[2021-11-20] MEDS: propofoL 1,000 MG in IV 1 EA IV SCH ×5 (03:07→23:16)
[2021-11-20 05:25] LABS: ABG BASE EXCESS 7.3 (-2.0-2.0); ABG HCO3 31.7 MEQ/L (22.0-26.0); ABG O2 SATURATION 96.9 % (95.0-99.0); ABG PARTIAL PRESSURE CO2 44.4 mmHg (35.0-45.0); ABG PARTIAL PRESSURE O2 88.4 mmHg (75.0-100.0); ABG STANDARD HCO3 31.1 MEQ/L (22.0-26.0); ABG TOTAL CO2 33.1 MEQ/L (23.0-31.0); ABG pH (ARTERIAL) 7.472 UNITS (7.350-7.450)
[2021-11-20] MEDS: CEFEPIME HCL 2 GM in D5W MINI-BAG PLUS 50 ML IV SCH ×3 (05:26→20:58)
[2021-11-20 05:44] LABS: MEAN CORPUSCULAR HEMOGLOBIN 36.5 pg (27.0-33.0); MEAN CORPUSCULAR VOLUME 110.4 fl (80.0-96.0); PLATELET COUNT, AUTOMATED 114 10^3/uL (150-450); RED BLOOD COUNT 2.99 10^6/uL (4.30-6.10); WHITE BLOOD COUNT 10.7 10^3/uL (4.0-10.0)
[2021-11-20 05:45] LABS: HEMOGLOBIN 10.9 g/dl (13.5-17.5)
[2021-11-20 05:59] LABS: ALBUMIN 2.8 GM/DL (3.2-5.2); ALT/SGPT 26 U/L (12-78); BILIRUBIN,TOTAL 0.7 MG/DL (0.2-1.0); BLOOD UREA NITROGEN 22 MG/DL (7-18); CALCIUM LEVEL 8.4 MG/DL (8.8-10.2); CARBON DIOXIDE LEVEL 33 MEQ/L (21-32); CHLORIDE LEVEL 105 MEQ/L (98-107); CHOLESTEROL LEVEL 109 MG/DL (< 200); CPK CREATINE PHOSPHOKINASE 15 U/L (39-308); CREATININE FOR GFR 0.53 MG/DL (0.70-1.30); GLOMERULAR FILTRATION RATE > 60.0 (>49); GLUCOSE, FASTING 173 MG/DL (70-100); LDH LACTATE DEHYDROGENASE 146 U/L (87-241); POTASSIUM SERUM 3.1 MEQ/L (3.5-5.1); SODIUM LEVEL 142 MEQ/L (136-145); TOTAL PROTEIN 5.2 GM/DL (6.4-8.2); TRIGLYCERIDES LEVEL 252 MG/DL (<150)
[2021-11-20] MEDS ORDERED: POTASSIUM CHL PWD 20 MEQ PACKET PO ONE (07:25)
[2021-11-20] MEDS ORDERED: TIOTROPIUM INHALER/CAPSULE (SPIRIVA) INH SCH (08:00)
[2021-11-20] MEDS: SYMBICORT 160/4.5MCG INHALER 6GM INH SCH ×2 (08:18→19:35)
[2021-11-20] MEDS: CHLORHEXIDINE GLUCONATE 0.12 % 15ML UDC (PERIDEX ORAL RINSE) MT SCH ×2 (08:45→20:58)
[2021-11-20] MEDS: PANTOPRAZOLE 40MG VIAL IV SCH (08:46)
[2021-11-20] MEDS: ENOXAPARIN 40MG/0.4ML SYRINGE (J1650 PER 10MG) SC SCH (08:46)
[2021-11-20] MEDS: allopurinoL 100 MG TAB PO SCH (08:46)
[2021-11-20] MEDS ORDERED: ASPIRIN 81MG ENTERIC TABLET PO SCH ×2 (09:00)
[2021-11-20] MEDS ORDERED: predniSONE 10 MG TAB PO SCH (09:00)
[2021-11-20 09:15] LABS: ABG BASE EXCESS 6.6 (-2.0-2.0); ABG HCO3 29.9 MEQ/L (22.0-26.0); ABG O2 SATURATION 91.3 % (95.0-99.0); ABG PARTIAL PRESSURE CO2 37.9 mmHg (35.0-45.0); ABG PARTIAL PRESSURE O2 59.3 mmHg (75.0-100.0); ABG STANDARD HCO3 30.4 MEQ/L (22.0-26.0); ABG TOTAL CO2 31.1 MEQ/L (23.0-31.0); ABG pH (ARTERIAL) 7.515 UNITS (7.350-7.450)
[2021-11-20] MEDS: ATORVASTATIN 20 MG TAB PO SCH (20:58)
[2021-11-20] MEDS: fentaNYL CITRATE 1,000 MCG in NS 80 ML IV SCH (23:07)
[2021-11-21] VITALS (27 sets, daily range): BP systolic 97–144; BP diastolic 47–67
[2021-11-21] MEDS: IPRATROPIUM HFA INHALER 12.9 GRAMS (ATROVENT HFA) INH SCH ×4 (00:32→19:14)
[2021-11-21 04:47] LABS: ABG BASE EXCESS 4.8 (-2.0-2.0); ABG HCO3 30.4 MEQ/L (22.0-26.0); ABG O2 SATURATION 95.4 % (95.0-99.0); ABG PARTIAL PRESSURE CO2 49.5 mmHg (35.0-45.0); ABG PARTIAL PRESSURE O2 83.1 mmHg (75.0-100.0); ABG STANDARD HCO3 28.7 MEQ/L (22.0-26.0); ABG TOTAL CO2 31.9 MEQ/L (23.0-31.0); ABG pH (ARTERIAL) 7.406 UNITS (7.350-7.450)
[2021-11-21 04:54] LABS: HEMOGLOBIN 10.8 g/dl (13.5-17.5); MEAN CORPUSCULAR HEMOGLOBIN 36.1 pg (27.0-33.0); MEAN CORPUSCULAR HGB CONC 32.7 g/dl (32.0-36.5); MEAN CORPUSCULAR VOLUME 110.4 fl (80.0-96.0); PLATELET COUNT, AUTOMATED 113 10^3/uL (150-450); RED BLOOD COUNT 2.99 10^6/uL (4.30-6.10); WHITE BLOOD COUNT 8.2 10^3/uL (4.0-10.0)
[2021-11-21] MEDS: CEFEPIME HCL 2 GM in D5W MINI-BAG PLUS 50 ML IV SCH ×3 (04:58→20:49)
[2021-11-21] MEDS: HumaLOG INSULIN (NovoLOG) PER UNIT SC SCH ×3 (05:05→18:28)
[2021-11-21 05:16] LABS: ALBUMIN 2.7 GM/DL (3.2-5.2); ALT/SGPT 28 U/L (12-78); BILIRUBIN,TOTAL 0.4 MG/DL (0.2-1.0); BLOOD UREA NITROGEN 22 MG/DL (7-18); CALCIUM LEVEL 8.9 MG/DL (8.8-10.2); CARBON DIOXIDE LEVEL 32 MEQ/L (21-32); CHLORIDE LEVEL 106 MEQ/L (98-107); CHOLESTEROL LEVEL 105 MG/DL (< 200); CPK CREATINE PHOSPHOKINASE 126 U/L (39-308); CREATININE FOR GFR 0.59 MG/DL (0.70-1.30); GLOMERULAR FILTRATION RATE > 60.0 (>49); GLUCOSE, FASTING 242 MG/DL (70-100); LDH LACTATE DEHYDROGENASE 170 U/L (87-241); PHOSPHORUS LEVEL 4.1 MG/DL (2.5-4.9); POTASSIUM SERUM 3.8 MEQ/L (3.5-5.1); SODIUM LEVEL 142 MEQ/L (136-145); TOTAL PROTEIN 5.2 GM/DL (6.4-8.2); TRIGLYCERIDES LEVEL 265 MG/DL (<150)
[2021-11-21] MEDS: SYMBICORT 160/4.5MCG INHALER 6GM INH SCH ×2 (08:15→19:14)
[2021-11-21] MEDS ORDERED: ASPIRIN 81 MG CHEW TABLET NG SCH (09:00)
[2021-11-21] MEDS: PANTOPRAZOLE 40MG VIAL IV SCH (09:38)
[2021-11-21] MEDS: ENOXAPARIN 40MG/0.4ML SYRINGE (J1650 PER 10MG) SC SCH (09:38)
[2021-11-21] MEDS: CHLORHEXIDINE GLUCONATE 0.12 % 15ML UDC (PERIDEX ORAL RINSE) MT SCH ×2 (09:38→20:48)
[2021-11-21] MEDS: allopurinoL 100 MG TAB PO SCH (09:39)
[2021-11-21] MEDS: predniSONE 20 MG TAB PO SCH (09:39)
[2021-11-21] MEDS: propofoL 1,000 MG in IV 1 EA IV SCH ×3 (10:57→21:17)
[2021-11-21] MEDS: fentaNYL CITRATE 1,000 MCG in NS 80 ML IV SCH (12:00)
[2021-11-21] MEDS: MIDAZOLAM INJ 2MG/2ML VIAL (J2250 PER 1MG) IV PRN ×2 (20:39→22:20)
[2021-11-21] MEDS: ATORVASTATIN 20 MG TAB PO SCH (20:48)
[2021-11-22] VITALS (23 sets, daily range): BP systolic 94–187; BP diastolic 48–87
[2021-11-22] MEDS: HumaLOG INSULIN (NovoLOG) PER UNIT SC SCH ×4 (00:08→18:21)
[2021-11-22] MEDS: IPRATROPIUM HFA INHALER 12.9 GRAMS (ATROVENT HFA) INH SCH ×4 (01:00→19:27)
[2021-11-22] MEDS: MIDAZOLAM INJ 2MG/2ML VIAL (J2250 PER 1MG) IV PRN ×11 (01:06→23:04)
[2021-11-22] MEDS: fentaNYL CITRATE 1,000 MCG in NS 80 ML IV SCH ×2 (02:35→19:10)
[2021-11-22 04:45] LABS: HEMATOCRIT 31.3 % (42.0-52.0); HEMOGLOBIN 10.5 g/dl (13.5-17.5); MEAN CORPUSCULAR HEMOGLOBIN 36.2 pg (27.0-33.0); MEAN CORPUSCULAR HGB CONC 33.5 g/dl (32.0-36.5); MEAN CORPUSCULAR VOLUME 107.9 fl (80.0-96.0); PLATELET COUNT, AUTOMATED 107 10^3/uL (150-450); WHITE BLOOD COUNT 7.4 10^3/uL (4.0-10.0)
[2021-11-22 05:04] LABS: ALBUMIN 2.6 GM/DL (3.2-5.2); ALT/SGPT 29 U/L (12-78); BILIRUBIN,TOTAL 0.6 MG/DL (0.2-1.0); BLOOD UREA NITROGEN 17 MG/DL (7-18); CALCIUM LEVEL 8.7 MG/DL (8.8-10.2); CARBON DIOXIDE LEVEL 33 MEQ/L (21-32); CHLORIDE LEVEL 105 MEQ/L (98-107); CHOLESTEROL LEVEL 104 MG/DL (< 200); CPK CREATINE PHOSPHOKINASE 163 U/L (39-308); CREATININE FOR GFR 0.39 MG/DL (0.70-1.30); GLOMERULAR FILTRATION RATE > 60.0 (>49); GLUCOSE, FASTING 113 MG/DL (70-100); LDH LACTATE DEHYDROGENASE 165 U/L (87-241); PHOSPHORUS LEVEL 3.9 MG/DL (2.5-4.9); POTASSIUM SERUM 3.7 MEQ/L (3.5-5.1); SODIUM LEVEL 142 MEQ/L (136-145); TOTAL PROTEIN 5.2 GM/DL (6.4-8.2); TRIGLYCERIDES LEVEL 165 MG/DL (<150)
[2021-11-22] MEDS: CEFEPIME HCL 2 GM in D5W MINI-BAG PLUS 50 ML IV SCH ×3 (05:32→20:34)
[2021-11-22 06:14] LABS: ABG BASE EXCESS 2.8 (-2.0-2.0); ABG HCO3 27.3 MEQ/L (22.0-26.0); ABG O2 SATURATION 95.3 % (95.0-99.0); ABG PARTIAL PRESSURE CO2 41.4 mmHg (35.0-45.0); ABG PARTIAL PRESSURE O2 78.1 mmHg (75.0-100.0); ABG TOTAL CO2 28.6 MEQ/L (23.0-31.0); ABG pH (ARTERIAL) 7.437 UNITS (7.350-7.450)
[2021-11-22] MEDS: propofoL 1,000 MG in IV 1 EA IV SCH ×3 (07:15→21:55)
[2021-11-22] MEDS: SYMBICORT 160/4.5MCG INHALER 6GM INH SCH ×2 (07:26→19:27)
[2021-11-22] MEDS ORDERED: MIRALAX *UNIT DOSE* 17GM PACKET PO SCH (09:00)
[2021-11-22] MEDS ORDERED: SENNA 8.6 MG TAB (SENOKOT) PO SCH (09:00)
[2021-11-22] MEDS ORDERED: ONDANSETRON 4MG/2ML VIAL ONE (09:23)
[2021-11-22] MEDS ORDERED: dexameTHASONE 4 MG/ML 1ML VIAL (J1100 PER 1MG) ONE (09:23)
[2021-11-22] MEDS ORDERED: ROCURONIUM BROMIDE 50 MG/5 ML VIAL ONE (09:23)
[2021-11-22] MEDS ORDERED: LIDOCAINE 2% 100MG/5ML SDV (FOR ANES.) ONE (09:23)
[2021-11-22] MEDS ORDERED: propofoL 200 MG/20 ML VIAL ONE (09:23)
[2021-11-22] MEDS ORDERED: fentaNYL 100 MCG/2 ML INJECTION ONE (09:24)
[2021-11-22] MEDS ORDERED: MIDAZOLAM INJ 2MG/2ML VIAL (J2250 PER 1MG) ONE (09:24)
[2021-11-22] MEDS ORDERED: GLYCOPYRROLATE INJ 0.2 MG/ML 2 ML VIAL ONE (09:44)
[2021-11-22] MEDS: predniSONE 20 MG TAB PO SCH (10:01)
[2021-11-22] MEDS: PANTOPRAZOLE 40MG VIAL IV SCH (10:01)
[2021-11-22] MEDS: CHLORHEXIDINE GLUCONATE 0.12 % 15ML UDC (PERIDEX ORAL RINSE) MT SCH ×2 (10:01→20:34)
[2021-11-22] MEDS: allopurinoL 100 MG TAB PO SCH (10:04)
[2021-11-22] MEDS ORDERED: OXYMETAZOLINE 0.05% NASAL SPRAY (AFRIN) As Ordered ONE (11:00)
[2021-11-22] MEDS ORDERED: LIDOCAINE W/EPINEPHRINE 1% 20ML VIAL As Ordered ONE (11:00)
[2021-11-22] MEDS ORDERED: PHENYLEPHRINE 0.5% NASAL SPRAY 15 ML As Ordered ONE (11:00)
[2021-11-22] MEDS ORDERED: METHYLENE BLUE 0.5% (5MG/ML) 10 ML AMP (PROVAYBLUE) As Ordered ONE (11:01)
[2021-11-22] MEDS ORDERED: fentaNYL 100 MCG/2 ML INJECTION IV PRN (13:25)
[2021-11-22] MEDS ORDERED: ONDANSETRON 4MG/2ML VIAL IV PRN (13:25)
[2021-11-22] MEDS ORDERED: HYDROMORPHONE HCL 0.5 MG/ 0.5 ML SYRINGE (J1170 PER 1) IV PRN (13:25)
[2021-11-22 15:16] LABS: ABG BASE EXCESS -0.2 (-2.0-2.0); ABG HCO3 21.7 MEQ/L (22.0-26.0); ABG PARTIAL PRESSURE CO2 27.1 mmHg (35.0-45.0); ABG PARTIAL PRESSURE O2 160.4 mmHg (75.0-100.0); ABG STANDARD HCO3 24.4 MEQ/L (22.0-26.0); ABG TOTAL CO2 22.5 MEQ/L (23.0-31.0); ABG pH (ARTERIAL) 7.521 UNITS (7.350-7.450)
[2021-11-22 17:17] LABS: ABG BASE EXCESS 2.4 (-2.0-2.0); ABG HCO3 26.8 MEQ/L (22.0-26.0); ABG O2 SATURATION 97.7 % (95.0-99.0); ABG PARTIAL PRESSURE O2 101.8 mmHg (75.0-100.0); ABG STANDARD HCO3 26.6 MEQ/L (22.0-26.0); ABG TOTAL CO2 28.1 MEQ/L (23.0-31.0); ABG pH (ARTERIAL) 7.434 UNITS (7.350-7.450)
[2021-11-22] MEDS: SENNA 8.6 MG TAB (SENOKOT) GT SCH (20:34)
[2021-11-22] MEDS ORDERED: ATORVASTATIN 20 MG TAB GT SCH (21:00)
[2021-11-23] VITALS (23 sets, daily range): BP systolic 110–165; BP diastolic 53–78
[2021-11-23] MEDS: IPRATROPIUM HFA INHALER 12.9 GRAMS (ATROVENT HFA) INH SCH ×3 (00:23→14:00)
[2021-11-23] MEDS: MIDAZOLAM INJ 2MG/2ML VIAL (J2250 PER 1MG) IV PRN ×2 (01:30→04:57)
[2021-11-23] MEDS: propofoL 1,000 MG in IV 1 EA IV SCH (02:54)
[2021-11-23] MEDS: CEFEPIME HCL 2 GM in D5W MINI-BAG PLUS 50 ML IV SCH ×3 (05:06→20:37)
[2021-11-23 05:24] LABS: HEMATOCRIT 32.9 % (42.0-52.0); HEMOGLOBIN 10.9 g/dl (13.5-17.5); MEAN CORPUSCULAR HEMOGLOBIN 35.9 pg (27.0-33.0); MEAN CORPUSCULAR HGB CONC 33.1 g/dl (32.0-36.5); MEAN CORPUSCULAR VOLUME 108.2 fl (80.0-96.0); PLATELET COUNT, AUTOMATED 105 10^3/uL (150-450); RED BLOOD COUNT 3.04 10^6/uL (4.30-6.10); WHITE BLOOD COUNT 9.5 10^3/uL (4.0-10.0)
[2021-11-23 05:52] LABS: ALBUMIN 2.5 GM/DL (3.2-5.2); ALT/SGPT 30 U/L (12-78); BILIRUBIN,TOTAL 0.8 MG/DL (0.2-1.0); BLOOD UREA NITROGEN 17 MG/DL (7-18); CALCIUM LEVEL 8.6 MG/DL (8.8-10.2); CARBON DIOXIDE LEVEL 33 MEQ/L (21-32); CHLORIDE LEVEL 102 MEQ/L (98-107); CHOLESTEROL LEVEL 115 MG/DL (< 200); CPK CREATINE PHOSPHOKINASE 30 U/L (39-308); CREATININE FOR GFR 0.55 MG/DL (0.70-1.30); GLOMERULAR FILTRATION RATE > 60.0 (>49); GLUCOSE, FASTING 194 MG/DL (70-100); LDH LACTATE DEHYDROGENASE 142 U/L (87-241); PHOSPHORUS LEVEL 3.5 MG/DL (2.5-4.9); POTASSIUM SERUM 3.6 MEQ/L (3.5-5.1); SODIUM LEVEL 139 MEQ/L (136-145); TOTAL PROTEIN 5.8 GM/DL (6.4-8.2); TRIGLYCERIDES LEVEL 292 MG/DL (<150)
[2021-11-23] MEDS: HumaLOG INSULIN (NovoLOG) PER UNIT SC SCH ×5 (06:04→20:37)
[2021-11-23 06:14] LABS: ABG BASE EXCESS 4.6 (-2.0-2.0); ABG HCO3 29.6 MEQ/L (22.0-26.0); ABG O2 SATURATION 96.4 % (95.0-99.0); ABG PARTIAL PRESSURE CO2 45.7 mmHg (35.0-45.0); ABG PARTIAL PRESSURE O2 86.7 mmHg (75.0-100.0); ABG STANDARD HCO3 28.6 MEQ/L (22.0-26.0); ABG pH (ARTERIAL) 7.429 UNITS (7.350-7.450)
[2021-11-23] MEDS: fentaNYL CITRATE 1,000 MCG in NS 80 ML IV SCH (07:05)
[2021-11-23] MEDS: SYMBICORT 160/4.5MCG INHALER 6GM INH SCH (07:42)
[2021-11-23] MEDS: PANTOPRAZOLE 40MG VIAL IV SCH (08:05)
[2021-11-23] MEDS: SENNA 8.6 MG TAB (SENOKOT) GT SCH (08:05)
[2021-11-23] MEDS: CHLORHEXIDINE GLUCONATE 0.12 % 15ML UDC (PERIDEX ORAL RINSE) MT SCH (08:05)
[2021-11-23] MEDS ORDERED: MIRALAX *UNIT DOSE* 17GM PACKET GT SCH (09:00)
[2021-11-23] MEDS ORDERED: predniSONE 20 MG TAB GT SCH (09:00)
[2021-11-23] MEDS ORDERED: ASPIRIN 81 MG CHEW TABLET NG SCH (09:00)
[2021-11-23] MEDS ORDERED: allopurinoL 100 MG TAB GT SCH (09:00)
[2021-11-23] MEDS: GABAPENTIN 300 MG CAP PO SCH ×2 (10:22→20:38)
[2021-11-23] MEDS: SERTRALINE HCL 50 MG TAB PO SCH (10:22)
[2021-11-23] MEDS: ISOSORBIDE MONONITRATE 10MG TABLET PO SCH ×2 (10:57→15:30)
[2021-11-23] MEDS ORDERED: VARIBAR PUDDING 40% w/v 230ML TUBE As Ordered ONE (13:07)
[2021-11-23] MEDS ORDERED: VARIBAR NECTAR 40% w/v 240ML SUSP BTL As Ordered ONE (13:08)
[2021-11-23] MEDS ORDERED: E-Z-PAQUE 96% w/w SUSP 176GM BTL As Ordered ONE (13:08)
[2021-11-23] MEDS: BUDESONIDE 0.25 MG/2 ML INHALATION SUSPENSION INH SCH (20:26)
[2021-11-23] MEDS: IPRATROPIUM 0.5MG/ALBUTEROL 2.5MG INH SOL UD 3ML (DUONEB) NEB SCH (20:26)
[2021-11-23] MEDS: ATORVASTATIN 20 MG TAB PO SCH (20:38)
[2021-11-23] MEDS: SENNA 8.6 MG TAB (SENOKOT) PO SCH (20:38)
[2021-11-24] VITALS (15 sets, daily range): BP systolic 116–159; BP diastolic 56–75
[2021-11-24] MEDS: IPRATROPIUM 0.5MG/ALBUTEROL 2.5MG INH SOL UD 3ML (DUONEB) NEB SCH ×4 (01:15→19:31)
[2021-11-24] MEDS: ACETAMINOPHEN TAB 650MG DOSE (2X325MG) GT PRN (01:32)
[2021-11-24 05:38] LABS: HEMATOCRIT 32.8 % (42.0-52.0); MEAN CORPUSCULAR HEMOGLOBIN 35.6 pg (27.0-33.0); MEAN CORPUSCULAR HGB CONC 33.5 g/dl (32.0-36.5); MEAN CORPUSCULAR VOLUME 106.1 fl (80.0-96.0); PLATELET COUNT, AUTOMATED 104 10^3/uL (150-450); RED BLOOD COUNT 3.09 10^6/uL (4.30-6.10)
[2021-11-24 06:02] LABS: ALBUMIN 2.6 GM/DL (3.2-5.2); ALT/SGPT 27 U/L (12-78); BILIRUBIN,TOTAL 1.1 MG/DL (0.2-1.0); BLOOD UREA NITROGEN 14 MG/DL (7-18); CALCIUM LEVEL 8.6 MG/DL (8.8-10.2); CARBON DIOXIDE LEVEL 32 MEQ/L (21-32); CHLORIDE LEVEL 101 MEQ/L (98-107); CHOLESTEROL LEVEL 113 MG/DL (< 200); CPK CREATINE PHOSPHOKINASE 32 U/L (39-308); CREATININE FOR GFR 0.66 MG/DL (0.70-1.30); GLOMERULAR FILTRATION RATE > 60.0 (>49); GLUCOSE, FASTING 283 MG/DL (70-100); LDH LACTATE DEHYDROGENASE 182 U/L (87-241); PHOSPHORUS LEVEL 2.9 MG/DL (2.5-4.9); POTASSIUM SERUM 3.5 MEQ/L (3.5-5.1); SODIUM LEVEL 137 MEQ/L (136-145); TRIGLYCERIDES LEVEL 249 MG/DL (<150)
[2021-11-24] MEDS: BUDESONIDE 0.25 MG/2 ML INHALATION SUSPENSION INH SCH ×2 (07:41→19:31)
[2021-11-24] MEDS ORDERED: POTASSIUM CHLORIDE 10% LIQ 20 MEQ/15 ML UDC PO ONE (08:15)
[2021-11-24] MEDS: HumaLOG INSULIN (NovoLOG) PER UNIT SC SCH ×4 (08:21→20:29)
[2021-11-24] MEDS: SERTRALINE HCL 50 MG TAB PO SCH (08:27)
[2021-11-24] MEDS: GABAPENTIN 300 MG CAP PO SCH ×2 (08:27→20:29)
[2021-11-24] MEDS: cefTRIAXone SOD 1 GM in D5W MINI-BAG PLUS 50 ML IV SCH (08:27)
[2021-11-24] MEDS: ASPIRIN 81 MG CHEW TABLET PO SCH (08:28)
[2021-11-24] MEDS: ISOSORBIDE MONONITRATE 10MG TABLET PO SCH ×2 (08:28→15:07)
[2021-11-24] MEDS: MIRALAX *UNIT DOSE* 17GM PACKET PO SCH (08:28)
[2021-11-24] MEDS: SENNA 8.6 MG TAB (SENOKOT) PO SCH ×2 (08:29→20:28)
[2021-11-24] MEDS: predniSONE 20 MG TAB PO SCH (08:29)
[2021-11-24] MEDS: PANTOPRAZOLE 40MG TAB (PROTONIX) PO SCH (08:29)
[2021-11-24] MEDS: allopurinoL 100 MG TAB PO SCH (08:29)
[2021-11-24] MEDS: ENOXAPARIN 40MG/0.4ML SYRINGE (J1650 PER 10MG) SC SCH (10:39)
[2021-11-24] MEDS: CLOPIDOGREL 75 MG TAB PO SCH (10:40)
[2021-11-24] MEDS: FLUCONAZOLE 200 MG in IV 1 EA IV SCH (17:51)
[2021-11-24] MEDS: ATORVASTATIN 20 MG TAB PO SCH (20:28)
[2021-11-24] MEDS: LEVEMIR (INSULIN DETEMIR) 1 UNITS/0.01ML SC SCH (20:29)
[2021-11-24] MEDS: RAMELTEON 8 MG TAB (ROZEREM) PO PRN (21:58)
[2021-11-25] VITALS (9 sets, daily range): BP systolic 110–164; BP diastolic 56–86; O2SAT 93
[2021-11-25] MEDS: IPRATROPIUM 0.5MG/ALBUTEROL 2.5MG INH SOL UD 3ML (DUONEB) NEB SCH ×4 (00:17→20:03)
[2021-11-25 05:00] LABS: HEMATOCRIT 31.9 % (42.0-52.0); HEMOGLOBIN 10.8 g/dl (13.5-17.5); MEAN CORPUSCULAR HEMOGLOBIN 36.1 pg (27.0-33.0); MEAN CORPUSCULAR HGB CONC 33.9 g/dl (32.0-36.5); MEAN CORPUSCULAR VOLUME 106.7 fl (80.0-96.0); PLATELET COUNT, AUTOMATED 104 10^3/uL (150-450); RED BLOOD COUNT 2.99 10^6/uL (4.30-6.10); WHITE BLOOD COUNT 11.7 10^3/uL (4.0-10.0)
[2021-11-25 05:25] LABS: ALBUMIN 2.7 GM/DL (3.2-5.2); ALT/SGPT 25 U/L (12-78); BILIRUBIN,TOTAL 1.2 MG/DL (0.2-1.0); BLOOD UREA NITROGEN 13 MG/DL (7-18); CALCIUM LEVEL 8.4 MG/DL (8.8-10.2); CARBON DIOXIDE LEVEL 33 MEQ/L (21-32); CHLORIDE LEVEL 101 MEQ/L (98-107); CHOLESTEROL LEVEL 102 MG/DL (< 200); CPK CREATINE PHOSPHOKINASE 19 U/L (39-308); CREATININE FOR GFR 0.61 MG/DL (0.70-1.30); GLOMERULAR FILTRATION RATE > 60.0 (>49); GLUCOSE, FASTING 272 MG/DL (70-100); LDH LACTATE DEHYDROGENASE 187 U/L (87-241); PHOSPHORUS LEVEL 3.4 MG/DL (2.5-4.9); SODIUM LEVEL 138 MEQ/L (136-145); TOTAL PROTEIN 5.6 GM/DL (6.4-8.2); TRIGLYCERIDES LEVEL 158 MG/DL (<150)
[2021-11-25] MEDS: BUDESONIDE 0.25 MG/2 ML INHALATION SUSPENSION INH SCH ×2 (07:24→20:03)
[2021-11-25] MEDS: MIRALAX *UNIT DOSE* 17GM PACKET PO SCH (08:19)
[2021-11-25] MEDS: ENOXAPARIN 40MG/0.4ML SYRINGE (J1650 PER 10MG) SC SCH (08:19)
[2021-11-25] MEDS: SENNA 8.6 MG TAB (SENOKOT) PO SCH ×2 (08:19→21:00)
[2021-11-25] MEDS: ISOSORBIDE MONONITRATE 10MG TABLET PO SCH ×2 (08:20→15:49)
[2021-11-25] MEDS: SERTRALINE HCL 50 MG TAB PO SCH (08:20)
[2021-11-25] MEDS: PANTOPRAZOLE 40MG TAB (PROTONIX) PO SCH (08:21)
[2021-11-25] MEDS: allopurinoL 100 MG TAB PO SCH (08:21)
[2021-11-25] MEDS: predniSONE 20 MG TAB PO SCH (08:21)
[2021-11-25] MEDS: cefTRIAXone SOD 1 GM in D5W MINI-BAG PLUS 50 ML IV SCH (08:21)
[2021-11-25] MEDS: ASPIRIN 81 MG CHEW TABLET PO SCH (08:21)
[2021-11-25] MEDS: GABAPENTIN 300 MG CAP PO SCH ×2 (08:21→21:50)
[2021-11-25] MEDS: CLOPIDOGREL 75 MG TAB PO SCH (08:21)
[2021-11-25] MEDS: HumaLOG INSULIN (NovoLOG) PER UNIT SC SCH ×4 (08:23→21:50)
[2021-11-25] MEDS ORDERED: LEVEMIR (INSULIN DETEMIR) 1 UNITS/0.01ML SC SCH (09:00)
[2021-11-25] MEDS ORDERED: LACTULOSE 20 GM/30 ML SYRUP UD PO ONE (09:00)
[2021-11-25] MEDS ORDERED: ENOXAPARIN 40MG/0.4ML SYRINGE (J1650 PER 10MG) SC SCH (09:00)
[2021-11-25] MEDS: FLUCONAZOLE 200 MG in IV 1 EA IV SCH (17:20)
[2021-11-25] MEDS: ATORVASTATIN 20 MG TAB PO SCH (21:50)
[2021-11-25] MEDS: RAMELTEON 8 MG TAB (ROZEREM) PO PRN (21:50)
[2021-11-25] MEDS: LEVEMIR (INSULIN DETEMIR) 1 UNITS/0.01ML SC SCH (21:50)
[2021-11-26] VITALS (11 sets, daily range): BP systolic 136–155; BP diastolic 68–70; O2SAT 88–97
[2021-11-26] MEDS: IPRATROPIUM 0.5MG/ALBUTEROL 2.5MG INH SOL UD 3ML (DUONEB) NEB SCH ×4 (00:51→19:24)
[2021-11-26 06:00] LABS: HEMATOCRIT 31.2 % (42.0-52.0); HEMOGLOBIN 10.2 g/dl (13.5-17.5); MEAN CORPUSCULAR HEMOGLOBIN 35.3 pg (27.0-33.0); MEAN CORPUSCULAR HGB CONC 32.7 g/dl (32.0-36.5); PLATELET COUNT, AUTOMATED 106 10^3/uL (150-450); RED BLOOD COUNT 2.89 10^6/uL (4.30-6.10); WHITE BLOOD COUNT 9.6 10^3/uL (4.0-10.0)
[2021-11-26 06:31] LABS: ALBUMIN 2.8 GM/DL (3.2-5.2); ALT/SGPT 28 U/L (12-78); BILIRUBIN,TOTAL 0.6 MG/DL (0.2-1.0); BLOOD UREA NITROGEN 12 MG/DL (7-18); CARBON DIOXIDE LEVEL 37 MEQ/L (21-32); CHLORIDE LEVEL 104 MEQ/L (98-107); CHOLESTEROL LEVEL 105 MG/DL (< 200); CPK CREATINE PHOSPHOKINASE 23 U/L (39-308); CREATININE FOR GFR 0.49 MG/DL (0.70-1.30); GLOMERULAR FILTRATION RATE > 60.0 (>49); GLUCOSE, FASTING 155 MG/DL (70-100); LDH LACTATE DEHYDROGENASE 197 U/L (87-241); PHOSPHORUS LEVEL 4.2 MG/DL (2.5-4.9); POTASSIUM SERUM 3.9 MEQ/L (3.5-5.1); SODIUM LEVEL 143 MEQ/L (136-145); TOTAL PROTEIN 5.8 GM/DL (6.4-8.2); TRIGLYCERIDES LEVEL 156 MG/DL (<150)
[2021-11-26] MEDS: BUDESONIDE 0.25 MG/2 ML INHALATION SUSPENSION INH SCH ×2 (07:32→19:24)
[2021-11-26] MEDS: ISOSORBIDE MONONITRATE 10MG TABLET PO SCH ×2 (08:47→16:14)
[2021-11-26] MEDS: ASPIRIN 81 MG CHEW TABLET PO SCH (08:47)
[2021-11-26] MEDS: ENOXAPARIN 40MG/0.4ML SYRINGE (J1650 PER 10MG) SC SCH (08:47)
[2021-11-26] MEDS: GABAPENTIN 300 MG CAP PO SCH ×2 (08:48→20:26)
[2021-11-26] MEDS: allopurinoL 100 MG TAB PO SCH (08:48)
[2021-11-26] MEDS: CLOPIDOGREL 75 MG TAB PO SCH (08:49)
[2021-11-26] MEDS: SERTRALINE HCL 50 MG TAB PO SCH (08:50)
[2021-11-26] MEDS: predniSONE 10 MG TAB PO SCH (08:51)
[2021-11-26] MEDS: PANTOPRAZOLE 40MG TAB (PROTONIX) PO SCH (08:51)
[2021-11-26] MEDS: HumaLOG INSULIN (NovoLOG) PER UNIT SC SCH ×4 (08:52→20:29)
[2021-11-26] MEDS: SENNA 8.6 MG TAB (SENOKOT) PO SCH ×2 (08:52→20:25)
[2021-11-26] MEDS: MIRALAX *UNIT DOSE* 17GM PACKET PO SCH (08:52)
[2021-11-26] MEDS ORDERED: LEVEMIR (INSULIN DETEMIR) 1 UNITS/0.01ML SC SCH (09:00)
[2021-11-26] MEDS: FLUCONAZOLE 200 MG in IV 1 EA IV SCH (17:33)
[2021-11-26] MEDS: ATORVASTATIN 20 MG TAB PO SCH (20:26)
[2021-11-26] MEDS: LEVEMIR (INSULIN DETEMIR) 1 UNITS/0.01ML SC SCH (20:28)
[2021-11-27] VITALS (14 sets, daily range): BP systolic 120–145; BP diastolic 60–78; O2SAT 82–97
[2021-11-27] MEDS: IPRATROPIUM 0.5MG/ALBUTEROL 2.5MG INH SOL UD 3ML (DUONEB) NEB SCH ×4 (01:13→19:39)
[2021-11-27 06:26] LABS: HEMATOCRIT 29.2 % (42.0-52.0); HEMOGLOBIN 9.6 g/dl (13.5-17.5); MEAN CORPUSCULAR HEMOGLOBIN 35.2 pg (27.0-33.0); MEAN CORPUSCULAR HGB CONC 32.9 g/dl (32.0-36.5); PLATELET COUNT, AUTOMATED 117 10^3/uL (150-450); RED BLOOD COUNT 2.73 10^6/uL (4.30-6.10); WHITE BLOOD COUNT 8.5 10^3/uL (4.0-10.0)
[2021-11-27 06:56] LABS: ALBUMIN 2.5 GM/DL (3.2-5.2); ALT/SGPT 45 U/L (12-78); BILIRUBIN,TOTAL 1.1 MG/DL (0.2-1.0); BLOOD UREA NITROGEN 11 MG/DL (7-18); CALCIUM LEVEL 8.8 MG/DL (8.8-10.2); CARBON DIOXIDE LEVEL 35 MEQ/L (21-32); CHLORIDE LEVEL 103 MEQ/L (98-107); CHOLESTEROL LEVEL 100 MG/DL (< 200); CPK CREATINE PHOSPHOKINASE 17 U/L (39-308); CREATININE FOR GFR 0.54 MG/DL (0.70-1.30); GLOMERULAR FILTRATION RATE > 60.0 (>49); GLUCOSE, FASTING 117 MG/DL (70-100); LDH LACTATE DEHYDROGENASE 189 U/L (87-241); PHOSPHORUS LEVEL 4.1 MG/DL (2.5-4.9); SODIUM LEVEL 140 MEQ/L (136-145); TOTAL PROTEIN 5.3 GM/DL (6.4-8.2); TRIGLYCERIDES LEVEL 131 MG/DL (<150)
[2021-11-27] MEDS: BUDESONIDE 0.25 MG/2 ML INHALATION SUSPENSION INH SCH ×2 (07:26→19:39)
[2021-11-27] MEDS: HumaLOG INSULIN (NovoLOG) PER UNIT SC SCH ×4 (07:30→20:04)
[2021-11-27] MEDS: GABAPENTIN 300 MG CAP PO SCH ×2 (08:08→20:03)
[2021-11-27] MEDS: predniSONE 10 MG TAB PO SCH (08:09)
[2021-11-27] MEDS: ASPIRIN 81 MG CHEW TABLET PO SCH (08:09)
[2021-11-27] MEDS: ISOSORBIDE MONONITRATE 10MG TABLET PO SCH ×2 (08:09→15:59)
[2021-11-27] MEDS: SERTRALINE HCL 50 MG TAB PO SCH (08:11)
[2021-11-27] MEDS: allopurinoL 100 MG TAB PO SCH (08:11)
[2021-11-27] MEDS: CLOPIDOGREL 75 MG TAB PO SCH (08:11)
[2021-11-27] MEDS: PANTOPRAZOLE 40MG TAB (PROTONIX) PO SCH (08:11)
[2021-11-27] MEDS: MIRALAX *UNIT DOSE* 17GM PACKET PO SCH (08:12)
[2021-11-27] MEDS: ENOXAPARIN 40MG/0.4ML SYRINGE (J1650 PER 10MG) SC SCH (08:12)
[2021-11-27] MEDS: SENNA 8.6 MG TAB (SENOKOT) PO SCH ×2 (08:12→20:03)
[2021-11-27] MEDS: LEVEMIR (INSULIN DETEMIR) 1 UNITS/0.01ML SC SCH ×2 (08:12→20:04)
[2021-11-27] MEDS: FLUCONAZOLE 200 MG in IV 1 EA IV SCH (18:12)
[2021-11-27] MEDS: ATORVASTATIN 20 MG TAB PO SCH (20:03)
[2021-11-28] VITALS (17 sets, daily range): BP systolic 123–146; BP diastolic 60–75; O2SAT 92–99
[2021-11-28] MEDS: IPRATROPIUM 0.5MG/ALBUTEROL 2.5MG INH SOL UD 3ML (DUONEB) NEB SCH ×4 (02:22→19:56)
[2021-11-28] MEDS: BUDESONIDE 0.25 MG/2 ML INHALATION SUSPENSION INH SCH ×2 (07:10→19:56)
[2021-11-28 07:17] LABS: HEMATOCRIT 29.2 % (42.0-52.0); HEMOGLOBIN 9.7 g/dl (13.5-17.5); MEAN CORPUSCULAR HEMOGLOBIN 35.4 pg (27.0-33.0); MEAN CORPUSCULAR HGB CONC 33.2 g/dl (32.0-36.5); MEAN CORPUSCULAR VOLUME 106.6 fl (80.0-96.0); PLATELET COUNT, AUTOMATED 127 10^3/uL (150-450); RED BLOOD COUNT 2.74 10^6/uL (4.30-6.10); WHITE BLOOD COUNT 9.1 10^3/uL (4.0-10.0)
[2021-11-28 07:44] LABS: ALBUMIN 2.5 GM/DL (3.2-5.2); ALT/SGPT 64 U/L (12-78); BILIRUBIN,TOTAL 1.1 MG/DL (0.2-1.0); BLOOD UREA NITROGEN 9 MG/DL (7-18); CARBON DIOXIDE LEVEL 34 MEQ/L (21-32); CHLORIDE LEVEL 101 MEQ/L (98-107); CHOLESTEROL LEVEL 91 MG/DL (< 200); CPK CREATINE PHOSPHOKINASE 17 U/L (39-308); CREATININE FOR GFR 0.57 MG/DL (0.70-1.30); GLOMERULAR FILTRATION RATE > 60.0 (>49); GLUCOSE, FASTING 150 MG/DL (70-100); LDH LACTATE DEHYDROGENASE 181 U/L (87-241); PHOSPHORUS LEVEL 4.4 MG/DL (2.5-4.9); POTASSIUM SERUM 3.9 MEQ/L (3.5-5.1); SODIUM LEVEL 138 MEQ/L (136-145); TOTAL PROTEIN 6.5 GM/DL (6.4-8.2); TRIGLYCERIDES LEVEL 121 MG/DL (<150)
[2021-11-28] MEDS: HumaLOG INSULIN (NovoLOG) PER UNIT SC SCH ×4 (08:58→21:00)
[2021-11-28] MEDS: LEVEMIR (INSULIN DETEMIR) 1 UNITS/0.01ML SC SCH ×2 (08:58→21:08)
[2021-11-28] MEDS: ENOXAPARIN 40MG/0.4ML SYRINGE (J1650 PER 10MG) SC SCH (08:59)
[2021-11-28] MEDS: GABAPENTIN 300 MG CAP PO SCH ×2 (08:59→21:07)
[2021-11-28] MEDS: ISOSORBIDE MONONITRATE 10MG TABLET PO SCH ×2 (08:59→15:21)
[2021-11-28] MEDS: ASPIRIN 81 MG CHEW TABLET PO SCH (08:59)
[2021-11-28] MEDS: SERTRALINE HCL 50 MG TAB PO SCH (09:00)
[2021-11-28] MEDS: SENNA 8.6 MG TAB (SENOKOT) PO SCH ×2 (09:00→21:08)
[2021-11-28] MEDS: allopurinoL 100 MG TAB PO SCH (09:00)
[2021-11-28] MEDS: MIRALAX *UNIT DOSE* 17GM PACKET PO SCH (09:00)
[2021-11-28] MEDS: predniSONE 10 MG TAB PO SCH (09:00)
[2021-11-28] MEDS: PANTOPRAZOLE 40MG TAB (PROTONIX) PO SCH (09:00)
[2021-11-28] MEDS: CLOPIDOGREL 75 MG TAB PO SCH (09:00)
[2021-11-28] MEDS: MEROPENEM INJ 1 GM in IV 1 EA IV SCH ×2 (13:16→21:09)
[2021-11-28] MEDS: FLUCONAZOLE 200 MG in IV 1 EA IV SCH (18:00)
[2021-11-28] MEDS: ATORVASTATIN 20 MG TAB PO SCH (21:07)
[2021-11-29] VITALS (15 sets, daily range): BP systolic 110–154; BP diastolic 63–73; O2SAT 86–97
[2021-11-29] MEDS: IPRATROPIUM 0.5MG/ALBUTEROL 2.5MG INH SOL UD 3ML (DUONEB) NEB SCH ×4 (01:17→19:48)
[2021-11-29] MEDS: MEROPENEM INJ 1 GM in IV 1 EA IV SCH ×3 (04:32→21:57)
[2021-11-29 06:36] LABS: HEMOGLOBIN 9.2 g/dl (13.5-17.5); MEAN CORPUSCULAR HEMOGLOBIN 36.4 pg (27.0-33.0); MEAN CORPUSCULAR HGB CONC 34.1 g/dl (32.0-36.5); MEAN CORPUSCULAR VOLUME 106.7 fl (80.0-96.0); PLATELET COUNT, AUTOMATED 128 10^3/uL (150-450); RED BLOOD COUNT 2.53 10^6/uL (4.30-6.10); WHITE BLOOD COUNT 10.9 10^3/uL (4.0-10.0)
[2021-11-29 07:13] LABS: ALBUMIN 2.4 GM/DL (3.2-5.2); ALT/SGPT 71 U/L (12-78); BILIRUBIN,TOTAL 0.7 MG/DL (0.2-1.0); BLOOD UREA NITROGEN 11 MG/DL (7-18); CALCIUM LEVEL 8.8 MG/DL (8.8-10.2); CARBON DIOXIDE LEVEL 34 MEQ/L (21-32); CHLORIDE LEVEL 100 MEQ/L (98-107); CHOLESTEROL LEVEL 91 MG/DL (< 200); CPK CREATINE PHOSPHOKINASE 14 U/L (39-308); GLOMERULAR FILTRATION RATE > 60.0 (>49); GLUCOSE, FASTING 238 MG/DL (70-100); LDH LACTATE DEHYDROGENASE 173 U/L (87-241); PHOSPHORUS LEVEL 3.5 MG/DL (2.5-4.9); POTASSIUM SERUM 4.1 MEQ/L (3.5-5.1); SODIUM LEVEL 135 MEQ/L (136-145); TOTAL PROTEIN 6.3 GM/DL (6.4-8.2); TRIGLYCERIDES LEVEL 130 MG/DL (<150)
[2021-11-29] MEDS: BUDESONIDE 0.25 MG/2 ML INHALATION SUSPENSION INH SCH ×2 (07:43→19:48)
[2021-11-29] MEDS: MIRALAX *UNIT DOSE* 17GM PACKET PO SCH (09:00)
[2021-11-29] MEDS: SENNA 8.6 MG TAB (SENOKOT) PO SCH (09:00)
[2021-11-29] MEDS ORDERED: SENNA 8.6 MG TAB (SENOKOT) PO PRN (09:45)
[2021-11-29] MEDS: ENOXAPARIN 40MG/0.4ML SYRINGE (J1650 PER 10MG) SC SCH (09:48)
[2021-11-29] MEDS: LEVEMIR (INSULIN DETEMIR) 1 UNITS/0.01ML SC SCH ×2 (09:48→22:03)
[2021-11-29] MEDS: HumaLOG INSULIN (NovoLOG) PER UNIT SC SCH ×4 (09:48→20:24)
[2021-11-29] MEDS: allopurinoL 100 MG TAB PO SCH (09:49)
[2021-11-29] MEDS: predniSONE 5 MG TAB PO SCH (09:49)
[2021-11-29] MEDS: ASPIRIN 81 MG CHEW TABLET PO SCH (09:49)
[2021-11-29] MEDS: CLOPIDOGREL 75 MG TAB PO SCH (09:49)
[2021-11-29] MEDS: PANTOPRAZOLE 40MG TAB (PROTONIX) PO SCH (09:49)
[2021-11-29] MEDS: GABAPENTIN 300 MG CAP PO SCH ×2 (09:49→21:58)
[2021-11-29] MEDS: ISOSORBIDE MONONITRATE 10MG TABLET PO SCH ×2 (09:50→16:08)
[2021-11-29] MEDS: SERTRALINE HCL 50 MG TAB PO SCH (09:50)
[2021-11-29] MEDS: FLUCONAZOLE 100 MG TAB PO SCH (11:25)
[2021-11-29] MEDS: ACETAMINOPHEN TAB 650MG DOSE (2X325MG) GT PRN (21:59)
[2021-11-29] MEDS: ATORVASTATIN 20 MG TAB PO SCH (22:00)
[2021-11-30] VITALS (28 sets, daily range): BP systolic 123–144; BP diastolic 59–81; O2SAT 80–97
[2021-11-30] MEDS: IPRATROPIUM 0.5MG/ALBUTEROL 2.5MG INH SOL UD 3ML (DUONEB) NEB SCH ×4 (01:41→19:37)
[2021-11-30] MEDS: MEROPENEM INJ 1 GM in IV 1 EA IV SCH ×3 (04:00→20:06)
[2021-11-30 06:21] LABS: HEMATOCRIT 28.2 % (42.0-52.0); HEMOGLOBIN 9.3 g/dl (13.5-17.5); MEAN CORPUSCULAR HEMOGLOBIN 35.8 pg (27.0-33.0); MEAN CORPUSCULAR VOLUME 108.5 fl (80.0-96.0); PLATELET COUNT, AUTOMATED 143 10^3/uL (150-450); WHITE BLOOD COUNT 10.6 10^3/uL (4.0-10.0)
[2021-11-30 06:43] LABS: ALBUMIN 2.5 GM/DL (3.2-5.2); ALT/SGPT 73 U/L (12-78); BILIRUBIN,TOTAL 0.4 MG/DL (0.2-1.0); BLOOD UREA NITROGEN 13 MG/DL (7-18); CALCIUM LEVEL 8.8 MG/DL (8.8-10.2); CARBON DIOXIDE LEVEL 36 MEQ/L (21-32); CHLORIDE LEVEL 104 MEQ/L (98-107); CHOLESTEROL LEVEL 88 MG/DL (< 200); CPK CREATINE PHOSPHOKINASE 19 U/L (39-308); CREATININE FOR GFR 0.47 MG/DL (0.70-1.30); GLOMERULAR FILTRATION RATE > 60.0 (>49); GLUCOSE, FASTING 99 MG/DL (70-100); LDH LACTATE DEHYDROGENASE 215 U/L (87-241); POTASSIUM SERUM 3.8 MEQ/L (3.5-5.1); SODIUM LEVEL 142 MEQ/L (136-145); TOTAL PROTEIN 5.6 GM/DL (6.4-8.2); TRIGLYCERIDES LEVEL 127 MG/DL (<150)
[2021-11-30] MEDS: HumaLOG INSULIN (NovoLOG) PER UNIT SC SCH ×4 (07:30→20:06)
[2021-11-30] MEDS: BUDESONIDE 0.25 MG/2 ML INHALATION SUSPENSION INH SCH ×2 (08:20→19:38)
[2021-11-30] MEDS: MIRALAX *UNIT DOSE* 17GM PACKET PO SCH (09:00)
[2021-11-30] MEDS: CLOPIDOGREL 75 MG TAB PO SCH (09:54)
[2021-11-30] MEDS: ASPIRIN 81 MG CHEW TABLET PO SCH (09:54)
[2021-11-30] MEDS: GABAPENTIN 300 MG CAP PO SCH ×2 (09:55→20:08)
[2021-11-30] MEDS: SERTRALINE HCL 50 MG TAB PO SCH (09:55)
[2021-11-30] MEDS: PANTOPRAZOLE 40MG TAB (PROTONIX) PO SCH (09:56)
[2021-11-30] MEDS: predniSONE 5 MG TAB PO SCH (09:56)
[2021-11-30] MEDS: allopurinoL 100 MG TAB PO SCH (09:57)
[2021-11-30] MEDS: ISOSORBIDE MONONITRATE 10MG TABLET PO SCH ×2 (09:57→15:26)
[2021-11-30] MEDS: FLUCONAZOLE 100 MG TAB PO SCH (09:57)
[2021-11-30] MEDS: LEVEMIR (INSULIN DETEMIR) 1 UNITS/0.01ML SC SCH ×2 (09:58→20:07)
[2021-11-30] MEDS: ENOXAPARIN 40MG/0.4ML SYRINGE (J1650 PER 10MG) SC SCH (09:58)
[2021-11-30] MEDS: ATORVASTATIN 20 MG TAB PO SCH (20:07)
[2021-12-01] VITALS (18 sets, daily range): BP systolic 109–150; BP diastolic 61–79; O2SAT 94–99
[2021-12-01] MEDS: IPRATROPIUM 0.5MG/ALBUTEROL 2.5MG INH SOL UD 3ML (DUONEB) NEB SCH ×4 (02:00→19:31)
[2021-12-01] MEDS: MEROPENEM INJ 1 GM in IV 1 EA IV SCH ×3 (04:13→21:37)
[2021-12-01 05:41] LABS: HEMATOCRIT 29.7 % (42.0-52.0); HEMOGLOBIN 9.7 g/dl (13.5-17.5); MEAN CORPUSCULAR HEMOGLOBIN 34.9 pg (27.0-33.0); MEAN CORPUSCULAR HGB CONC 32.7 g/dl (32.0-36.5); MEAN CORPUSCULAR VOLUME 106.8 fl (80.0-96.0); PLATELET COUNT, AUTOMATED 161 10^3/uL (150-450); RED BLOOD COUNT 2.78 10^6/uL (4.30-6.10); WHITE BLOOD COUNT 8.8 10^3/uL (4.0-10.0)
[2021-12-01 06:08] LABS: ALBUMIN 2.7 GM/DL (3.2-5.2); ALT/SGPT 80 U/L (12-78); BILIRUBIN,TOTAL 0.5 MG/DL (0.2-1.0); BLOOD UREA NITROGEN 12 MG/DL (7-18); CALCIUM LEVEL 9.3 MG/DL (8.8-10.2); CARBON DIOXIDE LEVEL 31 MEQ/L (21-32); CHLORIDE LEVEL 103 MEQ/L (98-107); CHOLESTEROL LEVEL 93 MG/DL (< 200); CPK CREATINE PHOSPHOKINASE 21 U/L (39-308); CREATININE FOR GFR 0.52 MG/DL (0.70-1.30); GLOMERULAR FILTRATION RATE > 60.0 (>49); GLUCOSE, FASTING 129 MG/DL (70-100); LDH LACTATE DEHYDROGENASE 193 U/L (87-241); PHOSPHORUS LEVEL 3.9 MG/DL (2.5-4.9); POTASSIUM SERUM 4.1 MEQ/L (3.5-5.1); SODIUM LEVEL 138 MEQ/L (136-145); TOTAL PROTEIN 6.9 GM/DL (6.4-8.2); TRIGLYCERIDES LEVEL 142 MG/DL (<150)
[2021-12-01] MEDS: BUDESONIDE 0.25 MG/2 ML INHALATION SUSPENSION INH SCH ×2 (07:11→19:31)
[2021-12-01] MEDS: LEVEMIR (INSULIN DETEMIR) 1 UNITS/0.01ML SC SCH ×2 (08:23→21:41)
[2021-12-01] MEDS: HumaLOG INSULIN (NovoLOG) PER UNIT SC SCH ×4 (08:24→21:00)
[2021-12-01] MEDS: GABAPENTIN 300 MG CAP PO SCH ×2 (08:24→21:38)
[2021-12-01] MEDS: ENOXAPARIN 40MG/0.4ML SYRINGE (J1650 PER 10MG) SC SCH (08:24)
[2021-12-01] MEDS: ASPIRIN 81 MG CHEW TABLET PO SCH (08:25)
[2021-12-01] MEDS: FLUCONAZOLE 100 MG TAB PO SCH (08:25)
[2021-12-01] MEDS: predniSONE 5 MG TAB PO SCH (08:25)
[2021-12-01] MEDS: PANTOPRAZOLE 40MG TAB (PROTONIX) PO SCH (08:26)
[2021-12-01] MEDS: SERTRALINE HCL 50 MG TAB PO SCH (08:26)
[2021-12-01] MEDS: CLOPIDOGREL 75 MG TAB PO SCH (08:27)
[2021-12-01] MEDS: MIRALAX *UNIT DOSE* 17GM PACKET PO SCH (08:27)
[2021-12-01] MEDS: allopurinoL 100 MG TAB PO SCH (08:27)
[2021-12-01] MEDS: ISOSORBIDE MONONITRATE 10MG TABLET PO SCH ×2 (08:30→15:05)
[2021-12-01] MEDS: ATORVASTATIN 20 MG TAB PO SCH (21:38)
[2021-12-01] MEDS: RAMELTEON 8 MG TAB (ROZEREM) PO PRN (21:38)
[2021-12-01] MEDS: ACETAMINOPHEN TAB 650MG DOSE (2X325MG) GT PRN (21:41)
[2021-12-02] MEDS: IPRATROPIUM 0.5MG/ALBUTEROL 2.5MG INH SOL UD 3ML (DUONEB) NEB SCH ×4 (02:00→19:47)
[2021-12-02 03:54] VITALS: BP 110/57
[2021-12-02] MEDS: MEROPENEM INJ 1 GM in IV 1 EA IV SCH ×3 (05:04→21:30)
[2021-12-02 05:47] LABS: HEMATOCRIT 28.4 % (42.0-52.0); HEMOGLOBIN 9.3 g/dl (13.5-17.5); MEAN CORPUSCULAR HEMOGLOBIN 35.9 pg (27.0-33.0); MEAN CORPUSCULAR HGB CONC 32.7 g/dl (32.0-36.5); MEAN CORPUSCULAR VOLUME 109.7 fl (80.0-96.0); PLATELET COUNT, AUTOMATED 161 10^3/uL (150-450); RED BLOOD COUNT 2.59 10^6/uL (4.30-6.10)
[2021-12-02 06:25] LABS: ALBUMIN 2.7 GM/DL (3.2-5.2); ALT/SGPT 67 U/L (12-78); BILIRUBIN,TOTAL 0.3 MG/DL (0.2-1.0); BLOOD UREA NITROGEN 16 MG/DL (7-18); CALCIUM LEVEL 9.3 MG/DL (8.8-10.2); CARBON DIOXIDE LEVEL 33 MEQ/L (21-32); CHLORIDE LEVEL 102 MEQ/L (98-107); CHOLESTEROL LEVEL 93 MG/DL (< 200); CPK CREATINE PHOSPHOKINASE 21 U/L (39-308); CREATININE FOR GFR 0.54 MG/DL (0.70-1.30); GLOMERULAR FILTRATION RATE > 60.0 (>49); GLUCOSE, FASTING 217 MG/DL (70-100); LDH LACTATE DEHYDROGENASE 193 U/L (87-241); POTASSIUM SERUM 4.2 MEQ/L (3.5-5.1); SODIUM LEVEL 139 MEQ/L (136-145); TOTAL PROTEIN 5.8 GM/DL (6.4-8.2); TRIGLYCERIDES LEVEL 153 MG/DL (<150)
[2021-12-02] MEDS: BUDESONIDE 0.25 MG/2 ML INHALATION SUSPENSION INH SCH ×2 (07:08→19:47)
[2021-12-02 07:55] VITALS: BP 112/56
[2021-12-02] MEDS: MIRALAX *UNIT DOSE* 17GM PACKET PO SCH (08:01)
[2021-12-02] MEDS: ENOXAPARIN 40MG/0.4ML SYRINGE (J1650 PER 10MG) SC SCH (08:02)
[2021-12-02] MEDS: LEVEMIR (INSULIN DETEMIR) 1 UNITS/0.01ML SC SCH ×2 (08:02→21:30)
[2021-12-02] MEDS: ISOSORBIDE MONONITRATE 10MG TABLET PO SCH ×2 (08:02→14:01)
[2021-12-02] MEDS: ASPIRIN 81 MG CHEW TABLET PO SCH (08:03)
[2021-12-02] MEDS: allopurinoL 100 MG TAB PO SCH (08:03)
[2021-12-02] MEDS: HumaLOG INSULIN (NovoLOG) PER UNIT SC SCH ×4 (08:03→20:35)
[2021-12-02] MEDS: PANTOPRAZOLE 40MG TAB (PROTONIX) PO SCH (08:03)
[2021-12-02] MEDS: SERTRALINE HCL 50 MG TAB PO SCH (08:03)
[2021-12-02] MEDS: GABAPENTIN 300 MG CAP PO SCH ×2 (08:03→21:29)
[2021-12-02] MEDS: FLUCONAZOLE 100 MG TAB PO SCH (08:04)
[2021-12-02] MEDS: CLOPIDOGREL 75 MG TAB PO SCH (08:04)
[2021-12-02 16:26] VITALS: BP 112/54
[2021-12-02 19:43] VITALS: BP 116/63
[2021-12-02] MEDS: RAMELTEON 8 MG TAB (ROZEREM) PO PRN (21:28)
[2021-12-02] MEDS: ATORVASTATIN 20 MG TAB PO SCH (21:29)
[2021-12-03] MEDS: IPRATROPIUM 0.5MG/ALBUTEROL 2.5MG INH SOL UD 3ML (DUONEB) NEB SCH ×4 (03:03→20:14)
[2021-12-03] MEDS: ACETAMINOPHEN TAB 650MG DOSE (2X325MG) GT PRN (03:28)
[2021-12-03 04:15] VITALS: BP 141/72
[2021-12-03 05:32] LABS: HEMATOCRIT 27.6 % (42.0-52.0); MEAN CORPUSCULAR HEMOGLOBIN 34.9 pg (27.0-33.0); MEAN CORPUSCULAR HGB CONC 32.6 g/dl (32.0-36.5); PLATELET COUNT, AUTOMATED 157 10^3/uL (150-450); RED BLOOD COUNT 2.58 10^6/uL (4.30-6.10); WHITE BLOOD COUNT 7.3 10^3/uL (4.0-10.0)
[2021-12-03] MEDS: MEROPENEM INJ 1 GM in IV 1 EA IV SCH (05:57)
[2021-12-03 05:59] LABS: ALBUMIN 2.6 GM/DL (3.2-5.2); ALT/SGPT 61 U/L (12-78); BILIRUBIN,TOTAL 0.3 MG/DL (0.2-1.0); BLOOD UREA NITROGEN 16 MG/DL (7-18); CALCIUM LEVEL 8.8 MG/DL (8.8-10.2); CARBON DIOXIDE LEVEL 34 MEQ/L (21-32); CHLORIDE LEVEL 102 MEQ/L (98-107); CHOLESTEROL LEVEL 92 MG/DL (< 200); CPK CREATINE PHOSPHOKINASE 26 U/L (39-308); CREATININE FOR GFR 0.64 MG/DL (0.70-1.30); GLOMERULAR FILTRATION RATE > 60.0 (>49); GLUCOSE, FASTING 215 MG/DL (70-100); LDH LACTATE DEHYDROGENASE 260 U/L (87-241); POTASSIUM SERUM 4.4 MEQ/L (3.5-5.1); SODIUM LEVEL 140 MEQ/L (136-145); TOTAL PROTEIN 5.6 GM/DL (6.4-8.2); TRIGLYCERIDES LEVEL 170 MG/DL (<150)
[2021-12-03] MEDS: BUDESONIDE 0.25 MG/2 ML INHALATION SUSPENSION INH SCH ×2 (07:14→20:14)
[2021-12-03] MEDS: ENOXAPARIN 40MG/0.4ML SYRINGE (J1650 PER 10MG) SC SCH (08:07)
[2021-12-03] MEDS: MIRALAX *UNIT DOSE* 17GM PACKET PO SCH (08:07)
[2021-12-03] MEDS: HumaLOG INSULIN (NovoLOG) PER UNIT SC SCH ×4 (08:08→20:12)
[2021-12-03] MEDS: ASPIRIN 81 MG CHEW TABLET PO SCH (08:08)
[2021-12-03] MEDS: ISOSORBIDE MONONITRATE 10MG TABLET PO SCH ×2 (08:08→15:19)
[2021-12-03] MEDS: LEVEMIR (INSULIN DETEMIR) 1 UNITS/0.01ML SC SCH ×2 (08:08→20:46)
[2021-12-03] MEDS: CEFDINIR 300 MG CAP (OMNICEF) PO SCH ×2 (08:08→20:46)
[2021-12-03] MEDS: allopurinoL 100 MG TAB PO SCH (08:09)
[2021-12-03] MEDS: CLOPIDOGREL 75 MG TAB PO SCH (08:09)
[2021-12-03] MEDS: SERTRALINE HCL 50 MG TAB PO SCH (08:09)
[2021-12-03] MEDS: GABAPENTIN 300 MG CAP PO SCH ×2 (08:09→20:46)
[2021-12-03] MEDS: PANTOPRAZOLE 40MG TAB (PROTONIX) PO SCH (08:09)
[2021-12-03] MEDS: FLUCONAZOLE 100 MG TAB PO SCH (08:09)
[2021-12-03 08:16] VITALS: BP 140/70
[2021-12-03 12:04] VITALS: BP 138/68
[2021-12-03 20:00] VITALS: BP 120/66
[2021-12-03] MEDS: ATORVASTATIN 20 MG TAB PO SCH (20:46)
[2021-12-03] MEDS: RAMELTEON 8 MG TAB (ROZEREM) PO PRN (20:49)
[2021-12-04] MEDS: IPRATROPIUM 0.5MG/ALBUTEROL 2.5MG INH SOL UD 3ML (DUONEB) NEB SCH ×2 (02:34→07:26)
[2021-12-04 04:00] VITALS: BP 128/68
[2021-12-04 06:11] LABS: HEMATOCRIT 28.8 % (42.0-52.0); HEMOGLOBIN 9.3 g/dl (13.5-17.5); MEAN CORPUSCULAR HEMOGLOBIN 35.2 pg (27.0-33.0); MEAN CORPUSCULAR HGB CONC 32.3 g/dl (32.0-36.5); MEAN CORPUSCULAR VOLUME 109.1 fl (80.0-96.0); PLATELET COUNT, AUTOMATED 169 10^3/uL (150-450); RED BLOOD COUNT 2.64 10^6/uL (4.30-6.10)
[2021-12-04 06:35] LABS: ALBUMIN 2.6 GM/DL (3.2-5.2); ALT/SGPT 53 U/L (12-78); BILIRUBIN,TOTAL 0.3 MG/DL (0.2-1.0); BLOOD UREA NITROGEN 12 MG/DL (7-18); CARBON DIOXIDE LEVEL 29 MEQ/L (21-32); CHLORIDE LEVEL 105 MEQ/L (98-107); CHOLESTEROL LEVEL 90 MG/DL (< 200); CPK CREATINE PHOSPHOKINASE 32 U/L (39-308); CREATININE FOR GFR 0.56 MG/DL (0.70-1.30); GLOMERULAR FILTRATION RATE > 60.0 (>49); GLUCOSE, FASTING 155 MG/DL (70-100); LDH LACTATE DEHYDROGENASE 229 U/L (87-241); PHOSPHORUS LEVEL 3.7 MG/DL (2.5-4.9); POTASSIUM SERUM 4.2 MEQ/L (3.5-5.1); SODIUM LEVEL 139 MEQ/L (136-145); TOTAL PROTEIN 6.5 GM/DL (6.4-8.2); TRIGLYCERIDES LEVEL 137 MG/DL (<150)
[2021-12-04] MEDS: BUDESONIDE 0.25 MG/2 ML INHALATION SUSPENSION INH SCH (07:26)
[2021-12-04] MEDS: MIRALAX *UNIT DOSE* 17GM PACKET PO SCH (07:48)
[2021-12-04] MEDS: ENOXAPARIN 40MG/0.4ML SYRINGE (J1650 PER 10MG) SC SCH (07:49)
[2021-12-04] MEDS: LEVEMIR (INSULIN DETEMIR) 1 UNITS/0.01ML SC SCH (07:49)
[2021-12-04] MEDS: HumaLOG INSULIN (NovoLOG) PER UNIT SC SCH ×2 (07:49→12:21)
[2021-12-04 07:50] VITALS: BP 126/58
[2021-12-04] MEDS: SERTRALINE HCL 50 MG TAB PO SCH (07:50)
[2021-12-04] MEDS: GABAPENTIN 300 MG CAP PO SCH (07:50)
[2021-12-04] MEDS: ASPIRIN 81 MG CHEW TABLET PO SCH (07:50)
[2021-12-04 07:51] VITALS: BP 126/58
[2021-12-04] MEDS: CLOPIDOGREL 75 MG TAB PO SCH (07:51)
[2021-12-04] MEDS: CEFDINIR 300 MG CAP (OMNICEF) PO SCH (07:51)
[2021-12-04] MEDS: FLUCONAZOLE 100 MG TAB PO SCH (07:51)
[2021-12-04] MEDS: allopurinoL 100 MG TAB PO SCH (07:51)
[2021-12-04] MEDS: PANTOPRAZOLE 40MG TAB (PROTONIX) PO SCH (07:51)
[2021-12-04] MEDS: ISOSORBIDE MONONITRATE 10MG TABLET PO SCH (07:51)
[2021-12-04 12:12] VITALS: BP 119/65
[2021-12-04] MEDS ORDERED: CEFD300CAP PO (12:47)
[2021-12-04] MEDS ORDERED: FLUC100T3 PO (12:47)
== END 2021-12-04 14:29 | disposition home health service (06) | DRG 3 ==
LOC: EDBD 08:00 → M ED 08:00 → M ICU 10:37 → M PCU 11-25 19:42
PROVIDERS: ADMIT Internal Medicine Pulmonary Disease; ATTEND Internal Medicine
PROC: 0BH17EZ Insertion of Endotracheal Airway into Trachea, Via Natural or Artificial Opening (ICD-10-PCS; 2021-11-19)
PROC: 5A1945Z Respiratory Ventilation, 24-96 Consecutive Hours (ICD-10-PCS; 2021-11-19)
PROC: 0CBR0ZX Excision of Epiglottis, Open Approach, Diagnostic (ICD-10-PCS; 2021-11-22)
PROC: 0B110F4 Bypass Trachea to Cutaneous with Tracheostomy Device, Open Approach (ICD-10-PCS; principal; 2021-11-22 12:00)
PROC: 0CB Mouth and Throat, Excision (ICD-10-PCS; 2021-11-22 12:00)
DX: J96.22 Acute and chronic respiratory failure with hypercapnia (principal); J69.0 Pneumonitis due to inhalation of food and vomit; J96.11 Chronic respiratory failure with hypoxia; I10 Essential (primary) hypertension; J44.9 Chronic obstructive pulmonary disease, unspecified; E11.51 Type 2 diabetes mellitus with diabetic peripheral angiopathy without gangrene; C32.0 Malignant neoplasm of glottis; F10.10 Alcohol abuse, uncomplicated; E78.00 Pure hypercholesterolemia, unspecified; G47.33 Obstructive sleep apnea (adult) (pediatric); R13.10 Dysphagia, unspecified; B96.1 Klebsiella pneumoniae [K. pneumoniae] as the cause of diseases classified elsewhere; R49.0 Dysphonia; Z99.81 Dependence on supplemental oxygen; Z86.010 Personal history of colon polyps; Z87.891 Personal history of nicotine dependence; Z92.3 Personal history of irradiation; Z79.82 Long term (current) use of aspirin; Z88.1 Allergy status to other antibiotic agents; Z79.899 Other long term (current) drug therapy; Z79.4 Long term (current) use of insulin; Z79.02 Long term (current) use of antithrombotics/antiplatelets

== ENCOUNTER → 2021-12-18 | Outpatient (REF) | payer MEDICARE, MEDICAID ==
[~2021-12-18] MED LIST changes: -BUDESONIDE 0.25 MG/2 ML INHALATION SUSPENSION INH SCH; +CEFD300CAP PO; +FLUC100T3 PO; +INSUHUMDS SC
== END ==
LOC: M LAB REF 19:16
PROVIDERS: ATTEND Internal Medicine Pulmonary Disease
DX: J44.9 Chronic obstructive pulmonary disease, unspecified (principal)

== ENCOUNTER → 2021-12-21 | Outpatient (CLI) | payer MEDICARE, MEDICAID ==
[2021-12-21 15:53] LABS: BASO % 0.4 % (0.0-1.0); EOS # 0.2 10^3/uL (0.0-0.5); EOS % 2.1 % (0.0-3.0); HEMATOCRIT 38.5 % (42.0-52.0); HEMOGLOBIN 12.3 g/dl (13.5-17.5); LYMPH # 1.3 10^3/uL (1.5-5.0); LYMPH % 16.6 % (24.0-44.0); MEAN CORPUSCULAR HEMOGLOBIN 35.3 pg (27.0-33.0); MEAN CORPUSCULAR HGB CONC 31.9 g/dl (32.0-36.5); MEAN CORPUSCULAR VOLUME 110.6 fl (80.0-96.0); MONO # 0.7 10^3/uL (0.0-0.8); MONO % 8.5 % (2.0-8.0); NEUTROPHILS # 5.7 10^3/uL (1.5-8.5); NEUTROPHILS % 71.9 % (36.0-66.0); PLATELET COUNT, AUTOMATED 149 10^3/uL (150-450); RED BLOOD COUNT 3.48 10^6/uL (4.30-6.10); WHITE BLOOD COUNT 7.9 10^3/uL (4.0-10.0)
[2021-12-21 16:25] LABS: ALBUMIN 3.5 GM/DL (3.2-5.2); ALT/SGPT 33 U/L (12-78); BILIRUBIN,TOTAL 0.4 MG/DL (0.2-1.0); BLOOD UREA NITROGEN 11 MG/DL (7-18); CARBON DIOXIDE LEVEL 34 MEQ/L (21-32); CHLORIDE LEVEL 106 MEQ/L (98-107); CHOLESTEROL LEVEL 126 MG/DL (<200); CHOLESTEROL RISK RATIO 3.073 (<5); CREATININE FOR GFR 0.52 MG/DL (0.70-1.30); GLOMERULAR FILTRATION RATE > 60.0 (>49); GLUCOSE, FASTING 115 MG/DL (70-100); HDL CHOLESTEROL 41 MG/DL (>40); LDL CHOLESTEROL 47 MG/DL (<100); NON-HDL-C 85 MG/DL; SODIUM LEVEL 145 MEQ/L (136-145); TOTAL PROTEIN 6.7 GM/DL (6.4-8.2); TRIGLYCERIDES LEVEL 190 MG/DL (<150)
== END ==
LOC: M WUC 13:50
PROVIDERS: ATTEND Student in an Organized Health Care Education/Training Program
DX: I10 Essential (primary) hypertension (principal); E78.00 Pure hypercholesterolemia, unspecified; D64.9 Anemia, unspecified

== ENCOUNTER → 2021-12-28 | Outpatient (CLI) | payer MEDICARE, MEDICAID ==
[2021-12-28 12:46] LABS: ABG BASE EXCESS 2.7 (-2.0-2.0); ABG HCO3 27.9 MEQ/L (22.0-26.0); ABG O2 SATURATION 85.5 % (95.0-99.0); ABG PARTIAL PRESSURE CO2 45.3 mmHg (35.0-45.0); ABG PARTIAL PRESSURE O2 51.1 mmHg (75.0-100.0); ABG STANDARD HCO3 26.6 MEQ/L (22.0-26.0); ABG TOTAL CO2 29.3 MEQ/L (23.0-31.0); ABG pH (ARTERIAL) 7.407 UNITS (7.350-7.450)
== END ==
LOC: M LAB 12:20
PROVIDERS: ATTEND Internal Medicine Pulmonary Disease
DX: J44.9 Chronic obstructive pulmonary disease, unspecified (principal)

== ENCOUNTER → 2022-01-19 | Outpatient (REF) | payer MEDICARE, MEDICAID | LOC: M LAB REF 17:39 | PROVIDERS: ATTEND Internal Medicine Pulmonary Disease | DX: J44.9 Chronic obstructive pulmonary disease, unspecified (principal) ==

== ENCOUNTER → 2022-01-23 | Outpatient (CLI) | payer MEDICARE, MEDICAID | LOC: M ONCR 13:58 | PROVIDERS: ATTEND General Practice | DX: C32.0 Malignant neoplasm of glottis (principal); F17.210 Nicotine dependence, cigarettes, uncomplicated; Z79.82 Long term (current) use of aspirin; Z87.891 Personal history of nicotine dependence; Z88.1 Allergy status to other antibiotic agents; Z93.0 Tracheostomy status | CPT/HCPCS: 31575; G0463 ==

== ENCOUNTER → 2022-03-09 | Outpatient (CLI) | payer MEDICARE, MEDICAID ==
[~2022-03-09] MED LIST changes: +ALBU2.5V10 INH; +ALBU2.5V10 NEB; -ALBU83IN NEB; +BUDE0.5S6 INH; +FURO80TA2 PO; +GUAI600T54 PO; +IPRA0.00 NEB
[2022-03-09 17:20] LABS: BASO % 0.4 % (0.0-1.0); EOS # 0.3 10^3/uL (0.0-0.5); HEMOGLOBIN 10.8 g/dl (13.5-17.5); LYMPH # 1.4 10^3/uL (1.5-5.0); LYMPH % 16.5 % (24.0-44.0); MEAN CORPUSCULAR HEMOGLOBIN 33.4 pg (27.0-33.0); MEAN CORPUSCULAR HGB CONC 31.8 g/dl (32.0-36.5); MEAN CORPUSCULAR VOLUME 105.3 fl (80.0-96.0); MONO # 0.7 10^3/uL (0.0-0.8); MONO % 8.2 % (2.0-8.0); NEUTROPHILS % 71.4 % (36.0-66.0); PLATELET COUNT, AUTOMATED 215 10^3/uL (150-450); RED BLOOD COUNT 3.23 10^6/uL (4.30-6.10); WHITE BLOOD COUNT 8.4 10^3/uL (4.0-10.0)
== END ==
LOC: M PLAIMG 15:25
PROVIDERS: ATTEND Internal Medicine
DX: J44.1 Chronic obstructive pulmonary disease with (acute) exacerbation (principal)

== ENCOUNTER → 2022-03-15 | Outpatient (CLI) | payer MEDICARE, MEDICAID ==
[~2022-03-15] MED LIST changes: +BARIUM SULFATE 700 MG TABLET (E-Z-DISK) As Ordered ONE; +E-Z-PAQUE 96% w/w SUSP 176GM BTL As Ordered ONE; +VARIBAR NECTAR 40% w/v 240ML SUSP BTL As Ordered ONE; +VARIBAR PUDDING 40% w/v 230ML TUBE As Ordered ONE
== END ==
LOC: M RAD 11:13
PROVIDERS: ATTEND Otolaryngology
DX: C32.9 Malignant neoplasm of larynx, unspecified (principal)

== ENCOUNTER → 2022-03-15 | Outpatient (CLI) | payer MEDICARE, MEDICAID ==
[~2022-03-15] MED LIST changes: -BARIUM SULFATE 700 MG TABLET (E-Z-DISK) As Ordered ONE; -E-Z-PAQUE 96% w/w SUSP 176GM BTL As Ordered ONE; -VARIBAR NECTAR 40% w/v 240ML SUSP BTL As Ordered ONE; -VARIBAR PUDDING 40% w/v 230ML TUBE As Ordered ONE
[2022-03-15 12:37] LABS: ABG BASE EXCESS -0.3 (-2.0-2.0); ABG HCO3 23.6 MEQ/L (22.0-26.0); ABG O2 SATURATION 94.7 % (95.0-99.0); ABG PARTIAL PRESSURE O2 75.7 mmHg (75.0-100.0); ABG SITE ART LINE; ABG STANDARD HCO3 24.2 MEQ/L (22.0-26.0); ABG TOTAL CO2 24.7 MEQ/L (23.0-31.0); ABG pH (ARTERIAL) 7.434 UNITS (7.350-7.450)
== END ==
LOC: M LAB 11:17
PROVIDERS: ATTEND Internal Medicine Pulmonary Disease
DX: J44.9 Chronic obstructive pulmonary disease, unspecified (principal)

== ENCOUNTER → 2022-03-23 | Outpatient (CLI) | payer MEDICARE, MEDICAID ==
[2022-03-23 16:00] LABS: BASO % 0.1 % (0.0-1.0); EOS # 0.2 10^3/uL (0.0-0.5); EOS % 1.5 % (0.0-3.0); HEMATOCRIT 41.3 % (42.0-52.0); HEMOGLOBIN 13.8 g/dl (13.5-17.5); LYMPH # 1.8 10^3/uL (1.5-5.0); LYMPH % 16.2 % (24.0-44.0); MEAN CORPUSCULAR HEMOGLOBIN 35.6 pg (27.0-33.0); MEAN CORPUSCULAR HGB CONC 33.4 g/dl (32.0-36.5); MEAN CORPUSCULAR VOLUME 106.4 fl (80.0-96.0); MONO % 9.2 % (2.0-8.0); NEUTROPHILS # 8.1 10^3/uL (1.5-8.5); NEUTROPHILS % 72.3 % (36.0-66.0); PLATELET COUNT, AUTOMATED 137 10^3/uL (150-450); RED BLOOD COUNT 3.88 10^6/uL (4.30-6.10); WHITE BLOOD COUNT 11.2 10^3/uL (4.0-10.0)
[2022-03-23 18:21] LABS: MALB URINE SIEMENS 50.5 MG/L; MAU/CREAT RATIO 33.6 MCG/MG (0.0-30.0)
[2022-03-23 18:36] LABS: ALBUMIN 3.8 GM/DL (3.2-5.2); ALT/SGPT 38 U/L (12-78); BILIRUBIN,TOTAL 0.6 MG/DL (0.2-1.0); BLOOD UREA NITROGEN 23 MG/DL (7-18); CALCIUM LEVEL 9.3 MG/DL (8.8-10.2); CARBON DIOXIDE LEVEL 26 MEQ/L (21-32); CHLORIDE LEVEL 107 MEQ/L (98-107); CREATININE FOR GFR 0.69 MG/DL (0.70-1.30); GLOMERULAR FILTRATION RATE > 60.0 (>49); GLUCOSE, FASTING 130 MG/DL (70-100); POTASSIUM SERUM 4.6 MEQ/L (3.5-5.1); SODIUM LEVEL 138 MEQ/L (136-145); TOTAL PROTEIN 7.1 GM/DL (6.4-8.2)
== END ==
LOC: M WUC 13:10
PROVIDERS: ATTEND Student in an Organized Health Care Education/Training Program
DX: E11.9 Type 2 diabetes mellitus without complications (principal)

== ENCOUNTER → 2022-04-05 | Outpatient (CLI) | payer MEDICARE, MEDICAID | LOC: M LABSMTC 11:00 | PROVIDERS: ATTEND Anesthesiology | DX: Z01.818 Encounter for other preprocedural examination (principal); Z11.52 Encounter for screening for COVID-19 ==

== ENCOUNTER 2022-04-10 09:26 | Day surgery (SDC) | payer MEDICARE, MEDICAID ==
[~2022-04-10] VITALS: Ht 162.6 cm; Wt 86.7 kg
[2022-04-10] MEDS ORDERED: LR 1,000 ML IV SCH ×2 (10:10→12:50)
[2022-04-10] MEDS ORDERED: fentaNYL 100 MCG/2 ML INJECTION As Ordered ONE (10:16)
[2022-04-10] MEDS ORDERED: LIDOCAINE 2% 100MG/5ML SDV (FOR ANES.) As Ordered ONE (10:17)
[2022-04-10] MEDS ORDERED: OXYMETAZOLINE 0.05% NASAL SPRAY (AFRIN) As Ordered ONE (10:52)
[2022-04-10] MEDS ORDERED: METHYLENE BLUE 0.5% (5MG/ML) 10 ML AMP (PROVAYBLUE) As Ordered ONE (10:52)
[2022-04-10] MEDS ORDERED: ePHEDrine SULFATE 25 MG/5 ML(5MG/ML) SYRINGE As Ordered ONE (11:27)
[2022-04-10] MEDS ORDERED: PHENYLephrine 500MCG 5ML (100MCG/ML) SYRINGE As Ordered ONE (11:27)
[2022-04-10] MEDS ORDERED: propofoL 200 MG/20 ML VIAL As Ordered ONE (11:29)
[2022-04-10] MEDS ORDERED: ROCURONIUM BROMIDE 50 MG/5 ML VIAL As Ordered ONE (11:29)
[2022-04-10] MEDS ORDERED: GLYCOPYRROLATE INJ 0.2 MG/ML 2 ML VIAL As Ordered ONE (11:30)
[2022-04-10] MEDS ORDERED: SUGAMMADEX SODIUM 500 MG/5 ML VIAL (BRIDION) As Ordered ONE (11:34)
[2022-04-10] MEDS ORDERED: ONDANSETRON 4MG 2ML VIAL IV PRN (11:40)
[2022-04-10] MEDS ORDERED: MORPHINE 2 MG/ML 1ML VIAL IV PRN (11:40)
[2022-04-10] MEDS ORDERED: fentaNYL 100 MCG/2 ML INJECTION IV PRN (11:40)
[2022-04-10] MEDS ORDERED: oxyCODONE 5MG TAB PO PRN (11:40)
[2022-04-10] MEDS ORDERED: HYDROcodone/APAP LIQUID 7.5-325MG 15ML UDC (LORTAB ELIXIR) PO PRN (12:50)
[2022-04-10 14:20] VITALS: BP 133/69
== END 2022-04-10 14:22 | disposition home or self-care (01) ==
LOC: M SDC 09:26
PROVIDERS: ATTEND Otolaryngology
DX: C32.9 Malignant neoplasm of larynx, unspecified (principal); Z43.0 Encounter for attention to tracheostomy; Z92.3 Personal history of irradiation; K21.9 Gastro-esophageal reflux disease without esophagitis; K59.00 Constipation, unspecified; K60.2 Anal fissure, unspecified; R12 Heartburn; K64.8 Other hemorrhoids; K57.90 Diverticulosis of intestine, part unspecified, without perforation or abscess without bleeding; M47.16 Other spondylosis with myelopathy, lumbar region; M47.12 Other spondylosis with myelopathy, cervical region; M46.1 Sacroiliitis, not elsewhere classified; M54.81 Occipital neuralgia; D37.030 Neoplasm of uncertain behavior of the parotid salivary glands; J44.9 Chronic obstructive pulmonary disease, unspecified; R09.02 Hypoxemia; M10.9 Gout, unspecified; I10 Essential (primary) hypertension; E78.00 Pure hypercholesterolemia, unspecified; F32.A Depression, unspecified; F41.9 Anxiety disorder, unspecified; M19.90 Unspecified osteoarthritis, unspecified site; I25.10 Atherosclerotic heart disease of native coronary artery without angina pectoris; F17.210 Nicotine dependence, cigarettes, uncomplicated; F10.20 Alcohol dependence, uncomplicated; Z79.899 Other long term (current) drug therapy; Z79.82 Long term (current) use of aspirin; Z79.2 Long term (current) use of antibiotics; Z79.51 Long term (current) use of inhaled steroids; Z79.4 Long term (current) use of insulin; Z79.02 Long term (current) use of antithrombotics/antiplatelets; Z88.1 Allergy status to other antibiotic agents
CPT/HCPCS: 31502; 31576; 88305; J2370; J3010; Q9968

== ENCOUNTER → 2022-04-23 | Outpatient (CLI) | payer MEDICARE, MEDICAID | LOC: M RAD 13:48 | PROVIDERS: ATTEND Student in an Organized Health Care Education/Training Program | DX: Z12.2 Encounter for screening for malignant neoplasm of respiratory organs (principal); F17.210 Nicotine dependence, cigarettes, uncomplicated ==

== ENCOUNTER → 2022-05-08 | Outpatient (CLI) | payer MEDICARE, MEDICAID | LOC: M ONCR 10:49 | PROVIDERS: ATTEND General Practice | DX: C32.0 Malignant neoplasm of glottis (principal); J96.10 Chronic respiratory failure, unspecified whether with hypoxia or hypercapnia; Z72.89 Other problems related to lifestyle; Z79.02 Long term (current) use of antithrombotics/antiplatelets; Z79.2 Long term (current) use of antibiotics; Z79.4 Long term (current) use of insulin; Z79.51 Long term (current) use of inhaled steroids; Z79.82 Long term (current) use of aspirin; Z79.899 Other long term (current) drug therapy; Z87.891 Personal history of nicotine dependence; Z88.1 Allergy status to other antibiotic agents; Z93.0 Tracheostomy status; Z92.3 Personal history of irradiation ==

== ENCOUNTER → 2022-05-10 | Outpatient (CLI) | payer MEDICARE, MEDICAID | LOC: M PLARAD 10:52 | PROVIDERS: ATTEND Physician Assistant | DX: C32.9 Malignant neoplasm of larynx, unspecified (principal) | CPT/HCPCS: 78816; A9552 ==

== ENCOUNTER 2022-06-26 14:44 | Emergency (ER) | payer MEDICARE, MEDICAID ==
[~2022-06-26] VITALS: Ht 162.6 cm; Wt 88.3 kg
[2022-06-26 14:47] VITALS: BP 141/73
[2022-06-26] MEDS ORDERED: AMOX500T2 (15:04)
[2022-06-26] MEDS ORDERED: ACET300T48 (15:04)
== END 2022-06-26 16:17 | disposition left against medical advice (07) ==
LOC: M ED 14:44
DX: Z53.21 Procedure and treatment not carried out due to patient leaving prior to being seen by health care provider (principal)

== ENCOUNTER → 2022-08-07 | Outpatient (CLI) | payer MEDICARE, MEDICAID ==
[~2022-08-07] MED LIST changes: +ACET300T48; +AMOX500T2; +BENZ-18 PO; +DOXY-444 PO; +VALA1TAB5 PO
== END ==
LOC: M ONCR 13:03
PROVIDERS: ATTEND General Practice
DX: C32.0 Malignant neoplasm of glottis (principal); F17.210 Nicotine dependence, cigarettes, uncomplicated; Z72.89 Other problems related to lifestyle; Z79.02 Long term (current) use of antithrombotics/antiplatelets; Z79.4 Long term (current) use of insulin; Z79.51 Long term (current) use of inhaled steroids; Z79.82 Long term (current) use of aspirin; Z79.899 Other long term (current) drug therapy; Z88.1 Allergy status to other antibiotic agents; Z92.3 Personal history of irradiation; Z93.0 Tracheostomy status
CPT/HCPCS: 31575; G0463

== ENCOUNTER 2022-08-31 11:20 | Outpatient (RCR) | payer MEDICARE, MEDICAID ==
[2022-09-05] MEDS ORDERED: ACET300T48 PO (16:24)
== END 2022-09-01 ==
LOC: M ONCR 11:20
PROVIDERS: ATTEND General Practice
DX: C32.0 Malignant neoplasm of glottis (principal)

== ENCOUNTER → 2022-10-02 | Outpatient (RCR) | payer MEDICARE, MEDICAID ==
[~2022-10-02] MED LIST changes: +ACET300T48 PO; +OXYC-517 PO
== END ==
LOC: M ONCR 09-04 11:32
PROVIDERS: ATTEND General Practice
DX: C32.0 Malignant neoplasm of glottis (principal)

== ENCOUNTER 2022-10-15 13:00 | Outpatient (RCR) | payer MEDICARE, MEDICAID ==
[~2022-10-15 13:00] MED LIST changes: +AZIT-12 PO; +DEXA2TA PO; +HYDR4TAB PO
[2022-10-30] MEDS ORDERED: HYDR4TAB PO (13:19)
== END 2022-10-30 ==
LOC: M ONCR 13:00
PROVIDERS: ATTEND General Practice
DX: C32.0 Malignant neoplasm of glottis (principal)

== ENCOUNTER → 2022-10-30 | Outpatient (CLI) | payer MEDICARE, MEDICAID | LOC: M ONCR 12:50 | PROVIDERS: ATTEND General Practice | DX: C32.0 Malignant neoplasm of glottis (principal); Z79.891 Long term (current) use of opiate analgesic; Z92.3 Personal history of irradiation ==

== ENCOUNTER → 2022-11-13 | Outpatient (CLI) | payer MEDICARE, MEDICAID ==
[~2022-11-13] MED LIST changes: +HYDR-4279 PO; +LACT20EL PO
== END ==
LOC: M ONCR 13:02
PROVIDERS: ATTEND General Practice
DX: C32.0 Malignant neoplasm of glottis (principal); K59.03 Drug induced constipation; Z92.3 Personal history of irradiation

== ENCOUNTER 2022-11-23 06:07 | Emergency (ER) | payer MEDICARE, MEDICAID ==
[2022-11-23] MEDS ORDERED: TRANEXAMIC ACID 100 MG/ML 10ML VIAL As Ordered ONE (06:27)
[2022-11-23] MEDS ORDERED: TRANEXAMIC ACID INJection 1,000 MG in NS 100 ML IV ONE (07:00)
[2022-11-23 07:11] LABS: BASO % 0.4 % (0.0-1.0); EOS # 0.2 10^3/uL (0.0-0.5); EOS % 3.1 % (0.0-3.0); HEMATOCRIT 39.7 % (42.0-52.0); HEMOGLOBIN 12.8 g/dl (13.5-17.5); LYMPH # 0.9 10^3/uL (1.5-5.0); LYMPH % 11.1 % (24.0-44.0); MEAN CORPUSCULAR HEMOGLOBIN 35.1 pg (27.0-33.0); MEAN CORPUSCULAR HGB CONC 32.2 g/dl (32.0-36.5); MEAN CORPUSCULAR VOLUME 108.8 fl (80.0-96.0); MONO # 0.8 10^3/uL (0.0-0.8); MONO % 9.8 % (2.0-8.0); NEUTROPHILS # 5.9 10^3/uL (1.5-8.5); NEUTROPHILS % 75.3 % (36.0-66.0); PLATELET COUNT, AUTOMATED 144 10^3/uL (150-450); RED BLOOD COUNT 3.65 10^6/uL (4.30-6.10); WHITE BLOOD COUNT 7.8 10^3/uL (4.0-10.0)
[2022-11-23 07:20] LABS: INR 0.95; PROTHROMBIN TIME 12.9 SECONDS (12.5-14.5)
[2022-11-23 07:23] LABS: PARTIAL THROMBOPLASTIN TIME 30.6 SECONDS (24.8-34.2)
[2022-11-23 07:29] LABS: ALBUMIN 3.3 G/DL (3.2-5.2); ALKALINE PHOSPHATASE 131 U/L (46-116); ALT/SGPT 109 U/L (7.0-40); AST/SGOT 72 U/L (<34); BILIRUBIN,TOTAL 0.3 MG/DL (0.3-1.2); BLOOD UREA NITROGEN 25 MG/DL (9-23); CALCIUM LEVEL 8.4 MG/DL (8.3-10.6); CARBON DIOXIDE LEVEL 27 MMOL/L (20-31); CHLORIDE LEVEL 104 MMOL/L (98-107); CREATININE FOR GFR 0.85 MG/DL (0.70-1.30); GLOMERULAR FILTRATION RATE > 60.0 (>49); GLUCOSE, FASTING 145 MG/DL (74-106); MAGNESIUM LEVEL 1.9 MG/DL (1.8-2.4); POTASSIUM SERUM 4.1 MMOL/L (3.5-5.1); SODIUM LEVEL 139 MMOL/L (136-145); TOTAL PROTEIN 6.3 G/DL (5.7-8.2)
[2022-11-23 07:33] LABS: RSV AMPLIFICATION NEGATIVE (NEGATIVE)
[2022-11-23] MEDS ORDERED: ISOVUE-370 76% 100ML VIAL As Ordered ONE (07:39)
[2022-11-23 07:46] VITALS: BP 153/65
[2022-11-23] MEDS ORDERED: cefTRIAXone SOD 2 GM in D5W MINI-BAG PLUS 50 ML IV ONE (08:35)
[2022-11-23] MEDS ORDERED: AZITHROMYCIN INJ 500 MG, VIAL MATE ADAPTER 1 EACH in D5W 250 ML IV ONE (08:35)
[2022-11-23] MEDS ORDERED: MUCI60TA7 PO (08:36)
[2022-11-23] MEDS ORDERED: BENZ-18 PO (08:36)
[2022-11-23] MEDS ORDERED: MIRA3350 PO (08:36)
[2022-11-23] MEDS ORDERED: IPRA0.00 INH (08:36)
[2022-11-23] MEDS ORDERED: FOLI1TAB11 PO (08:36)
[2022-11-23] MEDS ORDERED: HOME MED LIST COMPLETE! XX SCH (08:40)
[2022-11-27] MEDS ORDERED: HYDR-4279 PO (13:45)
[2022-11-27] MEDS ORDERED: HYDR4TAB PO (13:45)
[2022-11-27] MEDS ORDERED: PRED20TA PO (13:47)
== END 2022-11-23 12:58 | disposition home or self-care (01) ==
LOC: M ED 06:07
DX: C32.9 Malignant neoplasm of larynx, unspecified (principal); R04.2 Hemoptysis; Z51.5 Encounter for palliative care; Z88.1 Allergy status to other antibiotic agents; Z79.899 Other long term (current) drug therapy; Z79.82 Long term (current) use of aspirin; Z79.4 Long term (current) use of insulin
CPT/HCPCS: 70498; 71045; 71275; 80053; 83735; 85025; 85610; 85730; 86850; 86900; 86901; 87631; 93005; 96365; 96367; 96375; 99284; J0456; J0696; Q9967

== ENCOUNTER → 2022-11-27 | Outpatient (CLI) | payer MEDICARE, MEDICAID ==
[~2022-11-27] MED LIST changes: +IPRA0.00 INH; +MIRA3350 PO
== END ==
LOC: M ONCR 13:02
PROVIDERS: ATTEND General Practice
DX: C32.0 Malignant neoplasm of glottis (principal); Z66 Do not resuscitate; Z79.4 Long term (current) use of insulin; Z92.3 Personal history of irradiation; Z93.0 Tracheostomy status

== ENCOUNTER → 2022-12-18 | Outpatient (CLI) | payer MEDICARE, MEDICAID ==
[~2022-12-18] MED LIST changes: +ISOS1TAB12 PO; +PENT400T47 PO; +[UNRECOGNIZED DRUG - CODE] PO
== END ==
LOC: M ONCR 12:47
PROVIDERS: ATTEND General Practice
DX: C32.0 Malignant neoplasm of glottis (principal); R13.10 Dysphagia, unspecified; Z72.89 Other problems related to lifestyle; Z79.02 Long term (current) use of antithrombotics/antiplatelets; Z79.82 Long term (current) use of aspirin; Z79.84 Long term (current) use of oral hypoglycemic drugs; Z79.899 Other long term (current) drug therapy; Z87.891 Personal history of nicotine dependence; Z92.3 Personal history of irradiation; Z93.0 Tracheostomy status

== ENCOUNTER 2022-12-19 17:01 | Inpatient (IN) | payer MEDICARE, MEDICAID ==
[~2022-12-19] VITALS: Ht 162.6 cm; Wt 90.7 kg
[~2022-12-19 17:01] MED LIST changes: -ISOS1TAB12 PO
[2022-12-19] MEDS ORDERED: HYDROMORPHONE HCL 0.5 MG/ 0.5 ML SYRINGE IV PRN (18:40)
[2022-12-19] MEDS ORDERED: PIPERACILLIN/TAZOBACTAM SOD 3.375 GM in D5W MINI-BAG PLUS 50 ML IV ONE (18:40)
[2022-12-19 20:02] LABS: EOS # 0.1 10^3/uL (0.0-0.5); EOS % 0.6 % (0.0-3.0); HEMATOCRIT 40.5 % (42.0-52.0); HEMOGLOBIN 13.5 g/dl (13.5-17.5); LYMPH # 0.9 10^3/uL (1.5-5.0); MEAN CORPUSCULAR HEMOGLOBIN 35.3 pg (27.0-33.0); MEAN CORPUSCULAR HGB CONC 33.3 g/dl (32.0-36.5); MONO # 0.6 10^3/uL (0.0-0.8); MONO % 7.3 % (2.0-8.0); NEUTROPHILS # 7.1 10^3/uL (1.5-8.5); NEUTROPHILS % 81.6 % (36.0-66.0); PLATELET COUNT, AUTOMATED 134 10^3/uL (150-450); RED BLOOD COUNT 3.82 10^6/uL (4.30-6.10); WHITE BLOOD COUNT 8.6 10^3/uL (4.0-10.0)
[2022-12-19 20:30] LABS: ALKALINE PHOSPHATASE 108 U/L (46-116); ALT/SGPT 67 U/L (7.0-40); AST/SGOT 38 U/L (<34); BILIRUBIN,DIRECT 0.3 MG/DL (<0.4); BILIRUBIN,TOTAL 0.8 MG/DL (0.3-1.2); BLOOD UREA NITROGEN 17 MG/DL (9-23); CALCIUM LEVEL 8.8 MG/DL (8.3-10.6); CARBON DIOXIDE LEVEL 32 MMOL/L (20-31); CHLORIDE LEVEL 101 MMOL/L (98-107); CREATININE FOR GFR 0.68 MG/DL (0.70-1.30); GLOMERULAR FILTRATION RATE > 60.0 (>49); GLUCOSE, FASTING 109 MG/DL (74-106); POTASSIUM SERUM 4.2 MMOL/L (3.5-5.1); SODIUM LEVEL 136 MMOL/L (136-145); TOTAL PROTEIN 6.6 G/DL (5.7-8.2)
[2022-12-19 20:36] LABS: INR 0.97; PARTIAL THROMBOPLASTIN TIME 27.2 SECONDS (24.8-34.2); PROTHROMBIN TIME 13.1 SECONDS (12.5-14.5)
[2022-12-19 20:49] LABS: RSV AMPLIFICATION NEGATIVE (NEGATIVE)
[2022-12-19] MEDS ORDERED: ISOVUE-370 76% 100ML VIAL As Ordered ONE (21:06)
[2022-12-20] VITALS (22 sets, daily range): BP systolic 106–137; BP diastolic 59–89; O2SAT 91–97
[2022-12-20] MEDS ORDERED: DEXTROSE 50% 50ML SYRINGE IV PRN (00:20)
[2022-12-20] MEDS ORDERED: IPRATROPIUM 0.5MG/ALBUTEROL 2.5MG INH SOL UD 3ML (DUONEB) NEB PRN (00:20)
[2022-12-20] MEDS ORDERED: GLUCOSE 4GM CHEW TABLET PO PRN (00:20)
[2022-12-20] MEDS ORDERED: guaiFENesin SYRUP 200MG 10ML UDC PO PRN (00:20)
[2022-12-20] MEDS ORDERED: GLUCAGON INJ 1MG VIAL SC PRN (00:20)
[2022-12-20] MEDS ORDERED: VANCOMYCIN HCL 1,000 MG, VIAL MATE ADAPTER 1 EACH in NS 250 ML IV ONE ×2 (01:00→02:00)
[2022-12-20] MEDS: PIPERACILLIN/TAZOBACTAM SOD 4.5 GM in D5W MINI-BAG PLUS 50 ML IV SCH ×4 (03:51→20:27)
[2022-12-20 04:56] LABS: HEMATOCRIT 39.6 % (42.0-52.0); HEMOGLOBIN 12.9 g/dl (13.5-17.5); MEAN CORPUSCULAR HEMOGLOBIN 34.9 pg (27.0-33.0); MEAN CORPUSCULAR HGB CONC 32.6 g/dl (32.0-36.5); PLATELET COUNT, AUTOMATED 137 10^3/uL (150-450); WHITE BLOOD COUNT 11.4 10^3/uL (4.0-10.0)
[2022-12-20 05:16] LABS: BLOOD UREA NITROGEN 13 MG/DL (9-23); CALCIUM LEVEL 8.6 MG/DL (8.3-10.6); CARBON DIOXIDE LEVEL 32 MMOL/L (20-31); CHLORIDE LEVEL 100 MMOL/L (98-107); CREATININE FOR GFR 0.73 MG/DL (0.70-1.30); GLOMERULAR FILTRATION RATE > 60.0 (>49); GLUCOSE, FASTING 118 MG/DL (74-106); POTASSIUM SERUM 4.3 MMOL/L (3.5-5.1); SODIUM LEVEL 136 MMOL/L (136-145)
[2022-12-20] MEDS: INSULIN LISPRO (NovoLOG) PER UNIT SC SCH ×4 (05:40→18:14)
[2022-12-20] MEDS: HYDROMORPHONE HCL 0.5 MG/ 0.5 ML SYRINGE IV PRN (05:45)
[2022-12-20] MEDS ORDERED: ISOS1TAB12 PO (06:57)
[2022-12-20] MEDS ORDERED: GUAI600T54 PO (06:57)
[2022-12-20] MEDS ORDERED: HOME MED LIST COMPLETE! XX SCH (07:00)
[2022-12-20] MEDS: VANCOMYCIN HCL 1,000 MG, VIAL MATE ADAPTER 1 EACH in NS 250 ML IV SCH ×2 (10:38→18:14)
[2022-12-20 12:20] LABS: HEMATOCRIT 39.2 % (42.0-52.0); HEMOGLOBIN 12.7 g/dl (13.5-17.5)
[2022-12-20] MEDS ORDERED: LACTULOSE 20GM/30ML SYRUP UDC PO PRN (20:10)
[2022-12-20] MEDS ORDERED: BENZONATATE 100MG CAPSULE PO PRN (20:10)
[2022-12-20] MEDS ORDERED: HYDROmorphone 4MG TABLET PO PRN (20:10)
[2022-12-20 20:28] LABS: HEMATOCRIT 37.6 % (42.0-52.0); HEMOGLOBIN 12.4 g/dl (13.5-17.5)
[2022-12-20] MEDS: GABAPENTIN 300 MG CAP PO SCH (20:54)
[2022-12-20] MEDS: guaiFENesin ER 600 MG TAB PO SCH (20:54)
[2022-12-20] MEDS ORDERED: LEVEMIR (INSULIN DETEMIR) 1 UNITS/0.01ML SC SCH (21:00)
[2022-12-20] MEDS ORDERED: OMEPRAZOLE 20MG CAP PO SCH (21:00)
[2022-12-20] MEDS ORDERED: CYCLOBENZAPRINE 10MG TABLET PO SCH (21:00)
[2022-12-20] MEDS ORDERED: ATORVASTATIN 20 MG TAB PO SCH (21:00)
[2022-12-20] MEDS ORDERED: LOSARTAN 50MG TABLET PO SCH (21:00)
[2022-12-20] MEDS: PENTOXIFYLLINE 400MG TAB PO SCH (21:16)
[2022-12-20] MEDS: ISOSORBIDE MONONITRATE 10MG TABLET PO SCH (21:16)
[2022-12-21] VITALS (20 sets, daily range): BP systolic 108–122; BP diastolic 57–67; O2SAT 90–96
[2022-12-21] MEDS: VANCOMYCIN HCL 1,000 MG, VIAL MATE ADAPTER 1 EACH in NS 250 ML IV SCH ×3 (02:18→18:24)
[2022-12-21] MEDS: PIPERACILLIN/TAZOBACTAM SOD 4.5 GM in D5W MINI-BAG PLUS 50 ML IV SCH ×3 (04:07→15:05)
[2022-12-21] MEDS: HYDROMORPHONE HCL 0.5 MG/ 0.5 ML SYRINGE IV PRN ×2 (05:05→08:21)
[2022-12-21] MEDS: INSULIN LISPRO (NovoLOG) PER UNIT SC SCH ×3 (07:30→18:12)
[2022-12-21] MEDS: IPRATROPIUM 0.5MG/ALBUTEROL 2.5MG INH SOL UD 3ML (DUONEB) INH SCH ×2 (07:42→19:45)
[2022-12-21] MEDS: BUDESONIDE 0.5 MG/2 ML INHALATION SUSPENSION INH SCH ×2 (07:42→19:45)
[2022-12-21] MEDS: GABAPENTIN 300 MG CAP PO SCH (08:19)
[2022-12-21] MEDS: guaiFENesin ER 600 MG TAB PO SCH (08:19)
[2022-12-21] MEDS: PENTOXIFYLLINE 400MG TAB PO SCH (08:20)
[2022-12-21] MEDS: ISOSORBIDE MONONITRATE 10MG TABLET PO SCH (08:20)
[2022-12-21] MEDS ORDERED: ASPIRIN 81MG ENTERIC TABLET PO SCH (09:00)
[2022-12-21] MEDS ORDERED: SERTRALINE 100 MG TAB PO SCH (09:00)
[2022-12-21] MEDS ORDERED: FOLIC ACID 1MG TAB PO SCH (09:00)
[2022-12-21] MEDS ORDERED: CYCLOBENZAPRINE 5MG TABLET PO SCH (09:00)
[2022-12-21] MEDS ORDERED: CLOPIDOGREL 75 MG TAB PO SCH (09:00)
[2022-12-21] MEDS ORDERED: allopurinoL 100 MG TAB PO SCH (09:00)
[2022-12-21 09:43] LABS: VANCOMYCIN LEVEL TROUGH 14.9 UG/ML (10.0-20.0)
[2022-12-21 09:44] LABS: BLOOD UREA NITROGEN 13 MG/DL (9-23); CALCIUM LEVEL 8.3 MG/DL (8.3-10.6); CARBON DIOXIDE LEVEL 30 MMOL/L (20-31); CHLORIDE LEVEL 104 MMOL/L (98-107); CREATININE FOR GFR 0.71 MG/DL (0.70-1.30); GLOMERULAR FILTRATION RATE > 60.0 (>49); GLUCOSE, FASTING 137 MG/DL (74-106); POTASSIUM SERUM 4.2 MMOL/L (3.5-5.1); SODIUM LEVEL 140 MMOL/L (136-145)
[2022-12-21] MEDS ORDERED: MIDAZOLAM INJ 2MG/2ML VIAL As Ordered ONE (13:19)
[2022-12-21] MEDS ORDERED: ROCURONIUM BROMIDE 50MG/5ML VIAL As Ordered ONE (13:19)
[2022-12-21] MEDS ORDERED: propofoL 200 MG/20 ML VIAL As Ordered ONE (13:19)
[2022-12-21] MEDS ORDERED: LIDOCAINE 2% 100MG/5ML SDV (FOR ANES.) As Ordered ONE (13:19)
[2022-12-21] MEDS ORDERED: fentaNYL 100 MCG/2 ML INJECTION As Ordered ONE (13:20)
[2022-12-21] MEDS ORDERED: EPINEPHrine 1MG/10ML SYRINGE 1.5IN As Ordered ONE (13:23)
[2022-12-21] MEDS ORDERED: THROMBIN 5,000 UNITS VIAL As Ordered ONE (13:23)
[2022-12-21] MEDS ORDERED: LIDOCAINE VISCOUS 2% SOLN 15ML UDC As Ordered ONE (13:23)
[2022-12-21] MEDS ORDERED: LIDOCAINE 1% MDV 20ML VIAL As Ordered ONE (13:23)
[2022-12-21] MEDS ORDERED: DOXY100C3 PO (18:44)
== END 2022-12-21 19:47 | disposition home or self-care (01) | DRG 204 ==
LOC: M ED 17:01 → EEVIPCON 22:52 → M ED INP 22:52 → M PCU 12-20
PROVIDERS: ADMIT Family Medicine; ATTEND Internal Medicine Nephrology
PROC: 0B9B8ZZ Drainage of Left Lower Lobe Bronchus, Via Natural or Artificial Opening Endoscopic (ICD-10-PCS; principal; 2022-12-21 13:45)
DX: R04.2 Hemoptysis (principal); J98.11 Atelectasis; J44.9 Chronic obstructive pulmonary disease, unspecified; I10 Essential (primary) hypertension; I25.10 Atherosclerotic heart disease of native coronary artery without angina pectoris; E11.40 Type 2 diabetes mellitus with diabetic neuropathy, unspecified; M10.9 Gout, unspecified; K21.9 Gastro-esophageal reflux disease without esophagitis; R91.1 Solitary pulmonary nodule; K57.90 Diverticulosis of intestine, part unspecified, without perforation or abscess without bleeding; K74.60 Unspecified cirrhosis of liver; G47.00 Insomnia, unspecified; J02.9 Acute pharyngitis, unspecified; C32.0 Malignant neoplasm of glottis; G47.30 Sleep apnea, unspecified; E11.51 Type 2 diabetes mellitus with diabetic peripheral angiopathy without gangrene; F32.A Depression, unspecified; K59.09 Other constipation; D64.9 Anemia, unspecified; Z93.0 Tracheostomy status; Z79.82 Long term (current) use of aspirin; Z79.02 Long term (current) use of antithrombotics/antiplatelets; Z79.4 Long term (current) use of insulin; Z79.899 Other long term (current) drug therapy; Z88.1 Allergy status to other antibiotic agents; Z86.711 Personal history of pulmonary embolism; Z87.891 Personal history of nicotine dependence; Z92.3 Personal history of irradiation; Z95.5 Presence of coronary angioplasty implant and graft

== ENCOUNTER → 2023-01-03 | Outpatient (REF) | payer MEDICARE, MEDICAID ==
[~2023-01-03] MED LIST changes: +DOXY100C3 PO; +ISOS1TAB12 PO; -LOSA100T45 PO; +LOSA100T46 PO
== END ==
LOC: M LAB REF 17:15
PROVIDERS: ATTEND Internal Medicine Pulmonary Disease
DX: Z93.0 Tracheostomy status (principal)

== ENCOUNTER → 2023-01-07 | Outpatient (CLI) | payer MEDICARE, MEDICAID ==
[2023-01-07 18:17] LABS: BASO % 0.2 % (0.0-1.0); EOS # 0.1 10^3/uL (0.0-0.5); EOS % 0.7 % (0.0-3.0); HEMATOCRIT 40.5 % (42.0-52.0); HEMOGLOBIN 13.2 g/dl (13.5-17.5); LYMPH # 0.9 10^3/uL (1.5-5.0); LYMPH % 9.7 % (24.0-44.0); MEAN CORPUSCULAR HEMOGLOBIN 34.6 pg (27.0-33.0); MEAN CORPUSCULAR HGB CONC 32.6 g/dl (32.0-36.5); MEAN CORPUSCULAR VOLUME 106.3 fl (80.0-96.0); MONO # 0.7 10^3/uL (0.0-0.8); MONO % 7.4 % (2.0-8.0); NEUTROPHILS # 7.7 10^3/uL (1.5-8.5); NEUTROPHILS % 81.5 % (36.0-66.0); PLATELET COUNT, AUTOMATED 161 10^3/uL (150-450); RED BLOOD COUNT 3.81 10^6/uL (4.30-6.10); WHITE BLOOD COUNT 9.5 10^3/uL (4.0-10.0)
[2023-01-07 18:38] LABS: BLOOD UREA NITROGEN 15 MG/DL (9-23); CALCIUM LEVEL 9.8 MG/DL (8.3-10.6); CARBON DIOXIDE LEVEL 28 MMOL/L (20-31); CHLORIDE LEVEL 103 MMOL/L (98-107); GLOMERULAR FILTRATION RATE > 60.0 (>49); GLUCOSE, FASTING 95 MG/DL (74-106); SODIUM LEVEL 138 MMOL/L (136-145)
== END ==
LOC: M LAB 17:31
PROVIDERS: ATTEND Student in an Organized Health Care Education/Training Program
DX: D64.9 Anemia, unspecified (principal)

== ENCOUNTER → 2023-01-07 | Outpatient (REF) | payer MEDICARE, MEDICAID | LOC: M SFHCPLAZ 16:51 | PROVIDERS: ATTEND Family Medicine | DX: D64.9 Anemia, unspecified (principal) ==

== ENCOUNTER → 2023-01-10 | Outpatient (REF) | payer MEDICARE, MEDICAID | LOC: M LAB REF 14:25 | PROVIDERS: ATTEND Internal Medicine Pulmonary Disease | DX: J44.9 Chronic obstructive pulmonary disease, unspecified (principal); R05.9 Cough, unspecified ==

== ENCOUNTER → 2023-01-25 | Outpatient (CLI) | payer MEDICARE, MEDICAID ==
[~2023-01-25] MED LIST changes: +HYDR12TA2 PO
== END ==
LOC: M ONCR 14:27
PROVIDERS: ATTEND Radiology Radiation Oncology
DX: C32.9 Malignant neoplasm of larynx, unspecified (principal); Z92.3 Personal history of irradiation; Z51.5 Encounter for palliative care; J95.09 Other tracheostomy complication; R58 Hemorrhage, not elsewhere classified; J39.8 Other specified diseases of upper respiratory tract; R52 Pain, unspecified; Z79.891 Long term (current) use of opiate analgesic

== ENCOUNTER → 2023-02-05 | Outpatient (REF) | payer MEDICARE, MEDICAID | LOC: M LAB REF 18:22 | PROVIDERS: ATTEND Otolaryngology | DX: Z93.0 Tracheostomy status (principal); C33 Malignant neoplasm of trachea ==

== ENCOUNTER → 2023-02-15 | Outpatient (CLI) | payer MEDICARE, MEDICAID ==
[~2023-02-15] MED LIST changes: +HYDR16TA3 PO
== END ==
LOC: M ONCR 13:29
PROVIDERS: ATTEND General Practice
DX: C32.0 Malignant neoplasm of glottis (principal); J38.4 Edema of larynx; R49.0 Dysphonia; J95.09 Other tracheostomy complication; F17.210 Nicotine dependence, cigarettes, uncomplicated; Z92.3 Personal history of irradiation; Z71.2 Person consulting for explanation of examination or test findings; Z79.891 Long term (current) use of opiate analgesic; Z79.899 Other long term (current) drug therapy; Z79.51 Long term (current) use of inhaled steroids; Z88.1 Allergy status to other antibiotic agents

== ENCOUNTER 2023-02-27 13:30 | Outpatient (RCR) | payer MEDICARE, MEDICAID | END 2023-03-01 | LOC: M ST 13:30 | PROVIDERS: ATTEND General Practice | DX: C32.9 Malignant neoplasm of larynx, unspecified (principal) ==

== ENCOUNTER → 2023-03-27 | Outpatient (CLI) | payer MEDICARE, MEDICAID ==
[~2023-03-27] MED LIST changes: +BACTDSTA; +FENT1PAT25 TD; +LIDO15SO MT; +MORP1SOL PO; +NARC1SPR NARES
== END ==
LOC: M ONCR 08:02
PROVIDERS: ATTEND General Practice
DX: C32.0 Malignant neoplasm of glottis (principal); F17.210 Nicotine dependence, cigarettes, uncomplicated; Z71.2 Person consulting for explanation of examination or test findings; Z72.89 Other problems related to lifestyle; Z79.4 Long term (current) use of insulin; Z79.52 Long term (current) use of systemic steroids; Z79.899 Other long term (current) drug therapy; Z88.1 Allergy status to other antibiotic agents; Z92.3 Personal history of irradiation; Z93.0 Tracheostomy status

== ENCOUNTER → 2023-03-27 | Outpatient (CLI) | payer MEDICARE, MEDICAID | LOC: M PAL 08:01 | PROVIDERS: ATTEND Nurse Practitioner Adult Health | DX: C32.0 Malignant neoplasm of glottis (principal); C78.39 Secondary malignant neoplasm of other respiratory organs; J95.09 Other tracheostomy complication; R13.10 Dysphagia, unspecified; R07.0 Pain in throat; L30.8 Other specified dermatitis; G47.8 Other sleep disorders; R53.83 Other fatigue; K59.00 Constipation, unspecified; Z92.3 Personal history of irradiation; Z79.891 Long term (current) use of opiate analgesic; Z79.899 Other long term (current) drug therapy; Z79.51 Long term (current) use of inhaled steroids; Z88.1 Allergy status to other antibiotic agents; Z87.891 Personal history of nicotine dependence; Z80.1 Family history of malignant neoplasm of trachea, bronchus and lung | CPT/HCPCS: 93005; G0463 ==

== ENCOUNTER → 2023-04-03 | Outpatient (CLI) | payer MEDICARE, MEDICAID | LOC: M PAL 11:28 | PROVIDERS: ATTEND Nurse Practitioner Adult Health | DX: C32.0 Malignant neoplasm of glottis (principal); C78.39 Secondary malignant neoplasm of other respiratory organs; J95.09 Other tracheostomy complication; R13.10 Dysphagia, unspecified; E11.9 Type 2 diabetes mellitus without complications; R07.0 Pain in throat; I10 Essential (primary) hypertension; K21.9 Gastro-esophageal reflux disease without esophagitis; J44.9 Chronic obstructive pulmonary disease, unspecified; F32.A Depression, unspecified; L30.9 Dermatitis, unspecified; Z51.5 Encounter for palliative care; Z92.3 Personal history of irradiation; Z79.891 Long term (current) use of opiate analgesic; Z79.899 Other long term (current) drug therapy; Z79.51 Long term (current) use of inhaled steroids; Z88.1 Allergy status to other antibiotic agents; Z87.891 Personal history of nicotine dependence; Z80.1 Family history of malignant neoplasm of trachea, bronchus and lung; Z79.4 Long term (current) use of insulin ==